=== PATIENT | male | born 1945 | race Caucasian/White ===

== ENCOUNTER → 2017-01-26 | Outpatient (CLI) | payer OTHER | END | disposition home or self-care (01) | LOC: XY 10:12 | PROVIDERS: ATTEND Family Medicine | DX: I65.21 Occlusion and stenosis of right carotid artery (principal); I10 Essential (primary) hypertension; I25.10 Atherosclerotic heart disease of native coronary artery without angina pectoris | CPT/HCPCS: 93886 ==

== ENCOUNTER → 2017-01-26 | Outpatient (CLI) | payer OTHER ==
[2017-01-26 11:04] LABS: Urine RBC None Seen /hpf (0 - 3)
[2017-01-26 11:15] LABS: Basophils # (auto) 0 uL; Basophils % (auto) 0.6 % (0.0-2.0); CONDITION Y; Eosinophils # (auto) 0.1 uL; Eosinophils % (auto) 2.3 % (0.0-7.0); Hematocrit 46.5 % (41.0-53.0); Lymphocytes # (auto) 1.7 uL; Lymphocytes % (auto) 27.6 % (10.0-50.0); Mean Corpuscular Hemoglobin 31.6 pg (28.0-32.0); Mean Corpuscular Hgb Conc. 34.5 g/dL (32.0-36.0); Mean Corpuscular Volume 91.5 fL (80.0-100.0); Mean Platelet Volume 10.7 fL (7.4-10.4); Monocytes # (auto) 0.5 uL; Neutrophils # (auto) 3.7 uL; Neutrophils % (auto) 61.5 % (37.0-80.0); Platelet Count (auto) 154 10^3/uL (140-450); Red Cell Distribution Width 14.3 % (11.6-16.0)
[2017-01-26 11:36] LABS: Urine Bilirubin Negative (Negative); Urine Blood Negative /uL (Negative); Urine Color Yellow (Yellow); Urine Glucose Normal (Normal); Urine Ketone Negative (Negative); Urine Mucus FEW (None Seen); Urine Nitrite Negative (Negative); Urine Urobilinogen Normal (Negative); Urine pH 5.5 (5.0-8.0)
[2017-01-26 11:38] LABS: Albumin 3.9 g/dL (3.4-5.0); BUN/Creatinine Ratio 16.4; Bilirubin, Total 2.5 mg/dL (0.2-1.0); Total Protein 7.4 g/dL (6.4-8.2)
== END | disposition home or self-care (01) ==
LOC: LAB 10:46
PROVIDERS: ATTEND Family Medicine
DX: E78.5 Hyperlipidemia, unspecified (principal); E55.9 Vitamin D deficiency, unspecified; R73.09 Other abnormal glucose
CPT/HCPCS: 36415; 80053; 80061; 81001; 82306; 82607; 83036; 84153; 85025

== ENCOUNTER → 2017-11-07 | Outpatient (CLI) | payer OTHER | END | disposition home or self-care (01) | LOC: LAB 10:49 | PROVIDERS: ATTEND Nurse Practitioner | DX: N39.0 Urinary tract infection, site not specified (principal); I25.10 Atherosclerotic heart disease of native coronary artery without angina pectoris; I10 Essential (primary) hypertension; E78.5 Hyperlipidemia, unspecified | CPT/HCPCS: 87086 ==

== ENCOUNTER 2018-01-10 16:36 | Emergency (ER) | payer OTHER ==
[~2018-01-10] VITALS: Ht 188 cm; Wt 96.2 kg
[2018-01-10] MEDS ORDERED: HYDROcodone-ACET 10/325MG TAB PO ONE (20:00)
[2018-01-10 21:16] VITALS: BP 125/80
== END 2018-01-10 21:42 | disposition home or self-care (01) ==
LOC: ER 16:36
DX: S76.011A Strain of muscle, fascia and tendon of right hip, initial encounter (principal); S39.012A Strain of muscle, fascia and tendon of lower back, initial encounter; S09.90XA Unspecified injury of head, initial encounter; M54.17 Radiculopathy, lumbosacral region; Z90.89 Acquired absence of other organs; W01.0XXA Fall on same level from slipping, tripping and stumbling without subsequent striking against object, initial encounter; Y93.89 Activity, other specified; Y99.8 Other external cause status; Y92.89 Other specified places as the place of occurrence of the external cause
CPT/HCPCS: 70450; 72131; 72170

== ENCOUNTER → 2018-02-09 | Outpatient (CLI) | payer OTHER ==
[2018-02-09 11:28] LABS: Basophils # (auto) 0 uL; Basophils % (auto) 0.7 % (0.0-2.0); Eosinophils # (auto) 0.1 uL; Eosinophils % (auto) 2.1 % (0.0-7.0); Hemoglobin 15.6 g/dL (13.5-17.5); Lymphocytes # (auto) 1.7 uL; Lymphocytes % (auto) 32.6 % (10.0-50.0); Mean Corpuscular Hemoglobin 31.4 pg (28.0-32.0); Mean Corpuscular Hgb Conc. 33.8 g/dL (32.0-36.0); Mean Corpuscular Volume 92.9 fL (80.0-100.0); Monocytes # (auto) 0.4 uL; Monocytes % (auto) 8.5 % (0.0-12.0); Neutrophils # (auto) 2.9 uL; Neutrophils % (auto) 56.1 % (37.0-80.0); Nucleated Red Blood Cells % 0.1 %; Platelet Count (auto) 127 10^3/uL (140-450); Red Blood Cells 4.95 10^6/uL (4.5-5.90); Red Cell Distribution Width 13.9 % (11.8-14.3); White Blood Cell 5.2 10^3/uL (4.4-10.8)
[2018-02-09 11:29] LABS: Urine Bacteria NONE SEEN /hpf (None Seen); Urine Blood Negative /uL (Negative); Urine Specific Gravity 1.015 (1.001-1.035); Urine WBC <1 /hpf (0 - 3)
[2018-02-09 11:46] LABS: Albumin 3.8 g/dL (3.4-5.0); BUN/Creatinine Ratio 18.5; Bilirubin, Total 1.6 mg/dL (0.2-1.0); Calcium 8.6 mg/dL (8.5-10.1); Potassium 4.1 mmol/L (3.5-5.1); Total Protein 7.2 g/dL (6.4-8.2)
== END | disposition home or self-care (01) ==
LOC: LAB 11:05
PROVIDERS: ATTEND Family Medicine
DX: Z00.01 Encounter for general adult medical examination with abnormal findings (principal); E55.9 Vitamin D deficiency, unspecified; M54.5 Low back pain; Z86.19 Personal history of other infectious and parasitic diseases
CPT/HCPCS: 36415; 80053; 80061; 81001; 82306; 85025

== ENCOUNTER → 2018-03-12 | Outpatient (CLI) | payer OTHER ==
[2018-03-12 16:24] LABS: Basophils # (auto) 0 uL; Basophils % (auto) 0.7 % (0.0-2.0); Eosinophils # (auto) 0.1 uL; Eosinophils % (auto) 1.5 % (0.0-7.0); Hematocrit 46.3 % (41.0-53.0); Lymphocytes # (auto) 1.5 uL; Lymphocytes % (auto) 24.8 % (10.0-50.0); Mean Corpuscular Hemoglobin 32.3 pg (28.0-32.0); Mean Corpuscular Hgb Conc. 34.6 g/dL (32.0-36.0); Mean Corpuscular Volume 93.3 fL (80.0-100.0); Monocytes # (auto) 0.4 uL; Monocytes % (auto) 7.1 % (0.0-12.0); Neutrophils # (auto) 4.1 uL; Neutrophils % (auto) 65.9 % (37.0-80.0); Platelet Count (auto) 135 10^3/uL (140-450); Red Blood Cells 4.96 10^6/uL (4.5-5.90); Red Cell Distribution Width 13.8 % (11.8-14.3); White Blood Cell 6.2 10^3/uL (4.4-10.8)
[2018-03-12 17:57] LABS: BUN/Creatinine Ratio 22.9; Calcium 8.7 mg/dL (8.5-10.1); Potassium 4.3 mmol/L (3.5-5.1)
== END | disposition home or self-care (01) ==
LOC: LAB 16:07
PROVIDERS: ATTEND Family Medicine
DX: Z12.5 Encounter for screening for malignant neoplasm of prostate (principal); D69.6 Thrombocytopenia, unspecified
CPT/HCPCS: 36415; 80048; 84153; 85025

== ENCOUNTER 2018-03-13 14:24 | Inpatient (IN) | payer OTHER ==
[~2018-03-13] VITALS: Ht 370.8 cm; Wt 99.8 kg
[2018-03-13 15:32] LABS: Basophils # (auto) 0 uL; Basophils % (auto) 0.6 % (0.0-2.0); Eosinophils # (auto) 0.1 uL; Eosinophils % (auto) 1.6 % (0.0-7.0); Hematocrit 46.1 % (41.0-53.0); Hemoglobin 15.7 g/dL (13.5-17.5); Lymphocytes # (auto) 1.6 uL; Lymphocytes % (auto) 24.2 % (10.0-50.0); Mean Corpuscular Hgb Conc. 34.2 g/dL (32.0-36.0); Mean Corpuscular Volume 93.7 fL (80.0-100.0); Monocytes # (auto) 0.5 uL; Monocytes % (auto) 7.9 % (0.0-12.0); Neutrophils # (auto) 4.2 uL; Neutrophils % (auto) 65.7 % (37.0-80.0); Nucleated Red Blood Cells % 0.1 %; Platelet Count (auto) 125 10^3/uL (140-450); Red Blood Cells 4.92 10^6/uL (4.5-5.90); Red Cell Distribution Width 13.8 % (11.8-14.3); White Blood Cell 6.5 10^3/uL (4.4-10.8)
[2018-03-13 15:46] LABS: Alanine Aminotransferase 31 U/L (16-61); Albumin 3.6 g/dL (3.4-5.0); Anion Gap 10 (5-15); Aspartate Aminotransferase 25 U/L (15-37); BUN/Creatinine Ratio 19.2; Blood Urea Nitrogen 24 mg/dL (7-18); Calcium 8.3 mg/dL (8.5-10.1); Carbon Dioxide 23 mmol/L (21-32); Chloride 106 mmol/L (98-107); GFR African American 73 mL/min; GFR Non-African American 60 mL/min; Glucose 116 mg/dL (74-106); Magnesium 2.2 mg/dL (1.6-2.6); Potassium 4.2 mmol/L (3.5-5.1); Sodium 139 mmol/L (136-145)
[2018-03-13 15:51] LABS: Alkaline Phosphatase 43 U/L (45-117); Bilirubin, Total 1.8 mg/dL (0.2-1.0)
[2018-03-13] MEDS ORDERED: DOCUSATE SOD 100 MG CAP PO PRN (16:45)
[2018-03-13] MEDS ORDERED: ACETAMINOPHEN/CODEINE#3 (300/30mg) TAB PO PRN (16:45)
[2018-03-13] MEDS ORDERED: ONDANSETRON HCL 4 MG/2 ML VIAL IV PRN (16:45)
[2018-03-13] MEDS ORDERED: ACETAMINOPHEN 325 MG TAB PO PRN (16:45)
[2018-03-13] MEDS ORDERED: MORPHINE SULFATE 4 MG/ML SYR/VIAL IV PRN (16:45)
[2018-03-13] MEDS ORDERED: TEMAZEPAM 15 MG CAP PO PRN (16:45)
[2018-03-13 21:20] VITALS: BP 144/77
[2018-03-13 22:00] VITALS: BP 144/77
[2018-03-13] MEDS: FAMOTIDINE 20 MG TAB PO SCH (22:00)
[2018-03-14] MEDS: SODIUM CHLOR 0.9% PF (SALINE LOCK) 10ML VIAL/SYR IV SCH ×3 (00:55→14:00)
[2018-03-14] MEDS: HYDROcodone-ACET 5/325MG TAB PO PRN ×2 (01:00→09:23)
[2018-03-14 04:05] VITALS: BP 152/92
[2018-03-14 05:00] VITALS: BP 152/92
[2018-03-14 06:06] LABS: Basophils # (auto) 0 uL; Basophils % (auto) 0.5 % (0.0-2.0); Eosinophils # (auto) 0.1 uL; Eosinophils % (auto) 1.4 % (0.0-7.0); Hematocrit 44.1 % (41.0-53.0); Hemoglobin 15.3 g/dL (13.5-17.5); Lymphocytes # (auto) 1.9 uL; Lymphocytes % (auto) 25.3 % (10.0-50.0); Mean Corpuscular Hemoglobin 32.3 pg (28.0-32.0); Mean Corpuscular Hgb Conc. 34.8 g/dL (32.0-36.0); Monocytes # (auto) 0.6 uL; Monocytes % (auto) 8.8 % (0.0-12.0); Neutrophils # (auto) 4.7 uL; Nucleated Red Blood Cells % 0.1 %; Platelet Count (auto) 113 10^3/uL (140-450); Red Blood Cells 4.74 10^6/uL (4.5-5.90); White Blood Cell 7.4 10^3/uL (4.4-10.8)
[2018-03-14 06:09] LABS: Albumin 3.7 g/dL (3.4-5.0); BUN/Creatinine Ratio 19.7; Bilirubin, Total 1.8 mg/dL (0.2-1.0); Potassium 4.4 mmol/L (3.5-5.1); Total Protein 6.8 g/dL (6.4-8.2)
[2018-03-14 08:40] VITALS: BP 145/89
[2018-03-14] MEDS: FAMOTIDINE 20 MG TAB PO SCH (09:24)
[2018-03-14] MEDS ORDERED: MULTIPLE VITAMIN TAB PO SCH (10:00)
[2018-03-14 12:05] VITALS: BP 142/74
== END 2018-03-14 16:20 | disposition home or self-care (01) | DRG 605 ==
LOC: EDBD 14:24 → ER 14:26 → OVERFLOW 14:27 → CENTRAL 21:22
PROVIDERS: ADMIT Internal Medicine; ATTEND Internal Medicine
DX: S70.01XA Contusion of right hip, initial encounter (principal); D69.6 Thrombocytopenia, unspecified; E83.51 Hypocalcemia; G89.29 Other chronic pain; M19.90 Unspecified osteoarthritis, unspecified site; N18.3 Chronic kidney disease, stage 3 (moderate); M48.07 Spinal stenosis, lumbosacral region; W18.39XA Other fall on same level, initial encounter; M54.5 Low back pain; Z83.3 Family history of diabetes mellitus; Z82.49 Family history of ischemic heart disease and other diseases of the circulatory system; Z90.49 Acquired absence of other specified parts of digestive tract; Y93.89 Activity, other specified; Y92.89 Other specified places as the place of occurrence of the external cause; Y99.8 Other external cause status
CPT/HCPCS: 36415; 70450; 71045; 72131; 73502; 73700; 80053; 83735; 84484; 85025; 93005; 94761

== ENCOUNTER → 2018-05-02 | Outpatient (CLI) | payer OTHER ==
[2018-05-02 12:50] LABS: Calcium 8.8 mg/dL (8.5-10.1)
[2018-05-02 12:52] LABS: BUN/Creatinine Ratio 29.2
== END | disposition home or self-care (01) ==
LOC: LAB 11:30
PROVIDERS: ATTEND Urology
DX: N40.1 Benign prostatic hyperplasia with lower urinary tract symptoms (principal)
CPT/HCPCS: 36415; 80048; 84153; 84403

== ENCOUNTER → 2019-05-24 | Outpatient (CLI) | payer OTHER ==
[2019-05-24 09:03] LABS: Basophils # (auto) 0 uL; Basophils % (auto) 0.9 % (0.0-2.0); Eosinophils # (auto) 0.2 uL; Hematocrit 45.5 % (41.0-53.0); Hemoglobin 15.4 g/dL (13.5-17.5); Lymphocytes # (auto) 1.4 uL; Lymphocytes % (auto) 26.7 % (10.0-50.0); Mean Corpuscular Hemoglobin 31.7 pg (28.0-32.0); Mean Corpuscular Hgb Conc. 33.8 g/dL (32.0-36.0); Mean Corpuscular Volume 93.8 fL (80.0-100.0); Monocytes # (auto) 0.5 uL; Monocytes % (auto) 8.6 % (0.0-12.0); Neutrophils # (auto) 3.2 uL; Neutrophils % (auto) 60.8 % (37.0-80.0); Nucleated Red Blood Cells % 0.1 %; Platelet Count (auto) 141 10^3/uL (140-450); Red Blood Cells 4.86 10^6/uL (4.5-5.90); Red Cell Distribution Width 13.9 % (11.8-14.3); White Blood Cell 5.3 10^3/uL (4.4-10.8)
[2019-05-24 09:11] LABS: Urine Bacteria NONE SEEN /hpf (None Seen); Urine Blood Negative /uL (Negative); Urine Mucus FEW (None Seen); Urine Specific Gravity 1.022 (1.001-1.035); Urine WBC <1 /hpf (0 - 3)
[2019-05-24 09:47] LABS: Albumin 3.7 g/dL (3.4-5.0); Calcium 8.7 mg/dL (8.5-10.1); Potassium 3.9 mmol/L (3.5-5.1)
[2019-05-24 09:53] LABS: BUN/Creatinine Ratio 22.9; Bilirubin, Total 1.6 mg/dL (0.2-1.0); Total Protein 6.9 g/dL (6.4-8.2)
[2019-05-24 09:55] LABS: Prostate Specific Antigen 0.33 ng/mL (0.0-4.0)
== END | disposition home or self-care (01) ==
LOC: LAB 08:34
PROVIDERS: ATTEND Family Medicine
DX: N40.1 Benign prostatic hyperplasia with lower urinary tract symptoms (principal); E55.9 Vitamin D deficiency, unspecified; R25.1 Tremor, unspecified; M17.10 Unilateral primary osteoarthritis, unspecified knee
CPT/HCPCS: 36415; 80053; 80061; 81001; 82306; 82607; 84153; 85025

== ENCOUNTER → 2019-10-07 | Outpatient (CLI) | payer OTHER | END | disposition home or self-care (01) | LOC: LAB 08:15 | PROVIDERS: ATTEND Urology | DX: N40.1 Benign prostatic hyperplasia with lower urinary tract symptoms (principal) | CPT/HCPCS: 84153 ==

== ENCOUNTER 2020-03-09 18:11 | Emergency (ER) | payer OTHER ==
[~2020-03-09] VITALS: Ht 188 cm; Wt 98.9 kg
[2020-03-09 19:49] VITALS: BP 136/71
[2020-03-09 19:57] LABS: Basophils # (auto) 0 10 ^3/uL (0-0.2); Basophils % (auto) 0.6 % (0.0-2.0); Eosinophils # (auto) 0.1 10 ^3/uL (0-0.8); Eosinophils % (auto) 1.8 % (0.0-7.0); Hemoglobin 14.9 g/dL (13.5-17.5); Lymphocytes # (auto) 1.4 10 ^3/uL (0.4-5.4); Lymphocytes % (auto) 23.9 % (10.0-50.0); Mean Corpuscular Hemoglobin 32.3 pg (28.0-32.0); Mean Corpuscular Hgb Conc. 34.7 g/dL (32.0-36.0); Mean Corpuscular Volume 93.2 fL (80.0-100.0); Monocytes # (auto) 0.4 10 ^3/uL (0-1.3); Monocytes % (auto) 7.2 % (0.0-12.0); Neutrophils # (auto) 3.9 10 ^3/uL (1.6-8.6); Neutrophils % (auto) 66.5 % (37.0-80.0); Nucleated Red Blood Cells % 0.3 %; Platelet Count (auto) 123 10^3/uL (140-450); Red Blood Cells 4.61 10^6/uL (4.5-5.90); White Blood Cell 5.8 10^3/uL (4.4-10.8)
[2020-03-09 20:18] LABS: Alanine Aminotransferase 27 U/L (16-61); Albumin 3.5 g/dL (3.4-5.0); Anion Gap 6 (5-15); Aspartate Aminotransferase 22 U/L (15-37); Blood Urea Nitrogen 26 mg/dL (7-18); Calcium 8.4 mg/dL (8.5-10.1); Carbon Dioxide 25 mmol/L (21-32); Chloride 109 mmol/L (98-107); GFR African American 94 mL/min; GFR Non-African American 78 mL/min; Glucose 101 mg/dL (74-106); Potassium 3.9 mmol/L (3.5-5.1); Sodium 140 mmol/L (136-145)
[2020-03-09 20:24] LABS: Alkaline Phosphatase 42 U/L (45-117); Bilirubin, Total 1.7 mg/dL (0.2-1.0); Total Protein 6.4 g/dL (6.4-8.2)
== END 2020-03-09 19:56 | disposition home or self-care (01) ==
LOC: EDBD 18:11 → ER 18:11
DX: H81.4 Vertigo of central origin (principal); Z90.49 Acquired absence of other specified parts of digestive tract
CPT/HCPCS: 36415; 70450; 80053; 84484; 85025; 93005

== ENCOUNTER 2020-03-13 17:17 | Inpatient (IN) | payer OTHER ==
[~2020-03-13] VITALS: Ht 188 cm; Wt 95.6 kg
[2020-03-13 17:49] LABS: Basophils # (auto) 0.1 10 ^3/uL (0-0.2); Basophils % (auto) 0.7 % (0.0-2.0); Eosinophils # (auto) 0.1 10 ^3/uL (0-0.8); Eosinophils % (auto) 1.3 % (0.0-7.0); Hematocrit 49.2 % (41.0-53.0); Hemoglobin 16.9 g/dL (13.5-17.5); Lymphocytes # (auto) 1.9 10 ^3/uL (0.4-5.4); Lymphocytes % (auto) 22.6 % (10.0-50.0); Mean Corpuscular Hgb Conc. 34.3 g/dL (32.0-36.0); Mean Corpuscular Volume 93.2 fL (80.0-100.0); Monocytes # (auto) 0.6 10 ^3/uL (0-1.3); Neutrophils # (auto) 5.6 10 ^3/uL (1.6-8.6); Neutrophils % (auto) 68.4 % (37.0-80.0); Nucleated Red Blood Cells % 0.1 %; Platelet Count (auto) 156 10^3/uL (140-450); Red Blood Cells 5.28 10^6/uL (4.5-5.90); White Blood Cell 8.2 10^3/uL (4.4-10.8)
[2020-03-13 18:04] LABS: INR 1.08 (0.9-1.15); Partial Thromboplastin Time 26.4 sec (23.0-31.2)
[2020-03-13 18:10] LABS: Alanine Aminotransferase 31 U/L (16-61); Albumin 3.9 g/dL (3.4-5.0); Anion Gap 7 (5-15); Aspartate Aminotransferase 18 U/L (15-37); BUN/Creatinine Ratio 17.8; Blood Alcohol < 3.0 mg/dL (0-5); Blood Urea Nitrogen 26 mg/dL (7-18); Calcium 9.5 mg/dL (8.5-10.1); Carbon Dioxide 25 mmol/L (21-32); Chloride 107 mmol/L (98-107); GFR African American 61 mL/min; GFR Non-African American 50 mL/min; Glucose 135 mg/dL (74-106); Magnesium 2.3 mg/dL (1.6-2.6); Potassium 3.9 mmol/L (3.5-5.1); Sodium 139 mmol/L (136-145)
[2020-03-13 18:18] LABS: Alkaline Phosphatase 47 U/L (45-117); Bilirubin, Total 2.5 mg/dL (0.2-1.0); Total Protein 7.3 g/dL (6.4-8.2)
[2020-03-13 19:38] LABS: Urine Bacteria NONE SEEN /hpf (None Seen); Urine Blood Negative /uL (Negative); Urine Hyaline Cast MANY /lpf (0 - 2); Urine Mucus MODERATE (None Seen); Urine Specific Gravity 1.033 (1.001-1.035); Urine WBC 2 /hpf (0 - 3)
[2020-03-13] MEDS ORDERED: ACETAMINOPHEN 325 MG TAB PO ONE (19:45)
[2020-03-13] MEDS ORDERED: ACETAMINOPHEN 325 MG TAB PO PRN (22:15)
[2020-03-13] MEDS ORDERED: DOCUSATE SOD 100 MG CAP PO PRN (22:15)
[2020-03-13] MEDS ORDERED: MORPHINE SULF INJ 2 MG/ML SYRINGE 1ML IV PRN (22:15)
[2020-03-13] MEDS ORDERED: ONDANSETRON HCL 4 MG/2 ML VIAL IV PRN (22:15)
[2020-03-13] MEDS ORDERED: NITROGLYCERIN 0.4 MG SL TAB SL PRN (22:15)
[2020-03-13 23:12] VITALS: BP 159/79
[2020-03-14] MEDS ORDERED: FINA5TAB4 PO (01:01)
[2020-03-14] MEDS ORDERED: TAM04C PO (01:01)
[2020-03-14] MEDS ORDERED: PRIM50TA29 PO (01:01)
[2020-03-14 06:06] VITALS: BP 140/74
[2020-03-14 06:16] LABS: Basophils # (auto) 0 10 ^3/uL (0-0.2); Basophils % (auto) 0.7 % (0.0-2.0); Eosinophils # (auto) 0.2 10 ^3/uL (0-0.8); Eosinophils % (auto) 2.6 % (0.0-7.0); Hematocrit 43.2 % (41.0-53.0); Hemoglobin 14.6 g/dL (13.5-17.5); Lymphocytes # (auto) 2.2 10 ^3/uL (0.4-5.4); Lymphocytes % (auto) 35.7 % (10.0-50.0); Mean Corpuscular Hemoglobin 31.9 pg (28.0-32.0); Mean Corpuscular Hgb Conc. 33.9 g/dL (32.0-36.0); Mean Corpuscular Volume 94.1 fL (80.0-100.0); Monocytes # (auto) 0.6 10 ^3/uL (0-1.3); Monocytes % (auto) 9.3 % (0.0-12.0); Neutrophils # (auto) 3.2 10 ^3/uL (1.6-8.6); Neutrophils % (auto) 51.7 % (37.0-80.0); Nucleated Red Blood Cells % 0.2 %; Platelet Count (auto) 121 10^3/uL (140-450); Red Blood Cells 4.59 10^6/uL (4.5-5.90); Red Cell Distribution Width 14.2 % (11.8-14.3); White Blood Cell 6.1 10^3/uL (4.4-10.8)
[2020-03-14] MEDS: SODIUM CHLOR 0.9% PF (SALINE LOCK) 10ML VIAL/SYR IV SCH ×3 (06:31→22:08)
[2020-03-14 06:33] LABS: Albumin 3.3 g/dL (3.4-5.0); Calcium 8.5 mg/dL (8.5-10.1); Potassium 4.3 mmol/L (3.5-5.1)
[2020-03-14 06:36] LABS: BUN/Creatinine Ratio 24.6; Bilirubin, Total 1.3 mg/dL (0.2-1.0); Total Protein 6.1 g/dL (6.4-8.2)
[2020-03-14 08:46] VITALS: BP 146/77
[2020-03-14] MEDS: PANTOPRAZOLE 40 MG/10 ML VIAL INJ IV SCH (09:22)
[2020-03-14] MEDS: FINASTERIDE 5 MG TAB PO SCH (09:22)
[2020-03-14] MEDS ORDERED: MECLIZINE HCL 25 MG TAB PO SCH (10:00)
[2020-03-14] MEDS ORDERED: PRIMIDONE 50 MG TAB PO SCH ×2 (10:00→12:15)
[2020-03-14 12:54] VITALS: BP 146/70
[2020-03-14 16:33] VITALS: BP 151/77
[2020-03-14] MEDS: MECLIZINE HCL 25 MG TAB PO SCH ×2 (18:31→22:08)
[2020-03-14] MEDS: TAMSULOSIN HYDROCHLORIDE 0.4 MG CAP PO SCH (18:31)
[2020-03-14] MEDS: PRIMIDONE 50 MG TAB PO SCH (22:08)
[2020-03-14 22:20] VITALS: BP 116/66
[2020-03-15 05:18] VITALS: BP 118/75
[2020-03-15] MEDS: SODIUM CHLOR 0.9% PF (SALINE LOCK) 10ML VIAL/SYR IV SCH ×3 (06:01→23:18)
[2020-03-15 06:43] LABS: Basophils # (auto) 0 10 ^3/uL (0-0.2); Basophils % (auto) 0.5 % (0.0-2.0); Eosinophils # (auto) 0.1 10 ^3/uL (0-0.8); Eosinophils % (auto) 2.6 % (0.0-7.0); Lymphocytes # (auto) 1.8 10 ^3/uL (0.4-5.4); Lymphocytes % (auto) 32.2 % (10.0-50.0); Mean Corpuscular Hemoglobin 32.1 pg (28.0-32.0); Mean Corpuscular Hgb Conc. 34.1 g/dL (32.0-36.0); Mean Corpuscular Volume 94.1 fL (80.0-100.0); Monocytes # (auto) 0.5 10 ^3/uL (0-1.3); Neutrophils # (auto) 3.1 10 ^3/uL (1.6-8.6); Neutrophils % (auto) 55.7 % (37.0-80.0); Nucleated Red Blood Cells % 0.2 %; Platelet Count (auto) 115 10^3/uL (140-450); Red Blood Cells 4.67 10^6/uL (4.5-5.90); Red Cell Distribution Width 14.2 % (11.8-14.3); White Blood Cell 5.5 10^3/uL (4.4-10.8)
[2020-03-15] MEDS: MECLIZINE HCL 25 MG TAB PO SCH ×4 (06:57→23:18)
[2020-03-15 07:03] LABS: Potassium 3.9 mmol/L (3.5-5.1)
[2020-03-15 07:07] LABS: BUN/Creatinine Ratio 20.2; Calcium 8.8 mg/dL (8.5-10.1)
[2020-03-15 08:00] VITALS: BP 127/71
[2020-03-15 09:00] VITALS: BP_SYST 127; BP_SYST 146; BP_DIAS 71; BP_DIAS 90
[2020-03-15] MEDS: PANTOPRAZOLE 40 MG/10 ML VIAL INJ IV SCH (12:04)
[2020-03-15] MEDS: FINASTERIDE 5 MG TAB PO SCH (12:04)
[2020-03-15 13:00] VITALS: BP 129/72
[2020-03-15 17:00] VITALS: BP 133/69
[2020-03-15] MEDS: TAMSULOSIN HYDROCHLORIDE 0.4 MG CAP PO SCH (17:04)
[2020-03-15 22:00] VITALS: BP 148/79
[2020-03-15] MEDS: PRIMIDONE 50 MG TAB PO SCH (23:19)
[2020-03-16 05:00] VITALS: BP 120/66
[2020-03-16] MEDS: SODIUM CHLOR 0.9% PF (SALINE LOCK) 10ML VIAL/SYR IV SCH ×2 (06:21→14:00)
[2020-03-16] MEDS: MECLIZINE HCL 25 MG TAB PO SCH ×2 (06:21→11:35)
[2020-03-16 07:44] LABS: Basophils # (auto) 0 10 ^3/uL (0-0.2); Basophils % (auto) 0.5 % (0.0-2.0); Eosinophils # (auto) 0.1 10 ^3/uL (0-0.8); Eosinophils % (auto) 2.2 % (0.0-7.0); Hematocrit 45.1 % (41.0-53.0); Hemoglobin 15.2 g/dL (13.5-17.5); Lymphocytes # (auto) 1.7 10 ^3/uL (0.4-5.4); Lymphocytes % (auto) 26.9 % (10.0-50.0); Mean Corpuscular Hemoglobin 31.8 pg (28.0-32.0); Mean Corpuscular Hgb Conc. 33.7 g/dL (32.0-36.0); Mean Corpuscular Volume 94.5 fL (80.0-100.0); Monocytes # (auto) 0.5 10 ^3/uL (0-1.3); Monocytes % (auto) 8.6 % (0.0-12.0); Neutrophils # (auto) 3.8 10 ^3/uL (1.6-8.6); Neutrophils % (auto) 61.8 % (37.0-80.0); Nucleated Red Blood Cells % 0.1 %; Platelet Count (auto) 117 10^3/uL (140-450); Red Blood Cells 4.77 10^6/uL (4.5-5.90); White Blood Cell 6.2 10^3/uL (4.4-10.8)
[2020-03-16 07:51] LABS: Calcium 8.7 mg/dL (8.5-10.1); Potassium 4.2 mmol/L (3.5-5.1)
[2020-03-16 07:53] LABS: BUN/Creatinine Ratio 17.6
[2020-03-16] MEDS: FINASTERIDE 5 MG TAB PO SCH (10:35)
[2020-03-16] MEDS: PANTOPRAZOLE 40 MG/10 ML VIAL INJ IV SCH (10:35)
[2020-03-16 13:37] VITALS: BP 136/68
[2020-03-16 15:40] VITALS: BP 136/68
== END 2020-03-16 16:30 | disposition home or self-care (01) | DRG 149 ==
LOC: ER 17:17 → TELE 17:18 → TELE-WESTW 23:17
PROVIDERS: ADMIT Nurse Practitioner Family; ATTEND Internal Medicine
DX: H81.10 Benign paroxysmal vertigo, unspecified ear (principal); N17.0 Acute kidney failure with tubular necrosis; G45.9 Transient cerebral ischemic attack, unspecified; N18.30 Chronic kidney disease, stage 3 unspecified; N40.0 Benign prostatic hyperplasia without lower urinary tract symptoms
CPT/HCPCS: 36415; 70450; 70547; 70551; 71045; 71250; 80048; 80053; 80320; 81001; 83735; 84484; 85025; 85610; 85730; 93005; 93886; 96374; 96375; 97530; C9113; G0378

== ENCOUNTER → 2020-08-27 | Outpatient (CLI) | payer OTHER ==
[~2020-08-27] MED LIST: CHOL20007 PO; FINA5TAB4 PO; MULT-548 PO; PRIM50TA27 PO; TAM04C PO
[2020-08-27 16:15] LABS: Basophils # (auto) 0.1 10 ^3/uL (0-0.2); Basophils % (auto) 1.2 % (0.0-2.0); Eosinophils # (auto) 0.2 10 ^3/uL (0-0.8); Eosinophils % (auto) 3.9 % (0.0-7.0); Hematocrit 45.1 % (41.0-53.0); Hemoglobin 15.6 g/dL (13.5-17.5); Lymphocytes # (auto) 1.6 10 ^3/uL (0.4-5.4); Lymphocytes % (auto) 34.9 % (10.0-50.0); Mean Corpuscular Hemoglobin 31.9 pg (28.0-32.0); Mean Corpuscular Hgb Conc. 34.5 g/dL (32.0-36.0); Mean Corpuscular Volume 92.6 fL (80.0-100.0); Monocytes # (auto) 0.6 10 ^3/uL (0-1.3); Monocytes % (auto) 12.1 % (0.0-12.0); Neutrophils # (auto) 2.2 10 ^3/uL (1.6-8.6); Neutrophils % (auto) 47.9 % (37.0-80.0); Nucleated Red Blood Cells % 0.4 %; Platelet Count (auto) 119 10^3/uL (140-450); Red Blood Cells 4.87 10^6/uL (4.5-5.90); Red Cell Distribution Width 14.1 % (11.8-14.3); White Blood Cell 4.7 10^3/uL (4.4-10.8)
[2020-08-27 16:30] LABS: Urine Bacteria NONE SEEN /hpf (None Seen); Urine Blood Negative /uL (Negative); Urine Mucus FEW (None Seen); Urine Specific Gravity 1.029 (1.001-1.035); Urine WBC <1 /hpf (0 - 3)
[2020-08-27 16:49] LABS: Albumin 3.6 g/dL (3.4-5.0); Potassium 3.8 mmol/L (3.5-5.1)
[2020-08-27 16:54] LABS: BUN/Creatinine Ratio 27.4; Bilirubin, Total 2.1 mg/dL (0.2-1.0); Total Protein 7.2 g/dL (6.4-8.2)
[2020-08-27 16:57] LABS: Prostate Specific Antigen 0.19 ng/mL (0.0-4.0)
== END | disposition home or self-care (01) ==
LOC: LAB 16:03
PROVIDERS: ATTEND Family Medicine
DX: E78.2 Mixed hyperlipidemia (principal); N40.1 Benign prostatic hyperplasia with lower urinary tract symptoms; I70.0 Atherosclerosis of aorta; R42 Dizziness and giddiness; D69.6 Thrombocytopenia, unspecified
CPT/HCPCS: 36415; 80053; 80061; 81001; 82607; 84153; 85025

== ENCOUNTER → 2020-09-04 | Outpatient (CLI) | payer OTHER | END | disposition home or self-care (01) | LOC: XYW 10:09 | PROVIDERS: ATTEND Family Medicine | DX: I67.82 Cerebral ischemia (principal); G93.89 Other specified disorders of brain; M43.12 Spondylolisthesis, cervical region; M48.02 Spinal stenosis, cervical region; M25.78 Osteophyte, vertebrae; M89.38 Hypertrophy of bone, other site; E04.1 Nontoxic single thyroid nodule; G25.0 Essential tremor; M54.2 Cervicalgia | CPT/HCPCS: 70551; 72141 ==

== ENCOUNTER → 2020-10-05 | Outpatient (CLI) | payer OTHER ==
[2020-10-05 13:02] LABS: Prostate Specific Antigen 0.23 ng/mL (0.0-4.0)
== END | disposition home or self-care (01) ==
LOC: LAB 11:51
PROVIDERS: ATTEND Urology
DX: N40.0 Benign prostatic hyperplasia without lower urinary tract symptoms (principal); D69.6 Thrombocytopenia, unspecified; G25.0 Essential tremor; E55.9 Vitamin D deficiency, unspecified
CPT/HCPCS: 82306; 82607; 84153

== ENCOUNTER 2021-02-24 09:33 | Emergency (ER) | payer OTHER ==
[~2021-02-24] VITALS: Ht 182.9 cm; Wt 83.9 kg
[2021-02-24 10:19] LABS: Basophils # (auto) 0 10 ^3/uL (0-0.2); Basophils % (auto) 0.4 % (0.0-2.0); Eosinophils # (auto) 0.1 10 ^3/uL (0-0.8); Eosinophils % (auto) 1.6 % (0.0-7.0); Hematocrit 45.7 % (41.0-53.0); Hemoglobin 15.7 g/dL (13.5-17.5); Lymphocytes # (auto) 1.6 10 ^3/uL (0.4-5.4); Lymphocytes % (auto) 21.5 % (10.0-50.0); Mean Corpuscular Hemoglobin 32.1 pg (28.0-32.0); Mean Corpuscular Hgb Conc. 34.3 g/dL (32.0-36.0); Mean Corpuscular Volume 93.6 fL (80.0-100.0); Monocytes # (auto) 0.6 10 ^3/uL (0-1.3); Monocytes % (auto) 7.5 % (0.0-12.0); Neutrophils # (auto) 5.2 10 ^3/uL (1.6-8.6); Red Blood Cells 4.88 10^6/uL (4.5-5.90); White Blood Cell 7.5 10^3/uL (4.4-10.8)
[2021-02-24 10:27] LABS: INR 1.08 (0.9-1.15); Partial Thromboplastin Time 25.4 sec (23.6-33.0)
[2021-02-24 10:28] LABS: Albumin 3.7 g/dL (3.4-5.0); Anion Gap 9 (5-15); Aspartate Aminotransferase 19 U/L (15-37); BUN/Creatinine Ratio 21.1; Blood Urea Nitrogen 30 mg/dL (7-18); Calcium 8.7 mg/dL (8.5-10.1); Carbon Dioxide 24 mmol/L (21-32); Chloride 108 mmol/L (98-107); GFR African American 63 mL/min; GFR Non-African American 52 mL/min; Glucose 132 mg/dL (74-106); Magnesium 2.4 mg/dL (1.6-2.6); Sodium 141 mmol/L (136-145)
[2021-02-24 10:38] LABS: Alanine Aminotransferase 24 U/L (16-61); Alkaline Phosphatase 42 U/L (45-117); Bilirubin, Total 2.6 mg/dL (0.2-1.0)
[2021-02-24 13:31] VITALS: BP 140/71
== END 2021-02-24 16:28 | disposition home or self-care (01) ==
LOC: ER 09:33
DX: R07.89 Other chest pain (principal); N40.0 Benign prostatic hyperplasia without lower urinary tract symptoms; I10 Essential (primary) hypertension; Z86.73 Personal history of transient ischemic attack (TIA), and cerebral infarction without residual deficits; Z90.89 Acquired absence of other organs; Z98.890 Other specified postprocedural states
CPT/HCPCS: 36415; 71046; 80053; 83735; 84484; 85025; 85610; 85730; 93005

== ENCOUNTER 2021-03-05 14:35 | Inpatient (IN) | payer OTHER ==
[~2021-03-05] VITALS: Ht 188 cm; Wt 95.0 kg
[2021-03-05 15:29] LABS: Basophils # (auto) 0 10 ^3/uL (0-0.2); Basophils % (auto) 0.6 % (0.0-2.0); Eosinophils # (auto) 0.1 10 ^3/uL (0-0.8); Eosinophils % (auto) 0.8 % (0.0-7.0); Hematocrit 47.6 % (41.0-53.0); Hemoglobin 15.7 g/dL (13.5-17.5); Lymphocytes # (auto) 0.7 10 ^3/uL (0.4-5.4); Lymphocytes % (auto) 10.6 % (10.0-50.0); Mean Corpuscular Hemoglobin 31.1 pg (28.0-32.0); Mean Corpuscular Hgb Conc. 32.9 g/dL (32.0-36.0); Mean Corpuscular Volume 94.5 fL (80.0-100.0); Monocytes # (auto) 0.5 10 ^3/uL (0-1.3); Monocytes % (auto) 6.8 % (0.0-12.0); Neutrophils # (auto) 5.5 10 ^3/uL (1.6-8.6); Neutrophils % (auto) 81.2 % (37.0-80.0); Nucleated Red Blood Cells % 0.1 %; Red Blood Cells 5.04 10^6/uL (4.5-5.90); Red Cell Distribution Width 14.3 % (11.8-14.3); White Blood Cell 6.8 10^3/uL (4.4-10.8)
[2021-03-05 15:36] LABS: INR 1.1 (0.9-1.15); Partial Thromboplastin Time 25.4 sec (23.6-33.0)
[2021-03-05 15:37] LABS: Albumin 3.5 g/dL (3.4-5.0); Anion Gap 11 (5-15); Blood Urea Nitrogen 25 mg/dL (7-18); Calcium 9.1 mg/dL (8.5-10.1); Carbon Dioxide 25 mmol/L (21-32); Chloride 103 mmol/L (98-107); Glucose 112 mg/dL (74-106); Potassium 3.8 mmol/L (3.5-5.1); Sodium 139 mmol/L (136-145)
[2021-03-05 15:39] LABS: Alanine Aminotransferase 23 U/L (16-61); Aspartate Aminotransferase 19 U/L (15-37); BUN/Creatinine Ratio 16.6; GFR African American 58 mL/min; GFR Non-African American 48 mL/min
[2021-03-05 15:43] LABS: Alkaline Phosphatase 41 U/L (45-117); Bilirubin, Total 3.2 mg/dL (0.2-1.0)
[2021-03-05] MEDS ORDERED: ACETAMINOPHEN 500 MG TAB PO PRN (16:45)
[2021-03-05] MEDS ORDERED: NITROGLYCERIN 0.4 MG SL TAB SL PRN (16:45)
[2021-03-05] MEDS ORDERED: DOCUSATE CALCIUM 240 MG CAP PO PRN (16:45)
[2021-03-05] MEDS ORDERED: ONDANSETRON HCL 4 MG/2 ML VIAL IV PRN (16:45)
[2021-03-05] MEDS ORDERED: MORPHINE SULFATE INJECTION 2 MG/ML SYRG IV PRN ×2 (16:45)
[2021-03-05] MEDS ORDERED: hydrALAZINE HCL 20 MG/ML VL IV PRN (16:45)
[2021-03-05] MEDS ORDERED: LORazepam 0.5 MG TAB PO PRN (16:45)
[2021-03-06 04:35] LABS: Basophils # (auto) 0 10 ^3/uL (0-0.2); Basophils % (auto) 0.4 % (0.0-2.0); Eosinophils # (auto) 0.1 10 ^3/uL (0-0.8); Eosinophils % (auto) 1.5 % (0.0-7.0); Hematocrit 45.2 % (41.0-53.0); Hemoglobin 15.2 g/dL (13.5-17.5); Lymphocytes # (auto) 1.6 10 ^3/uL (0.4-5.4); Lymphocytes % (auto) 21.2 % (10.0-50.0); Mean Corpuscular Hemoglobin 31.7 pg (28.0-32.0); Mean Corpuscular Hgb Conc. 33.7 g/dL (32.0-36.0); Mean Corpuscular Volume 94.2 fL (80.0-100.0); Monocytes # (auto) 0.7 10 ^3/uL (0-1.3); Monocytes % (auto) 8.9 % (0.0-12.0); Neutrophils # (auto) 5.1 10 ^3/uL (1.6-8.6); Nucleated Red Blood Cells % 0.1 %; Red Cell Distribution Width 14.5 % (11.8-14.3); White Blood Cell 7.4 10^3/uL (4.4-10.8)
[2021-03-06 04:48] LABS: Albumin 3.4 g/dL (3.4-5.0); Calcium 9.2 mg/dL (8.5-10.1)
[2021-03-06 04:52] LABS: BUN/Creatinine Ratio 22.1; Bilirubin, Total 2.2 mg/dL (0.2-1.0); Total Protein 6.3 g/dL (6.4-8.2)
[2021-03-06 09:54] LABS: Urine Bacteria NONE SEEN /hpf (None Seen); Urine Blood Negative /uL (Negative); Urine Mucus FEW (None Seen); Urine Specific Gravity 1.019 (1.001-1.035); Urine WBC 1 /hpf (0 - 3)
[2021-03-06] MEDS: FINASTERIDE 5 MG TAB PO SCH (10:00)
[2021-03-06] MEDS: PANTOPRAZOLE 40 MG TAB PO SCH (10:00)
[2021-03-06] MEDS: ENOXAPARIN SOD 40 MG/0.4 ML SYRINGE SC SCH (10:00)
[2021-03-06 21:32] VITALS: BP 143/73
[2021-03-06 22:00] VITALS: BP 143/73
[2021-03-06] MEDS ORDERED: ASPI-543 PO (22:07)
[2021-03-06] MEDS ORDERED: MECL25TA18 PO (22:07)
[2021-03-06] MEDS ORDERED: LOSA-69 PO (22:07)
[2021-03-06] MEDS: TAMSULOSIN HYDROCHLORIDE 0.4 MG CAP PO SCH (22:18)
[2021-03-07 05:00] VITALS: BP 111/61
[2021-03-07 08:00] VITALS: BP 134/71
[2021-03-07] MEDS: FINASTERIDE 5 MG TAB PO SCH (10:24)
[2021-03-07] MEDS: ENOXAPARIN SOD 40 MG/0.4 ML SYRINGE SC SCH (10:24)
[2021-03-07] MEDS: PANTOPRAZOLE 40 MG TAB PO SCH (10:24)
[2021-03-07 12:00] VITALS: BP 122/67
[2021-03-07 16:00] VITALS: BP 123/67
[2021-03-07] MEDS: TAMSULOSIN HYDROCHLORIDE 0.4 MG CAP PO SCH (21:18)
[2021-03-07 22:00] VITALS: BP 143/69
[2021-03-08 05:00] VITALS: BP 113/58
[2021-03-08 09:00] VITALS: BP 118/68
[2021-03-08] MEDS: ENOXAPARIN SOD 40 MG/0.4 ML SYRINGE SC SCH (09:28)
[2021-03-08] MEDS: PANTOPRAZOLE 40 MG TAB PO SCH (10:00)
[2021-03-08] MEDS: FINASTERIDE 5 MG TAB PO SCH (10:16)
[2021-03-08 10:24] LABS: INR 1.07 (0.9-1.15)
[2021-03-08 13:00] VITALS: BP 137/76
[2021-03-08] MEDS ORDERED: LIDOCAINE 2%HCL (LOCAL ANESTH.) INJ 20ML MDV ONE (14:06)
[2021-03-08] MEDS ORDERED: fentaNYL CITRATE 100 MCG/2 ML VL ONE (14:16)
[2021-03-08] MEDS ORDERED: VANCOMYCIN 1GM/250ML 250 ML IV ONE (14:16)
[2021-03-08] MEDS ORDERED: MIDAZOLAM HCL 2MG/2ML 2ml VIAL (1mg/ml) ONE (14:17)
[2021-03-08] MEDS ORDERED: VANCOMYCIN HCL 1000 MG VL ONE (14:18)
[2021-03-08] MEDS ORDERED: IOHEXOL 350 MG/ML 100ML IJ ONE (14:23)
[2021-03-08] MEDS ORDERED: ACETAMINOPHEN 325 MG TAB PO PRN (15:15)
[2021-03-08] MEDS ORDERED: HYDROcodone-ACET 5/325MG TAB PO PRN (15:15)
[2021-03-08 22:00] VITALS: BP 118/78
[2021-03-08] MEDS: ceFAZolin 1GM/50ML 50 ML IV SCH (22:48)
[2021-03-08] MEDS: TAMSULOSIN HYDROCHLORIDE 0.4 MG CAP PO SCH (22:49)
[2021-03-09] MEDS ORDERED: VANCOMYCIN 1GM/250ML 250 ML IV SCH (04:00)
[2021-03-09 05:00] VITALS: BP 127/71
[2021-03-09] MEDS: ceFAZolin 1GM/50ML 50 ML IV SCH (05:18)
[2021-03-09 09:00] VITALS: BP 132/69
[2021-03-09] MEDS: PANTOPRAZOLE 40 MG TAB PO SCH (10:18)
[2021-03-09] MEDS: FINASTERIDE 5 MG TAB PO SCH (10:18)
[2021-03-09] MEDS: ENOXAPARIN SOD 40 MG/0.4 ML SYRINGE SC SCH (10:18)
[2021-03-09] MEDS ORDERED: DOXY150C2 PO (11:28)
[2021-03-09 12:40] VITALS: BP 132/69
[2021-03-09 13:00] VITALS: BP 129/77
== END 2021-03-09 15:43 | disposition home or self-care (01) | DRG 243 ==
LOC: EDBD 14:35 → ER 14:38 → TELE 16:37 → TELE-WESTW 03-06 20:23
PROVIDERS: ADMIT Family Medicine; ATTEND Internal Medicine
PROC: 0JH606Z Insertion of Pacemaker, Dual Chamber into Chest Subcutaneous Tissue and Fascia, Open Approach (ICD-10-PCS; principal; 2021-03-08)
PROC: 02H63JZ Insertion of Pacemaker Lead into Right Atrium, Percutaneous Approach (ICD-10-PCS; 2021-03-08)
PROC: 02HK3JZ Insertion of Pacemaker Lead into Right Ventricle, Percutaneous Approach (ICD-10-PCS; 2021-03-08)
DX: I49.5 Sick sinus syndrome (principal); I45.3 Trifascicular block; I45.10 Unspecified right bundle-branch block; E11.9 Type 2 diabetes mellitus without complications; N40.0 Benign prostatic hyperplasia without lower urinary tract symptoms; Z20.822 Contact with and (suspected) exposure to COVID-19; N18.31 Chronic kidney disease, stage 3a; I35.0 Nonrheumatic aortic (valve) stenosis; I67.2 Cerebral atherosclerosis; I12.9 Hypertensive chronic kidney disease with stage 1 through stage 4 chronic kidney disease, or unspecified chronic kidney disease; I44.0 Atrioventricular block, first degree; I99.8 Other disorder of circulatory system; Z86.73 Personal history of transient ischemic attack (TIA), and cerebral infarction without residual deficits; Z79.899 Other long term (current) drug therapy; Z90.49 Acquired absence of other specified parts of digestive tract; Z79.84 Long term (current) use of oral hypoglycemic drugs
CPT/HCPCS: 33208; 36415; 70450; 71045; 80053; 81001; 83880; 84443; 84484; 85025; 85379; 85610; 85730; 86850; 86900; 86901; 87426; 93005; 96365; 96367; 99152; 99153; C1785; G0378; J0690; J2250

== ENCOUNTER 2021-03-23 12:59 | Inpatient (IN) | payer OTHER ==
[~2021-03-23] VITALS: Ht 188 cm; Wt 96.3 kg
[~2021-03-23 12:59] MED LIST changes: +ASPI-543 PO; +DOXY150C2 PO; +LOSA-69 PO; +MECL25TA18 PO; -PRIM50TA27 PO
[2021-03-23 13:47] LABS: Basophils # (auto) 0 10 ^3/uL (0-0.2); Basophils % (auto) 0.6 % (0.0-2.0); Eosinophils # (auto) 0.1 10 ^3/uL (0-0.8); Eosinophils % (auto) 1.7 % (0.0-7.0); Hematocrit 45.2 % (41.0-53.0); Hemoglobin 15.3 g/dL (13.5-17.5); Lymphocytes # (auto) 1.2 10 ^3/uL (0.4-5.4); Lymphocytes % (auto) 17.5 % (10.0-50.0); Mean Corpuscular Hemoglobin 31.8 pg (28.0-32.0); Mean Corpuscular Hgb Conc. 33.9 g/dL (32.0-36.0); Mean Corpuscular Volume 93.6 fL (80.0-100.0); Monocytes # (auto) 0.5 10 ^3/uL (0-1.3); Monocytes % (auto) 7.3 % (0.0-12.0); Neutrophils # (auto) 4.9 10 ^3/uL (1.6-8.6); Neutrophils % (auto) 72.9 % (37.0-80.0); Nucleated Red Blood Cells % 0.1 %; Red Blood Cells 4.82 10^6/uL (4.5-5.90); Red Cell Distribution Width 14.1 % (11.8-14.3); White Blood Cell 6.7 10^3/uL (4.4-10.8)
[2021-03-23 14:03] LABS: Alanine Aminotransferase 28 U/L (16-61); Albumin 3.5 g/dL (3.4-5.0); Anion Gap 5 (5-15); Blood Urea Nitrogen 25 mg/dL (7-18); Calcium 8.9 mg/dL (8.5-10.1); Carbon Dioxide 25 mmol/L (21-32); Chloride 109 mmol/L (98-107); Glucose 101 mg/dL (74-106); Sodium 139 mmol/L (136-145)
[2021-03-23 14:08] LABS: Alkaline Phosphatase 40 U/L (45-117); Aspartate Aminotransferase 22 U/L (15-37); Bilirubin, Total 2.4 mg/dL (0.2-1.0); GFR African American 60 mL/min; GFR Non-African American 50 mL/min; Total Protein 6.6 g/dL (6.4-8.2)
[2021-03-23] MEDS ORDERED: HYDROcodone-ACET 5/325MG TAB PO PRN (17:30)
[2021-03-23] MEDS ORDERED: ONDANSETRON HCL 4 MG/2 ML VIAL IV PRN (17:30)
[2021-03-23] MEDS ORDERED: MORPHINE SULFATE INJECTION 2 MG/ML SYRG IV PRN ×2 (17:30)
[2021-03-23] MEDS ORDERED: ACETAMINOPHEN 500 MG TAB PO PRN (17:30)
[2021-03-23] MEDS ORDERED: NITROGLYCERIN 0.4 MG SL TAB SL PRN (17:30)
[2021-03-23 22:38] VITALS: BP 172/84
[2021-03-23 23:00] VITALS: BP 137/76
[2021-03-23] MEDS: TAMSULOSIN HYDROCHLORIDE 0.4 MG CAP PO SCH (23:25)
[2021-03-23] MEDS: ATORVASTATIN 20 MG TAB PO SCH (23:26)
[2021-03-24 05:30] VITALS: BP 117/75
[2021-03-24 09:00] VITALS: BP 154/90
[2021-03-24 09:10] VITALS: BP 127/64
[2021-03-24] MEDS: ASPirin-EC 81 mg tab PO SCH (09:14)
[2021-03-24] MEDS: LOSARTAN POTASSIUM 50 MG TAB PO SCH (09:15)
[2021-03-24] MEDS: FINASTERIDE 5 MG TAB PO SCH (09:15)
[2021-03-24] MEDS: MULTIPLE VITAMINS W/ MINERALS TAB PO SCH (09:16)
[2021-03-24 13:00] VITALS: BP 145/74
[2021-03-24] MEDS ORDERED: IOHEXOL 350 MG/ML 100ML IJ ONE (15:36)
[2021-03-24 16:51] VITALS: BP 152/76
[2021-03-24] MEDS: SODIUM CHLORIDE 0.9% 1,000 ML IV SCH (20:40)
[2021-03-24] MEDS: ATORVASTATIN 20 MG TAB PO SCH (21:01)
[2021-03-24] MEDS: TAMSULOSIN HYDROCHLORIDE 0.4 MG CAP PO SCH (21:01)
[2021-03-24 22:00] VITALS: BP_SYST 106; BP_SYST 122; BP_SYST 79; BP_DIAS 45; BP_DIAS 61; BP_DIAS 64
[2021-03-25 05:00] VITALS: BP_SYST 107; BP_SYST 139; BP_SYST 82; BP_DIAS 44; BP_DIAS 59; BP_DIAS 70
[2021-03-25 06:20] LABS: BUN/Creatinine Ratio 20.4; Calcium 8.8 mg/dL (8.5-10.1); Potassium 4.1 mmol/L (3.5-5.1)
[2021-03-25 06:23] LABS: Phosphorus 4.3 mg/dL (2.5-4.90)
[2021-03-25] MEDS: SODIUM CHLORIDE 0.9% 1,000 ML IV SCH (07:05)
[2021-03-25 09:00] VITALS: BP_SYST 101; BP_SYST 122; BP_SYST 83; BP_DIAS 44; BP_DIAS 56; BP_DIAS 67
[2021-03-25] MEDS: MULTIPLE VITAMINS W/ MINERALS TAB PO SCH ×2 (09:40→09:42)
[2021-03-25] MEDS: ASPirin-EC 81 mg tab PO SCH (09:42)
[2021-03-25] MEDS: LOSARTAN POTASSIUM 50 MG TAB PO SCH (09:43)
[2021-03-25] MEDS: FINASTERIDE 5 MG TAB PO SCH (09:45)
[2021-03-25 13:00] VITALS: BP_SYST 124; BP_SYST 97; BP_DIAS 55; BP_DIAS 57; BP_DIAS 70
[2021-03-25 16:27] VITALS: BP 122/67
[2021-03-25 17:00] VITALS: BP 130/69
== END 2021-03-25 19:11 | disposition home or self-care (01) | DRG 312 ==
LOC: ER 12:59 → EDBD 12:59 → EDSEX 12:59 → TELE 17:18 → TELE-WESTW 21:52
PROVIDERS: ADMIT Nurse Practitioner Acute Care; ATTEND Internal Medicine
DX: I95.1 Orthostatic hypotension (principal); G45.9 Transient cerebral ischemic attack, unspecified; N40.0 Benign prostatic hyperplasia without lower urinary tract symptoms; N18.31 Chronic kidney disease, stage 3a; E78.5 Hyperlipidemia, unspecified; H54.62 Unqualified visual loss, left eye, normal vision right eye; H91.92 Unspecified hearing loss, left ear; I12.9 Hypertensive chronic kidney disease with stage 1 through stage 4 chronic kidney disease, or unspecified chronic kidney disease; Z20.822 Contact with and (suspected) exposure to COVID-19; Z82.49 Family history of ischemic heart disease and other diseases of the circulatory system; Z86.73 Personal history of transient ischemic attack (TIA), and cerebral infarction without residual deficits; Z95.0 Presence of cardiac pacemaker; Z90.49 Acquired absence of other specified parts of digestive tract
CPT/HCPCS: 36415; 70450; 70496; 70498; 71045; 80048; 80053; 83735; 84100; 84484; 85025; 87426; 93005; 93886; 97163; G0378

== ENCOUNTER 2021-04-06 15:33 | Emergency (ER) | payer OTHER ==
[~2021-04-06] VITALS: Ht 188 cm; Wt 94.3 kg
[2021-04-06 19:35] VITALS: BP 101/56
== END 2021-04-06 19:39 | disposition home or self-care (01) ==
LOC: ER 15:33
DX: U07.1 COVID-19 (principal); J34.89 Other specified disorders of nose and nasal sinuses
CPT/HCPCS: 71045

== ENCOUNTER → 2021-05-12 | Outpatient (CLI) | payer OTHER ==
[2021-05-12 11:53] LABS: Albumin 3.3 g/dL (3.4-5.0); Calcium 8.5 mg/dL (8.5-10.1); Potassium 3.6 mmol/L (3.5-5.1)
[2021-05-12 11:59] LABS: BUN/Creatinine Ratio 16.7; Bilirubin, Direct 0.4 mg/dL (0-0.2); Bilirubin, Total 2.2 mg/dL (0.2-1.0); Total Protein 6.4 g/dL (6.4-8.2)
== END | disposition home or self-care (01) ==
LOC: LAB 10:43
PROVIDERS: ATTEND Internal Medicine
DX: E78.5 Hyperlipidemia, unspecified (principal)
CPT/HCPCS: 36415; 80048; 80061; 80076

== ENCOUNTER → 2021-06-25 | Outpatient (CLI) | payer MEDICARE ==
[2021-06-25 14:42] LABS: Calcium 8.4 mg/dL (8.5-10.1); Potassium 3.9 mmol/L (3.5-5.1)
[2021-06-25 14:44] LABS: BUN/Creatinine Ratio 22.4
== END | disposition home or self-care (01) ==
LOC: LAB 13:25
PROVIDERS: ATTEND Internal Medicine
DX: R73.03 Prediabetes (principal); E55.9 Vitamin D deficiency, unspecified
CPT/HCPCS: 36415; 80048

== ENCOUNTER → 2021-08-16 | Outpatient (CLI) | payer MEDICARE ==
[2021-08-16 10:43] LABS: Potassium 3.9 mmol/L (3.5-5.1)
[2021-08-16 10:50] LABS: Albumin 3.4 g/dL (3.4-5.0); BUN/Creatinine Ratio 18.8; Calcium 8.7 mg/dL (8.5-10.1)
[2021-08-16 11:00] LABS: Bilirubin, Total 2.2 mg/dL (0.2-1.0); Total Protein 6.2 g/dL (6.4-8.2)
== END | disposition home or self-care (01) ==
LOC: LAB 07:46
PROVIDERS: ATTEND Internal Medicine
DX: R73.03 Prediabetes (principal); E78.5 Hyperlipidemia, unspecified
CPT/HCPCS: 36415; 80053; 80061; 83036

== ENCOUNTER → 2021-08-17 | Outpatient (CLI) | payer OTHER | END | disposition home or self-care (01) | LOC: XY 08:17 | PROVIDERS: ATTEND Internal Medicine | DX: I65.23 Occlusion and stenosis of bilateral carotid arteries (principal); I49.5 Sick sinus syndrome; I95.1 Orthostatic hypotension | CPT/HCPCS: 93886 ==

== ENCOUNTER → 2021-10-13 | Outpatient (CLI) | payer OTHER, MEDICARE | END | disposition home or self-care (01) | LOC: Rad HDHVI 08:46 | PROVIDERS: ATTEND Internal Medicine | DX: I08.3 Combined rheumatic disorders of mitral, aortic and tricuspid valves (principal); I10 Essential (primary) hypertension; E78.5 Hyperlipidemia, unspecified | CPT/HCPCS: 93306 ==

== ENCOUNTER → 2021-10-26 | Outpatient (CLI) | payer OTHER, MEDICARE ==
[~2021-10-26] VITALS: Ht 188 cm; Wt 96.6 kg
[~2021-10-26] MED LIST changes: +ADENOSINE 81 MG in GIVE UN-DILUTED 0 ML IV ONE; +ADENOSINE 90 MG/30 ML INJ IV ONE
== END | disposition home or self-care (01) ==
LOC: Rad HDHVI 08:37
PROVIDERS: ATTEND Internal Medicine
DX: R42 Dizziness and giddiness (principal); Z95.0 Presence of cardiac pacemaker
CPT/HCPCS: 78452; 93005; 96374; 96375; A9500; J0153

== ENCOUNTER 2022-02-10 22:30 | Inpatient (IN) | payer MEDICARE, OTHER ==
[~2022-02-10] VITALS: Ht 188 cm; Wt 93.7 kg
[~2022-02-10 22:30] MED LIST changes: -ADENOSINE 81 MG in GIVE UN-DILUTED 0 ML IV ONE; -ADENOSINE 90 MG/30 ML INJ IV ONE
[2022-02-11] VITALS (8 sets, daily range): BP systolic 123–144; BP diastolic 75–87
[2022-02-11] MEDS: SODIUM CHLORIDE 0.9% 1,000 ML IV SCH ×2 (00:45→01:15)
[2022-02-11] MEDS ORDERED: DOCUSATE SOD 100 MG CAP PO PRN (00:45)
[2022-02-11] MEDS ORDERED: ONDANSETRON HCL 4 MG/2 ML VIAL IV PRN (00:45)
[2022-02-11] MEDS ORDERED: ISOS5TAB PO (02:57)
[2022-02-11] MEDS ORDERED: FLUD0.1T2 PO (02:57)
[2022-02-11] MEDS ORDERED: ATOR10TA52 PO (02:59)
[2022-02-11] MEDS ORDERED: PROP60CA34 PO (02:59)
[2022-02-11 05:31] LABS: Basophils # (auto) 0 10 ^3/uL (0-0.2); Basophils % (auto) 0.5 % (0.0-2.0); Eosinophils # (auto) 0.2 10 ^3/uL (0-0.8); Eosinophils % (auto) 2.6 % (0.0-7.0); Hematocrit 43.1 % (41.0-53.0); Hemoglobin 14.5 g/dL (13.5-17.5); Lymphocytes # (auto) 1.6 10 ^3/uL (0.4-5.4); Lymphocytes % (auto) 25.3 % (10.0-50.0); Mean Corpuscular Hemoglobin 31.4 pg (28.0-32.0); Mean Corpuscular Hgb Conc. 33.7 g/dL (32.0-36.0); Mean Corpuscular Volume 93.4 fL (80.0-100.0); Monocytes # (auto) 0.6 10 ^3/uL (0-1.3); Monocytes % (auto) 9.4 % (0.0-12.0); Neutrophils # (auto) 3.8 10 ^3/uL (1.6-8.6); Neutrophils % (auto) 62.2 % (37.0-80.0); Red Blood Cells 4.62 10^6/uL (4.5-5.90); Red Cell Distribution Width 14.2 % (11.8-14.3); White Blood Cell 6.1 10^3/uL (4.4-10.8)
[2022-02-11 05:47] LABS: Calcium 8.5 mg/dL (8.5-10.1); Potassium 3.6 mmol/L (3.5-5.1)
[2022-02-11 05:51] LABS: BUN/Creatinine Ratio 18.9
[2022-02-11] MEDS: ASPirin 81 mg TAB PO SCH (09:03)
[2022-02-11] MEDS: FLUDROCORTISONE ACETATE 0.1 MG TAB PO SCH (09:03)
[2022-02-11] MEDS: FINASTERIDE 5 MG TAB PO SCH (09:03)
[2022-02-11] MEDS: LOSARTAN POTASSIUM 50 MG TAB PO SCH (09:04)
[2022-02-11] MEDS: PROPRANOLOL HCL 20 MG TAB PO SCH (09:04)
[2022-02-11] MEDS: ISOSORBIDE DINITRATE 10 MG TAB PO SCH (09:05)
[2022-02-11] MEDS: TAMSULOSIN HYDROCHLORIDE 0.4 MG CAP PO SCH (17:40)
[2022-02-11] MEDS: ATORVASTATIN 20 MG TAB PO SCH (17:40)
[2022-02-12] MEDS: ACETAMINOPHEN 325 MG TAB PO PRN (03:38)
[2022-02-12 05:30] VITALS: BP 159/84
[2022-02-12 09:00] VITALS: BP 116/68
[2022-02-12] MEDS ORDERED: KETOROLAC TROMETH 30 MG/ML 1ML VIAL IV ONE (09:45)
[2022-02-12] MEDS: ASPirin 81 mg TAB PO SCH (10:18)
[2022-02-12] MEDS: LOSARTAN POTASSIUM 50 MG TAB PO SCH (10:19)
[2022-02-12] MEDS: FLUDROCORTISONE ACETATE 0.1 MG TAB PO SCH (10:19)
[2022-02-12] MEDS: PROPRANOLOL HCL 20 MG TAB PO SCH (10:20)
[2022-02-12] MEDS: ISOSORBIDE DINITRATE 10 MG TAB PO SCH (10:21)
[2022-02-12] MEDS: FINASTERIDE 5 MG TAB PO SCH (10:21)
[2022-02-12] MEDS ORDERED: KETOROLAC TROMETH 30 MG/ML 1ML VIAL IV PRN (16:00)
[2022-02-12 17:20] VITALS: BP 145/75
[2022-02-12] MEDS: TAMSULOSIN HYDROCHLORIDE 0.4 MG CAP PO SCH (17:44)
[2022-02-12] MEDS: ATORVASTATIN 20 MG TAB PO SCH (17:44)
[2022-02-13 05:56] VITALS: BP 150/79
[2022-02-13 08:30] VITALS: BP 141/77
[2022-02-13] MEDS: ACETAMINOPHEN 325 MG TAB PO PRN (08:37)
[2022-02-13] MEDS: FINASTERIDE 5 MG TAB PO SCH (08:37)
[2022-02-13] MEDS: ASPirin 81 mg TAB PO SCH (08:37)
[2022-02-13] MEDS: FLUDROCORTISONE ACETATE 0.1 MG TAB PO SCH (08:37)
[2022-02-13] MEDS: PROPRANOLOL HCL 20 MG TAB PO SCH (08:37)
[2022-02-13] MEDS: LOSARTAN POTASSIUM 50 MG TAB PO SCH (08:38)
[2022-02-13] MEDS: ISOSORBIDE DINITRATE 10 MG TAB PO SCH (08:39)
[2022-02-13 13:06] VITALS: BP 123/71
[2022-02-13 16:57] VITALS: BP 133/68
[2022-02-13] MEDS: ATORVASTATIN 20 MG TAB PO SCH (17:12)
[2022-02-13] MEDS: TAMSULOSIN HYDROCHLORIDE 0.4 MG CAP PO SCH (17:12)
[2022-02-13 23:53] VITALS: BP 143/71
[2022-02-14 06:01] VITALS: BP 150/84
[2022-02-14] MEDS: FLUDROCORTISONE ACETATE 0.1 MG TAB PO SCH (08:20)
[2022-02-14] MEDS: FINASTERIDE 5 MG TAB PO SCH (08:20)
[2022-02-14] MEDS: PROPRANOLOL HCL 20 MG TAB PO SCH (08:21)
[2022-02-14] MEDS: ASPirin 81 mg TAB PO SCH (08:21)
[2022-02-14] MEDS: LOSARTAN POTASSIUM 50 MG TAB PO SCH (08:21)
[2022-02-14] MEDS: ISOSORBIDE DINITRATE 10 MG TAB PO SCH (08:22)
[2022-02-14 09:02] VITALS: BP 128/79
[2022-02-14] MEDS: ACETAMINOPHEN 325 MG TAB PO PRN (09:20)
[2022-02-14 12:00] VITALS: BP 119/67
[2022-02-14] MEDS: TAMSULOSIN HYDROCHLORIDE 0.4 MG CAP PO SCH (17:17)
[2022-02-14] MEDS: ATORVASTATIN 20 MG TAB PO SCH (17:17)
[2022-02-14 17:24] VITALS: BP 130/85
[2022-02-14 22:00] VITALS: BP 134/77
[2022-02-15 05:00] VITALS: BP 150/79
[2022-02-15 05:59] LABS: Potassium 3.8 mmol/L (3.5-5.1)
[2022-02-15 06:04] LABS: Calcium 8.7 mg/dL (8.5-10.1)
[2022-02-15 09:00] VITALS: BP 154/77
[2022-02-15] MEDS: FINASTERIDE 5 MG TAB PO SCH (09:39)
[2022-02-15] MEDS: ASPirin 81 mg TAB PO SCH (09:40)
[2022-02-15] MEDS: ISOSORBIDE DINITRATE 10 MG TAB PO SCH (09:41)
[2022-02-15] MEDS: LOSARTAN POTASSIUM 50 MG TAB PO SCH (09:41)
[2022-02-15] MEDS: ACETAMINOPHEN 325 MG TAB PO PRN (09:42)
[2022-02-15] MEDS: PROPRANOLOL HCL 20 MG TAB PO SCH (09:42)
[2022-02-15] MEDS: FLUDROCORTISONE ACETATE 0.1 MG TAB PO SCH (09:50)
[2022-02-15 13:00] VITALS: BP 108/58
[2022-02-15 16:54] VITALS: BP 136/68
[2022-02-15] MEDS: ATORVASTATIN 20 MG TAB PO SCH (18:17)
[2022-02-15] MEDS: TAMSULOSIN HYDROCHLORIDE 0.4 MG CAP PO SCH (18:17)
[2022-02-15] MEDS: APIXABAN 5 MG TAB PO SCH (20:39)
[2022-02-15 22:00] VITALS: BP 130/71
[2022-02-16 04:48] VITALS: BP 125/89
[2022-02-16 04:50] VITALS: BP 125/89
[2022-02-16 09:00] VITALS: BP 107/64
[2022-02-16] MEDS: ISOSORBIDE DINITRATE 10 MG TAB PO SCH (09:03)
[2022-02-16] MEDS: APIXABAN 5 MG TAB PO SCH (09:06)
[2022-02-16] MEDS: FINASTERIDE 5 MG TAB PO SCH (09:06)
[2022-02-16] MEDS: LOSARTAN POTASSIUM 50 MG TAB PO SCH (09:07)
[2022-02-16] MEDS: PROPRANOLOL HCL 20 MG TAB PO SCH (09:10)
[2022-02-16] MEDS: FLUDROCORTISONE ACETATE 0.1 MG TAB PO SCH (09:15)
[2022-02-16] MEDS: ASPirin 81 mg TAB PO SCH (09:15)
[2022-02-16 11:28] VITALS: BP 107/64
[2022-02-16 13:00] VITALS: BP 100/61
[2022-02-16] MEDS ORDERED: MECL12.514 PO (14:32)
[2022-02-16] MEDS ORDERED: MECLIZINE HCL 25 MG TAB PO ONE (14:45)
[2022-02-16] MEDS ORDERED: HYDROcodone-ACET 5/325MG TAB PO ONE (14:45)
[2022-02-22] MEDS ORDERED: APIXABAN 5 MG TAB PO SCH (10:00)
== END 2022-02-16 16:22 | disposition home or self-care (01) | DRG 301 ==
LOC: TELE-CENTR 22:30 → UNDOADMIN 22:30 → TELE-CENTR 02-11 00:49
PROVIDERS: ADMIT Hospitalist; ATTEND Internal Medicine Nephrology
DX: I82.C12 Acute embolism and thrombosis of left internal jugular vein (principal); I10 Essential (primary) hypertension; E78.5 Hyperlipidemia, unspecified; H81.10 Benign paroxysmal vertigo, unspecified ear; R07.9 Chest pain, unspecified; Z20.822 Contact with and (suspected) exposure to COVID-19; I25.10 Atherosclerotic heart disease of native coronary artery without angina pectoris; N28.9 Disorder of kidney and ureter, unspecified; E87.8 Other disorders of electrolyte and fluid balance, not elsewhere classified; F17.200 Nicotine dependence, unspecified, uncomplicated; G25.0 Essential tremor; I65.29 Occlusion and stenosis of unspecified carotid artery; I80.8 Phlebitis and thrombophlebitis of other sites; Z82.49 Family history of ischemic heart disease and other diseases of the circulatory system; Z83.3 Family history of diabetes mellitus; Z95.0 Presence of cardiac pacemaker
CPT/HCPCS: 36415; 70545; 70551; 80048; 80061; 82962; 83036; 85025; 93005; 93971; 97116; 97163; 97530; G0378; J1885

== ENCOUNTER → 2022-03-17 | Outpatient (CLI) | payer OTHER ==
[~2022-03-17] MED LIST changes: -ASPI-543 PO; +ATOR10TA52 PO; -DOXY150C2 PO; +FLUD0.1T2 PO; +ISOS5TAB PO; +MECL12.514 PO; -MECL25TA18 PO; +PROP60CA34 PO; -TAM04C PO
[2022-03-17 14:40] LABS: Basophils # (auto) 0 10 ^3/uL (0-0.2); Basophils % (auto) 0.8 % (0.0-2.0); Eosinophils # (auto) 0.1 10 ^3/uL (0-0.8); Hematocrit 43.1 % (41.0-53.0); Hemoglobin 14.3 g/dL (13.5-17.5); Lymphocytes # (auto) 1.3 10 ^3/uL (0.4-5.4); Lymphocytes % (auto) 24.1 % (10.0-50.0); Mean Corpuscular Hemoglobin 31.1 pg (28.0-32.0); Mean Corpuscular Hgb Conc. 33.2 g/dL (32.0-36.0); Mean Corpuscular Volume 93.7 fL (80.0-100.0); Monocytes # (auto) 0.4 10 ^3/uL (0-1.3); Monocytes % (auto) 7.7 % (0.0-12.0); Neutrophils # (auto) 3.5 10 ^3/uL (1.6-8.6); Neutrophils % (auto) 65.4 % (37.0-80.0); White Blood Cell 5.4 10^3/uL (4.4-10.8)
== END | disposition home or self-care (01) ==
LOC: LAB 14:25
PROVIDERS: ATTEND Internal Medicine
DX: I10 Essential (primary) hypertension (principal); R73.03 Prediabetes
CPT/HCPCS: 36415; 85025

== ENCOUNTER → 2022-05-03 | Outpatient (CLI) | payer OTHER ==
[~2022-05-03] VITALS: Ht 188 cm; Wt 92.1 kg
== END | disposition home or self-care (01) ==
LOC: Rad HDHVI 08:00
PROVIDERS: ATTEND Internal Medicine Cardiovascular Disease
DX: I10 Essential (primary) hypertension (principal); E78.5 Hyperlipidemia, unspecified; R55 Syncope and collapse; R06.02 Shortness of breath; R42 Dizziness and giddiness; I49.5 Sick sinus syndrome; R00.2 Palpitations; Z82.49 Family history of ischemic heart disease and other diseases of the circulatory system; Z95.0 Presence of cardiac pacemaker
CPT/HCPCS: 78472; 96374; 96375; A9505

== ENCOUNTER → 2022-05-04 | Outpatient (CLI) | payer OTHER | END | disposition home or self-care (01) | LOC: Rad HDHVI 15:51 | PROVIDERS: ATTEND Internal Medicine Cardiovascular Disease | DX: R00.2 Palpitations (principal); R06.02 Shortness of breath | CPT/HCPCS: 93306 ==

== ENCOUNTER → 2022-05-25 | Outpatient (CLI) | payer OTHER ==
[2022-05-25 14:06] LABS: Basophils # (auto) 0 10 ^3/uL (0-0.2); Basophils % (auto) 0.7 % (0.0-2.0); Eosinophils # (auto) 0.1 10 ^3/uL (0-0.8); Eosinophils % (auto) 1.7 % (0.0-7.0); Hematocrit 47.7 % (41.0-53.0); Hemoglobin 15.8 g/dL (13.5-17.5); Lymphocytes # (auto) 1.4 10 ^3/uL (0.4-5.4); Lymphocytes % (auto) 24.4 % (10.0-50.0); Mean Corpuscular Hemoglobin 31.3 pg (28.0-32.0); Mean Corpuscular Hgb Conc. 33.2 g/dL (32.0-36.0); Mean Corpuscular Volume 94.1 fL (80.0-100.0); Monocytes # (auto) 0.5 10 ^3/uL (0-1.3); Monocytes % (auto) 8.5 % (0.0-12.0); Neutrophils # (auto) 3.6 10 ^3/uL (1.6-8.6); Neutrophils % (auto) 64.7 % (37.0-80.0); Nucleated Red Blood Cells % 0.1 %; Red Blood Cells 5.07 10^6/uL (4.5-5.90); Red Cell Distribution Width 14.9 % (11.8-14.3); White Blood Cell 5.6 10^3/uL (4.4-10.8)
== END | disposition home or self-care (01) ==
LOC: LAB 13:47
PROVIDERS: ATTEND Internal Medicine
DX: Z12.11 Encounter for screening for malignant neoplasm of colon (principal); I10 Essential (primary) hypertension; R42 Dizziness and giddiness
CPT/HCPCS: 36415; 82043; 82306; 84443; 85025

== ENCOUNTER 2022-06-06 16:53 | Inpatient (IN) | payer OTHER ==
[~2022-06-06] VITALS: Ht 188 cm; Wt 83.1 kg
[2022-06-06 20:04] LABS: Basophils # (auto) 0 10 ^3/uL (0-0.2); Basophils % (auto) 0.2 % (0.0-2.0); Eosinophils # (auto) 0 10 ^3/uL (0-0.8); Eosinophils % (auto) 0.3 % (0.0-7.0); Hematocrit 46.7 % (41.0-53.0); Hemoglobin 15.8 g/dL (13.5-17.5); Lymphocytes # (auto) 1.1 10 ^3/uL (0.4-5.4); Lymphocytes % (auto) 12.3 % (10.0-50.0); Mean Corpuscular Hemoglobin 32.2 pg (28.0-32.0); Mean Corpuscular Hgb Conc. 33.8 g/dL (32.0-36.0); Mean Corpuscular Volume 95.4 fL (80.0-100.0); Monocytes # (auto) 0.5 10 ^3/uL (0-1.3); Monocytes % (auto) 6.2 % (0.0-12.0); Neutrophils # (auto) 7.2 10 ^3/uL (1.6-8.6); Nucleated Red Blood Cells % 0.2 %; Red Cell Distribution Width 14.7 % (11.8-14.3); White Blood Cell 8.9 10^3/uL (4.4-10.8)
[2022-06-06 20:18] LABS: Calcium 8.4 mg/dL (8.5-10.1); Chloride 110 mmol/L (98-107); Potassium 4.2 mmol/L (3.5-5.1); Sodium 138 mmol/L (136-145)
[2022-06-06 20:21] LABS: Alanine Aminotransferase 31 U/L (16-61); Anion Gap 7 (5-15); Aspartate Aminotransferase 26 U/L (15-37); BUN/Creatinine Ratio 21.3; Blood Urea Nitrogen 27 mg/dL (7-18); Carbon Dioxide 21 mmol/L (21-32); GFR African American 71 mL/min; GFR Non-African American 59 mL/min; Glucose 123 mg/dL (74-106)
[2022-06-06 20:24] LABS: Alkaline Phosphatase 45 U/L (45-117); Bilirubin, Total 2.5 mg/dL (0.2-1.0); Total Protein 6.1 g/dL (6.4-8.2)
[2022-06-06] MEDS ORDERED: SODIUM CHLORIDE 0.9% 1,000 ML IVB ONE (22:15)
[2022-06-06 22:35] LABS: INR 1.15 (0.9-1.15); Partial Thromboplastin Time 27.2 sec (24.6-33.4)
[2022-06-06] MEDS ORDERED: DOCUSATE SOD 100 MG CAP PO PRN (23:45)
[2022-06-06] MEDS ORDERED: MAALOX PLUS or MAALOX 30 ML PO PRN (23:45)
[2022-06-06] MEDS ORDERED: HYDROcodone-ACET 5/325MG TAB PO PRN (23:45)
[2022-06-06] MEDS ORDERED: ACETAMINOPHEN 325 MG TAB PO PRN (23:45)
[2022-06-06] MEDS ORDERED: ONDANSETRON HCL 4 MG/2 ML VIAL IV PRN (23:45)
[2022-06-07] MEDS: SODIUM CHLORIDE 0.9% 1,000 ML IV SCH ×2 (00:35→09:46)
[2022-06-07 04:42] LABS: Basophils # (auto) 0 10 ^3/uL (0-0.2); Basophils % (auto) 0.4 % (0.0-2.0); Eosinophils # (auto) 0.1 10 ^3/uL (0-0.8); Eosinophils % (auto) 0.9 % (0.0-7.0); Hematocrit 42.8 % (41.0-53.0); Hemoglobin 14.7 g/dL (13.5-17.5); Lymphocytes # (auto) 1.8 10 ^3/uL (0.4-5.4); Lymphocytes % (auto) 22.3 % (10.0-50.0); Mean Corpuscular Hemoglobin 32.4 pg (28.0-32.0); Mean Corpuscular Hgb Conc. 34.5 g/dL (32.0-36.0); Mean Corpuscular Volume 93.9 fL (80.0-100.0); Monocytes # (auto) 0.7 10 ^3/uL (0-1.3); Neutrophils # (auto) 5.5 10 ^3/uL (1.6-8.6); Neutrophils % (auto) 68.4 % (37.0-80.0); Nucleated Red Blood Cells % 0.1 %; Red Blood Cells 4.55 10^6/uL (4.5-5.90); Red Cell Distribution Width 14.7 % (11.8-14.3); White Blood Cell 8.1 10^3/uL (4.4-10.8)
[2022-06-07 04:59] LABS: BUN/Creatinine Ratio 26.9; Calcium 8.9 mg/dL (8.5-10.1); Potassium 4.5 mmol/L (3.5-5.1)
[2022-06-07] MEDS: MORPHINE SULFATE INJ 2 MG/ml SYRG IV PRN ×2 (05:56→18:09)
[2022-06-07] MEDS ORDERED: ERGOCALCIFEROL 50,000 UNIT(1.25MG) CAP PO SCH (13:00)
[2022-06-07 13:48] LABS: Folate (Folic Acid) 9.2 ng/mL (5.38-24)
[2022-06-07 15:07] LABS: Urine Bacteria FEW /hpf (None Seen); Urine Blood Negative /uL (Negative); Urine Mucus FEW (None Seen); Urine Specific Gravity 1.026 (1.001-1.035); Urine WBC 3 /hpf (0 - 3)
[2022-06-07] MEDS ORDERED: CYANOCOBALAMIN (B-12) 1000 MCG/1 ML VIAL IM ONE (22:15)
[2022-06-08] MEDS: MORPHINE SULFATE INJ 2 MG/ml SYRG IV PRN (03:32)
[2022-06-08 07:02] LABS: Potassium 4.2 mmol/L (3.5-5.1)
[2022-06-08 07:12] LABS: BUN/Creatinine Ratio 27.2; Calcium 8.6 mg/dL (8.5-10.1); Magnesium 2.2 mg/dL (1.6-2.6); Phosphorus 3.9 mg/dL (2.5-4.90)
[2022-06-08] MEDS: FLUDROCORTISONE ACETATE 0.1 MG TAB PO SCH (10:15)
[2022-06-08] MEDS: CYANOCOBALAMIN (B-12) 1000 MCG/1 ML VIAL IM SCH (10:15)
[2022-06-08 22:00] VITALS: BP 143/77
[2022-06-09] VITALS (10 sets, daily range): BP systolic 127–159; BP diastolic 70–82
[2022-06-09] MEDS ORDERED: MORPHINE SULFATE INJ 2 MG/ml SYRG IV PRN (07:00)
[2022-06-09] MEDS: NITROGLYCERIN 0.4 MG SL TAB SL PRN (08:03)
[2022-06-09] MEDS: FLUDROCORTISONE ACETATE 0.1 MG TAB PO SCH (10:14)
[2022-06-09] MEDS: CYANOCOBALAMIN (B-12) 1000 MCG/1 ML VIAL IM SCH (10:14)
[2022-06-09] MEDS ORDERED: HEPARIN SODIUM (PORCINE) 5000 UNITS/ML 1ML VIAL ONE (13:11)
[2022-06-09] MEDS ORDERED: VERAPAMIL 2.5MG/ML INJ 2ML VIAL IV ONE (13:11)
[2022-06-09] MEDS ORDERED: ANGIOMAX 250 MG VIAL IV ONE (13:11)
[2022-06-09] MEDS ORDERED: SODIUM CHL 0.9% 50 ML ONE (13:12)
[2022-06-09] MEDS ORDERED: fentaNYL CITRATE 100 MCG/2 ML VL ONE (13:12)
[2022-06-09] MEDS ORDERED: MIDAZOLAM HCL 2MG/2ML 2ml VIAL (1mg/ml) ONE (13:12)
[2022-06-09] MEDS ORDERED: IODIXANOL 320MG/ML 100ML BTL IV ONE (13:13)
[2022-06-09] MEDS ORDERED: LIDOCAINE 2%HCL (LOCAL ANESTH.) INJ 10ml MDV ONE (13:14)
[2022-06-09] MEDS ORDERED: CLOPIDOGREL 300 MG TAB ONE (13:57)
[2022-06-09] MEDS ORDERED: IOHEXOL 350 MG/ML 100ML IJ ONE (13:58)
[2022-06-10 05:00] VITALS: BP 127/67
[2022-06-10 07:35] LABS: BUN/Creatinine Ratio 18.5; Calcium 8.8 mg/dL (8.5-10.1); Potassium 4.1 mmol/L (3.5-5.1)
[2022-06-10 07:39] LABS: Basophils # (auto) 0 10 ^3/uL (0-0.2); Basophils % (auto) 0.5 % (0.0-2.0); Eosinophils # (auto) 0.1 10 ^3/uL (0-0.8); Eosinophils % (auto) 2.1 % (0.0-7.0); Hematocrit 43.8 % (41.0-53.0); Hemoglobin 15.3 g/dL (13.5-17.5); Lymphocytes # (auto) 1.3 10 ^3/uL (0.4-5.4); Lymphocytes % (auto) 17.9 % (10.0-50.0); Mean Corpuscular Hemoglobin 32.5 pg (28.0-32.0); Mean Corpuscular Hgb Conc. 34.8 g/dL (32.0-36.0); Mean Corpuscular Volume 93.3 fL (80.0-100.0); Monocytes # (auto) 0.7 10 ^3/uL (0-1.3); Monocytes % (auto) 9.4 % (0.0-12.0); Neutrophils # (auto) 4.9 10 ^3/uL (1.6-8.6); Neutrophils % (auto) 70.1 % (37.0-80.0); Red Cell Distribution Width 14.6 % (11.8-14.3)
[2022-06-10 08:20] VITALS: BP 145/77
[2022-06-10] MEDS: FLUDROCORTISONE ACETATE 0.1 MG TAB PO SCH ×2 (10:18→21:16)
[2022-06-10] MEDS: CYANOCOBALAMIN (B-12) 1000 MCG/1 ML VIAL IM SCH (10:18)
[2022-06-10] MEDS: CLOPIDOGREL BISULFATE 75 MG TAB PO SCH (10:19)
[2022-06-10] MEDS: ASPirin 81 mg TAB PO SCH (10:19)
[2022-06-10 12:25] VITALS: BP 133/72
[2022-06-10 16:20] VITALS: BP 134/75
[2022-06-10 20:19] LABS: Urine Bacteria NONE SEEN /hpf (None Seen); Urine Blood TRACE /uL (Negative); Urine Hyaline Cast FEW /lpf (0 - 2); Urine Mucus FEW (None Seen); Urine Specific Gravity 1.024 (1.001-1.035); Urine WBC <1 /hpf (0 - 3)
[2022-06-10] MEDS: ATORVASTATIN 20 MG TAB PO SCH (21:17)
[2022-06-10 22:00] VITALS: BP 132/69
[2022-06-11] MEDS: NITROGLYCERIN 0.4 MG SL TAB SL PRN (01:47)
[2022-06-11 02:04] VITALS: BP 106/69
[2022-06-11 05:00] VITALS: BP 138/74
[2022-06-11 07:06] LABS: Immunoglobulin G, Serum 776 mg/dL (603-1613)
[2022-06-11 09:00] VITALS: BP 135/67
[2022-06-11] MEDS: CYANOCOBALAMIN (B-12) 1000 MCG/1 ML VIAL IM SCH (09:39)
[2022-06-11] MEDS: CLOPIDOGREL BISULFATE 75 MG TAB PO SCH (09:39)
[2022-06-11] MEDS: FLUDROCORTISONE ACETATE 0.1 MG TAB PO SCH ×2 (09:39→21:18)
[2022-06-11] MEDS: ASPirin 81 mg TAB PO SCH (09:39)
[2022-06-11 11:12] LABS: RPR Non Reactive (Non Reactive)
[2022-06-11] MEDS ORDERED: FINASTERIDE 5 MG TAB PO ONE (12:45)
[2022-06-11] MEDS ORDERED: MECLIZINE HCL 25 MG TAB PO PRN (12:45)
[2022-06-11 13:00] VITALS: BP 134/72
[2022-06-11 16:57] VITALS: BP 134/75
[2022-06-11] MEDS: ATORVASTATIN 20 MG TAB PO SCH (21:18)
[2022-06-11 22:04] VITALS: BP 126/66
[2022-06-12 05:10] VITALS: BP 132/76
[2022-06-12 08:37] VITALS: BP 117/74
[2022-06-12] MEDS: CYANOCOBALAMIN (B-12) 1000 MCG/1 ML VIAL IM SCH (09:17)
[2022-06-12] MEDS: FLUDROCORTISONE ACETATE 0.1 MG TAB PO SCH ×2 (09:17→22:32)
[2022-06-12] MEDS: ASPirin 81 mg TAB PO SCH (09:17)
[2022-06-12] MEDS: CLOPIDOGREL BISULFATE 75 MG TAB PO SCH (09:18)
[2022-06-12] MEDS: FINASTERIDE 5 MG TAB PO SCH (09:18)
[2022-06-12] MEDS ORDERED: MECL25TA18 PO (11:26)
[2022-06-12] MEDS ORDERED: ERGO1CAP23 PO (11:26)
[2022-06-12] MEDS ORDERED: CLOP75TA70 PO (11:26)
[2022-06-12] MEDS ORDERED: ATOR20TA50 PO (11:26)
[2022-06-12] MEDS ORDERED: ASPI-325 PO (11:26)
[2022-06-12 12:31] VITALS: BP 117/74
[2022-06-12 13:04] VITALS: BP 118/67
[2022-06-12 17:03] VITALS: BP 123/65
[2022-06-12 22:00] VITALS: BP 138/77
[2022-06-12] MEDS: ATORVASTATIN 20 MG TAB PO SCH (22:32)
[2022-06-13 05:00] VITALS: BP 135/61
[2022-06-13] MEDS: CYANOCOBALAMIN (B-12) 1000 MCG/1 ML VIAL IM SCH (07:47)
[2022-06-13] MEDS: ASPirin 81 mg TAB PO SCH (07:47)
[2022-06-13] MEDS: CLOPIDOGREL BISULFATE 75 MG TAB PO SCH (07:48)
[2022-06-13] MEDS: FLUDROCORTISONE ACETATE 0.1 MG TAB PO SCH (07:48)
[2022-06-13] MEDS: FINASTERIDE 5 MG TAB PO SCH (07:48)
[2022-06-13 09:00] VITALS: BP_SYST 134; BP_SYST 160; BP_DIAS 90; BP_DIAS 91
== END 2022-06-13 11:20 | disposition home or self-care (01) | DRG 247 ==
LOC: ER 16:53 → EDBD 16:53 → TELE 23:45 → TELE-WESTW 06-08 15:46
PROVIDERS: ADMIT Hospitalist; ATTEND Internal Medicine
PROC: 4B02XSZ Measurement of Cardiac Pacemaker, External Approach (ICD-10-PCS; 2022-06-07)
PROC: 027034Z Dilation of Coronary Artery, One Artery with Drug-eluting Intraluminal Device, Percutaneous Approach (ICD-10-PCS; principal; 2022-06-09)
PROC: 4A023N7 Measurement of Cardiac Sampling and Pressure, Left Heart, Percutaneous Approach (ICD-10-PCS; 2022-06-09)
PROC: B211YZZ Fluoroscopy of Multiple Coronary Arteries using Other Contrast (ICD-10-PCS; 2022-06-09)
PROC: B215YZZ Fluoroscopy of Left Heart using Other Contrast (ICD-10-PCS; 2022-06-09)
DX: I25.10 Atherosclerotic heart disease of native coronary artery without angina pectoris (principal); I95.1 Orthostatic hypotension; E86.0 Dehydration; I48.91 Unspecified atrial fibrillation; E78.5 Hyperlipidemia, unspecified; I10 Essential (primary) hypertension; M17.0 Bilateral primary osteoarthritis of knee; Z20.822 Contact with and (suspected) exposure to COVID-19; R79.89 Other specified abnormal findings of blood chemistry; N40.0 Benign prostatic hyperplasia without lower urinary tract symptoms; Z95.0 Presence of cardiac pacemaker; Z79.82 Long term (current) use of aspirin; Z82.49 Family history of ischemic heart disease and other diseases of the circulatory system; Z86.73 Personal history of transient ischemic attack (TIA), and cerebral infarction without residual deficits
CPT/HCPCS: 36415; 70450; 71045; 72125; 73562; 80048; 80053; 81001; 82533; 82607; 82746; 82784; 83735; 83880; 83883; 84100; 84155; 84165; 84402; 84403; 84484; 85025; 85610; 85730; 86334; 86335; 86592; 86850; 86900; 86901; 87086; 87426; 93005; 93886; 96361; 96374; 97116; 97163; 99152; C1874; C1887; G0378; J2001; J2250; Q9967

== ENCOUNTER 2022-06-14 20:29 | Inpatient (IN) | payer OTHER ==
[~2022-06-14] VITALS: Ht 162.6 cm; Wt 85.9 kg
[~2022-06-14 20:29] MED LIST changes: +ASPI-325 PO; -ATOR10TA52 PO; +ATOR20TA50 PO; +CLOP75TA70 PO; +ERGO1CAP23 PO; -ISOS5TAB PO; -LOSA-69 PO; -MECL12.514 PO; +MECL25TA18 PO; -PROP60CA34 PO
[2022-06-14 21:30] LABS: Basophils # (auto) 0.1 10 ^3/uL (0-0.2); Eosinophils # (auto) 0.1 10 ^3/uL (0-0.8); Eosinophils % (auto) 1.4 % (0.0-7.0); Hematocrit 43.4 % (41.0-53.0); Hemoglobin 14.9 g/dL (13.5-17.5); Lymphocytes # (auto) 1.5 10 ^3/uL (0.4-5.4); Lymphocytes % (auto) 15.7 % (10.0-50.0); Mean Corpuscular Hemoglobin 32.1 pg (28.0-32.0); Mean Corpuscular Hgb Conc. 34.3 g/dL (32.0-36.0); Mean Corpuscular Volume 93.6 fL (80.0-100.0); Monocytes # (auto) 0.9 10 ^3/uL (0-1.3); Monocytes % (auto) 9.4 % (0.0-12.0); Neutrophils # (auto) 7.1 10 ^3/uL (1.6-8.6); Neutrophils % (auto) 72.5 % (37.0-80.0); Red Blood Cells 4.63 10^6/uL (4.5-5.90); Red Cell Distribution Width 14.8 % (11.8-14.3); White Blood Cell 9.8 10^3/uL (4.4-10.8)
[2022-06-14 21:47] LABS: Albumin 3.2 g/dL (3.4-5.0); Calcium 8.7 mg/dL (8.5-10.1); Magnesium 2.2 mg/dL (1.6-2.6)
[2022-06-14 21:49] LABS: BUN/Creatinine Ratio 22.7
[2022-06-14 21:51] LABS: INR 1.13 (0.9-1.15); Partial Thromboplastin Time 28.2 sec (24.6-33.4)
[2022-06-14 21:59] LABS: Bilirubin, Total 2.9 mg/dL (0.2-1.0); Total Protein 5.9 g/dL (6.4-8.2)
[2022-06-15] MEDS ORDERED: MAALOX PLUS or MAALOX 30 ML PO PRN (03:30)
[2022-06-15] MEDS ORDERED: LORazepam 0.5 MG TAB PO PRN (03:30)
[2022-06-15] MEDS ORDERED: SODIUM CHLORIDE 0.9% 1,000 ML IV SCH (03:30)
[2022-06-15] MEDS ORDERED: ACETAMINOPHEN 325 MG TAB PO PRN (03:30)
[2022-06-15] MEDS ORDERED: ONDANSETRON HCL 4 MG/2 ML VIAL IV PRN (03:30)
[2022-06-15] MEDS ORDERED: HYDROcodone-ACET 5/325MG TAB PO PRN (03:30)
[2022-06-15] MEDS ORDERED: MORPHINE SULFATE INJ 2 MG/ml SYRG IV PRN (03:30)
[2022-06-15 05:03] LABS: Urine Bacteria NONE SEEN /hpf (None Seen); Urine Blood Negative /uL (Negative); Urine Hyaline Cast FEW /lpf (0 - 2); Urine Mucus FEW (None Seen); Urine Specific Gravity 1.018 (1.001-1.035); Urine WBC <1 /hpf (0 - 3)
[2022-06-15 07:17] LABS: Basophils # (auto) 0 10 ^3/uL (0-0.2); Basophils % (auto) 0.5 % (0.0-2.0); Eosinophils # (auto) 0.2 10 ^3/uL (0-0.8); Eosinophils % (auto) 2.3 % (0.0-7.0); Hematocrit 39.2 % (41.0-53.0); Hemoglobin 13.6 g/dL (13.5-17.5); Lymphocytes # (auto) 1.5 10 ^3/uL (0.4-5.4); Lymphocytes % (auto) 19.8 % (10.0-50.0); Mean Corpuscular Hemoglobin 32.5 pg (28.0-32.0); Mean Corpuscular Hgb Conc. 34.7 g/dL (32.0-36.0); Mean Corpuscular Volume 93.8 fL (80.0-100.0); Monocytes # (auto) 0.8 10 ^3/uL (0-1.3); Monocytes % (auto) 10.2 % (0.0-12.0); Neutrophils # (auto) 5.3 10 ^3/uL (1.6-8.6); Neutrophils % (auto) 67.2 % (37.0-80.0); Red Blood Cells 4.18 10^6/uL (4.5-5.90); Red Cell Distribution Width 14.7 % (11.8-14.3); White Blood Cell 7.8 10^3/uL (4.4-10.8)
[2022-06-15 07:25] LABS: Calcium 8.6 mg/dL (8.5-10.1); Potassium 4.3 mmol/L (3.5-5.1)
[2022-06-15 07:28] LABS: BUN/Creatinine Ratio 26.3
[2022-06-15] MEDS ORDERED: ASPirin 81 mg TAB PO ONE (19:00)
[2022-06-15] MEDS ORDERED: CLOPIDOGREL BISULFATE 75 MG TAB PO ONE (19:00)
[2022-06-15] MEDS ORDERED: CYANOCOBALAMIN (B-12) 1000 MCG/1 ML VIAL IM ONE (19:00)
[2022-06-15] MEDS: ATORVASTATIN 20 MG TAB PO SCH (23:00)
[2022-06-16] VITALS (7 sets, daily range): BP systolic 93–159; BP diastolic 45–81
[2022-06-16 07:43] LABS: Potassium 3.9 mmol/L (3.5-5.1)
[2022-06-16 07:51] LABS: Albumin 3.1 g/dL (3.4-5.0); Bilirubin, Direct 0.3 mg/dL (0-0.2); Calcium 8.3 mg/dL (8.5-10.1); Total Protein 5.6 g/dL (6.4-8.2)
[2022-06-16] MEDS: CYANOCOBALAMIN (B-12) 1000 MCG/1 ML VIAL IM SCH (09:24)
[2022-06-16] MEDS: CLOPIDOGREL BISULFATE 75 MG TAB PO SCH (09:25)
[2022-06-16] MEDS: ASPirin 81 mg TAB PO SCH (09:25)
[2022-06-16] MEDS ORDERED: ENOXAPARIN SOD 40 MG/0.4 ML SYRINGE SC SCH (10:00)
[2022-06-16] MEDS ORDERED: SERTRALINE HCL 50 MG TAB PO ONE (10:45)
[2022-06-16] MEDS ORDERED: FINASTERIDE 5 MG TAB PO ONE (10:45)
[2022-06-16] MEDS ORDERED: MIDODRINE HCL 10 MG TAB PO ONE (10:45)
[2022-06-16] MEDS: MIDODRINE HCL 10 MG TAB PO SCH ×2 (12:00→18:00)
[2022-06-16] MEDS: ATORVASTATIN 20 MG TAB PO SCH (21:52)
[2022-06-16] MEDS: PRIMIDONE 50 MG TAB PO SCH (21:53)
[2022-06-17] VITALS (7 sets, daily range): BP systolic 99–156; BP diastolic 44–87
[2022-06-17] MEDS: MIDODRINE HCL 10 MG TAB PO SCH ×3 (06:00→17:48)
[2022-06-17 06:53] LABS: Basophils # (auto) 0 10 ^3/uL (0-0.2); Basophils % (auto) 0.5 % (0.0-2.0); Eosinophils # (auto) 0.2 10 ^3/uL (0-0.8); Eosinophils % (auto) 2.2 % (0.0-7.0); Hematocrit 43.2 % (41.0-53.0); Hemoglobin 14.3 g/dL (13.5-17.5); Lymphocytes # (auto) 1.7 10 ^3/uL (0.4-5.4); Lymphocytes % (auto) 18.8 % (10.0-50.0); Mean Corpuscular Hemoglobin 31.1 pg (28.0-32.0); Mean Corpuscular Hgb Conc. 33.1 g/dL (32.0-36.0); Mean Corpuscular Volume 93.7 fL (80.0-100.0); Monocytes # (auto) 0.8 10 ^3/uL (0-1.3); Monocytes % (auto) 9.5 % (0.0-12.0); Neutrophils # (auto) 6.1 10 ^3/uL (1.6-8.6); Red Blood Cells 4.61 10^6/uL (4.5-5.90); Red Cell Distribution Width 14.6 % (11.8-14.3); White Blood Cell 8.9 10^3/uL (4.4-10.8)
[2022-06-17 07:16] LABS: BUN/Creatinine Ratio 23.4; Calcium 8.4 mg/dL (8.5-10.1); Potassium 4.2 mmol/L (3.5-5.1)
[2022-06-17] MEDS: ASPirin 81 mg TAB PO SCH (10:08)
[2022-06-17] MEDS: FINASTERIDE 5 MG TAB PO SCH (10:09)
[2022-06-17] MEDS: SERTRALINE HCL 50 MG TAB PO SCH (10:09)
[2022-06-17] MEDS: CLOPIDOGREL BISULFATE 75 MG TAB PO SCH (10:09)
[2022-06-17] MEDS: CYANOCOBALAMIN (B-12) 1000 MCG/1 ML VIAL IM SCH (10:13)
[2022-06-17] MEDS: PRIMIDONE 50 MG TAB PO SCH (21:42)
[2022-06-17] MEDS: ATORVASTATIN 20 MG TAB PO SCH (21:42)
[2022-06-18] VITALS (7 sets, daily range): BP systolic 0–142; BP diastolic 41–78
[2022-06-18] MEDS: CLOPIDOGREL BISULFATE 75 MG TAB PO SCH (10:34)
[2022-06-18] MEDS: ASPirin 81 mg TAB PO SCH (10:34)
[2022-06-18] MEDS: SERTRALINE HCL 50 MG TAB PO SCH (10:35)
[2022-06-18] MEDS: FINASTERIDE 5 MG TAB PO SCH (10:35)
[2022-06-18] MEDS: MIDODRINE HCL 10 MG TAB PO SCH (18:00)
[2022-06-18] MEDS: PRIMIDONE 50 MG TAB PO SCH (21:53)
[2022-06-18] MEDS: ATORVASTATIN 20 MG TAB PO SCH (21:53)
[2022-06-19] VITALS (7 sets, daily range): BP systolic 102–153; BP diastolic 50–78
[2022-06-19] MEDS: MIDODRINE HCL 10 MG TAB PO SCH ×3 (06:15→18:24)
[2022-06-19] MEDS: CYANOCOBALAMIN 500 MCG TAB PO SCH (10:57)
[2022-06-19] MEDS: ASPirin 81 mg TAB PO SCH (10:57)
[2022-06-19] MEDS: FINASTERIDE 5 MG TAB PO SCH (10:57)
[2022-06-19] MEDS: CLOPIDOGREL BISULFATE 75 MG TAB PO SCH (10:57)
[2022-06-19] MEDS: SERTRALINE HCL 50 MG TAB PO SCH (10:58)
[2022-06-19] MEDS: ATORVASTATIN 20 MG TAB PO SCH (22:52)
[2022-06-19] MEDS: PRIMIDONE 50 MG TAB PO SCH (22:53)
[2022-06-20 05:00] VITALS: BP_SYST 125; BP_SYST 78; BP_SYST 82; BP_DIAS 39; BP_DIAS 44; BP_DIAS 67
[2022-06-20] MEDS: MIDODRINE HCL 10 MG TAB PO SCH ×3 (06:12→18:06)
[2022-06-20 09:00] VITALS: BP 132/69
[2022-06-20] MEDS: CLOPIDOGREL BISULFATE 75 MG TAB PO SCH (10:09)
[2022-06-20] MEDS: ASPirin 81 mg TAB PO SCH (10:09)
[2022-06-20] MEDS: CYANOCOBALAMIN 500 MCG TAB PO SCH (10:09)
[2022-06-20] MEDS: SERTRALINE HCL 50 MG TAB PO SCH (10:09)
[2022-06-20] MEDS: FINASTERIDE 5 MG TAB PO SCH (10:09)
[2022-06-20 13:00] VITALS: BP 140/73
[2022-06-20 17:00] VITALS: BP 144/58
[2022-06-20] MEDS: DOCUSATE SOD 100 MG CAP PO PRN (18:06)
[2022-06-20] MEDS: ATORVASTATIN 20 MG TAB PO SCH (21:49)
[2022-06-20] MEDS: PRIMIDONE 50 MG TAB PO SCH ×2 (21:50→21:52)
[2022-06-20 22:00] VITALS: BP 188/7
[2022-06-21 05:00] VITALS: BP 128/72
[2022-06-21] MEDS: MIDODRINE HCL 10 MG TAB PO SCH ×3 (05:49→12:31)
[2022-06-21 07:35] LABS: BUN/Creatinine Ratio 21.6; Calcium 8.6 mg/dL (8.5-10.1); Potassium 4.5 mmol/L (3.5-5.1)
[2022-06-21 09:00] VITALS: BP 151/77
[2022-06-21] MEDS: ASPirin 81 mg TAB PO SCH (09:17)
[2022-06-21] MEDS: CLOPIDOGREL BISULFATE 75 MG TAB PO SCH (09:18)
[2022-06-21] MEDS: FINASTERIDE 5 MG TAB PO SCH (09:18)
[2022-06-21] MEDS: CYANOCOBALAMIN 500 MCG TAB PO SCH (09:19)
[2022-06-21] MEDS: SERTRALINE HCL 50 MG TAB PO SCH (09:22)
[2022-06-21 13:00] VITALS: BP 132/76
[2022-06-21 17:00] VITALS: BP 134/73
[2022-06-21] MEDS: PRIMIDONE 50 MG TAB PO SCH (22:04)
[2022-06-21] MEDS: ATORVASTATIN 20 MG TAB PO SCH (22:04)
[2022-06-22 05:52] VITALS: BP 129/69
[2022-06-22 09:00] VITALS: BP 150/72
[2022-06-22] MEDS ORDERED: MIDODRINE HCL 10 MG TAB PO ONE (10:00)
[2022-06-22] MEDS: ASPirin 81 mg TAB PO SCH (10:28)
[2022-06-22] MEDS: CYANOCOBALAMIN 500 MCG TAB PO SCH (10:28)
[2022-06-22] MEDS: FINASTERIDE 5 MG TAB PO SCH (10:28)
[2022-06-22] MEDS: CLOPIDOGREL BISULFATE 75 MG TAB PO SCH (10:28)
[2022-06-22] MEDS: SERTRALINE HCL 50 MG TAB PO SCH (10:28)
[2022-06-22 13:00] VITALS: BP 126/71
[2022-06-22 17:00] VITALS: BP 140/74
[2022-06-22] MEDS: MIDODRINE HCL 10 MG TAB PO SCH (18:19)
[2022-06-22] MEDS: PRIMIDONE 50 MG TAB PO SCH (21:23)
[2022-06-22] MEDS: ATORVASTATIN 20 MG TAB PO SCH (21:23)
[2022-06-22 22:00] VITALS: BP_SYST 137; BP_SYST 95; BP_DIAS 47; BP_DIAS 54; BP_DIAS 78
[2022-06-22 22:14] VITALS: BP 137/72
[2022-06-23 05:08] VITALS: BP 128/73
[2022-06-23] MEDS: MIDODRINE HCL 10 MG TAB PO SCH ×3 (05:46→17:18)
[2022-06-23] MEDS: ASPirin 81 mg TAB PO SCH (08:51)
[2022-06-23] MEDS: SERTRALINE HCL 50 MG TAB PO SCH (08:51)
[2022-06-23] MEDS: CYANOCOBALAMIN 500 MCG TAB PO SCH (08:51)
[2022-06-23] MEDS: CLOPIDOGREL BISULFATE 75 MG TAB PO SCH (08:51)
[2022-06-23] MEDS: FINASTERIDE 5 MG TAB PO SCH (08:51)
[2022-06-23 09:00] VITALS: BP_SYST 116; BP_SYST 126; BP_DIAS 63; BP_DIAS 65
[2022-06-23 13:00] VITALS: BP 150/80
[2022-06-23 16:14] VITALS: BP 148/70
[2022-06-23] MEDS: ATORVASTATIN 20 MG TAB PO SCH (21:32)
[2022-06-23] MEDS: PRIMIDONE 50 MG TAB PO SCH ×2 (21:32→22:00)
[2022-06-23] MEDS: METOPROLOL TARTRATE 25 MG TAB PO SCH (21:33)
[2022-06-23 22:00] VITALS: BP_SYST 130; BP_SYST 136; BP_SYST 74; BP_DIAS 38; BP_DIAS 72; BP_DIAS 74
[2022-06-23] MEDS ORDERED: METOPROLOL TARTRATE 25 MG TAB PO ONE (22:00)
[2022-06-24 05:00] VITALS: BP_SYST 102; BP_SYST 99; BP_DIAS 63; BP_DIAS 69
[2022-06-24] MEDS: MIDODRINE HCL 10 MG TAB PO SCH ×3 (05:37→17:15)
[2022-06-24 08:09] VITALS: BP_SYST 121; BP_SYST 129; BP_SYST 84; BP_DIAS 46; BP_DIAS 69; BP_DIAS 70
[2022-06-24] MEDS: ASPirin 81 mg TAB PO SCH (08:26)
[2022-06-24] MEDS: CYANOCOBALAMIN 500 MCG TAB PO SCH (08:27)
[2022-06-24] MEDS: CLOPIDOGREL BISULFATE 75 MG TAB PO SCH (08:27)
[2022-06-24] MEDS: SERTRALINE HCL 50 MG TAB PO SCH (08:27)
[2022-06-24] MEDS: FINASTERIDE 5 MG TAB PO SCH (08:27)
[2022-06-24] MEDS: METOPROLOL TARTRATE 25 MG TAB PO SCH ×2 (08:30→22:09)
[2022-06-24] MEDS ORDERED: METOPROLOL TARTRATE 25 MG TAB PO SCH (10:00)
[2022-06-24 11:41] VITALS: BP_SYST 130; BP_SYST 70; BP_SYST 84; BP_DIAS 43; BP_DIAS 48; BP_DIAS 69
[2022-06-24] MEDS: DOCUSATE SOD 100 MG CAP PO PRN (11:47)
[2022-06-24 15:21] VITALS: BP_SYST 115; BP_SYST 67; BP_SYST 81; BP_DIAS 39; BP_DIAS 41; BP_DIAS 56
[2022-06-24 22:00] VITALS: BP_SYST 102; BP_SYST 132; BP_SYST 93; BP_DIAS 50; BP_DIAS 69
[2022-06-24] MEDS: ATORVASTATIN 20 MG TAB PO SCH (22:08)
[2022-06-24] MEDS: PRIMIDONE 50 MG TAB PO SCH (22:09)
[2022-06-25] VITALS (10 sets, daily range): BP systolic 60–141; BP diastolic 34–77
[2022-06-25] MEDS: MIDODRINE HCL 10 MG TAB PO SCH ×3 (05:17→18:46)
[2022-06-25 06:39] LABS: Basophils # (auto) 0 10 ^3/uL (0-0.2); Basophils % (auto) 0.5 % (0.0-2.0); Eosinophils # (auto) 0.2 10 ^3/uL (0-0.8); Eosinophils % (auto) 1.7 % (0.0-7.0); Hematocrit 42.4 % (41.0-53.0); Hemoglobin 14.9 g/dL (13.5-17.5); Lymphocytes # (auto) 1.3 10 ^3/uL (0.4-5.4); Lymphocytes % (auto) 13.4 % (10.0-50.0); Mean Corpuscular Hemoglobin 32.7 pg (28.0-32.0); Mean Corpuscular Hgb Conc. 35.2 g/dL (32.0-36.0); Monocytes # (auto) 0.8 10 ^3/uL (0-1.3); Monocytes % (auto) 8.2 % (0.0-12.0); Neutrophils # (auto) 7.4 10 ^3/uL (1.6-8.6); Neutrophils % (auto) 76.2 % (37.0-80.0); Nucleated Red Blood Cells % 0.2 %; Red Blood Cells 4.56 10^6/uL (4.5-5.90); Red Cell Distribution Width 14.6 % (11.8-14.3); White Blood Cell 9.7 10^3/uL (4.4-10.8)
[2022-06-25 06:56] LABS: Potassium 4.2 mmol/L (3.5-5.1)
[2022-06-25 07:01] LABS: BUN/Creatinine Ratio 29.4; Calcium 8.6 mg/dL (8.5-10.1)
[2022-06-25] MEDS ORDERED: LACTULOSE 20Gm/30ML SOLN PO PRN (09:00)
[2022-06-25] MEDS: ASPirin 81 mg TAB PO SCH (11:25)
[2022-06-25] MEDS: FINASTERIDE 5 MG TAB PO SCH (11:26)
[2022-06-25] MEDS: CYANOCOBALAMIN 500 MCG TAB PO SCH (11:26)
[2022-06-25] MEDS: CLOPIDOGREL BISULFATE 75 MG TAB PO SCH (11:27)
[2022-06-25] MEDS: SERTRALINE HCL 50 MG TAB PO SCH (11:27)
[2022-06-25] MEDS: METOPROLOL TARTRATE 25 MG TAB PO SCH ×2 (11:31→22:36)
[2022-06-25] MEDS: PRIMIDONE 50 MG TAB PO SCH (22:35)
[2022-06-25] MEDS: ATORVASTATIN 20 MG TAB PO SCH (22:36)
[2022-06-26] VITALS (7 sets, daily range): BP systolic 0–139; BP diastolic 32–77
[2022-06-26] MEDS: MIDODRINE HCL 10 MG TAB PO SCH ×3 (06:42→17:32)
[2022-06-26] MEDS: FINASTERIDE 5 MG TAB PO SCH (09:17)
[2022-06-26] MEDS: ASPirin 81 mg TAB PO SCH (09:17)
[2022-06-26] MEDS: SERTRALINE HCL 50 MG TAB PO SCH (09:17)
[2022-06-26] MEDS: CLOPIDOGREL BISULFATE 75 MG TAB PO SCH (09:17)
[2022-06-26] MEDS: CYANOCOBALAMIN 500 MCG TAB PO SCH (09:17)
[2022-06-26] MEDS: METOPROLOL TARTRATE 25 MG TAB PO SCH ×2 (09:20→22:28)
[2022-06-26] MEDS: ATORVASTATIN 20 MG TAB PO SCH (22:26)
[2022-06-26] MEDS: PRIMIDONE 50 MG TAB PO SCH (22:26)
[2022-06-27] VITALS (7 sets, daily range): BP systolic 0–132; BP diastolic 42–72
[2022-06-27] MEDS: MIDODRINE HCL 10 MG TAB PO SCH ×3 (06:28→18:25)
[2022-06-27] MEDS: ASPirin 81 mg TAB PO SCH (11:13)
[2022-06-27] MEDS: METOPROLOL TARTRATE 25 MG TAB PO SCH ×2 (11:14→21:39)
[2022-06-27] MEDS: CLOPIDOGREL BISULFATE 75 MG TAB PO SCH (11:15)
[2022-06-27] MEDS: SERTRALINE HCL 50 MG TAB PO SCH (11:15)
[2022-06-27] MEDS: FINASTERIDE 5 MG TAB PO SCH (11:15)
[2022-06-27] MEDS: CYANOCOBALAMIN 500 MCG TAB PO SCH (11:15)
[2022-06-27] MEDS: ATORVASTATIN 20 MG TAB PO SCH (21:39)
[2022-06-27] MEDS: PRIMIDONE 50 MG TAB PO SCH (21:39)
[2022-06-28 04:54] VITALS: BP 128/66
[2022-06-28 05:00] VITALS: BP 80/38
[2022-06-28] MEDS: MIDODRINE HCL 10 MG TAB PO SCH ×3 (06:00→17:31)
[2022-06-28] MEDS: ASPirin 81 mg TAB PO SCH (08:19)
[2022-06-28] MEDS: CLOPIDOGREL BISULFATE 75 MG TAB PO SCH (08:20)
[2022-06-28] MEDS: FINASTERIDE 5 MG TAB PO SCH (08:20)
[2022-06-28] MEDS: CYANOCOBALAMIN 500 MCG TAB PO SCH (08:20)
[2022-06-28] MEDS: SERTRALINE HCL 50 MG TAB PO SCH (08:21)
[2022-06-28] MEDS: METOPROLOL TARTRATE 25 MG TAB PO SCH (08:24)
[2022-06-28 09:00] VITALS: BP 118/66
[2022-06-28] MEDS ORDERED: MID10T PO (10:17)
[2022-06-28] MEDS ORDERED: SERT50TA PO (10:17)
[2022-06-28] MEDS ORDERED: MET25T PO (10:17)
[2022-06-28] MEDS ORDERED: PRIM50TA5 PO (10:20)
[2022-06-28 13:00] VITALS: BP 128/60
[2022-06-28 13:48] VITALS: BP 128/60
[2022-06-28 17:00] VITALS: BP 105/63
== END 2022-06-28 17:40 | disposition home or self-care (01) | DRG 312 ==
LOC: ER 20:29 → EDBD 20:29 → TELE 06-15 03:37 → TELE-CENTR 06-15 23:10
PROVIDERS: ADMIT Hospitalist; ATTEND Internal Medicine
PROC: 4B02XSZ Measurement of Cardiac Pacemaker, External Approach (ICD-10-PCS; principal; 2022-06-21)
DX: I95.1 Orthostatic hypotension (principal); I10 Essential (primary) hypertension; I25.10 Atherosclerotic heart disease of native coronary artery without angina pectoris; E78.5 Hyperlipidemia, unspecified; G25.0 Essential tremor; D69.6 Thrombocytopenia, unspecified; M54.50 Low back pain, unspecified; G89.29 Other chronic pain; Z20.822 Contact with and (suspected) exposure to COVID-19; E66.9 Obesity, unspecified; F32.A Depression, unspecified; N40.0 Benign prostatic hyperplasia without lower urinary tract symptoms; Z63.4 Disappearance and death of family member; Z90.49 Acquired absence of other specified parts of digestive tract; Z86.73 Personal history of transient ischemic attack (TIA), and cerebral infarction without residual deficits; Z95.0 Presence of cardiac pacemaker; Z95.5 Presence of coronary angioplasty implant and graft; Z68.30 Body mass index [BMI] 30.0-30.9, adult; Z79.02 Long term (current) use of antithrombotics/antiplatelets; Z79.82 Long term (current) use of aspirin; Z79.899 Other long term (current) drug therapy; Z82.49 Family history of ischemic heart disease and other diseases of the circulatory system; Z83.3 Family history of diabetes mellitus; Z86.718 Personal history of other venous thrombosis and embolism
CPT/HCPCS: 36415; 70450; 71045; 80048; 80053; 81001; 82248; 82533; 82607; 82962; 83735; 83880; 84484; 85025; 85610; 85730; 87081; 87426; 93005; 96360; 96361; 96372; 97110; 97116; 97163; 97530; G0378; J2405

== ENCOUNTER → 2022-07-27 | Outpatient (CLI) | payer OTHER ==
[~2022-07-27] MED LIST changes: +MET25T PO; +MID10T PO; +PRIM50TA5 PO; +SERT50TA PO
== END | disposition home or self-care (01) ==
LOC: LAB 10:42
PROVIDERS: ATTEND Internal Medicine
DX: N18.2 Chronic kidney disease, stage 2 (mild) (principal); R00.2 Palpitations; N52.9 Male erectile dysfunction, unspecified; R42 Dizziness and giddiness
CPT/HCPCS: 36415; 82306; 83036; 84403

== ENCOUNTER 2022-09-16 09:31 | Inpatient (IN) | payer OTHER ==
[~2022-09-16] VITALS: Ht 188 cm; Wt 82.9 kg
[2022-09-16 10:00] LABS: Basophils # (auto) 0.1 10 ^3/uL (0-0.2); Basophils % (auto) 0.9 % (0.0-2.0); Eosinophils # (auto) 0.3 10 ^3/uL (0-0.8); Eosinophils % (auto) 5.5 % (0.0-7.0); Hematocrit 42.6 % (41.0-53.0); Hemoglobin 14.6 g/dL (13.5-17.5); Lymphocytes # (auto) 1.5 10 ^3/uL (0.4-5.4); Lymphocytes % (auto) 23.9 % (10.0-50.0); Mean Corpuscular Hemoglobin 32.3 pg (28.0-32.0); Mean Corpuscular Hgb Conc. 34.2 g/dL (32.0-36.0); Mean Corpuscular Volume 94.4 fL (80.0-100.0); Monocytes # (auto) 0.6 10 ^3/uL (0-1.3); Monocytes % (auto) 9.8 % (0.0-12.0); Neutrophils # (auto) 3.8 10 ^3/uL (1.6-8.6); Neutrophils % (auto) 59.9 % (37.0-80.0); Nucleated Red Blood Cells % 0.1 %; Red Blood Cells 4.51 10^6/uL (4.5-5.90); White Blood Cell 6.3 10^3/uL (4.4-10.8)
[2022-09-16 10:20] LABS: Albumin 3.5 g/dL (3.4-5.0); Calcium 8.8 mg/dL (8.5-10.1)
[2022-09-16 10:23] LABS: BUN/Creatinine Ratio 23.7 (10.0-20.0); Bilirubin, Total 1.2 mg/dL (0.2-1.0); Total Protein 6.6 g/dL (6.4-8.2)
[2022-09-16] MEDS ORDERED: SODIUM CHLORIDE 0.9% 1,000 ML IV ONE (10:30)
[2022-09-16] MEDS ORDERED: NITROGLYCERIN 2% OINT 1GM PKG TD ONE (10:30)
[2022-09-16] MEDS ORDERED: IOHEXOL 350 MG/ML 100ML IJ ONE (10:33)
[2022-09-16 11:27] LABS: INR 1.1 (0.9-1.15); Partial Thromboplastin Time 28.3 sec (24.6-33.4)
[2022-09-16] MEDS ORDERED: ACETAMINOPHEN 325 MG TAB PO PRN (14:15)
[2022-09-16] MEDS ORDERED: ENOXAPARIN SOD 30 MG/0.3 ML SYRINGE SC ONE (14:15)
[2022-09-16] MEDS ORDERED: MORPHINE SULFATE INJ 2 MG/ml SYRG IV PRN (14:15)
[2022-09-16] MEDS ORDERED: NITROGLYCERIN 0.4 MG SL TAB SL PRN (14:15)
[2022-09-16] MEDS ORDERED: ONDANSETRON HCL 4 MG/2 ML VIAL IV PRN (14:15)
[2022-09-16] MEDS ORDERED: ENOXAPARIN SOD 40 MG/0.4 ML SYRINGE SC ONE (15:00)
[2022-09-16 15:23] LABS: Urine WBC None Seen /hpf (0 - 3)
[2022-09-16 15:45] LABS: Urine Bacteria NONE SEEN /hpf (None Seen); Urine Blood Negative /uL (Negative); Urine Specific Gravity 1.033 (1.001-1.035)
[2022-09-16 17:10] LABS: Alcohol, Urine < 3.0 mg/dL (0-10); Amphetamine Screen, Urine NEGATIVE (NEGATIVE); Barbiturate Scree,Urine NEGATIVE (NEGATIVE); Benzodiazephine Screen, Urine NEGATIVE (NEGATIVE); Cannabinoid Screen, Urine NEGATIVE (NEGATIVE); Cocaine Screen, Urine NEGATIVE (NEGATIVE); Opiate Scree,Urine NEGATIVE (NEGATIVE); Phencyclidine Screen, Urine NEGATIVE (NEGATIVE)
[2022-09-16] MEDS: MIDODRINE HCL 10 MG TAB PO SCH (18:43)
[2022-09-16 22:30] VITALS: BP 157/87
[2022-09-16] MEDS: ATORVASTATIN 20 MG TAB PO SCH (23:11)
[2022-09-16] MEDS: PRIMIDONE 50 MG TAB PO SCH (23:12)
[2022-09-16] MEDS: METOPROLOL TARTRATE 25 MG TAB PO SCH (23:18)
[2022-09-16 23:33] VITALS: BP 157/60
[2022-09-17 05:00] VITALS: BP 134/72
[2022-09-17] MEDS: MIDODRINE HCL 10 MG TAB PO SCH ×3 (05:45→17:12)
[2022-09-17 09:00] VITALS: BP 128/68
[2022-09-17] MEDS ORDERED: ERGOCALCIFEROL 50,000 UNIT(1.25MG) CAP PO SCH (10:00)
[2022-09-17] MEDS: PANTOPRAZOLE 40 MG/10 ML VIAL INJ IV SCH (10:18)
[2022-09-17] MEDS: ASPirin 81 mg TAB PO SCH (10:18)
[2022-09-17] MEDS: MULTIPLE VITAMINS W/ MINERALS TAB PO SCH (10:19)
[2022-09-17] MEDS: FINASTERIDE 5 MG TAB PO SCH (10:19)
[2022-09-17] MEDS: CLOPIDOGREL BISULFATE 75 MG TAB PO SCH (10:19)
[2022-09-17] MEDS: FLUDROCORTISONE ACETATE 0.1 MG TAB PO SCH (10:19)
[2022-09-17] MEDS: METOPROLOL TARTRATE 25 MG TAB PO SCH ×2 (10:20→21:18)
[2022-09-17] MEDS: SERTRALINE HCL 50 MG TAB PO SCH (10:20)
[2022-09-17 12:52] VITALS: BP 136/73
[2022-09-17 17:00] VITALS: BP 147/75
[2022-09-17] MEDS: ATORVASTATIN 20 MG TAB PO SCH (21:09)
[2022-09-17] MEDS: PRIMIDONE 50 MG TAB PO SCH (21:10)
[2022-09-17 22:00] VITALS: BP 127/69
[2022-09-18 05:00] VITALS: BP 100/73
[2022-09-18] MEDS: MIDODRINE HCL 10 MG TAB PO SCH ×3 (05:54→17:01)
[2022-09-18 08:14] VITALS: BP 158/71
[2022-09-18] MEDS: METOPROLOL TARTRATE 25 MG TAB PO SCH ×2 (08:37→21:25)
[2022-09-18] MEDS: FLUDROCORTISONE ACETATE 0.1 MG TAB PO SCH (08:37)
[2022-09-18] MEDS: PANTOPRAZOLE 40 MG/10 ML VIAL INJ IV SCH (08:37)
[2022-09-18] MEDS: ASPirin 81 mg TAB PO SCH (08:37)
[2022-09-18] MEDS: MULTIPLE VITAMINS W/ MINERALS TAB PO SCH (08:38)
[2022-09-18] MEDS: SERTRALINE HCL 50 MG TAB PO SCH (08:38)
[2022-09-18] MEDS: FINASTERIDE 5 MG TAB PO SCH (08:38)
[2022-09-18] MEDS: CLOPIDOGREL BISULFATE 75 MG TAB PO SCH (08:38)
[2022-09-18 08:45] VITALS: BP 127/73
[2022-09-18 12:49] VITALS: BP 119/70
[2022-09-18 17:00] VITALS: BP 129/68
[2022-09-18] MEDS: ATORVASTATIN 20 MG TAB PO SCH (21:23)
[2022-09-18] MEDS: PRIMIDONE 50 MG TAB PO SCH (21:25)
[2022-09-18 22:00] VITALS: BP 134/69
[2022-09-19 04:57] VITALS: BP 100/58
[2022-09-19] MEDS: MIDODRINE HCL 10 MG TAB PO SCH ×3 (05:24→18:00)
[2022-09-19 07:10] LABS: Potassium 3.7 mmol/L (3.5-5.1)
[2022-09-19 07:21] LABS: BUN/Creatinine Ratio 26.7 (10.0-20.0); Calcium 8.8 mg/dL (8.5-10.1); Magnesium 2.5 mg/dL (1.6-2.6)
[2022-09-19 08:00] VITALS: BP 122/56
[2022-09-19 09:00] VITALS: BP 122/56
[2022-09-19] MEDS: SERTRALINE HCL 50 MG TAB PO SCH (11:38)
[2022-09-19] MEDS: CLOPIDOGREL BISULFATE 75 MG TAB PO SCH (11:38)
[2022-09-19] MEDS: ASPirin 81 mg TAB PO SCH (11:38)
[2022-09-19] MEDS: FLUDROCORTISONE ACETATE 0.1 MG TAB PO SCH (11:39)
[2022-09-19] MEDS: FINASTERIDE 5 MG TAB PO SCH (11:40)
[2022-09-19] MEDS: METOPROLOL TARTRATE 25 MG TAB PO SCH (11:40)
[2022-09-19] MEDS: MULTIPLE VITAMINS W/ MINERALS TAB PO SCH (11:41)
[2022-09-19 12:07] LABS: Hepatitis C Antibody Negative (Negative)
[2022-09-19 13:00] VITALS: BP 121/68
[2022-09-19 16:56] VITALS: BP 122/56
[2022-09-19 17:00] VITALS: BP 130/67
== END 2022-09-19 19:00 | DRG 392 ==
LOC: EDBD 09:31 → ER 09:31 → TELE 14:16 → TELE-WESTW 22:40
PROVIDERS: ADMIT Nurse Practitioner Family; ATTEND Internal Medicine
DX: K21.9 Gastro-esophageal reflux disease without esophagitis (principal); I25.10 Atherosclerotic heart disease of native coronary artery without angina pectoris; E78.5 Hyperlipidemia, unspecified; I10 Essential (primary) hypertension; N40.0 Benign prostatic hyperplasia without lower urinary tract symptoms; Z20.822 Contact with and (suspected) exposure to COVID-19; M79.18 Myalgia, other site; Z63.4 Disappearance and death of family member; Z82.49 Family history of ischemic heart disease and other diseases of the circulatory system; Z86.73 Personal history of transient ischemic attack (TIA), and cerebral infarction without residual deficits; Z95.0 Presence of cardiac pacemaker; Z98.61 Coronary angioplasty status; Z79.02 Long term (current) use of antithrombotics/antiplatelets; I16.0 Hypertensive urgency
CPT/HCPCS: 36415; 71045; 71275; 80048; 80053; 80307; 81001; 83605; 83690; 83735; 83880; 84484; 85025; 85379; 85610; 85730; 86803; 87040; 87340; 87426; 93005; 96361; 96372; 96374; C9113; G0378

== ENCOUNTER → 2022-11-15 | Outpatient (CLI) | payer OTHER ==
[~2022-11-15] MED LIST changes: +MECL1TAB32 PO; -MECL25TA18 PO
[2022-11-15 12:53] LABS: Urine Bacteria NONE SEEN /hpf (None Seen); Urine Blood Negative /uL (Negative); Urine Mucus MANY (None Seen); Urine Specific Gravity 1.035 (1.001-1.035); Urine WBC 1 /hpf (0 - 3)
[2022-11-15 13:00] LABS: Albumin 3.8 g/dL (3.4-5.0)
[2022-11-15 13:10] LABS: BUN/Creatinine Ratio 36.2 (10.0-20.0); Bilirubin, Total 1.6 mg/dL (0.2-1.0); Calcium 9.1 mg/dL (8.5-10.1); Total Protein 6.9 g/dL (6.4-8.2)
== END | disposition home or self-care (01) ==
LOC: LAB 12:06
PROVIDERS: ATTEND Internal Medicine
DX: I10 Essential (primary) hypertension (principal); E78.5 Hyperlipidemia, unspecified; R42 Dizziness and giddiness; R73.03 Prediabetes
CPT/HCPCS: 36415; 80053; 80061; 81001; 84443

== ENCOUNTER → 2023-01-09 | Outpatient (CLI) | payer OTHER ==
[~2023-01-09] MED LIST changes: +ADENOSINE 67 MG in GIVE UN-DILUTED 0 ML IV ONE; +ADENOSINE 90 MG/30 ML INJ IV ONE
== END | disposition home or self-care (01) ==
LOC: Rad HDHVI 12:42
PROVIDERS: ATTEND Internal Medicine Cardiovascular Disease
DX: I10 Essential (primary) hypertension (principal); I25.10 Atherosclerotic heart disease of native coronary artery without angina pectoris; R00.2 Palpitations; R07.89 Other chest pain; I49.5 Sick sinus syndrome; E78.00 Pure hypercholesterolemia, unspecified; Z82.49 Family history of ischemic heart disease and other diseases of the circulatory system; Z95.0 Presence of cardiac pacemaker
CPT/HCPCS: 78452; 93005; 96374; 96375; A9500; J0153

== ENCOUNTER → 2023-01-11 | Outpatient (CLI) | payer OTHER ==
[~2023-01-11] MED LIST changes: -ADENOSINE 67 MG in GIVE UN-DILUTED 0 ML IV ONE; -ADENOSINE 90 MG/30 ML INJ IV ONE
== END | disposition home or self-care (01) ==
LOC: LAB 13:33
PROVIDERS: ATTEND Urology
DX: D69.6 Thrombocytopenia, unspecified (principal); R42 Dizziness and giddiness; E78.5 Hyperlipidemia, unspecified; R73.01 Impaired fasting glucose
CPT/HCPCS: 36415; 83036; 84153; 84403

== ENCOUNTER → 2023-02-10 | Outpatient (CLI) | payer OTHER | END | disposition home or self-care (01) | LOC: LAB 10:15 | PROVIDERS: ATTEND Internal Medicine | DX: R25.1 Tremor, unspecified (principal); M25.562 Pain in left knee; R79.89 Other specified abnormal findings of blood chemistry | CPT/HCPCS: 36415; 84403; 84443 ==

== ENCOUNTER → 2023-02-17 | Outpatient (CLI) | payer OTHER | END | disposition home or self-care (01) | LOC: LAB 10:15 | PROVIDERS: ATTEND Family Medicine | DX: L82.1 Other seborrheic keratosis (principal) | CPT/HCPCS: 88302 ==

== ENCOUNTER → 2023-03-03 | Outpatient (CLI) | payer OTHER ==
[~2023-03-03] MED LIST changes: +CYCL-837 PO
== END | disposition home or self-care (01) ==
LOC: LAB 10:50
PROVIDERS: ATTEND Family Medicine
DX: L72.0 Epidermal cyst (principal)
CPT/HCPCS: 88302

== ENCOUNTER → 2023-03-13 | Emergency (ER) | payer OTHER ==
[~2023-03-13] VITALS: Ht 188 cm; Wt 80.0 kg
[~2023-03-13] MED LIST changes: +KETOROLAC TROMETH 30 MG/ML 1ML VIAL IM ONE
[2023-03-13 17:46] VITALS: BP 99/56; PULSE 74; RESP 16; TEMP 97.6; O2SAT 98
== END | disposition home or self-care (01) ==
LOC: EDBD 15:56 → ER 15:56 → EDUNIT# 15:56
DX: S22.31XA Fracture of one rib, right side, initial encounter for closed fracture (principal); S80.01XA Contusion of right knee, initial encounter; S50.01XA Contusion of right elbow, initial encounter; E78.5 Hyperlipidemia, unspecified; I10 Essential (primary) hypertension; Z79.899 Other long term (current) drug therapy; Z86.73 Personal history of transient ischemic attack (TIA), and cerebral infarction without residual deficits; Z90.49 Acquired absence of other specified parts of digestive tract; Z98.890 Other specified postprocedural states; W18.39XA Other fall on same level, initial encounter; Y93.89 Activity, other specified; Y92.89 Other specified places as the place of occurrence of the external cause; Y99.8 Other external cause status
CPT/HCPCS: 71101; 93005; 96372; 99283; J1885

== ENCOUNTER 2023-10-25 13:07 | Inpatient (IN) | payer OTHER ==
[~2023-10-25] VITALS: Ht 188 cm; Wt 78.3 kg
[~2023-10-25 13:07] MED LIST changes: -KETOROLAC TROMETH 30 MG/ML 1ML VIAL IM ONE; +MECL-90 PO; -MECL1TAB32 PO
[2023-10-25 13:59] LABS: Basophils # (auto) 0 10 ^3/uL (0-0.2); Basophils % (auto) 0.6 % (0.0-2.0); Eosinophils # (auto) 0 10 ^3/uL (0-0.8); Hematocrit 34.6 % (41.0-53.0); Hemoglobin 11.3 g/dL (13.5-17.5); Lymphocytes # (auto) 0.5 10 ^3/uL (0.4-5.4); Mean Corpuscular Hemoglobin 31.4 pg (28.0-32.0); Mean Corpuscular Hgb Conc. 32.6 g/dL (32.0-36.0); Mean Corpuscular Volume 96.3 fL (80.0-100.0); Monocytes # (auto) 0.4 10 ^3/uL (0-1.3); Monocytes % (auto) 10.9 % (0.0-12.0); Neutrophils # (auto) 2.7 10 ^3/uL (1.6-8.6); Neutrophils % (auto) 73.5 % (37.0-80.0); Nucleated Red Blood Cells % 0.2 %; Red Cell Distribution Width 14.6 % (11.8-14.3); White Blood Cell 3.6 10^3/uL (4.4-10.8)
[2023-10-25 14:04] VITALS: PULSE 114; RESP 18; O2SAT 97
[2023-10-25 14:15] LABS: Alanine Aminotransferase 19 U/L (7-40); Albumin 2.7 g/dL (3.2-4.8); Alkaline Phosphatase 35 U/L (46-116); Anion Gap 4 (5-15); Aspartate Aminotransferase 19 U/L (13-40); BUN/Creatinine Ratio 30.2 (10.0-20.0); Bilirubin, Total 1.5 mg/dL (0.2-1.0); Blood Urea Nitrogen 19 mg/dL (9-23); Carbon Dioxide 23 mmol/L (20-30); Chloride 115 mmol/L (98-107); Glucose 73 mg/dL (74-106); Potassium 3.4 mmol/L (3.5-5.1); Sodium 142 mmol/L (136-145); Total Protein 4.3 g/dL (5.7-8.2)
[2023-10-25] MEDS: ASPirin 81 mg TAB PO ONE (16:59)
[2023-10-25] MEDS ORDERED: DOCUSATE SOD 100 MG CAP PO PRN (17:00)
[2023-10-25] MEDS ORDERED: ONDANSETRON HCL 4 MG/2 ML VIAL IV PRN (17:00)
[2023-10-25 19:30] VITALS: PULSE 68; RESP 13; O2SAT 95
[2023-10-25 19:31] LABS: Phosphorus 3.2 mg/dL (2.4-5.1)
[2023-10-25] MEDS: POTASSIUM EFFERVESENT TAB 25 MEQ PO ONE (20:03)
[2023-10-25] MEDS: PANTOPRAZOLE 40 MG TAB PO ONE (20:04)
[2023-10-25 20:20] LABS: Urine Bacteria None Seen /hpf (None Seen)
[2023-10-25 20:31] LABS: Urine Blood Negative /uL (Negative); Urine Clarity Clear (Clear); Urine Color Light-Yellow (Yellow); Urine Mucus FEW (None Seen); Urine Protein, UAD Negative (Negative); Urine Specific Gravity 1.014 (1.001-1.035); Urine Urobilinogen Normal (Negative); Urine WBC <1 /hpf (0 - 3)
[2023-10-25] MEDS ORDERED: MIDODRINE HCL 10 MG TAB PO SCH (22:00)
[2023-10-25] MEDS ORDERED: NITROGLYCERIN 0.4 MG SL TAB SL PRN (22:15)
[2023-10-25] MEDS: ENOXAPARIN SOD 60 MG/0.6 ML SYRINGE SC SCH (22:16)
[2023-10-25] MEDS: PRIMIDONE 50 MG TAB PO SCH (22:16)
[2023-10-25] MEDS: ATORVASTATIN 20 MG TAB PO SCH (22:16)
[2023-10-25] MEDS: MORPHINE SULFATE 4 MG/ML SYR/VIAL IV PRN (22:17)
[2023-10-26] VITALS (7 sets, daily range): BP systolic 111–130; BP diastolic 58–72; PULSE 63–85; RESP 16–18; TEMP 97.8–98.9; O2SAT 91–98
[2023-10-26] MEDS ORDERED: HYDROcodone-ACET 5/325MG TAB PO PRN (00:15)
[2023-10-26] MEDS ORDERED: PREG50CA PO (02:16)
[2023-10-26 06:00] LABS: Basophils # (auto) 0 10 ^3/uL (0-0.2); Basophils % (auto) 0.7 % (0.0-2.0); Eosinophils # (auto) 0.1 10 ^3/uL (0-0.8); Eosinophils % (auto) 1.5 % (0.0-7.0); Hematocrit 42.7 % (41.0-53.0); Hemoglobin 14.1 g/dL (13.5-17.5); Lymphocytes # (auto) 0.8 10 ^3/uL (0.4-5.4); Lymphocytes % (auto) 18.6 % (10.0-50.0); Mean Corpuscular Hemoglobin 31.8 pg (28.0-32.0); Mean Corpuscular Hgb Conc. 33.1 g/dL (32.0-36.0); Monocytes # (auto) 0.5 10 ^3/uL (0-1.3); Monocytes % (auto) 11.9 % (0.0-12.0); Neutrophils # (auto) 2.9 10 ^3/uL (1.6-8.6); Neutrophils % (auto) 67.3 % (37.0-80.0); Nucleated Red Blood Cells % 0.4 %; Red Blood Cells 4.45 10^6/uL (4.5-5.90); Red Cell Distribution Width 14.9 % (11.8-14.3); White Blood Cell 4.4 10^3/uL (4.4-10.8)
[2023-10-26 06:20] LABS: Alanine Aminotransferase 24 U/L (7-40); Albumin 3.5 g/dL (3.2-4.8); Alkaline Phosphatase 48 U/L (46-116); Anion Gap 6 (5-15); Aspartate Aminotransferase 32 U/L (13-40); BUN/Creatinine Ratio 21.3 (10.0-20.0); Bilirubin, Total 2.3 mg/dL (0.2-1.0); Blood Urea Nitrogen 17 mg/dL (9-23); Calcium 9.1 mg/dL (8.5-10.1); Carbon Dioxide 23 mmol/L (20-30); Chloride 107 mmol/L (98-107); Glucose 91 mg/dL (74-106); Potassium 4.2 mmol/L (3.5-5.1); Total Protein 5.8 g/dL (5.7-8.2)
[2023-10-26 06:24] LABS: Sodium 136 mmol/L (136-145)
[2023-10-26] MEDS: SERTRALINE HCL 50 MG TAB PO SCH (09:30)
[2023-10-26] MEDS: CLOPIDOGREL BISULFATE 75 MG TAB PO SCH (09:30)
[2023-10-26] MEDS: PANTOPRAZOLE 40 MG TAB PO SCH (09:30)
[2023-10-26] MEDS: MULTIPLE VITAMINS W/ MINERALS TAB PO SCH (09:30)
[2023-10-26] MEDS: ASPirin-EC 81 mg tab PO SCH (09:30)
[2023-10-26] MEDS: FLUDROCORTISONE ACETATE 0.1 MG TAB PO SCH (09:30)
[2023-10-26] MEDS: FINASTERIDE 5 MG TAB PO SCH (09:30)
[2023-10-27 01:00] VITALS: BP 103/66; PULSE 67; RESP 22; TEMP 98.2; O2SAT 95
[2023-10-27 04:00] VITALS: BP 129/72; PULSE 65; RESP 20; TEMP 97.8; O2SAT 97
[2023-10-27 08:00] VITALS: PULSE 74
[2023-10-27 09:00] VITALS: BP 103/51; PULSE 63; RESP 18; TEMP 97.8; O2SAT 95
[2023-10-27 13:00] VITALS: BP 113/58; PULSE 68; RESP 18; TEMP 97.2; O2SAT 95
== END 2023-10-27 16:20 | disposition home or self-care (01) | DRG 311 ==
LOC: EDBD 13:07 → EDUNIT# 13:07 → EDSEX 13:07 → ER 13:07 → UNDOADMIN 18:53 → TELE 18:53 → TELE-CENTR 23:43
PROVIDERS: ADMIT Nurse Practitioner Family; ATTEND Nurse Practitioner Acute Care
DX: I24.9 Acute ischemic heart disease, unspecified (principal); I95.89 Other hypotension; N40.0 Benign prostatic hyperplasia without lower urinary tract symptoms; I10 Essential (primary) hypertension; E78.5 Hyperlipidemia, unspecified; D69.6 Thrombocytopenia, unspecified; I25.110 Atherosclerotic heart disease of native coronary artery with unstable angina pectoris; Z86.73 Personal history of transient ischemic attack (TIA), and cerebral infarction without residual deficits; Z95.5 Presence of coronary angioplasty implant and graft; Z90.49 Acquired absence of other specified parts of digestive tract; Z95.0 Presence of cardiac pacemaker
CPT/HCPCS: 36415; 71045; 80053; 81001; 83735; 84100; 84484; 85025; 93005; G0378

== ENCOUNTER 2023-12-19 18:47 | Inpatient (IN) | payer OTHER ==
[~2023-12-19] VITALS: Ht 188 cm; Wt 75.4 kg
[~2023-12-19 18:47] MED LIST changes: +PREG50CA PO
[2023-12-19 20:15] LABS: Basophils # (auto) 0 10 ^3/uL (0-0.2); Basophils % (auto) 0.5 % (0.0-2.0); Eosinophils # (auto) 0.1 10 ^3/uL (0-0.8); Hematocrit 44.5 % (41.0-53.0); Hemoglobin 15.4 g/dL (13.5-17.5); Lymphocytes # (auto) 1.1 10 ^3/uL (0.4-5.4); Lymphocytes % (auto) 18.9 % (10.0-50.0); Mean Corpuscular Hemoglobin 32.7 pg (28.0-32.0); Mean Corpuscular Hgb Conc. 34.7 g/dL (32.0-36.0); Mean Corpuscular Volume 94.4 fL (80.0-100.0); Monocytes # (auto) 0.3 10 ^3/uL (0-1.3); Neutrophils # (auto) 4.2 10 ^3/uL (1.6-8.6); Neutrophils % (auto) 73.6 % (37.0-80.0); Nucleated Red Blood Cells % 0.2 %; Red Blood Cells 4.71 10^6/uL (4.5-5.90); Red Cell Distribution Width 14.4 % (11.8-14.3); White Blood Cell 5.7 10^3/uL (4.4-10.8)
[2023-12-19 20:20] VITALS: O2SAT 98
[2023-12-19 20:44] LABS: Alanine Aminotransferase 15 U/L (7-40); Alkaline Phosphatase 47 U/L (46-116); Anion Gap 12 (5-15); Calcium 9.4 mg/dL (8.5-10.1); Carbon Dioxide 20 mmol/L (20-30); Chloride 105 mmol/L (98-107); Potassium 4.1 mmol/L (3.5-5.1); Sodium 137 mmol/L (136-145)
[2023-12-19 20:46] LABS: BUN/Creatinine Ratio 19.8 (10.0-20.0); Blood Urea Nitrogen 19 mg/dL (9-23)
[2023-12-19 20:47] LABS: Glucose 106 mg/dL (74-106)
[2023-12-19 20:48] LABS: Albumin 3.7 g/dL (3.2-4.8); Aspartate Aminotransferase 22 U/L (13-40); Total Protein 6.1 g/dL (5.7-8.2)
[2023-12-19 21:11] LABS: Urine Bacteria None Seen /hpf (None Seen)
[2023-12-19 21:23] LABS: Urine Blood Negative /uL (Negative); Urine Clarity Clear (Clear); Urine Color Yellow (Yellow); Urine Hyaline Cast FEW /lpf (0 - 2); Urine Mucus FEW (None Seen); Urine Protein, UAD TRACE (Negative); Urine Specific Gravity 1.023 (1.001-1.035); Urine Urobilinogen 3 mg/dL (Negative); Urine WBC 1 /hpf (0 - 3)
[2023-12-20] VITALS (10 sets, daily range): BP systolic 107–132; BP diastolic 58–74; PULSE 18–78; RESP 17–18; TEMP 97.3–98.4; O2SAT 97–99
[2023-12-20] MEDS ORDERED: NITROGLYCERIN 0.4 MG SL TAB SL PRN (00:15)
[2023-12-20] MEDS ORDERED: MORPHINE SULFATE INJ 2 MG/ml SYRG IV PRN (00:15)
[2023-12-20] MEDS ORDERED: ONDANSETRON HCL 4 MG/2 ML VIAL IV PRN (00:15)
[2023-12-20 08:05] LABS: Amphetamine Screen, Urine Neg (NEGATIVE)
[2023-12-20 08:06] LABS: Barbiturate Scree,Urine Neg (NEGATIVE); Benzodiazephine Screen, Urine Neg (NEGATIVE); Cannabinoid Screen, Urine Neg (NEGATIVE); Cocaine Screen, Urine Neg (NEGATIVE); Opiate Scree,Urine Neg (NEGATIVE); Phencyclidine Screen, Urine Neg (NEGATIVE)
[2023-12-20 08:37] LABS: INR 1.25 (0.9-1.15); Partial Thromboplastin Time 27.8 SEC (24.5-34.5)
[2023-12-20] MEDS: CLOPIDOGREL BISULFATE 75 MG TAB PO SCH (09:29)
[2023-12-20] MEDS: ASPirin 81 mg TAB PO SCH (09:29)
[2023-12-20 12:15] LABS: Basophils # (auto) 0 10 ^3/uL (0-0.2); Basophils % (auto) 0.7 % (0.0-2.0); Eosinophils # (auto) 0.1 10 ^3/uL (0-0.8); Eosinophils % (auto) 2.3 % (0.0-7.0); Hematocrit 42.4 % (41.0-53.0); Hemoglobin 14.5 g/dL (13.5-17.5); Lymphocytes # (auto) 1.7 10 ^3/uL (0.4-5.4); Lymphocytes % (auto) 29.6 % (10.0-50.0); Mean Corpuscular Hemoglobin 32.3 pg (28.0-32.0); Mean Corpuscular Hgb Conc. 34.3 g/dL (32.0-36.0); Mean Corpuscular Volume 94.4 fL (80.0-100.0); Monocytes # (auto) 0.5 10 ^3/uL (0-1.3); Monocytes % (auto) 9.2 % (0.0-12.0); Neutrophils # (auto) 3.3 10 ^3/uL (1.6-8.6); Neutrophils % (auto) 58.2 % (37.0-80.0); Nucleated Red Blood Cells % 0.2 %; Red Blood Cells 4.49 10^6/uL (4.5-5.90); Red Cell Distribution Width 14.4 % (11.8-14.3); White Blood Cell 5.6 10^3/uL (4.4-10.8)
[2023-12-20 12:25] LABS: Alanine Aminotransferase 12 U/L (7-40); Albumin 3.5 g/dL (3.2-4.8); Alkaline Phosphatase 44 U/L (46-116); Anion Gap 8 (5-15); Aspartate Aminotransferase 20 U/L (13-40); BUN/Creatinine Ratio 20.5 (10.0-20.0); Bilirubin, Total 3.7 mg/dL (0.2-1.0); Blood Urea Nitrogen 18 mg/dL (9-23); Calcium 9.4 mg/dL (8.5-10.1); Carbon Dioxide 22 mmol/L (20-30); Chloride 108 mmol/L (98-107); Glucose 81 mg/dL (74-106); Potassium 4.1 mmol/L (3.5-5.1); Sodium 138 mmol/L (136-145); Total Protein 5.6 g/dL (5.7-8.2)
[2023-12-20] MEDS: CYANOCOBALAMIN (B-12) 1000 MCG/1 ML VIAL IM ONE (18:33)
[2023-12-20] MEDS: ATORVASTATIN 20 MG TAB PO SCH (22:14)
[2023-12-21] VITALS (8 sets, daily range): BP systolic 102–118; BP diastolic 53–67; PULSE 62–93; RESP 16–19; TEMP 97.2–98.5; O2SAT 94–99
[2023-12-21 08:04] LABS: Chloride 108 mmol/L (98-107); Potassium 3.8 mmol/L (3.5-5.1); Sodium 138 mmol/L (136-145)
[2023-12-21 08:05] LABS: Anion Gap 8 (5-15); Calcium 9.3 mg/dL (8.5-10.1); Carbon Dioxide 22 mmol/L (20-30)
[2023-12-21 08:10] LABS: BUN/Creatinine Ratio 20.5 (10.0-20.0); Blood Urea Nitrogen 17 mg/dL (9-23); Glucose 89 mg/dL (74-106)
[2023-12-21] MEDS: CYANOCOBALAMIN (B-12) 1000 MCG/1 ML VIAL SUBCUT SCH (09:50)
[2023-12-21] MEDS: LACTULOSE 20Gm/30ML SOLN PO ONE (17:54)
[2023-12-21] MEDS ORDERED: CYAN500S8 SL (18:24)
[2023-12-21] MEDS: MECLIZINE HCL 25 MG TAB PO PRN (21:46)
[2023-12-22 01:00] VITALS: BP 130/87; PULSE 74; RESP 17; TEMP 97.9; O2SAT 98
[2023-12-22 05:00] VITALS: BP 115/67; PULSE 70; RESP 16; TEMP 97.4; O2SAT 98
[2023-12-22 09:00] VITALS: BP 111/65; PULSE 82; RESP 14; TEMP 97.6; O2SAT 98
[2023-12-22] MEDS: LACTULOSE 20Gm/30ML SOLN PO SCH (10:15)
[2023-12-22 13:00] VITALS: BP 109/65; PULSE 70; RESP 14; TEMP 98; O2SAT 98
[2023-12-22] MEDS: ACETAMINOPHEN 325 MG TAB PO PRN (14:18)
[2023-12-22 16:55] VITALS: BP 114/58; PULSE 70; RESP 14; TEMP 97.3; O2SAT 98
[2023-12-22 21:00] VITALS: BP 128/65; PULSE 82; RESP 17; TEMP 98.2; O2SAT 98
[2023-12-22] MEDS ORDERED: LORazepam 2MG/ML-1ML VIAL IV PRN (23:30)
[2023-12-23 01:00] VITALS: BP 118/68; PULSE 71; RESP 17; TEMP 98; O2SAT 97
[2023-12-23 05:00] VITALS: BP 100/66; PULSE 67; RESP 16; TEMP 97.5; O2SAT 97
[2023-12-23 06:23] LABS: Basophils # (auto) 0 10 ^3/uL (0-0.2); Basophils % (auto) 0.4 % (0.0-2.0); Eosinophils # (auto) 0.2 10 ^3/uL (0-0.8); Eosinophils % (auto) 2.6 % (0.0-7.0); Hematocrit 43.3 % (41.0-53.0); Hemoglobin 14.9 g/dL (13.5-17.5); Lymphocytes # (auto) 1.4 10 ^3/uL (0.4-5.4); Lymphocytes % (auto) 20.4 % (10.0-50.0); Mean Corpuscular Hemoglobin 32.4 pg (28.0-32.0); Mean Corpuscular Hgb Conc. 34.4 g/dL (32.0-36.0); Mean Corpuscular Volume 94.1 fL (80.0-100.0); Monocytes # (auto) 0.7 10 ^3/uL (0-1.3); Monocytes % (auto) 9.7 % (0.0-12.0); Neutrophils # (auto) 4.7 10 ^3/uL (1.6-8.6); Neutrophils % (auto) 66.9 % (37.0-80.0); Nucleated Red Blood Cells % 0.2 %; Red Cell Distribution Width 14.1 % (11.8-14.3)
[2023-12-23 06:34] LABS: Chloride 108 mmol/L (98-107); Sodium 139 mmol/L (136-145)
[2023-12-23 06:35] LABS: Anion Gap 4 (5-15); Calcium 9.3 mg/dL (8.7-10.4); Carbon Dioxide 27 mmol/L (20-30)
[2023-12-23 06:40] LABS: BUN/Creatinine Ratio 14.6 (10.0-20.0); Blood Urea Nitrogen 14 mg/dL (9-23); Glucose 95 mg/dL (74-106)
[2023-12-23 09:00] VITALS: BP 125/66; PULSE 72; RESP 16; TEMP 97.5; O2SAT 98
[2023-12-23] MEDS: PANTOPRAZOLE 40 MG TAB PO ONE (10:23)
[2023-12-23 10:36] VITALS: TEMP 36.4
[2023-12-24] MEDS ORDERED: PANTOPRAZOLE 40 MG TAB PO SCH (06:00)
[2023-12-25 08:36] LABS: Hepatitis B Surface Antigen Negative (Negative)
[2023-12-25 08:57] LABS: Hepatitis A Ab IgM Negative
[2023-12-25 08:58] LABS: Hepatitis B Core IgM Negative; Hepatitis C Antibody Negative (Negative)
== END 2023-12-23 14:30 | disposition home or self-care (01) | DRG 74 ==
LOC: EDBD 18:47 → ER 18:47 → EDUNIT# 18:47 → TELE-EAST 12-20 00:17 → TELE 12-20 00:17 → TELE-EAST 12-20 01:53 → EAST 12-22 06:46
PROVIDERS: ADMIT Internal Medicine; ATTEND Internal Medicine
DX: G90.8 Other disorders of autonomic nervous system (principal); I49.5 Sick sinus syndrome; I10 Essential (primary) hypertension; I25.10 Atherosclerotic heart disease of native coronary artery without angina pectoris; I95.1 Orthostatic hypotension; G25.0 Essential tremor; G62.9 Polyneuropathy, unspecified; I44.0 Atrioventricular block, first degree; G89.29 Other chronic pain; E80.6 Other disorders of bilirubin metabolism; F17.200 Nicotine dependence, unspecified, uncomplicated; Z79.82 Long term (current) use of aspirin; Z79.899 Other long term (current) drug therapy; Z79.02 Long term (current) use of antithrombotics/antiplatelets; Z86.73 Personal history of transient ischemic attack (TIA), and cerebral infarction without residual deficits; Z95.0 Presence of cardiac pacemaker; Z86.718 Personal history of other venous thrombosis and embolism; Z83.3 Family history of diabetes mellitus; Z82.49 Family history of ischemic heart disease and other diseases of the circulatory system; W18.39XA Other fall on same level, initial encounter; Y93.89 Activity, other specified; Y92.098 Other place in other non-institutional residence as the place of occurrence of the external cause; Y99.8 Other external cause status
CPT/HCPCS: 36415; 70450; 71045; 76700; 80048; 80053; 80074; 80307; 81001; 82247; 82306; 82607; 83036; 84443; 84484; 85025; 85610; 85730; 93005; 93306; 93886; G0378

== ENCOUNTER 2023-12-24 11:30 | Inpatient (IN) | payer OTHER ==
[~2023-12-24] VITALS: Ht 182.9 cm; Wt 90.9 kg
[~2023-12-24 11:30] MED LIST changes: -CHOL20007 PO; +CYAN500S8 SL
[2023-12-24 13:00] VITALS: PULSE 96; RESP 19; O2SAT 97
[2023-12-24 13:14] LABS: White Blood Cell 11.7 10^3/uL (4.4-10.8)
[2023-12-24 13:16] LABS: Hematocrit 41.3 % (41.0-53.0); Mean Corpuscular Hemoglobin 32.1 pg (28.0-32.0); Mean Corpuscular Hgb Conc. 33.9 g/dL (32.0-36.0); Mean Corpuscular Volume 94.5 fL (80.0-100.0); Red Blood Cells 4.37 10^6/uL (4.5-5.90); Red Cell Distribution Width 14.3 % (11.8-14.3)
[2023-12-24 13:18] LABS: Basophils % (manual) 0 (0.0-2.0); Blast Cells 0; Eosinophils % (manual) 0 (0-7); Metamyelocytes % 0; Myelocytes % 0; Promyelocytes % 0; Reactive Lymphocytes 0
[2023-12-24 13:29] LABS: Band Neutrophils % (manual) 4; Lymphocytes % (manual) 2 (10.0-50.0); Monocytes % (manual) 5 (0-12)
[2023-12-24 13:30] LABS: Platelet Estimate Decreased; RBC Morphology Normal
[2023-12-24 13:31] LABS: Chloride 105 mmol/L (98-107); Potassium 3.7 mmol/L (3.5-5.1)
[2023-12-24 13:32] LABS: Anion Gap 8 (5-15); Carbon Dioxide 20 mmol/L (20-30)
[2023-12-24 13:33] LABS: Calcium 8.9 mg/dL (8.7-10.4); Sodium 133 mmol/L (136-145)
[2023-12-24 13:37] LABS: BUN/Creatinine Ratio 20.9 (10.0-20.0); Blood Urea Nitrogen 19 mg/dL (9-23); Glucose 135 mg/dL (74-106)
[2023-12-24] MEDS: PIPERACILLIN-TAZOB 3.375GM 100 ML IV ONE (14:35)
[2023-12-24] MEDS ORDERED: MORPHINE SULFATE INJ 2 MG/ml SYRG IV PRN (15:30)
[2023-12-24] MEDS ORDERED: NITROGLYCERIN 0.4 MG SL TAB SL PRN (15:30)
[2023-12-24] MEDS: SODIUM CHLORIDE 0.9% 1,000 ML IV SCH (15:56)
[2023-12-24] MEDS: cefTRIAXone 1GM/50ML D5W 50 ML IV ONE (15:57)
[2023-12-24 16:32] LABS: Urine Bacteria None Seen /hpf (None Seen)
[2023-12-24 16:54] LABS: Urine Blood Negative /uL (Negative); Urine Clarity Clear (Clear); Urine Color Yellow (Yellow); Urine Hyaline Cast FEW /lpf (0 - 2); Urine Mucus FEW (None Seen); Urine Protein, UAD 1+ (Negative); Urine Urobilinogen Normal (Negative); Urine WBC 1 /hpf (0 - 3); Urine pH 6.5 (5.0-9.0)
[2023-12-24] MEDS ORDERED: ACETAMINOPHEN 325 MG TAB PO PRN (19:15)
[2023-12-24 19:25] VITALS: PULSE 86; RESP 12; O2SAT 98
[2023-12-24] MEDS ORDERED: ATORVASTATIN 20 MG TAB PO SCH (22:00)
[2023-12-24] MEDS ORDERED: METOPROLOL TARTRATE 25 MG TAB PO SCH (22:00)
[2023-12-24] MEDS ORDERED: MIDODRINE HCL 10 MG TAB PO SCH (22:00)
[2023-12-24] MEDS ORDERED: PRIMIDONE 50 MG TAB PO SCH (22:00)
[2023-12-24] MEDS ORDERED: PREGABALIN 25 MG CAP PO SCH (22:00)
[2023-12-24 22:40] VITALS: PULSE 92; RESP 20; O2SAT 97
[2023-12-24] MEDS: PRIMIDONE 50 MG TAB PO SCH (23:11)
[2023-12-24] MEDS: MIDODRINE HCL 10 MG TAB PO SCH (23:14)
[2023-12-24] MEDS: METOPROLOL TARTRATE 25 MG TAB PO SCH (23:14)
[2023-12-24] MEDS: PREGABALIN 25 MG CAP PO SCH (23:15)
[2023-12-24] MEDS: ATORVASTATIN 20 MG TAB PO SCH (23:18)
[2023-12-25] VITALS (7 sets, daily range): BP systolic 94–140; BP diastolic 49–81; PULSE 71–88; RESP 17–19; TEMP 97.8–98.3; O2SAT 95–97
[2023-12-25 07:02] LABS: Basophils # (auto) 0 10 ^3/uL (0-0.2); Basophils % (auto) 0.1 % (0.0-2.0); Eosinophils # (auto) 0 10 ^3/uL (0-0.8); Hematocrit 39.9 % (41.0-53.0); Hemoglobin 13.9 g/dL (13.5-17.5); Lymphocytes # (auto) 0.6 10 ^3/uL (0.4-5.4); Lymphocytes % (auto) 3.1 % (10.0-50.0); Mean Corpuscular Hemoglobin 32.9 pg (28.0-32.0); Mean Corpuscular Hgb Conc. 34.8 g/dL (32.0-36.0); Mean Corpuscular Volume 94.5 fL (80.0-100.0); Monocytes # (auto) 1.5 10 ^3/uL (0-1.3); Monocytes % (auto) 8.5 % (0.0-12.0); Neutrophils # (auto) 15.7 10 ^3/uL (1.6-8.6); Neutrophils % (auto) 88.3 % (37.0-80.0); Red Blood Cells 4.22 10^6/uL (4.5-5.90); Red Cell Distribution Width 14.4 % (11.8-14.3); White Blood Cell 17.7 10^3/uL (4.4-10.8)
[2023-12-25 07:15] LABS: Alanine Aminotransferase 18 U/L (7-40); Alkaline Phosphatase 40 U/L (46-116); Anion Gap 9 (5-15); Blood Urea Nitrogen 22 mg/dL (9-23); Calcium 8.7 mg/dL (8.7-10.4); Carbon Dioxide 20 mmol/L (20-30); Chloride 102 mmol/L (98-107); Glucose 134 mg/dL (74-106); Potassium 3.7 mmol/L (3.5-5.1); Sodium 131 mmol/L (136-145)
[2023-12-25 07:16] LABS: Albumin 3.1 g/dL (3.2-4.8); Aspartate Aminotransferase 43 U/L (13-40); Bilirubin, Total 2.6 mg/dL (0.2-1.0); Total Protein 5.4 g/dL (5.7-8.2)
[2023-12-25 09:35] LABS: Hepatitis B Surface Antigen Negative (Negative)
[2023-12-25 09:56] LABS: Hepatitis C Antibody Negative (Negative)
[2023-12-25] MEDS: ASPirin-EC 81 mg tab PO SCH (10:00)
[2023-12-25] MEDS: FINASTERIDE 5 MG TAB PO SCH (10:00)
[2023-12-25] MEDS: CLOPIDOGREL BISULFATE 75 MG TAB PO SCH (10:00)
[2023-12-25] MEDS ORDERED: METOPROLOL TARTRATE 25 MG TAB PO SCH (10:00)
[2023-12-25] MEDS ORDERED: ENOXAPARIN SOD 30 MG/0.3 ML SYRINGE SC SCH (10:00)
[2023-12-25] MEDS: SERTRALINE HCL 50 MG TAB PO SCH (10:00)
[2023-12-25] MEDS: cefTRIAXone 1GM/50ML D5W 50 ML IV SCH (10:36)
[2023-12-25] MEDS ORDERED: CYANOCOBALAMIN (B-12) 1000 MCG/1 ML VIAL SUBCUT ONE (11:00)
[2023-12-25] MEDS: CYANOCOBALAMIN (B-12) 1000 MCG/1 ML VIAL IM ONE (12:50)
[2023-12-25] MEDS: KETOROLAC TROMETH 30 MG/ML 1ML VIAL IV ONE (12:51)
[2023-12-25 16:04] LABS: Lactic Acid w/Reflex 2.3 mmol/L (0.4-2.0)
[2023-12-25] MEDS: SODIUM CHLORIDE 0.9% 1,000 ML IV SCH (16:30)
[2023-12-25] MEDS ORDERED: VANCOMYCIN PER PHARMACY 0 MG IV SCH (19:30)
[2023-12-25] MEDS ORDERED: ATORVASTATIN 20 MG TAB PO SCH (22:00)
[2023-12-25] MEDS: VANCOMYCIN 1GM/200ML 200 ML IV ONE (23:13)
[2023-12-26] VITALS (7 sets, daily range): BP systolic 97–121; BP diastolic 42–76; PULSE 68–87; RESP 17–20; TEMP 97.2–98.6; O2SAT 95–99
[2023-12-26] MEDS: PIPERACILLIN-TAZOB 3.375GM 100 ML IV SCH (05:19)
[2023-12-26 06:02] LABS: Basophils # (auto) 0 10 ^3/uL (0-0.2); Basophils % (auto) 0.1 % (0.0-2.0); Eosinophils # (auto) 0 10 ^3/uL (0-0.8); Eosinophils % (auto) 0.4 % (0.0-7.0); Hemoglobin 13.3 g/dL (13.5-17.5); Lymphocytes # (auto) 0.5 10 ^3/uL (0.4-5.4); Lymphocytes % (auto) 4.7 % (10.0-50.0); Mean Corpuscular Hemoglobin 32.6 pg (28.0-32.0); Mean Corpuscular Volume 93.2 fL (80.0-100.0); Monocytes # (auto) 1.1 10 ^3/uL (0-1.3); Monocytes % (auto) 9.8 % (0.0-12.0); Neutrophils # (auto) 9.7 10 ^3/uL (1.6-8.6); Red Blood Cells 4.07 10^6/uL (4.5-5.90); Red Cell Distribution Width 14.5 % (11.8-14.3); White Blood Cell 11.4 10^3/uL (4.4-10.8)
[2023-12-26 06:11] LABS: Chloride 103 mmol/L (98-107); Potassium 3.6 mmol/L (3.5-5.1); Sodium 131 mmol/L (136-145)
[2023-12-26 06:12] LABS: Anion Gap 7 (5-15); Calcium 8.3 mg/dL (8.7-10.4); Carbon Dioxide 21 mmol/L (20-30)
[2023-12-26 06:17] LABS: Glucose 124 mg/dL (74-106)
[2023-12-26 06:26] LABS: Blood Urea Nitrogen 32 mg/dL (9-23)
[2023-12-26 08:46] LABS: Amphetamine Screen, Urine Neg (NEGATIVE); Barbiturate Scree,Urine Neg (NEGATIVE); Benzodiazephine Screen, Urine Neg (NEGATIVE); Cannabinoid Screen, Urine Neg (NEGATIVE); Cocaine Screen, Urine Neg (NEGATIVE); Opiate Scree,Urine Neg (NEGATIVE); Phencyclidine Screen, Urine Neg (NEGATIVE)
[2023-12-26] MEDS ORDERED: LACTULOSE 20Gm/30ML SOLN PO SCH (10:00)
[2023-12-26] MEDS: LACTULOSE 20Gm/30ML SOLN PO SCH (10:58)
[2023-12-26] MEDS: VANCOMYCIN 1GM/200ML 200 ML IV SCH (11:03)
[2023-12-26] MEDS: CEFEPIME 1GM/ 50ML 50 ML IV ONE (12:00)
[2023-12-26] MEDS ORDERED: D5W 5% 1,000 ML IV SCH (15:30)
[2023-12-26] MEDS: KETOROLAC TROMETH 30 MG/ML 1ML VIAL IV PRN (16:52)
[2023-12-26] MEDS: D5W/SOD CHLO 0.9% 1,000 ML IV SCH (18:30)
[2023-12-26] MEDS: CEFEPIME 1GM/ 50ML 50 ML IV SCH (18:30)
[2023-12-26] MEDS: DOCUSATE SOD 100 MG CAP PO SCH (22:00)
[2023-12-27] VITALS (8 sets, daily range): BP systolic 105–134; BP diastolic 52–69; PULSE 60–75; RESP 18–19; TEMP 97.5–98; O2SAT 94–97
[2023-12-27] MEDS: CEFEPIME 1GM/ 50ML 50 ML IV SCH (02:50)
[2023-12-27 07:54] LABS: Basophils # (auto) 0 10 ^3/uL (0-0.2); Basophils % (auto) 0.2 % (0.0-2.0); Eosinophils # (auto) 0.1 10 ^3/uL (0-0.8); Eosinophils % (auto) 0.9 % (0.0-7.0); Hematocrit 38.2 % (41.0-53.0); Hemoglobin 13.4 g/dL (13.5-17.5); Lymphocytes # (auto) 0.7 10 ^3/uL (0.4-5.4); Lymphocytes % (auto) 5.8 % (10.0-50.0); Mean Corpuscular Hemoglobin 32.1 pg (28.0-32.0); Mean Corpuscular Volume 91.8 fL (80.0-100.0); Monocytes # (auto) 1.6 10 ^3/uL (0-1.3); Monocytes % (auto) 12.8 % (0.0-12.0); Neutrophils % (auto) 80.3 % (37.0-80.0); Red Blood Cells 4.16 10^6/uL (4.5-5.90); Red Cell Distribution Width 14.4 % (11.8-14.3); White Blood Cell 12.4 10^3/uL (4.4-10.8)
[2023-12-27 08:07] LABS: Chloride 102 mmol/L (98-107); Potassium 3.4 mmol/L (3.5-5.1); Sodium 129 mmol/L (136-145)
[2023-12-27 08:08] LABS: Anion Gap 7 (5-15); Calcium 8.1 mg/dL (8.7-10.4); Carbon Dioxide 20 mmol/L (20-30)
[2023-12-27 08:13] LABS: BUN/Creatinine Ratio 34.4 (10.0-20.0); Blood Urea Nitrogen 22 mg/dL (9-23); Glucose 127 mg/dL (74-106)
[2023-12-27] MEDS: VANCOMYCIN 1GM/200ML 200 ML IV SCH ×2 (12:30→23:34)
[2023-12-27] MEDS: Ensure HIGH Protein Chocolate 8oz Bottle PO SCH (14:28)
[2023-12-27] MEDS: POTASSIUM EFFERVESENT TAB 25 MEQ PO ONE (23:33)
[2023-12-28] VITALS (17 sets, daily range): BP systolic 103–119; BP diastolic 52–69; PULSE 56–81; RESP 14–20; TEMP 97.6–98.2; O2SAT 94–98
[2023-12-28 05:37] LABS: Basophils # (auto) 0 10 ^3/uL (0-0.2); Basophils % (auto) 0.2 % (0.0-2.0); Eosinophils # (auto) 0.2 10 ^3/uL (0-0.8); Eosinophils % (auto) 1.9 % (0.0-7.0); Hematocrit 37.3 % (41.0-53.0); Hemoglobin 13.1 g/dL (13.5-17.5); Lymphocytes % (auto) 8.3 % (10.0-50.0); Mean Corpuscular Hemoglobin 31.9 pg (28.0-32.0); Mean Corpuscular Volume 91.3 fL (80.0-100.0); Monocytes # (auto) 1.5 10 ^3/uL (0-1.3); Monocytes % (auto) 12.9 % (0.0-12.0); Neutrophils % (auto) 76.7 % (37.0-80.0); Nucleated Red Blood Cells % 0.1 %; Red Blood Cells 4.09 10^6/uL (4.5-5.90); Red Cell Distribution Width 14.2 % (11.8-14.3); White Blood Cell 11.8 10^3/uL (4.4-10.8)
[2023-12-28 05:48] LABS: Chloride 103 mmol/L (98-107); Potassium 3.8 mmol/L (3.5-5.1); Sodium 128 mmol/L (136-145)
[2023-12-28 05:49] LABS: Anion Gap 5 (5-15); Carbon Dioxide 20 mmol/L (20-30)
[2023-12-28 05:50] LABS: Calcium 7.8 mg/dL (8.7-10.4)
[2023-12-28 05:54] LABS: Glucose 119 mg/dL (74-106)
[2023-12-28 05:55] LABS: BUN/Creatinine Ratio 31.6 (10.0-20.0); Blood Urea Nitrogen 18 mg/dL (9-23)
[2023-12-28 13:49] LABS: Erythrocyte Sedimentation Rate 9 mm/hr (0-20)
[2023-12-28] MEDS: CALCIUM GLUC 1,000mg/50ml-NS 50 ML IV ONE ×2 (15:40→21:57)
[2023-12-29] VITALS (8 sets, daily range): BP systolic 113–134; BP diastolic 54–68; PULSE 67–79; RESP 16–19; TEMP 97.7–98.2; O2SAT 94–98
[2023-12-29] MEDS: SODIUM CHLORIDE 0.9% 1,000 ML IV ONE (00:06)
[2023-12-29 05:10] LABS: Basophils # (auto) 0 10 ^3/uL (0-0.2); Basophils % (auto) 0.3 % (0.0-2.0); Eosinophils # (auto) 0.2 10 ^3/uL (0-0.8); Hemoglobin 13.2 g/dL (13.5-17.5); Lymphocytes # (auto) 1.2 10 ^3/uL (0.4-5.4); Lymphocytes % (auto) 10.9 % (10.0-50.0); Mean Corpuscular Hemoglobin 32.6 pg (28.0-32.0); Mean Corpuscular Hgb Conc. 35.8 g/dL (32.0-36.0); Mean Corpuscular Volume 91.2 fL (80.0-100.0); Monocytes # (auto) 1.2 10 ^3/uL (0-1.3); Monocytes % (auto) 11.2 % (0.0-12.0); Neutrophils # (auto) 8.4 10 ^3/uL (1.6-8.6); Neutrophils % (auto) 75.6 % (37.0-80.0); Red Blood Cells 4.06 10^6/uL (4.5-5.90); Red Cell Distribution Width 13.9 % (11.8-14.3); White Blood Cell 11.1 10^3/uL (4.4-10.8)
[2023-12-29 05:25] LABS: Anion Gap 5 (5-15); Carbon Dioxide 22 mmol/L (20-30); Chloride 103 mmol/L (98-107); Potassium 3.6 mmol/L (3.5-5.1); Sodium 130 mmol/L (136-145)
[2023-12-29 05:26] LABS: Calcium 8.1 mg/dL (8.7-10.4)
[2023-12-29 05:31] LABS: BUN/Creatinine Ratio 21.2 (10.0-20.0); Blood Urea Nitrogen 11 mg/dL (9-23); Glucose 114 mg/dL (74-106)
[2023-12-29 05:32] LABS: Magnesium 1.7 mg/dL (1.6-2.6)
[2023-12-29 05:33] LABS: Phosphorus 1.9 mg/dL (2.4-5.1)
[2023-12-29] MEDS ORDERED: METOPROLOL SUCCINATE XL 50 MG TAB PO ONE (08:30)
[2023-12-29] MEDS: CALCIUM GLUC 1,000mg/50ml-NS 50 ML IV SCH (09:25)
[2023-12-29] MEDS: MAGNESIUM SULFATE 1GM/100ML 100 ML IV ONE (09:53)
[2023-12-29] MEDS: METOPROLOL SUCCINATE XL 50 MG TAB PO SCH (09:54)
[2023-12-29] MEDS ORDERED: DOCUSATE SOD 100 MG CAP PO PRN (10:30)
[2023-12-29] MEDS: SODIUM PHOSPHATES 20 MEQ in SODIUM CHL 0.9% 100 ML IV ONE (11:45)
[2023-12-29] MEDS: POTASSIUM EFFERVESENT TAB 25 MEQ PO ONE (11:46)
[2023-12-29] MEDS: PANTOPRAZOLE 40 MG TAB PO ONE (11:46)
[2023-12-29 15:33] LABS: INR 1.25 (0.9-1.15); Partial Thromboplastin Time 30.4 SEC (24.5-34.5)
[2023-12-29] MEDS: LIDOCAINE 1% (LOCAL ANESTH.) PF 5ml SDV ID ONE (16:30)
[2023-12-29 20:29] LABS: Erythrocyte Sedimentation Rate 21 mm/hr (0-20)
[2023-12-29] MEDS: SODIUM CHLORIDE 0.9% 1,000 ML IV SCH (21:49)
[2023-12-29] MEDS: SODIUM CHLOR 0.9% PF (SALINE LOCK) 10ML VIAL/SYR IV SCH (22:20)
[2023-12-30] VITALS (9 sets, daily range): BP systolic 84–141; BP diastolic 52–69; PULSE 7–93; RESP 18–20; TEMP 97.7–98.5; O2SAT 95–98
[2023-12-30 05:43] LABS: Chloride 105 mmol/L (98-107); Potassium 3.4 mmol/L (3.5-5.1); Sodium 133 mmol/L (136-145)
[2023-12-30] MEDS: PANTOPRAZOLE 40 MG TAB PO SCH (05:43)
[2023-12-30 05:44] LABS: Anion Gap 5 (5-15); Carbon Dioxide 23 mmol/L (20-30)
[2023-12-30 05:49] LABS: BUN/Creatinine Ratio 20.8 (10.0-20.0); Blood Urea Nitrogen 11 mg/dL (9-23); Glucose 104 mg/dL (74-106)
[2023-12-30] MEDS: POTASSIUM CHL 20MEQ/100ML 100 ML IV SCH ×2 (11:55→20:45)
[2023-12-30] MEDS: VANCOMYCIN 1GM/200ML 200 ML IV SCH (13:55)
[2023-12-30] MEDS ORDERED: VANCOMYCIN 1GM/200ML 200 ML IV SCH (17:00)
[2023-12-31] VITALS (9 sets, daily range): BP systolic 110–137; BP diastolic 50–70; PULSE 65–74; RESP 16–24; TEMP 97.5–98; O2SAT 95–98
[2023-12-31] MEDS: POTASSIUM CHL 20MEQ/100ML 100 ML IV ONE (06:34)
[2023-12-31 07:12] LABS: Basophils # (auto) 0.1 10 ^3/uL (0-0.2); Basophils % (auto) 0.6 % (0.0-2.0); Eosinophils # (auto) 0.3 10 ^3/uL (0-0.8); Eosinophils % (auto) 3.2 % (0.0-7.0); Hematocrit 37.9 % (41.0-53.0); Hemoglobin 13.4 g/dL (13.5-17.5); Lymphocytes # (auto) 1.6 10 ^3/uL (0.4-5.4); Lymphocytes % (auto) 15.7 % (10.0-50.0); Mean Corpuscular Hemoglobin 32.5 pg (28.0-32.0); Mean Corpuscular Hgb Conc. 35.4 g/dL (32.0-36.0); Mean Corpuscular Volume 91.9 fL (80.0-100.0); Monocytes # (auto) 0.9 10 ^3/uL (0-1.3); Monocytes % (auto) 9.5 % (0.0-12.0); Neutrophils # (auto) 7.1 10 ^3/uL (1.6-8.6); Nucleated Red Blood Cells % 0.1 %; Red Blood Cells 4.12 10^6/uL (4.5-5.90); Red Cell Distribution Width 14.3 % (11.8-14.3)
[2023-12-31 07:26] LABS: Chloride 106 mmol/L (98-107); Potassium 3.8 mmol/L (3.5-5.1); Sodium 132 mmol/L (136-145)
[2023-12-31 07:27] LABS: Anion Gap 4 (5-15); Calcium 7.8 mg/dL (8.7-10.4); Carbon Dioxide 22 mmol/L (20-30)
[2023-12-31 07:32] LABS: BUN/Creatinine Ratio 21.6 (10.0-20.0); Blood Urea Nitrogen 11 mg/dL (9-23); Glucose 109 mg/dL (74-106); Triglycerides 74 mg/dL (< 150)
[2023-12-31 07:33] LABS: LDL Cholesterol 37 mg/dL (< 100)
[2023-12-31 07:34] LABS: Cholesterol 68 mg/dL (< 200); HDL Cholesterol 19 mg/dL (40-59); Phosphorus 2.4 mg/dL (2.4-5.1)
[2023-12-31] MEDS: MIDAZOLAM HCL 2MG/2ML 2ml VIAL (1mg/ml) IV ONE (08:25)
[2023-12-31] MEDS: ENOXAPARIN SOD 30 MG/0.3 ML SYRINGE SC SCH (10:06)
[2023-12-31] MEDS: SODIUM CHLORIDE 0.9% 1,000 ML IV SCH (18:25)
[2024-01-01] VITALS (8 sets, daily range): BP systolic 118–150; BP diastolic 60–96; PULSE 56–75; RESP 16–20; TEMP 97.8–98.1; O2SAT 96–100
[2024-01-01 05:52] LABS: Chloride 106 mmol/L (98-107); Sodium 133 mmol/L (136-145)
[2024-01-01 05:53] LABS: Anion Gap 4 (5-15); Carbon Dioxide 23 mmol/L (20-30)
[2024-01-01 05:54] LABS: Basophils # (auto) 0 10 ^3/uL (0-0.2); Basophils % (auto) 0.5 % (0.0-2.0); Calcium 7.7 mg/dL (8.7-10.4); Eosinophils # (auto) 0.2 10 ^3/uL (0-0.8); Eosinophils % (auto) 2.4 % (0.0-7.0); Hematocrit 35.8 % (41.0-53.0); Hemoglobin 12.8 g/dL (13.5-17.5); Lymphocytes # (auto) 1.7 10 ^3/uL (0.4-5.4); Lymphocytes % (auto) 17.2 % (10.0-50.0); Mean Corpuscular Hemoglobin 32.9 pg (28.0-32.0); Mean Corpuscular Hgb Conc. 35.8 g/dL (32.0-36.0); Neutrophils # (auto) 6.7 10 ^3/uL (1.6-8.6); Neutrophils % (auto) 69.9 % (37.0-80.0); Red Blood Cells 3.89 10^6/uL (4.5-5.90); Red Cell Distribution Width 14.2 % (11.8-14.3); White Blood Cell 9.6 10^3/uL (4.4-10.8)
[2024-01-01 05:58] LABS: BUN/Creatinine Ratio 22.8 (10.0-20.0); Blood Urea Nitrogen 13 mg/dL (9-23); Glucose 112 mg/dL (74-106)
[2024-01-01] MEDS: GADOTERATE MEG 10 MMOL/20ml INJ (0.5MMOL/ml) IV ONE (07:01)
[2024-01-01] MEDS: METOPROLOL SUCCINATE XL 50 MG TAB PO SCH (14:26)
[2024-01-01] MEDS ORDERED: IOHEXOL 300 MG/ML 100ML BOTTLE IJ ONE (17:40)
[2024-01-02 01:06] VITALS: BP 115/58; PULSE 74; RESP 19; TEMP 97.9; O2SAT 95
[2024-01-02 05:00] VITALS: BP 119/61; PULSE 65; RESP 17; TEMP 97.6; O2SAT 96
[2024-01-02 06:49] LABS: Chloride 106 mmol/L (98-107); Sodium 135 mmol/L (136-145)
[2024-01-02 06:50] LABS: Anion Gap 7 (5-15); Calcium 7.6 mg/dL (8.7-10.4); Carbon Dioxide 22 mmol/L (20-30)
[2024-01-02 06:55] LABS: BUN/Creatinine Ratio 22.6 (10.0-20.0); Blood Urea Nitrogen 12 mg/dL (9-23); Glucose 100 mg/dL (74-106)
[2024-01-02] MEDS: CALCIUM GLUC 1,000mg/50ml-NS 50 ML IV ONE (07:26)
[2024-01-02] MEDS: CALCIUM W/VIT D (600MG/400IU) TAB PO SCH (08:42)
[2024-01-02 09:00] VITALS: BP 127/60; PULSE 78; RESP 17; TEMP 97.7; O2SAT 100
[2024-01-02 13:00] VITALS: BP 114/57; PULSE 98; RESP 16; TEMP 97.7; O2SAT 100
[2024-01-02] MEDS: LACTULOSE 20Gm/30ML SOLN PO ONE (15:55)
[2024-01-02 17:00] VITALS: BP 112/55; PULSE 77; RESP 16; TEMP 97.6; O2SAT 96
[2024-01-03] MEDS ORDERED: LACTULOSE 20Gm/30ML SOLN PO SCH (10:00)
== END 2024-01-02 17:20 | DRG 872 ==
LOC: ER 11:30 → EDBD 11:30 → TELE 15:37 → ER 15:37 → TELE-E-ADS 21:33 → TELE-EAST 12-26 12:08 → EAST 12-29 12:00 → TELE-EAST 12-30 06:37 → EAST 01-01 07:08
PROVIDERS: ADMIT Internal Medicine; ATTEND Internal Medicine
PROC: B24BZZ4 Ultrasonography of Heart with Aorta, Transesophageal (ICD-10-PCS; 2023-12-28)
PROC: 02HV33Z Insertion of Infusion Device into Superior Vena Cava, Percutaneous Approach (ICD-10-PCS; principal; 2023-12-29)
PROC: B548ZZA Ultrasonography of Superior Vena Cava, Guidance (ICD-10-PCS; 2023-12-29)
DX: A41.02 Sepsis due to Methicillin resistant Staphylococcus aureus (principal); E87.1 Hypo-osmolality and hyponatremia; I42.2 Other hypertrophic cardiomyopathy; M46.25 Osteomyelitis of vertebra, thoracolumbar region; M48.02 Spinal stenosis, cervical region; E78.5 Hyperlipidemia, unspecified; G20.A1 Parkinson's disease without dyskinesia, without mention of fluctuations; G90.9 Disorder of the autonomic nervous system, unspecified; I12.9 Hypertensive chronic kidney disease with stage 1 through stage 4 chronic kidney disease, or unspecified chronic kidney disease; I25.10 Atherosclerotic heart disease of native coronary artery without angina pectoris; I48.91 Unspecified atrial fibrillation; N18.30 Chronic kidney disease, stage 3 unspecified; G25.0 Essential tremor; G62.9 Polyneuropathy, unspecified; I08.3 Combined rheumatic disorders of mitral, aortic and tricuspid valves; M47.812 Spondylosis without myelopathy or radiculopathy, cervical region; M51.36 Other intervertebral disc degeneration, lumbar region; D69.6 Thrombocytopenia, unspecified; M48.061 Spinal stenosis, lumbar region without neurogenic claudication; L89.891 Pressure ulcer of other site, stage 1; E83.51 Hypocalcemia; F17.200 Nicotine dependence, unspecified, uncomplicated; Z86.73 Personal history of transient ischemic attack (TIA), and cerebral infarction without residual deficits; Z90.49 Acquired absence of other specified parts of digestive tract; Z82.49 Family history of ischemic heart disease and other diseases of the circulatory system; Z98.61 Coronary angioplasty status; Z95.0 Presence of cardiac pacemaker; Z63.4 Disappearance and death of family member; Z83.3 Family history of diabetes mellitus; Z79.82 Long term (current) use of aspirin; Z79.899 Other long term (current) drug therapy; Z86.718 Personal history of other venous thrombosis and embolism; Z79.02 Long term (current) use of antithrombotics/antiplatelets
CPT/HCPCS: 36415; 36569; 70450; 71045; 71111; 72040; 72141; 72142; 72147; 72148; 74177; 76881; 80048; 80053; 80061; 80202; 80307; 81001; 82040; 82248; 82310; 82565; 83010; 83605; 83615; 83735; 83930; 83935; 84100; 84300; 85007; 85025; 85027; 85045; 85610; 85652; 85730; 86141; 86803; 87040; 87077; 87086; 87186; 87340; 92610; 93005; 93312; 96365; 96366; 96367; 96372; 96375; 96376; 97110; 97163; 97530; 99152; G0378; J1885; J2250; J2543; J3480

== ENCOUNTER 2024-05-07 19:23 | Inpatient (IN) | payer OTHER ==
[~2024-05-07] VITALS: Ht 188 cm; Wt 71.9 kg
--- NOTE | 2024-05-07 19:33 | ED.PDOC ---
HPI (NEURO) HPI Comments A 78 year old male brought in by EMS presents to the ED with a chief complaint of syncope onset today. Per EMS, patient experienced a syncope episode today and significant other called EMS. Patient states he has been in bed for about 3 months and today was the first time he went outside and went to pickup his hearing aid. Patient lives at home and has a home health nurse that goes daily. Upon EMS arrival, patient was sitting in his wheelchair, inside his wheelchair and was alert and oriented. Blood glucose was 128, BP was 149 systolic, O2 sat was 97% on RA. Patient is currently experiencing dizziness. He has a past medical history of HLD, HTN, Parkinson's disease, Neuropathy, arthritis. Denies injury, trauma, chest pain, shortness of breath, nausea, vomiting, diarrhea. No other symptoms or modifying factors present at this time. Time Seen by MD: 19:20 Primary Care Provider: UNKNOWN Reviewed Notes: Medications, Allergies Information Source: Patient, Emergency Med Personnel Mode of Arrival: EMS Severity: Moderate Dizziness/Weakness Severity: Bedridden Duration: Since onset Prehospital treatment: None Symptoms: Syncope Associated Signs and Symptoms: Other (dizziness) Past Medical History PAST MEDICAL HISTORY: Arthritis, High Lipids, HTN, Hypotension, TIA Past Medical History (Other): Parkinson's disease, neuropathy Surgical History: Appendectomy, Hernia Repair, Pacemaker, PTCA Family History Family History: Reviewed,noncontributory to illness, Family hx of heart eleazar Social History Smoker: Non-Smoker Alcohol: Denies ETOH Use Drugs: Denies Drug Use Lives In: Home Constitutional: denies: chills, diaphoresis, fatigue, fever, malaise, sweats, weakness, others EENTM: denies: blurred vision, double vision, ear bleeding, ear discharge, ear drainage, ear pain, ear ringing, eye pain, eye redness, hearing loss, mouth pain, mouth swelling, nasal discharge, nose bleeding, nose congestion, nose pain, photophobia, tearing, throat pain, throat swelling, voice changes, others Respiratory: denies: cough, hemoptysis, orthopnea, SOB at rest, shortness of breath, SOB with excertion, stridor, wheezing, others Cardiovascular: denies: chest pain, dizzy spells, diaphoresis, Dyspnea on exertion, edema, irregular heart beat, left arm pain, lightheadedness, palpitations, PND, syncope, others Gastrointestinal: denies: abdomen distended, abdominal pain, blood streaked bowels, constipated, diarrhea, dysphagia, difficulty swallowing, hematemesis, melena, nausea, poor appetite, poor fluid intake, rectal bleeding, rectal pain, vomiting, others Genitourinary: denies: burning, dysuria, flank pain, frequency, hematuria, incontinence, penile discharge, penile sore, pain, testicle pain, testicle swelling, urgency, others Neurological: reports: dizziness, others (syncope); denies: fainting, headache, left sided numbness, left sided weakness, numbness, paresthesia, pre-existing deficit, right sided numbness, right sided weakness, seizure, speech problems, tingling, tremors, weakness Musculoskeletal: denies: back pain, gout, joint pain, joint swelling, muscle pain, muscle stiffness, neck pain, others Integumetry: denies: bruises, change in color, change in hair/nails, dryness, laceration, lesions, lumps, rash, wounds, others Allergic/Immunocompromised: denies: Difficulty Healing, Frequent Infections, H ryan, Itching, others Hematologic/Lymphatic: denies: anemia, blood clots, easy bleeding, easy bruising, swollen glands, others Endocrine: denies: excessive hunger, excessive sweating, excessive thirst, excessive urination, flushing, intolerance to cold, intolerance to heat, unexplained weight gain, unexplained weight loss, others Psychiatric: denies: anxiety, bipolar disorder, depression, hopeless, panic disorder, schizophrenia, sleepless, suicidal, others All Other Systems: Reviewed and Negative Physical Exam General Appearance: Mild Distress, Normal HEENT: Normal ENT Inspection, Pharynx Normal, TMs Normal Neck: Full Range of Motion, Non-Tender, Normal, Normal Inspection Respiratory: Chest Non-Tender, Lungs Clear, No Accessory Muscle Use, No Respiratory Distress, Normal Breath Sounds Cardiovascular: No Edema, No JVD, No Murmur, No Gallop, Normal Peripheral Pulses, Regular Rate/Rhythm Breast Exam: Deferred Gastrointestinal: No Organomegaly, Non Tender, No Pulsatile Mass, Normal Bowel Sounds, Soft Genitalia: Deferred Pelvic: Deferred Rectal: Deferred Extremities: No calf tenderness, Normal capillary refill, Normal inspection, Normal range of motion, Non-tender, No pedal edema Musculoskeletal : Apperance: Normal Neurologic: Alert, body trimmer upholsterer II-XII nml as Tested, No Motor Deficits, Normal Affect, Normal Mood, No Sensory Deficits, Other (Resting tremor of the upper extremities) Cerebellar Function: Normal Reflexes: Normal Skin: Dry, Normal Color, Warm Lymphatic: No Adenopathy EKG EKG : Pulse Rate (adult): 66 Cardiac Rhythm: NSR (76) Comments A-V dual-paced rhythm with some inhibition Was a procedure done? Was a procedure done?: No X-Ray, Labs, Meds, VS Vital Signs Date Time Temp Pulse Resp B/P (MAP) Pulse Ox O2 Delivery O2 Flow Rate FiO2 05/07/24 20:57 66 05/07/24 20:21 98.9 75 16 123/66 (85) 96 98.9 05/07/24 20:00 72 05/07/24 19:33 76 05/07/24 19:31 97.7 108 30 120/71 (87) 97 Lab Test 05/07/24 21:00 05/07/24 20:00 Range/Units Troponin I High Sensitivity 9 9 </=54 ng/L White Blood Count 6.2 4.4-10.8 10^3/uL Red Blood Count 4.03 L 4.5-5.90 10^6/uL Hemoglobin 13.0 L 13.5-17.5 g/dL Hematocrit 37.6 L 41.0-53.0 % Mean Corpuscular Volume 93.2 80.0-100.0 fL Mean Corpuscular Hemoglobin 32.2 H 28.0-32.0 pg Mean Corpuscular Hemoglobin Concent 34.5 32.0-36.0 g/dL Red Cell Distribution Width 14.6 H 11.8-14.3 % Platelet Count 157 140-450 10^3/uL Mean Platelet Volume 9.5 6.9-10.8 fL Neutrophils (%) (Auto) 70.7 37.0-80.0 % Lymphocytes (%) (Auto) 17.2 10.0-50.0 % Monocytes (%) (Auto) 7.4 0.0-12.0 % Eosinophils (%) (Auto) 4.1 0.0-7.0 % Basophils (%) (Auto) 0.6 0.0-2.0 % Neutrophils # (Auto) 4.4 1.6-8.6 10 ^3/uL Lymphocytes # (Auto) 1.1 0.4-5.4 10 ^3/uL Monocytes # (Auto) 0.5 0-1.3 10 ^3/uL Eosinophils # (Auto) 0.3 0-0.8 10 ^3/uL Basophils # (Auto) 0 0-0.2 10 ^3/uL Nucleated Red Blood Cells 0.1 % Prothrombin Time 12.1 H 9.3-11.8 sec Prothrombin Time INR 1.15 0.9-1.15 Activated Partial Thromboplast Time 28.1 24.5-34.5 SEC Sodium Level 138 136-145 mmol/L Potassium Level 4.2 3.5-5.1 mmol/L Chloride Level 105 98-107 mmol/L Carbon Dioxide Level 27 20-31 mmol/L Anion Gap 6 5-15 Blood Urea Nitrogen 27 H 9-23 mg/dL Creatinine 1.14 0.700-1.30 mg/dL Glomerular Filtration Rate Calc 66 >90 mL/min BUN/Creatinine Ratio 23.7 H 10.0-20.0 Serum Glucose 118 H 74-106 mg/dL Calcium Level 9.7 8.7-10.4 mg/dL Total Bilirubin 0.7 0.2-1.0 mg/dL Aspartate Amino Transferase (AST) 30 13-40 U/L Alanine Aminotransferase (ALT) 24 7-40 U/L Alkaline Phosphatase 67 46-116 U/L B-Type Natriuretic Peptide 70.99 0-100 pg/mL Total Protein 6.2 5.7-8.2 g/dL Albumin 3.5 3.2-4.8 g/dL [place] [id number] Ph: [phone] DIAGNOSTIC IMAGING Diagnostic Imaging Report : [id number] Signed PATIENT: FRED VIRK ACCT: [id number] UNIT: [id number] : 1945 LOC: ER ROOM / BED: / AGE / SEX: 78 / M ADM STATUS: REG ER SERVICE 25 ORDERING PHYSICIAN: SHANEL NÚÑEZ MD PROCEDURE(s): CXRP - CHEST PORTABLE REASON: syncope ORDER NUMBER(s): [id number], ACCESSION NUMBER(s): [id number] CHEST RADIOGRAPH Indication: syncope Technique: Single frontal view of the chest was obtained Comparison: XY CHEST PORTABLE on DOS: 12/29/23, XY CHEST PORTABLE on DOS: 12/10 10/03, XY CHEST XRAY 1 VIEW on DOS: 12/19/23 FINDINGS: Lines and Tubes: Left-sided cardiac device with intact leads Lungs: Clear Pleura: No effusion. No pneumothorax. Cardiomediastinal contours: Unremarkable Bones: Unremarkable IMPRESSION: 1. Clear lungs. ATED BY: BISMARK HILL DO DICTATED DATE/TIME: 05/07/242035 SIGNED BY: BISMARK HILL DO SIGNED DATE/TIME: 05/07/242035 CC: [place] [id number] Ph: [phone] DIAGNOSTIC IMAGING Diagnostic Imaging Report : [id number] Signed PATIENT: FRED VIRK ACCT: [id number] UNIT: [id number] : 1945 LOC: ER ROOM / BED: / AGE / SEX: 78 / M ADM STATUS: REG ER SERVICE 25 ORDERING PHYSICIAN: SHANEL NÚÑEZ MD PROCEDURE(s): HWOCT - HEAD WITHOUT CONTRAST REASON: syncope ORDER NUMBER(s): [id number], ACCESSION NUMBER(s): [id number] EXAM: CT HEAD WITHOUT CONTRAST INDICATION: syncope TECHNIQUE: CT of the head without intravenous contrast. Radiation Dose Information: CT Dose: CTDI volume is 61.03 mGy. Dose-length product is 1156.69 mGy*cm The dose indicators for CT are the volume Computed Tomography (CT) Dose Index (C TDIvol) and the Dose Length Product (DLP), and are measured in units of mGy and mGy-cm, respectively. These indicators are not patient dose, but values generated from the CT scanner acquisition factors. The report includes radiation exposure data for exposures received during this examination. COMPARISON: MRI CERVICAL WITH CONTRAST on DOS: 12/30/23, CT HEAD WITHOUT CONTRAST on DOS: 12/25/23, CT HEAD WITHOUT CONTRAST on DOS: 12/20/23 FINDINGS: There is no evidence of acute intracranial hemorrhage, extra-axial collection, mass effect, midline shift, herniation or hydrocephalus. The ventricles, sulci and cisterns are age appropriate. The lamb-white differentiation is intact. Patchy periventricular and subcortical white matter hypoattenuation is nonspecif ic but may be related to small vessel ischemic disease. The visualized paranasal sinuses and mastoid air cells are clear. The surrounding soft tissues and osseous structures are unremarkable. IMPRESSION: 1. No acute intracranial hemorrhage 2. No CT findings of territorial ischemia. 3. Bilateral hearing assist devices ATED BY: GINO CHAMPION Jr., DO DICTATED DATE/TIME: 05/07/242037 SIGNED BY: GINO CHAMPION Jr., SIGNED DATE/TIME: 05/07/242037 CC: 1st troponin is nine. Second troponin is nine. EKG shows pacemaker rhythm. Hemoglobin is 12. CMP is normal. BNP equals 71. The patient has been on hospice for the past four months. Dr. Montemayor and Marquise are his primary care doctors. Dr. Krueger is his esl professor. The patient will be admitted to the hospitalist for further evaluation and care.. has been consulted. Time of 1ST Reevaluation: 19:50 Reevaluation 1ST: Unchanged Patient Education/Counseling: Diagnosis, Treatment, Prognosis Family Education/Counseling: No Family Present Departure 1 Departure Time of Disposition: 22:17 Impression: Primary Impression: Near syncope Additional Impressions: Paced cardiac rhythm Parkinsons Qualified Codes: G20.B1 - Parkinson's disease with dyskinesia, without mention of fluctuations Peripheral neuropathy Qualified Codes: G60.9 - Hereditary and idiopathic neuropathy, unspecified Dupuytrens contracture Disposition: ADMITTED INPATIENT Admit to: Tele Condition: Guarded Critical Care Note Critical Care Time?: Yes (45 min-critical care time only) Stability Stability form required: No I personally scribed for SHANEL NÚÑEZ MD ([email or web address]) on 05/07/24 at 19:33. Electronically submitted by Natasha Silva ([email or web address]). I personally scribed for SHANEL NÚÑEZ MD ([email or web address]) on 05/07/24 at 20:55. Electronically submitted by Natasha Silva ([email or web address]). I personally scribed for SHANEL NÚÑEZ MD ([email or web address]) on 05/07/24 at 20:57. Electronically submitted by Natasha Silva ([email or web address]). I personally scribed for SHANEL NÚÑEZ MD ([email or web address]) on 05/07/24 at 22:05. Electronically submitted by Natasha Silva ([email or web address]). SHANEL NÚÑEZ MD May 07, 2024 19:33
--- NOTE | 2024-05-07 19:44 | ECG ---
[facility] Test Date: 2024-05-07 Test Time: 19:33:24 Pat Name: FRED VIRK Department: ED Room: 0205T Gender: M Body Man: FELICITAS : 1945 Requested By: SHANEL NÚÑEZ Order Number: [id number] Reading MD: Nhan Del Castillo Measurements Intervals [place] Rate: 76 P: 24 TN: 66 QRS: 260 QRSD: 155 T: 35 QT: 458 QTc: 516 Interpretive Statements A-V dual-paced rhythm with some inhibition No further analysis attempted due to paced rhythm Electronically Signed On 05-08-2024 14:18:04 PST by Nhan Del Castillo Please click the below link to view image of tracing.
[2024-05-07 20:10] LABS: Basophils # (auto) 0 10 ^3/uL (0-0.2); Basophils % (auto) 0.6 % (0.0-2.0); Eosinophils # (auto) 0.3 10 ^3/uL (0-0.8); Eosinophils % (auto) 4.1 % (0.0-7.0); Hematocrit 37.6 % (41.0-53.0); Lymphocytes # (auto) 1.1 10 ^3/uL (0.4-5.4); Lymphocytes % (auto) 17.2 % (10.0-50.0); Mean Corpuscular Hemoglobin 32.2 pg (28.0-32.0); Mean Corpuscular Hgb Conc. 34.5 g/dL (32.0-36.0); Mean Corpuscular Volume 93.2 fL (80.0-100.0); Monocytes # (auto) 0.5 10 ^3/uL (0-1.3); Monocytes % (auto) 7.4 % (0.0-12.0); Neutrophils # (auto) 4.4 10 ^3/uL (1.6-8.6); Neutrophils % (auto) 70.7 % (37.0-80.0); Nucleated Red Blood Cells % 0.1 %; Platelet Count (auto) 157 10^3/uL (140-450); Red Blood Cells 4.03 10^6/uL (4.5-5.90); Red Cell Distribution Width 14.6 % (11.8-14.3); White Blood Cell 6.2 10^3/uL (4.4-10.8)
[2024-05-07 20:24] LABS: Alanine Aminotransferase 24 U/L (7-40); Albumin 3.5 g/dL (3.2-4.8); Alkaline Phosphatase 67 U/L (46-116); Anion Gap 6 (5-15); Aspartate Aminotransferase 30 U/L (13-40); BUN/Creatinine Ratio 23.7 (10.0-20.0); Blood Urea Nitrogen 27 mg/dL (9-23); Calcium 9.7 mg/dL (8.7-10.4); Carbon Dioxide 27 mmol/L (20-31); Chloride 105 mmol/L (98-107); Glucose 118 mg/dL (74-106); Potassium 4.2 mmol/L (3.5-5.1); Sodium 138 mmol/L (136-145)
[2024-05-07 20:25] LABS: Bilirubin, Total 0.7 mg/dL (0.2-1.0); Total Protein 6.2 g/dL (5.7-8.2)
[2024-05-07 20:27] LABS: INR 1.15 (0.9-1.15); Partial Thromboplastin Time 28.1 SEC (24.5-34.5); Prothrombin Time 12.1 sec (9.3-11.8)
--- NOTE | 2024-05-07 20:38 | DVH ---
CHEST RADIOGRAPH Indication: syncope Technique: Single frontal view of the chest was obtained Comparison: XY CHEST PORTABLE on DOS: 12/29/23, XY CHEST PORTABLE on DOS: 12/24/23, XY CHEST XRAY 1 VIE W on DOS: 12/19/23 FINDINGS: Lines and Tubes: Left-sided cardiac device with intact leads Lungs: Clear Pleura: No effusion. No pneumothorax. Cardiomediastinal contours: Unremarkable Bones: Unremarkable IMPRESSION: 1. Clear lungs.
--- NOTE | 2024-05-07 20:40 | DVH ---
EXAM: CT HEAD WITHOUT CONTRAST INDICATION: syncope TECHNIQUE: CT of the head without intravenous contrast. Radiation Dose Information: CT Dose: CTDI volume is 61.03 mGy. Dose-length product is 1156.69 mGy*cm The dose indicators for CT are the volume Computed Tomography (CT) Dose Index (CTDIvol) and the Dose Length Product (DLP), and are measured in units of mGy and mGy-cm, respectively. These indicators are not patient dose, but values generated from the CT scanner acquisition factors. The report includes radiation exposure data for exposures received during this examination. COMPARISON: MRI CERVICAL WITH CONTRAST on DOS: 12/30/23, CT HEAD WITHOUT CONTRAST on DOS: 12/25/23, CT HEAD WITHOUT CONTRAST on DOS: 12/20/23 FINDINGS: There is no evidence of acute intracranial hemorrhage, extra-axial collection, mass effect, midline s hift, herniation or hydrocephalus. The ventricles, sulci and cisterns are age appropriate. The lamb-white differentiation is intact. Patchy periventricular and subcortical white matter hypoattenuation is nonspecific but may be related to small vessel ischemic disease. The visualized paranasal sinuses and mastoid air cells are clear. The surrounding soft tissues and osseous structures are unremarkable. IMPRESSION: 1. No acute intracranial hemorrhage 2. No CT findings of territorial ischemia. 3. Bilateral hearing assist devices
[2024-05-07] MEDS ORDERED: MORPHINE SULFATE INJ 2 MG/ml SYRG IV PRN (22:45)
[2024-05-07] MEDS ORDERED: ONDANSETRON HCL 4 MG/2 ML VIAL IV PRN (22:45)
[2024-05-07] MEDS ORDERED: NITROGLYCERIN 0.4 MG SL TAB SL PRN (22:45)
[2024-05-08] VITALS (10 sets, daily range): BP systolic 0–136; BP diastolic 0–67; PULSE 63–75; RESP 15–20; TEMP 97.3–98.6; O2SAT 96–100
--- NOTE | 2024-05-08 06:04 | DVHHP2 ---
History of Present Illness Reason for Visit: Syncope History of Present Illness 78-year-old male presents of syncope. Patient reports back was assisted of a into and subsequently at a syncopal episode sitting wheelchair. He reports having dizziness after the. Denies chest pain palpitations. Denies headache blurred vision. No weakness. Past Medical History Hypertension, TIA, dyslipidemia Parkinson's disease Past Surgical History Hernia repair, pacemaker, PTCA and appendectomy Family History Noncontributory Smoke: No ALCOHOL: none Drugs: None Lives: with Family Review of Systems Review of Systems Review of systems are currently negative addressed HPI. Allergies: Coded Allergies: NO KNOWN ALLERGIES (Unverified , 06/06/22) Medications Current Medications Medications Dose Ordered Sig/Annalee Route Start Time Stop Time Status Last Admin Dose Admin Ondansetron HCl 4 mg Q4HP PRN IV 05/07/24 22:45 Enoxaparin Sodium 40 mg DAILY SC 05/08/24 10:00 Acetaminophen 650 mg Q6HP PRN PO 05/07/24 22:45 Nitroglycerin 0.4 mg Q5MINP PRN SL 05/07/24 22:45 Morphine Sulfate 2 mg Q30M PRN IV 05/07/24 22:45 Finasteride 5 mg DAILY PO 05/08/24 10:00 Losartan Potassium 50 mg DAILY PO 05/08/24 10:00 Metoprolol Tartrate 12.5 mg BID PO 05/08/24 10:00 Atorvastatin Calcium 20 mg HS PO 05/08/24 22:00 Clopidogrel Bisulfate 75 mg DAILY PO 05/08/24 10:00 Aspirin 81 mg DAILY PO 05/08/24 10:00 Exam Vital Signs Vital Signs Date Time Temp Pulse Resp B/P (MAP) Pulse Ox O2 Delivery O2 Flow Rate FiO2 05/08/24 05:00 97.7 71 20 135/67 (89) 98 97.7 05/08/24 00:52 Room Air* 0 21 Exam Gen: 78-year-old male in mild distress Skin: Warm, dry, normal color and texture, no rash. HEENT: Normocephalic atraumatic, mucous membranes moist and pink. Neck: Cervical and supraclavicular nodes normal without enlargement, trachea is midline, thyroid gland is normal without masses. Pulmonary: Clear to auscultation and percussion bilaterally. Cardiac: Regular rate and rhythm. No murmur Abdomen: Soft, nontender, nondistended, bowel sounds present all 4 quadrants, no guarding, no rigidity, no organomegaly. Extremities: No cyanosis, clubbing, no edema Neuro: Cranial nerves II through XII grossly intact, normal affect and speech, no focal motor deficits. Labs/Xrays ORDERING PHYSICIAN: CARL DIANE NP PROCEDURE(s): ECIDC - ECHO 2D MODE CARDIAC DOP REASON: syncope ORDER NUMBER(s): [id number], ACCESSION NUMBER(s): [id number] APPROVED REPORT EXAM: Two-dimensional and M-mode echocardiogram with Doppler and color Doppler. Blood Pressure: 118/56 mmHg INDICATION Syncope RISK FACTORS Height: 6'2", Weight: 165 DIMENSIONS LVDd 4.0 (3.8-5.7cm) LA (2D) 3.6 (1.9-4.0cm) Aortic Root 3.8 (2.0- 3.7cm) LVDs 3.1 (2.5-4.0cm) LA (MM) (1.9-4.0cm) Aortic Cusp Exc 1.8 (1.5- 2.0cm) EF (%) 47.0 (55-70%) Rt. Atrium 3.9 (1.9-4.0cm) Asc. Aorta cm IVSd 1.9 (0.7-1.1cm) RV (D) (1.8-2.4cm) PWd 1.6 (0.7-1.1cm) Mitral Valve Mitral Mitral Stenosis E/A ratio 0.0 2D MVA cm2 Aortic Valve Aortic Valve Aortic Stenosis V1 0.66m/s AO Mean GR. 4mmHg V2 1.31m/s AO Peak GR. 7mmHg LVOT Diameter 2.2 (1.8-2.4cm) Doppler VICKI 1.91cm2 AI P 1/2 Time 418.32ms Other Information Quality : Technically Limited Rhythm : Technically limited study due to body habitus. Conclusion Moderately concetric left ventricular hypertrophy, mderately reduced left ventricular systolic function, esitimated ejection fraction of 45%, there is a grade 1 diastolic dysfunction. Normal right ventriculr size and dimesnion, Normal right ventricular systolic fucntion, Normal biatrial size and dimesnion . There is a mild aortic valve regurgitation. Normal Mitral valve structure and function Normal Tricuspid valve structure and function The pulmonary valve is grossly normal, No pericardial effusion. SIGNED BY: MORENA BONE MD SIGNED DATE/TIME: 12/21/23 1837 ORDERING PHYSICIAN: SHANEL NÚÑEZ MD PROCEDURE(s): CXRP - CHEST PORTABLE REASON: syncope ORDER NUMBER(s): [id number], ACCESSION NUMBER(s): [id number] CHEST RADIOGRAPH Indication: syncope Technique: Single frontal view of the chest was obtained Comparison: XY CHEST PORTABLE on DOS: 12/29/23, XY CHEST PORTABLE on DOS: 12/24/23, XY CHEST XRAY 1 VIEW on DOS: 12/19/23 FINDINGS: Lines and Tubes: Left-sided cardiac device with intact leads Lungs: Clear Pleura: No effusion. No pneumothorax. Cardiomediastinal contours: Unremarkable Bones: Unremarkable IMPRESSION: 1. Clear lungs. RING PHYSICIAN: SHANEL NÚÑEZ MD PROCEDURE(s): HWOCT - HEAD WITHOUT CONTRAST REASON: syncope ORDER NUMBER(s): [id number], ACCESSION NUMBER(s): [id number] EXAM: CT HEAD WITHOUT CONTRAST INDICATION: syncope TECHNIQUE: CT of the head without intravenous contrast. Radiation Dose Information: CT Dose: CTDI volume is 61.03 mGy. Dose-length product is 1156.69 mGy*cm The dose indicators for CT are the volume Computed Tomography (CT) Dose Index (CTDIvol) and the Dose Length Product (DLP), and are measured in units of mGy and mGy-cm, respectively. These indicators are not patient dose, but values generated from the CT scanner acquisition factors. The report includes radiation exposure data for exposures received during this examination. COMPARISON: MRI CERVICAL WITH CONTRAST on DOS: 12/30/23, CT HEAD WITHOUT CONTRAST on DOS: 12/25/23, CT HEAD WITHOUT CONTRAST on DOS: 12/20/23 FINDINGS: There is no evidence of acute intracranial hemorrhage, extra-axial collection, mass effect, midline shift, herniation or hydrocephalus. The ventricles, sulci and cisterns are age appropriate. The lamb-white differentiation is intact. Patchy periventricular and subcortical white matter hypoattenuation is nonspecific but may be related to small vessel ischemic disease. The visualized paranasal sinuses and mastoid air cells are clear. The surrounding soft tissues and osseous structures are unremarkable. IMPRESSION: 1. No acute intracranial hemorrhage 2. No CT findings of territorial ischemia. 3. Bilateral hearing assist devices Labs Test 05/07/24 21:00 05/07/24 20:00 Range/Units Troponin I High Sensitivity 9 </=54 ng/L White Blood Count 6.2 4.4-10.8 10^3/uL Red Blood Count 4.03 L 4.5-5.90 10^6/uL Hemoglobin 13.0 L 13.5-17.5 g/dL Hematocrit 37.6 L 41.0-53.0 % Mean Corpuscular Volume 93.2 80.0-100.0 fL Mean Corpuscular Hemoglobin 32.2 H 28.0-32.0 pg Mean Corpuscular Hemoglobin Concent 34.5 32.0-36.0 g/dL Red Cell Distribution Width 14.6 H 11.8-14.3 % Platelet Count 157 140-450 10^3/uL Mean Platelet Volume 9.5 6.9-10.8 fL Neutrophils (%) (Auto) 70.7 37.0-80.0 % Lymphocytes (%) (Auto) 17.2 10.0-50.0 % Monocytes (%) (Auto) 7.4 0.0-12.0 % Eosinophils (%) (Auto) 4.1 0.0-7.0 % Basophils (%) (Auto) 0.6 0.0-2.0 % Neutrophils # (Auto) 4.4 1.6-8.6 10 ^3/uL Lymphocytes # (Auto) 1.1 0.4-5.4 10 ^3/uL Monocytes # (Auto) 0.5 0-1.3 10 ^3/uL Eosinophils # (Auto) 0.3 0-0.8 10 ^3/uL Basophils # (Auto) 0 0-0.2 10 ^3/uL Nucleated Red Blood Cells 0.1 % Prothrombin Time 12.1 H 9.3-11.8 sec Prothrombin Time INR 1.15 0.9-1.15 Activated Partial Thromboplast Time 28.1 24.5-34.5 SEC Sodium Level 138 136-145 mmol/L Potassium Level 4.2 3.5-5.1 mmol/L Chloride Level 105 98-107 mmol/L Carbon Dioxide Level 27 20-31 mmol/L Anion Gap 6 5-15 Blood Urea Nitrogen 27 H 9-23 mg/dL Creatinine 1.14 0.700-1.30 mg/dL Glomerular Filtration Rate Calc 66 >90 mL/min BUN/Creatinine Ratio 23.7 H 10.0-20.0 Serum Glucose 118 H 74-106 mg/dL Calcium Level 9.7 8.7-10.4 mg/dL Total Bilirubin 0.7 0.2-1.0 mg/dL Aspartate Amino Transferase (AST) 30 13-40 U/L Alanine Aminotransferase (ALT) 24 7-40 U/L Alkaline Phosphatase 67 46-116 U/L B-Type Natriuretic Peptide 70.99 0-100 pg/mL Total Protein 6.2 5.7-8.2 g/dL Albumin 3.5 3.2-4.8 g/dL Assessment/Plan Assessment/Plan Assessment Syncope Essential tremors secondary to Parkinson's disease Chronic kidney disease Status post pacemaker Plan the patient to telemetry to the hospitalist Cardiology consultation Resume home medications Continue treatment per orders. Plan discussed with: Patient My Orders Orders - CARL DIANE Procedure Category Date Status Time Basic Metabolic Panel LAB 05/08/24 Logged 04:00 Admit ADMIT 05/07/24 Transmitted 22:33 Ondansetron Hcl PHA 05/07/24 In Process (Zofran) 22:45 Enoxaparin Sodium PHA 05/08/24 In Process (Lovenox) 10:00 Cardiac DIET 05/08/24 Transmitted Diet-2gna,Lofat,Lochol Breakfast Condition: Fair DARYL 05/07/24 In Process 22:33 Acetaminophen Tablet PHA 05/07/24 In Process (Tylenol Tablet) 22:45 Bedrest With Bathroom DARYL 05/07/24 In Process Privileg 22:33 Nitroglycerin PHA 05/07/24 In Process Sublingual (Ntrostat 22:45 Morphine Sulfate PHA 05/07/24 In Process Injection 22:45 Stat Ekg For Chest DARYL 05/07/24 In Process Pain 22:33 Notify Of Changes DARYL 05/07/24 In Process From Base 22:33 Electronic Commerce Specialist For DARYL 05/07/24 In Process 24 Hours 22:33 Emergency Dysrhythmia DARYL 05/07/24 In Process Protocol 22:33 Rhythm Strips Once DARYL 05/07/24 In Process Every Shift 22:33 Oxygen By Nasal RT 05/07/24 Transmitted Cannula 22:33 Finasteride Tablet PHA 05/08/24 In Process (Proscar Tablet) 10:00 Losartan Tablet PHA 05/08/24 In Process (Cozaar Tablet) 10:00 Metoprolol Tartrate PHA 05/08/24 In Process Tablet (Lopressor Ta 10:00 Atorvastatin (Lipitor) PHA 05/08/24 In Process 22:00 Clopidogrel Bisulfate PHA 05/08/24 In Process (Plavix) 10:00 Aspirin Tablet PHA 05/08/24 In Process 10:00 Orthostatic Vital ED NURSING 05/07/24 Transmitted Signs Carotid Duplx W Color US 05/08/24 Logged DOP 07:00 Mrsa Screen CARINE 05/08/24 In Process 03:54 * Motor Vehicle Technician CONS 05/08/24 Transmitted Consult 03:54 Date of Service: May 07, 2024 Billing Provider: CARL DIANE Common Visit Codes: [id number] INP/OBS CARE (HIGH) CARL DIANE May 08, 2024 06:04
[2024-05-08 08:31] LABS: Chloride 108 mmol/L (98-107); Potassium 3.8 mmol/L (3.5-5.1); Sodium 138 mmol/L (136-145)
[2024-05-08 08:32] LABS: Anion Gap 4 (5-15); Carbon Dioxide 26 mmol/L (20-31)
[2024-05-08 08:33] LABS: Calcium 9.3 mg/dL (8.7-10.4)
[2024-05-08 08:37] LABS: Glucose 94 mg/dL (74-106)
[2024-05-08 08:38] LABS: Blood Urea Nitrogen 27 mg/dL (9-23)
--- NOTE | 2024-05-08 08:45 | DVH ---
CAROTID ARTERIAL DOPPLER CLINICAL HISTORY: syncope TECHNIQUE: Doppler study of bilateral carotid/vertebral arteries were performed. Comparison: US CAROTID DUPLX W COLOR DOP on DOS: 12/20/23 FINDINGS: There are nonocclusive atheromatous plaques in the bilateral carotid bulbs. The bilateral common pena tid, external and internal carotid arteries appear patent without hemodynamically significant stenosi s. The spectral wave forms and peak systolic velocities are within normal limits. Antegrade flow is present within the vertebral arteries with appropriate velocities and waveforms. Right ICA/CCA PSV ratio = 1.2. Left ICA/CCA PSV ratio = 1.5 . IMPRESSION: 1. No hemodynamically significant stenosis within the carotid arteries. HS:Y
[2024-05-08] MEDS: CLOPIDOGREL BISULFATE 75 MG TAB PO SCH (09:38)
[2024-05-08] MEDS: LOSARTAN POTASSIUM 50 MG TAB PO SCH (09:38)
[2024-05-08] MEDS: METOPROLOL TARTRATE 25 MG TAB PO SCH (09:38)
[2024-05-08] MEDS: ASPirin 81 mg TAB PO SCH (09:39)
[2024-05-08] MEDS: ACETAMINOPHEN 325 MG TAB PO PRN (09:39)
[2024-05-08] MEDS: FINASTERIDE 5 MG TAB PO SCH (09:39)
[2024-05-08] MEDS: ENOXAPARIN SOD 40 MG/0.4 ML SYRINGE SC SCH (09:41)
[2024-05-08 11:54] LABS: Urine Bacteria FEW /hpf (None Seen); Urine Blood 2+ /uL (Negative); Urine Clarity Turbid (Clear); Urine Color Light-Yellow (Yellow); Urine Mucus FEW (None Seen); Urine Protein, UAD 1+ (Negative); Urine Specific Gravity 1.017 (1.001-1.035); Urine Urobilinogen Normal (Negative); Urine WBC 46 /hpf (0 - 3); Urine pH 6.5 (5.0-9.0)
--- NOTE | 2024-05-08 13:09 | DVHPN2 ---
Subjective No recurrence of syncope but feels dizzy Reviewed: Care Plan, H&P, Labs, Medications, Previous Orders, Radiology, Other (Consultation) Changes from previous H/P or p: Changes Objective Vitals Vital Signs Date Time Temp Pulse Resp B/P (MAP) Pulse Ox O2 Delivery O2 Flow Rate FiO2 05/08/24 09:38 68 130/61 05/08/24 08:33 97.4 17 97 97.4 05/08/24 08:00 Room Air* 0 21 Intake/Output Intake and Output 05/08/24 07:00 Intake Total 240 ml Output Total 300 ml Balance -60 ml Intake Oral 240 ml Output Urine Total 300 ml General Appearance: Alert, Oriented X3, Cooperative, No acute distress, Other (Looks dehydrated) HEENT: Atraumatic Lungs: Clear to auscultation, Normal air movement Chest/Breasts: Other (Pacemaker in place) Cardiovascular: Regular rate, Normal S1, Normal S2 Abdomen: Normal bowel sounds, Soft, No tenderness Extremities: No edema Neuro: Normal speech, Cranial nerves 3-12 NL Psych/Mental Status: Mental status NL, Mood NL Medications Current Medications Medications Dose Ordered Sig/Annalee Route Start Time Stop Time Status Last Admin Dose Admin Ondansetron HCl 4 mg Q4HP PRN IV 05/07/24 22:45 Enoxaparin Sodium 40 mg DAILY SC 05/08/24 10:00 05/08/24 09:41 40 MG Acetaminophen 650 mg Q6HP PRN PO 05/07/24 22:45 05/08/24 09:39 650 MG Nitroglycerin 0.4 mg Q5MINP PRN SL 05/07/24 22:45 Morphine Sulfate 2 mg Q30M PRN IV 05/07/24 22:45 Finasteride 5 mg DAILY PO 05/08/24 10:00 05/08/24 09:39 5 MG Losartan Potassium 50 mg DAILY PO 05/08/24 10:00 05/08/24 09:38 50 MG Metoprolol Tartrate 12.5 mg BID PO 05/08/24 10:00 05/08/24 09:38 12.5 MG Atorvastatin Calcium 20 mg HS PO 05/08/24 22:00 Clopidogrel Bisulfate 75 mg DAILY PO 05/08/24 10:00 05/08/24 09:38 75 MG Aspirin 81 mg DAILY PO 05/08/24 10:00 05/08/24 09:39 81 MG Laboratory Results Laboratory Tests 05/07/24 20:00 05/08/24 08:09 Chemistry Test 05/07/24 20:00 05/08/24 08:09 Albumin 3.5 g/dL (3.2-4.8) Calcium Level 9.7 mg/dL (8.7-10.4) 9.3 mg/dL (8.7-10.4) Total Protein 6.2 g/dL (5.7-8.2) Coagulation Test 05/07/24 20:00 Prothrombin Time 12.1 sec (9.3-11.8) H Prothrombin Time INR 1.15 (0.9-1.15) Activated Partial Thromboplast Time 28.1 SEC (24.5-34.5) Cardiac Markers Test 05/07/24 20:00 B-Type Natriuretic Peptide 70.99 pg/mL (0-100) LFT Test 05/07/24 20:00 Alanine Aminotransferase (ALT) 24 U/L (7-40) Alkaline Phosphatase 67 U/L (46-116) Aspartate Amino Transferase (AST) 30 U/L (13-40) Total Bilirubin 0.7 mg/dL (0.2-1.0) Urinalysis Test 05/08/24 09:30 Urine Color Light-yellow (Yellow) Urine Clarity Turbid (Clear) H Urine pH 6.5 (5.0-9.0) Urine Specific [place] 1.017 (1.001-1.035) Urine Protein 1+ (Negative) H Urine Ketones Negative (Negative) Urine Blood 2+ /uL (Negative) H Urine Nitrite 2+ (Negative) H Urine Bilirubin Negative (Negative) Urine Urobilinogen Normal mg/dL (Negative) Urine Leukocyte Esterase 3+ /uL (Negative) Urine RBC 41 /hpf (0 - 3) Urine WBC 46 /hpf (0 - 3) Urine Squamous Epithelial Cells Few /hpf (<5) Urine Bacteria Few /hpf (None Seen) H Urine Mucus Few (None Seen) Urine Glucose Normal mg/dL (Normal) Microbiology Microbiology Date/Time Source Procedure Growth Status 05/08/24 05:15 Nose MRSA Screen - Final Methicillin Resistant S.aureus Complete Labs and/or images reviewed: Labs reviewed by me, Image(s) reviewed by me Assessment/Plan Assessment/Plan A 78-year-old male patient with multiple comorbidities; who presented to the ER with syncope #Syncope due to dehydration; positive orthostatic vital signs; reviewed available labs and imaging studies; cardiology is following; telemetry; started on IV fluids; fall precautions; continue monitoring #Dehydration; started on IV fluids; continue monitoring #DORYS due to dehydration; possible vasomotor nephropathy; avoid nephrotoxic agents; continue monitoring #Sick sinus syndrome status post pacemaker; pacemaker is functioning normally as per cardiology; telemetry; cardiology is following; continue monitoring #Coronary artery disease status post PTCA; continue aspirin, statin, and clopidogrel; asymptomatic; cardiology is following; continue monitoring #Positive MRSA nasal swab; started on topical nasal mupirocin ointment; contact isolation; continue monitoring Goals of care discussed for 20 minutes; full code This medical document was created using an electronic medical record system with computerized dictation system. Although this document has been carefully reviewed, there might still be some phonetic and typographical errors. These areas are purely typographical due to imperfections of the software programs, and do not reflect any compromise in the patient's medical care. Plan discussed with: Patient, Other (Nurse) Date of Service: May 08, 2024 Billing Provider: OBED REYNOSO MD Common Visit Codes: [id number] INP/OBS CARE(HIGH) Secondary Visit Codes: [id number] CARE PLAN 30 MINUTES (20 minutes) OBED REYNOSO MD May 08, 2024 13:09
--- NOTE | 2024-05-08 13:14 | DVHPN2 ---
Progress Note - Dictate Date Seen: May 07, 2024 Medical Necessity Reason Pt with a Central, PICC or Fol: No Subjective PT WITH APPARENT SYNCOPE CAROTID DUPLEX NORMAL CT OF HEAD NEGATIVE CXR NEGATIVE TROPONIN NEGATIVE BNP NL PACEMAKER NL FUNCTION LABS HIGH BUN/CR RATIO H SSS CAD S/P PTCA vital signs Vital Sign Date Time Temp Pulse Resp B/P (MAP) Pulse Ox O2 Delivery O2 Flow Rate FiO2 05/08/24 09:38 68 130/61 05/08/24 08:33 97.4 17 97 97.4 05/08/24 08:00 Room Air* 0 21 Total Intake and Output 05/07/24 05/07/24 05/08/24 15:00 23:00 07:00 Intake Total 240 ml Output Total 300 ml Balance -60 ml medications Current Medications Medications Dose Ordered Sig/Annalee Route Start Time Stop Time Status Last Admin Dose Admin Ondansetron HCl 4 mg Q4HP PRN IV 05/07/24 22:45 Enoxaparin Sodium 40 mg DAILY SC 05/08/24 10:00 05/08/24 09:41 40 MG Acetaminophen 650 mg Q6HP PRN PO 05/07/24 22:45 05/08/24 09:39 650 MG Nitroglycerin 0.4 mg Q5MINP PRN SL 05/07/24 22:45 Morphine Sulfate 2 mg Q30M PRN IV 05/07/24 22:45 Finasteride 5 mg DAILY PO 05/08/24 10:00 05/08/24 09:39 5 MG Losartan Potassium 50 mg DAILY PO 05/08/24 10:00 05/08/24 09:38 50 MG Metoprolol Tartrate 12.5 mg BID PO 05/08/24 10:00 05/08/24 09:38 12.5 MG Atorvastatin Calcium 20 mg HS PO 05/08/24 22:00 Clopidogrel Bisulfate 75 mg DAILY PO 05/08/24 10:00 05/08/24 09:38 75 MG Aspirin 81 mg DAILY PO 05/08/24 10:00 05/08/24 09:39 81 MG laboratory and microbiology Laboratory Tests 05/08/24 08:09 05/07/24 20:00 Test 05/08/24 08:09 Range/Units Serum Glucose 94 74-106 mg/dL Problem List APPARENT SYNCOPE CAROTID DUPLEX NORMAL CT OF HEAD NEGATIVE CXR NEGATIVE TROPONIN NEGATIVE BNP NL PACEMAKER NL FUNCTION LABS HIGH BUN/CR RATIO PMH SSS CAD S/P PTCA Assessment/Plan IV FLUID ORTHOSTATIC BP CHECK Plan discussed with: Patient Critical Care Time(min): 35 CHRIS SMALL MD May 08, 2024 13:14
[2024-05-08] MEDS: ATORVASTATIN 20 MG TAB PO SCH (21:56)
[2024-05-09] VITALS (8 sets, daily range): BP systolic 74–137; BP diastolic 35–63; PULSE 70–84; RESP 14–18; TEMP 97.5–98.1; O2SAT 98–100
[2024-05-09] MEDS: SODIUM CHLORIDE 0.9% 1,000 ML IV SCH (05:14)
[2024-05-09 07:48] LABS: Basophils # (auto) 0 10 ^3/uL (0-0.2); Basophils % (auto) 0.6 % (0.0-2.0); Eosinophils # (auto) 0.3 10 ^3/uL (0-0.8); Eosinophils % (auto) 6.2 % (0.0-7.0); Hematocrit 32.9 % (41.0-53.0); Hemoglobin 11.5 g/dL (13.5-17.5); Lymphocytes # (auto) 1.8 10 ^3/uL (0.4-5.4); Lymphocytes % (auto) 31.8 % (10.0-50.0); Mean Corpuscular Hemoglobin 32.6 pg (28.0-32.0); Mean Corpuscular Volume 93.3 fL (80.0-100.0); Monocytes # (auto) 0.6 10 ^3/uL (0-1.3); Monocytes % (auto) 10.6 % (0.0-12.0); Neutrophils # (auto) 2.8 10 ^3/uL (1.6-8.6); Neutrophils % (auto) 50.8 % (37.0-80.0); Nucleated Red Blood Cells % 0.2 %; Platelet Count (auto) 126 10^3/uL (140-450); Red Blood Cells 3.53 10^6/uL (4.5-5.90); Red Cell Distribution Width 15.3 % (11.8-14.3); White Blood Cell 5.6 10^3/uL (4.4-10.8)
[2024-05-09 08:03] LABS: Anion Gap 8 (5-15); Carbon Dioxide 26 mmol/L (20-31); Chloride 103 mmol/L (98-107); Potassium 4.2 mmol/L (3.5-5.1); Sodium 137 mmol/L (136-145)
[2024-05-09 08:05] LABS: Calcium 9.1 mg/dL (8.7-10.4)
[2024-05-09 08:09] LABS: BUN/Creatinine Ratio 29.3 (10.0-20.0); Glucose 91 mg/dL (74-106)
[2024-05-09 08:12] LABS: Blood Urea Nitrogen 27 mg/dL (9-23)
[2024-05-09] MEDS: MUPIROCIN 2% OINT 15gm or 22gm FOR MRSA NARES EACHNOSTRI SCH (10:01)
--- NOTE | 2024-05-09 12:32 | DVHPN2 ---
Subjective No recurrence of syncope but feels dizzy Reviewed: Care Plan, H&P, Labs, Medications, Previous Orders, Radiology, Other Changes from previous H/P or p: No Changes Objective Vitals Vital Signs Date Time Temp Pulse Resp B/P (MAP) Pulse Ox O2 Delivery O2 Flow Rate FiO2 05/09/24 09:40 125/69 05/09/24 09:39 75 05/09/24 08:45 97.5 17 98 97.5 05/08/24 20:00 Room Air* 0 21 Intake/Output Intake and Output 05/09/24 07:00 Intake Total 1580 ml Output Total 825 ml Balance 755 ml Intake Oral 1580 ml Output Urine Total 825 ml General Appearance: Alert, Oriented X3, Cooperative, No acute distress, Other HEENT: Atraumatic Lungs: Clear to auscultation, Normal air movement Chest/Breasts: Other Cardiovascular: Regular rate, Normal S1, Normal S2 Abdomen: Normal bowel sounds, Soft, No tenderness Extremities: No edema Neuro: Normal speech, Cranial nerves 3-12 NL Psych/Mental Status: Mental status NL, Mood NL Medications Current Medications Medications Dose Ordered Sig/Annalee Route Start Time Stop Time Status Last Admin Dose Admin Ondansetron HCl 4 mg Q4HP PRN IV 05/07/24 22:45 Enoxaparin Sodium 40 mg DAILY SC 05/08/24 10:00 05/09/24 09:40 40 MG Acetaminophen 650 mg Q6HP PRN PO 05/07/24 22:45 05/08/24 09:39 650 MG Nitroglycerin 0.4 mg Q5MINP PRN SL 05/07/24 22:45 Morphine Sulfate 2 mg Q30M PRN IV 05/07/24 22:45 Finasteride 5 mg DAILY PO 05/08/24 10:00 05/09/24 09:38 5 MG Losartan Potassium 50 mg DAILY PO 05/08/24 10:00 05/09/24 09:40 50 MG Metoprolol Tartrate 12.5 mg BID PO 05/08/24 10:00 05/09/24 09:39 12.5 MG Atorvastatin Calcium 20 mg HS PO 05/08/24 22:00 05/08/24 21:56 20 MG Clopidogrel Bisulfate 75 mg DAILY PO 05/08/24 10:00 05/09/24 09:39 75 MG Aspirin 81 mg DAILY PO 05/08/24 10:00 05/09/24 09:38 81 MG Sodium Chloride 1,000 ml @ 100 mls/hr Q10H IV 05/09/24 04:45 05/09/24 05:14 100 MLS/HR Mupirocin 1 applic BID EACHNOSTRI 05/09/24 10:00 05/14/24 09:59 05/09/24 10:01 1 APPLIC Laboratory Results Laboratory Tests 05/09/24 06:14 Chemistry Test 05/09/24 06:14 Calcium Level 9.1 mg/dL (8.7-10.4) Urinalysis Test 05/08/24 09:30 Urine Color Light-yellow (Yellow) Urine Clarity Turbid (Clear) H Urine pH 6.5 (5.0-9.0) Urine Specific [place] 1.017 (1.001-1.035) Urine Protein 1+ (Negative) H Urine Ketones Negative (Negative) Urine Blood 2+ /uL (Negative) H Urine Nitrite 2+ (Negative) H Urine Bilirubin Negative (Negative) Urine Urobilinogen Normal mg/dL (Negative) Urine Leukocyte Esterase 3+ /uL (Negative) Urine RBC 41 /hpf (0 - 3) Urine WBC 46 /hpf (0 - 3) Urine Squamous Epithelial Cells Few /hpf (<5) Urine Bacteria Few /hpf (None Seen) H Urine Mucus Few (None Seen) Urine Glucose Normal mg/dL (Normal) Microbiology Microbiology Date/Time Source Procedure Growth Status 05/08/24 05:15 Nose MRSA Screen - Final Methicillin Resistant S.aureus Complete Labs and/or images reviewed: Labs reviewed by me, Image(s) reviewed by me Assessment/Plan Assessment/Plan A 78-year-old male patient with multiple comorbidities; who presented to the ER with syncope #Syncope due to dehydration; positive orthostatic vital signs; reviewed available labs and imaging studies; cardiology is following; telemetry; started on IV fluids; fall precautions; continue monitoring #Dehydration; on IV fluids; continue monitoring #DORYS due to dehydration; possible vasomotor nephropathy; avoid nephrotoxic agents; continue monitoring #Sick sinus syndrome status post pacemaker; pacemaker is functioning normally as per cardiology; telemetry; cardiology is following; continue monitoring #Coronary artery disease status post PTCA; continue aspirin, statin, and clopidogrel; asymptomatic; cardiology is following; continue monitoring #Positive MRSA nasal swab; started on topical nasal mupirocin ointment; contact isolation; continue monitoring This medical document was created using an electronic medical record system with computerized dictation system. Although this document has been carefully reviewed, there might still be some phonetic and typographical errors. These areas are purely typographical due to imperfections of the software programs, and do not reflect any compromise in the patient's medical care. Plan discussed with: Patient, Other (Nurse) My Orders Orders - OBED REYNOSO MD Procedure Category Date Status Time Sodium Chloride 0.9% PHA 05/09/24 In Process 04:45 Mupirocin 2% Oint PHA 05/09/24 In Process Mrsa Nares (Bactroban 10:00 Code Status CODE 05/09/24 Transmitted 04:45 Date of Service: May 09, 2024 Billing Provider: OBED REYNOSO MD Common Visit Codes: [id number] INP/OBS CARE(HIGH) OBED REYNOSO MD May 09, 2024 12:32
--- NOTE | 2024-05-09 17:11 | DVH ---
Date: 05/09/2024 04:43 PM Examination: XY KUB ABDOMEN SINGLE VIEW History: Constipation. Thank You! Comparison: None TECHNIQUE: Frontal views of the abdomen was obtained. FINDINGS: Bowel gas pattern is unremarkable. The lung bases are unremarkable. No acute osseous abnormality identified. IMPRESSION: 1. Nonobstructive bowel gas pattern. 2. Stool throughout the colon
[2024-05-09] MEDS: LACTULOSE 20Gm/30ML SOLN PO ONE (18:43)
[2024-05-10] VITALS (9 sets, daily range): BP systolic 90–123; BP diastolic 41–67; PULSE 67–90; RESP 13–18; TEMP 97.3–99; O2SAT 94–100
[2024-05-10 06:20] LABS: Basophils # (auto) 0 10 ^3/uL (0-0.2); Basophils % (auto) 0.6 % (0.0-2.0); Eosinophils # (auto) 0.3 10 ^3/uL (0-0.8); Eosinophils % (auto) 5.2 % (0.0-7.0); Hematocrit 34.2 % (41.0-53.0); Lymphocytes # (auto) 1.7 10 ^3/uL (0.4-5.4); Lymphocytes % (auto) 25.7 % (10.0-50.0); Mean Corpuscular Hemoglobin 32.7 pg (28.0-32.0); Mean Corpuscular Hgb Conc. 35.1 g/dL (32.0-36.0); Mean Corpuscular Volume 93.3 fL (80.0-100.0); Monocytes # (auto) 0.6 10 ^3/uL (0-1.3); Monocytes % (auto) 9.1 % (0.0-12.0); Neutrophils # (auto) 3.9 10 ^3/uL (1.6-8.6); Neutrophils % (auto) 59.4 % (37.0-80.0); Platelet Count (auto) 126 10^3/uL (140-450); Red Blood Cells 3.67 10^6/uL (4.5-5.90); Red Cell Distribution Width 14.6 % (11.8-14.3); White Blood Cell 6.6 10^3/uL (4.4-10.8)
[2024-05-10 06:25] LABS: Chloride 106 mmol/L (98-107); Potassium 3.8 mmol/L (3.5-5.1); Sodium 138 mmol/L (136-145)
[2024-05-10 06:26] LABS: Anion Gap 8 (5-15); Calcium 9.4 mg/dL (8.7-10.4); Carbon Dioxide 24 mmol/L (20-31)
[2024-05-10 06:31] LABS: Glucose 85 mg/dL (74-106)
[2024-05-10 06:32] LABS: BUN/Creatinine Ratio 27.1 (10.0-20.0); Blood Urea Nitrogen 23 mg/dL (9-23)
[2024-05-10] MEDS: FLEET MINERAL OIL ENEMA 133 ML PR ONE (08:15)
--- NOTE | 2024-05-10 11:59 | DVHPN2 ---
Subjective No recurrence of syncope; constipation Reviewed: Care Plan, H&P, Labs, Medications, Previous Orders, Radiology, Other Changes from previous H/P or p: Changes Objective Vitals Vital Signs Date Time Temp Pulse Resp B/P (MAP) Pulse Ox O2 Delivery O2 Flow Rate FiO2 05/10/24 09:19 75 90/56 05/10/24 08:36 97.5 17 99 97.5 05/10/24 08:00 Room Air* 0 21 Intake/Output Intake and Output 05/10/24 07:00 Intake Total 2600 ml Output Total 1903 ml Balance 697 ml Intake Oral 1800 ml IV Total 800 ml Output Urine Total 1900 ml Stool Total 3 ml General Appearance: Alert, Oriented X3, Cooperative, No acute distress, Other HEENT: Atraumatic Lungs: Clear to auscultation, Normal air movement Chest/Breasts: Other Cardiovascular: Regular rate, Normal S1, Normal S2 Abdomen: Normal bowel sounds, Soft, No tenderness Extremities: No edema Neuro: Normal speech, Cranial nerves 3-12 NL Psych/Mental Status: Mental status NL, Mood NL Medications Current Medications Medications Dose Ordered Sig/Annalee Route Start Time Stop Time Status Last Admin Dose Admin Ondansetron HCl 4 mg Q4HP PRN IV 05/07/24 22:45 Enoxaparin Sodium 40 mg DAILY SC 05/08/24 10:00 05/10/24 09:18 40 MG Acetaminophen 650 mg Q6HP PRN PO 05/07/24 22:45 05/08/24 09:39 650 MG Nitroglycerin 0.4 mg Q5MINP PRN SL 05/07/24 22:45 Morphine Sulfate 2 mg Q30M PRN IV 05/07/24 22:45 Finasteride 5 mg DAILY PO 05/08/24 10:00 05/10/24 09:17 5 MG Losartan Potassium 50 mg DAILY PO 05/08/24 10:00 05/09/24 09:40 50 MG Metoprolol Tartrate 12.5 mg BID PO 05/08/24 10:00 05/09/24 21:22 12.5 MG Atorvastatin Calcium 20 mg HS PO 05/08/24 22:00 05/09/24 21:21 20 MG Clopidogrel Bisulfate 75 mg DAILY PO 05/08/24 10:00 05/10/24 09:17 75 MG Aspirin 81 mg DAILY PO 05/08/24 10:00 05/10/24 09:17 81 MG Sodium Chloride 1,000 ml @ 100 mls/hr Q10H IV 05/09/24 04:45 05/10/24 11:18 100 MLS/HR Mupirocin 1 applic BID EACHNOSTRI 05/09/24 10:00 05/14/24 09:59 05/10/24 10:40 1 APPLIC Laboratory Results Laboratory Tests 05/10/24 04:46 Chemistry Test 05/10/24 04:46 Calcium Level 9.4 mg/dL (8.7-10.4) Urinalysis Test 05/08/24 09:30 Urine Color Light-yellow (Yellow) Urine Clarity Turbid (Clear) H Urine pH 6.5 (5.0-9.0) Urine Specific [place] 1.017 (1.001-1.035) Urine Protein 1+ (Negative) H Urine Ketones Negative (Negative) Urine Blood 2+ /uL (Negative) H Urine Nitrite 2+ (Negative) H Urine Bilirubin Negative (Negative) Urine Urobilinogen Normal mg/dL (Negative) Urine Leukocyte Esterase 3+ /uL (Negative) Urine RBC 41 /hpf (0 - 3) Urine WBC 46 /hpf (0 - 3) Urine Squamous Epithelial Cells Few /hpf (<5) Urine Bacteria Few /hpf (None Seen) H Urine Mucus Few (None Seen) Urine Glucose Normal mg/dL (Normal) Microbiology Microbiology Date/Time Source Procedure Growth Status 05/08/24 05:15 Nose MRSA Screen - Final Methicillin Resistant S.aureus Complete Labs and/or images reviewed: Labs reviewed by me, Image(s) reviewed by me Assessment/Plan Assessment/Plan A 78-year-old male patient with multiple comorbidities; who presented to the ER with syncope #Severe constipation; reviewed initial KUB; reviewed repeat KUB; will give more laxatives; will repeat enema tomorrow; continue monitoring #Syncope due to dehydration; positive orthostatic vital signs; reviewed available labs and imaging studies; cardiology is following; telemetry; on IV fluids; fall precautions; continue monitoring #Dehydration; on IV fluids; continue monitoring #DORYS due to dehydration; possible vasomotor nephropathy; avoid nephrotoxic agents; continue monitoring #Sick sinus syndrome status post pacemaker; pacemaker is functioning normally as per cardiology; telemetry; cardiology is following; continue monitoring #Coronary artery disease status post PTCA; continue aspirin, statin, and clopidogrel; asymptomatic; cardiology is following; continue monitoring #Positive MRSA nasal swab; started on topical nasal mupirocin ointment; contact isolation; continue monitoring This medical document was created using an electronic medical record system with computerized dictation system. Although this document has been carefully reviewed, there might still be some phonetic and typographical errors. These areas are purely typographical due to imperfections of the software programs, and do not reflect any compromise in the patient's medical care. Plan discussed with: Patient, Spouse, Other (Nurse) My Orders Orders - OBED REYNOSO MD Procedure Category Date Status Time Kub Abdomen Single XY 05/09/24 Resulted View 16:23 Kub Abdomen Single XY 05/10/24 Taken View 10:58 Date of Service: May 10, 2024 Billing Provider: OBED REYNOSO MD Common Visit Codes: [id number] INP/OBS CARE(HIGH) OBED REYNOSO MD May 10, 2024 11:58
--- NOTE | 2024-05-10 12:38 | DVH ---
XY KUB ABDOMEN SINGLE VIEW HISTORY: constipation TECHNICAL DATA: 1 view of the abdomen. COMPARISON: XY KUB ABDOMEN SINGLE VIEW on DOS: 05/09/24 FINDINGS: Patchy gas is identified within nondistended small bowel. There are no dilated small bowel loops. Th ere is no abdominal mass effect. The renal and liver shadows are not enlarged. No abnormal calcifica tions are demonstrated. IMPRESSION: Moderate colonic fecal burden. No acute intra-abdominal process.
[2024-05-10] MEDS: LACTULOSE 20Gm/30ML SOLN PO ONE (18:55)
[2024-05-10] MEDS: FLEET ENEMA(ADULT) 135 ML PR ONE (22:18)
[2024-05-11] VITALS (9 sets, daily range): BP systolic 104–129; BP diastolic 58–72; PULSE 61–119; RESP 18–20; TEMP 97.3–98.9; O2SAT 92–100
[2024-05-11] MEDS: FLEET MINERAL OIL ENEMA 133 ML PR ONE (09:00)
[2024-05-11] MEDS: LACTULOSE 20Gm/30ML SOLN PO SCH (10:00)
--- NOTE | 2024-05-11 13:01 | DVHPN2 ---
Subjective No recurrence of syncope; had multiple bowel movements Reviewed: Care Plan, H&P, Labs, Medications, Previous Orders, Radiology, Other Changes from previous H/P or p: Changes Objective Vitals Vital Signs Date Time Temp Pulse Resp B/P (MAP) Pulse Ox O2 Delivery O2 Flow Rate FiO2 05/11/24 11:15 68 123/62 05/11/24 09:00 97.4 18 98 97.4 05/10/24 20:00 Room Air* 0 21 Intake/Output Intake and Output 05/11/24 07:00 Intake Total 2850 ml Output Total 1826 ml Balance 1024 ml Intake Oral 1800 ml IV Total 1050 ml Output Urine Total 1825 ml Stool Total 1 ml # Bowel Movements 2 General Appearance: Alert, Oriented X3, Cooperative, No acute distress, Other HEENT: Atraumatic Lungs: Clear to auscultation, Normal air movement Chest/Breasts: Other Cardiovascular: Regular rate, Normal S1, Normal S2 Abdomen: Normal bowel sounds, Soft, No tenderness Genitourinary: Other (Fong's catheter) Extremities: No edema Neuro: Normal speech, Cranial nerves 3-12 NL Psych/Mental Status: Mental status NL, Mood NL Medications Current Medications Medications Dose Ordered Sig/Annalee Route Start Time Stop Time Status Last Admin Dose Admin Ondansetron HCl 4 mg Q4HP PRN IV 05/07/24 22:45 Enoxaparin Sodium 40 mg DAILY SC 05/08/24 10:00 05/10/24 09:18 40 MG Acetaminophen 650 mg Q6HP PRN PO 05/07/24 22:45 05/08/24 09:39 650 MG Nitroglycerin 0.4 mg Q5MINP PRN SL 05/07/24 22:45 Finasteride 5 mg DAILY PO 05/08/24 10:00 05/11/24 11:13 5 MG Losartan Potassium 50 mg DAILY PO 05/08/24 10:00 05/11/24 11:14 50 MG Metoprolol Tartrate 12.5 mg BID PO 05/08/24 10:00 05/11/24 11:15 12.5 MG Atorvastatin Calcium 20 mg HS PO 05/08/24 22:00 05/10/24 22:18 20 MG Clopidogrel Bisulfate 75 mg DAILY PO 05/08/24 10:00 05/10/24 09:17 75 MG Aspirin 81 mg DAILY PO 05/08/24 10:00 05/10/24 09:17 81 MG Sodium Chloride 1,000 ml @ 100 mls/hr Q10H IV 05/09/24 04:45 05/10/24 22:26 100 MLS/HR Mupirocin 1 applic BID EACHNOSTRI 05/09/24 10:00 05/14/24 09:59 05/11/24 10:00 1 APPLIC Lactulose 30 ml DAILY PO 05/11/24 10:00 Laboratory Results Laboratory Tests 05/10/24 04:46 Urinalysis Test 05/08/24 09:30 Urine Color Light-yellow (Yellow) Urine Clarity Turbid (Clear) H Urine pH 6.5 (5.0-9.0) Urine Specific [place] 1.017 (1.001-1.035) Urine Protein 1+ (Negative) H Urine Ketones Negative (Negative) Urine Blood 2+ /uL (Negative) H Urine Nitrite 2+ (Negative) H Urine Bilirubin Negative (Negative) Urine Urobilinogen Normal mg/dL (Negative) Urine Leukocyte Esterase 3+ /uL (Negative) Urine RBC 41 /hpf (0 - 3) Urine WBC 46 /hpf (0 - 3) Urine Squamous Epithelial Cells Few /hpf (<5) Urine Bacteria Few /hpf (None Seen) H Urine Mucus Few (None Seen) Urine Glucose Normal mg/dL (Normal) Microbiology Microbiology Date/Time Source Procedure Growth Status 05/08/24 05:15 Nose MRSA Screen - Final Methicillin Resistant S.aureus Complete Labs and/or images reviewed: Labs reviewed by me, Image(s) reviewed by me Assessment/Plan Assessment/Plan A 78-year-old male patient with multiple comorbidities; who presented to the ER with syncope #Severe constipation; reviewed initial KUB; reviewed repeat KUB; passed multiple bowel movements after laxatives; continue monitoring #Syncope due to dehydration; positive orthostatic vital signs; reviewed available labs and imaging studies; cardiology is following; telemetry; on IV fluids; fall precautions; continue monitoring #Dehydration; on IV fluids; continue monitoring #DORYS due to dehydration; possible vasomotor nephropathy; avoid nephrotoxic agents; continue monitoring #Sick sinus syndrome status post pacemaker; pacemaker is functioning normally as per cardiology; telemetry; cardiology is following; continue monitoring #Coronary artery disease status post PTCA; continue aspirin, statin, and clopidogrel; asymptomatic; cardiology is following; continue monitoring #Positive MRSA nasal swab; started on topical nasal mupirocin ointment; contact isolation; continue monitoring [facility]eder consulted to arrange for discharge back to home hospice. This medical document was created using an electronic medical record system with computerized dictation system. Although this document has been carefully reviewed, there might still be some phonetic and typographical errors. These areas are purely typographical due to imperfections of the software programs, and do not reflect any compromise in the patient's medical care. Plan discussed with: Patient, Other (Nurse) My Orders Orders - OBED REYNOSO MD Procedure Category Date Status Time Lactulose Oral PHA 05/11/24 In Process 10:00 * Wound Consult CONS 05/10/24 Transmitted Date of Service: May 11, 2024 Billing Provider: OBED REYNOSO MD Common Visit Codes: [id number] INP/OBS CARE(HIGH) OBED REYNOSO MD May 11, 2024 13:01
[2024-05-12] VITALS (9 sets, daily range): BP systolic 0–135; BP diastolic 54–84; PULSE 65–94; RESP 16–19; TEMP 97.4–97.8; O2SAT 98–100
[2024-05-12 05:36] LABS: Basophils # (auto) 0 10 ^3/uL (0-0.2); Basophils % (auto) 0.5 % (0.0-2.0); Eosinophils # (auto) 0.5 10 ^3/uL (0-0.8); Eosinophils % (auto) 6.3 % (0.0-7.0); Hematocrit 35.2 % (41.0-53.0); Lymphocytes # (auto) 1.8 10 ^3/uL (0.4-5.4); Mean Corpuscular Hemoglobin 32.1 pg (28.0-32.0); Mean Corpuscular Hgb Conc. 34.1 g/dL (32.0-36.0); Mean Corpuscular Volume 94.1 fL (80.0-100.0); Monocytes # (auto) 0.7 10 ^3/uL (0-1.3); Monocytes % (auto) 8.3 % (0.0-12.0); Neutrophils # (auto) 5.2 10 ^3/uL (1.6-8.6); Neutrophils % (auto) 62.9 % (37.0-80.0); Nucleated Red Blood Cells % 0.1 %; Platelet Count (auto) 125 10^3/uL (140-450); Red Blood Cells 3.74 10^6/uL (4.5-5.90); Red Cell Distribution Width 14.8 % (11.8-14.3); White Blood Cell 8.3 10^3/uL (4.4-10.8)
[2024-05-12 05:47] LABS: Anion Gap 9 (5-15); Carbon Dioxide 22 mmol/L (20-31); Chloride 105 mmol/L (98-107); Potassium 4.1 mmol/L (3.5-5.1); Sodium 136 mmol/L (136-145)
[2024-05-12 05:49] LABS: Calcium 9.5 mg/dL (8.7-10.4)
[2024-05-12 05:53] LABS: BUN/Creatinine Ratio 26.6 (10.0-20.0); Blood Urea Nitrogen 21 mg/dL (9-23); Glucose 96 mg/dL (74-106)
--- NOTE | 2024-05-12 18:05 | DVHPN2 ---
Subjective No recurrence of syncope; had multiple bowel movements; unable to discharged home as significant other/caregiver is not in town Reviewed: Care Plan, H&P, Labs, Medications, Previous Orders, Radiology, Other Changes from previous H/P or p: Changes Objective Vitals Vital Signs Date Time Temp Pulse Resp B/P (MAP) Pulse Ox O2 Delivery O2 Flow Rate FiO2 05/12/24 17:16 97.5 77 17 121/71 (88) 100 97.5 05/12/24 08:00 Room Air* 0 21 Intake/Output Intake and Output 05/12/24 07:00 Intake Total 1030 ml Output Total 3050 ml Balance -2020 ml Intake Oral 590 ml IV Total 440 ml Output Urine Total 3050 ml General Appearance: Alert, Oriented X3, Cooperative, No acute distress, Other HEENT: Atraumatic Lungs: Clear to auscultation, Normal air movement Chest/Breasts: Other Cardiovascular: Regular rate, Normal S1, Normal S2 Abdomen: Normal bowel sounds, Soft, No tenderness Genitourinary: Other (Fong's catheter) Extremities: No edema Neuro: Normal speech, Cranial nerves 3-12 NL Psych/Mental Status: Mental status NL, Mood NL Medications Current Medications Medications Dose Ordered Sig/Annalee Route Start Time Stop Time Status Last Admin Dose Admin Ondansetron HCl 4 mg Q4HP PRN IV 05/07/24 22:45 Enoxaparin Sodium 40 mg DAILY SC 05/08/24 10:00 05/12/24 08:58 40 MG Acetaminophen 650 mg Q6HP PRN PO 05/07/24 22:45 05/08/24 09:39 650 MG Nitroglycerin 0.4 mg Q5MINP PRN SL 05/07/24 22:45 Finasteride 5 mg DAILY PO 05/08/24 10:00 05/12/24 08:59 5 MG Losartan Potassium 50 mg DAILY PO 05/08/24 10:00 05/12/24 08:59 50 MG Metoprolol Tartrate 12.5 mg BID PO 05/08/24 10:00 05/12/24 08:59 12.5 MG Atorvastatin Calcium 20 mg HS PO 05/08/24 22:00 05/11/24 21:43 20 MG Clopidogrel Bisulfate 75 mg DAILY PO 05/08/24 10:00 05/12/24 08:58 75 MG Aspirin 81 mg DAILY PO 05/08/24 10:00 05/12/24 08:59 81 MG Sodium Chloride 1,000 ml @ 100 mls/hr Q10H IV 05/09/24 04:45 05/12/24 03:32 100 MLS/HR Mupirocin 1 applic BID EACHNOSTRI 05/09/24 10:00 05/14/24 09:59 05/12/24 08:59 1 APPLIC Lactulose 30 ml DAILY PO 05/11/24 10:00 Laboratory Results Laboratory Tests 05/12/24 04:53 Chemistry Test 05/12/24 04:53 Calcium Level 9.5 mg/dL (8.7-10.4) Urinalysis Test 05/08/24 09:30 Urine Color Light-yellow (Yellow) Urine Clarity Turbid (Clear) H Urine pH 6.5 (5.0-9.0) Urine Specific [place] 1.017 (1.001-1.035) Urine Protein 1+ (Negative) H Urine Ketones Negative (Negative) Urine Blood 2+ /uL (Negative) H Urine Nitrite 2+ (Negative) H Urine Bilirubin Negative (Negative) Urine Urobilinogen Normal mg/dL (Negative) Urine Leukocyte Esterase 3+ /uL (Negative) Urine RBC 41 /hpf (0 - 3) Urine WBC 46 /hpf (0 - 3) Urine Squamous Epithelial Cells Few /hpf (<5) Urine Bacteria Few /hpf (None Seen) H Urine Mucus Few (None Seen) Urine Glucose Normal mg/dL (Normal) Microbiology Microbiology Date/Time Source Procedure Growth Status 05/08/24 05:15 Nose MRSA Screen - Final Methicillin Resistant S.aureus Complete Labs and/or images reviewed: Labs reviewed by me, Image(s) reviewed by me Assessment/Plan Assessment/Plan A 78-year-old male patient with multiple comorbidities; who presented to the ER with syncope #Severe constipation; reviewed initial KUB; reviewed repeat KUB; passed multiple bowel movements after laxatives; continue monitoring #Syncope due to dehydration; positive orthostatic vital signs; ordered repeat orthostatic vital signs to be done at a.m.; reviewed available labs and imaging studies; cardiology is following; telemetry; on IV fluids; fall precautions; continue monitoring #Dehydration; on IV fluids; continue monitoring #DORYS due to dehydration; possible vasomotor nephropathy; avoid nephrotoxic agents; resolved; continue monitoring #Sick sinus syndrome status post pacemaker; pacemaker is functioning normally as per cardiology; telemetry; cardiology is following; continue monitoring #Coronary artery disease status post PTCA; continue aspirin, statin, and clopidogrel; asymptomatic; cardiology is following; continue monitoring #Positive MRSA nasal swab; started on topical nasal mupirocin ointment; contact isolation; continue monitoring Permastone Mechanic consulted to arrange for discharge back to home hospice. Significant other/caregiver is not at home today so no discharge was placed. This medical document was created using an electronic medical record system with computerized dictation system. Although this document has been carefully reviewed, there might still be some phonetic and typographical errors. These areas are purely typographical due to imperfections of the software programs, and do not reflect any compromise in the patient's medical care. Plan discussed with: Patient, Other (Nurse) My Orders Orders - OBED REYNOSO MD Procedure Category Date Status Time Cover Wound With Foam DARYL 05/12/24 In Process Dressing 12:18 Apply Z-Guard DARYL 05/12/24 In Process 12:18 Date of Service: May 12, 2024 Billing Provider: OBED REYNOSO MD Common Visit Codes: [id number] INP/OBS CARE(HIGH) OBED REYNOSO MD May 12, 2024 18:05
[2024-05-13] VITALS (8 sets, daily range): BP systolic 119–149; BP diastolic 56–76; PULSE 69–97; RESP 17–18; TEMP 97.4–98.5; O2SAT 95–100
--- NOTE | 2024-05-13 09:14 | DVHPN2 ---
Progress Note - Dictate Date Seen: May 12, 2024 Medical Necessity Reason Pt with a Central, PICC or Fol: No Subjective PT WITH APPARENT SYNCOPE CAROTID DUPLEX NORMAL CT OF HEAD NEGATIVE CXR NEGATIVE TROPONIN NEGATIVE BNP NL PACEMAKER NL FUNCTION LABS HIGH BUN/CR RATIO [facility] SSS CAD S/P PTCA vital signs Vital Sign Date Time Temp Pulse Resp B/P (MAP) Pulse Ox O2 Delivery O2 Flow Rate FiO2 05/13/24 05:00 98.0 82 18 122/65 (84) 99 98.0 05/12/24 20:00 Room Air* 0 21 Total Intake and Output 05/12/24 05/12/24 05/13/24 15:00 23:00 07:00 Intake Total 400 ml 1160 ml 1750 ml Output Total 1300 ml 1900 ml Balance 400 ml -140 ml -150 ml medications Current Medications Medications Dose Ordered Sig/Annalee Route Start Time Stop Time Status Last Admin Dose Admin Ondansetron HCl 4 mg Q4HP PRN IV 05/07/24 22:45 Enoxaparin Sodium 40 mg DAILY SC 05/08/24 10:00 05/12/24 08:58 40 MG Acetaminophen 650 mg Q6HP PRN PO 05/07/24 22:45 05/08/24 09:39 650 MG Nitroglycerin 0.4 mg Q5MINP PRN SL 05/07/24 22:45 Finasteride 5 mg DAILY PO 05/08/24 10:00 05/12/24 08:59 5 MG Losartan Potassium 50 mg DAILY PO 05/08/24 10:00 05/12/24 08:59 50 MG Metoprolol Tartrate 12.5 mg BID PO 05/08/24 10:00 05/12/24 21:20 12.5 MG Atorvastatin Calcium 20 mg HS PO 05/08/24 22:00 05/12/24 21:19 20 MG Clopidogrel Bisulfate 75 mg DAILY PO 05/08/24 10:00 05/12/24 08:58 75 MG Aspirin 81 mg DAILY PO 05/08/24 10:00 05/12/24 08:59 81 MG Sodium Chloride 1,000 ml @ 100 mls/hr Q10H IV 05/09/24 04:45 05/13/24 04:14 100 MLS/HR Mupirocin 1 applic BID EACHNOSTRI 05/09/24 10:00 05/14/24 09:59 05/12/24 21:22 1 APPLIC Lactulose 30 ml DAILY PO 05/11/24 10:00 laboratory and microbiology Laboratory Tests 05/12/24 04:53 Test 05/12/24 04:53 Range/Units Serum Glucose 96 74-106 mg/dL Problem List APPARENT SYNCOPE CAROTID DUPLEX NORMAL CT OF HEAD NEGATIVE CXR NEGATIVE TROPONIN NEGATIVE BNP NL PACEMAKER NL FUNCTION LABS HIGH BUN/CR RATIO [facility] SSS CAD S/P PTCA Assessment/Plan IV FLUID ORTHOSTATIC BP CHECK CLINICALLY STABLE NO EVIDENCE FOR BRADYCARDIA OR TACHYCARDIA VOLUME STATUS EUVOLEMIC Dietary Evaluation Review Comments: 1. Continue current diet regime Expected Outcomes/Goals: 1. Pt will consume >75% of estimated needs within 3-5 days Plan discussed with: Patient CHRIS SMALL MD May 13, 2024 09:14
--- NOTE | 2024-05-13 14:35 | DVHPN2 ---
Assessment/Plan Assessment/Plan Progress note Subjective 78-year-old male with multiple comorbidities admitted for syncope Patient is seen by me today during rounds No acute event overnight, pending discharge Objective Physical exam Alert, oriented x3 PERRLA No JVD Clear breath sounds bilaterally S1-S2 regular rate and rhythm Abdomen soft nontender, no organomegaly Moving all four extremities No lower extremity edema Resting tremors, low frequency Assessment and plan Syncope due to dehydration Slow transit constipation [facility] [place], resolved Sick sinus syndrome status post pacemaker CAD status post PTCA Positive MRSA nasal swab Telemetry reviewed Had bowel movement, continue with senna and MiraLax Encourage oral hydration Aspirin, Plavix, statin Nasal mupirocin Patient on hospice, we will discharge to home hospice, however significant other not currently at home Social service consult for above Discontinue telemetry Replete electrolytes Diet cardiac DVT prophylaxis lovenox Plan discussed with: Patient Date of Service: May 13, 2024 Billing Provider: MINDI MCGREGOR MD Common Visit Codes: [id number] INP/OBS CARE(MOD) MINDI MCGREGOR MD May 13, 2024 14:35
--- NOTE | 2024-05-13 15:04 | DVHDS2 ---
Discharge Summary Date of Admission May 07, 2024 at 22:33 Date of Discharge: May 13, 2024 Labs/Diagnostic Data: Laboratory Results Test 05/12/24 04:53 05/08/24 09:30 05/07/24 21:00 05/07/24 20:00 White Blood Count 8.3 10^3/uL (4.4-10.8) Red Blood Count 3.74 10^6/uL (4.5-5.90) Hemoglobin 12.0 g/dL (13.5-17.5) Hematocrit 35.2 % (41.0-53.0) Mean Corpuscular Volume 94.1 fL (80.0-100.0) Mean Corpuscular Hemoglobin 32.1 pg (28.0-32.0) Mean Corpuscular Hemoglobin Concent 34.1 g/dL (32.0-36.0) Red Cell Distribution Width 14.8 % (11.8-14.3) Platelet Count 125 10^3/uL (140-450) Mean Platelet Volume 10.0 fL (6.9-10.8) Neutrophils (%) (Auto) 62.9 % (37.0-80.0) Lymphocytes (%) (Auto) 22.0 % (10.0-50.0) Monocytes (%) (Auto) 8.3 % (0.0-12.0) Eosinophils (%) (Auto) 6.3 % (0.0-7.0) Basophils (%) (Auto) 0.5 % (0.0-2.0) Neutrophils # (Auto) 5.2 10 ^3/uL (1.6-8.6) Lymphocytes # (Auto) 1.8 10 ^3/uL (0.4-5.4) Monocytes # (Auto) 0.7 10 ^3/uL (0-1.3) Eosinophils # (Auto) 0.5 10 ^3/uL (0-0.8) Basophils # (Auto) 0 10 ^3/uL (0-0.2) Nucleated Red Blood Cells 0.1 % Sodium Level 136 mmol/L (136-145) Potassium Level 4.1 mmol/L (3.5-5.1) Chloride Level 105 mmol/L (98-107) Carbon Dioxide Level 22 mmol/L (20-31) Anion Gap 9 (5-15) Blood Urea Nitrogen 21 mg/dL (9-23) Creatinine 0.79 mg/dL (0.700-1.30) Glomerular Filtration Rate Calc 91 mL/min (>90) BUN/Creatinine Ratio 26.6 (10.0-20.0) Serum Glucose 96 mg/dL (74-106) Calcium Level 9.5 mg/dL (8.7-10.4) Urine Color Light-yellow (Yellow) Urine Clarity Turbid (Clear) Urine pH 6.5 (5.0-9.0) Urine Specific [place] 1.017 (1.001-1.035) Urine Protein 1+ (Negative) Urine Ketones Negative (Negative) Urine Blood 2+ /uL (Negative) Urine Nitrite 2+ (Negative) Urine Bilirubin Negative (Negative) Urine Urobilinogen Normal mg/dL (Negative) Urine Leukocyte Esterase 3+ /uL (Negative) Urine RBC 41 /hpf (0 - 3) Urine WBC 46 /hpf (0 - 3) Urine Squamous Epithelial Cells Few /hpf (<5) Urine Bacteria Few /hpf (None Seen) Urine Mucus Few (None Seen) Urine Glucose Normal mg/dL (Normal) Troponin I High Sensitivity 9 ng/L (</=54) Prothrombin Time 12.1 sec (9.3-11.8) Prothrombin Time INR 1.15 (0.9-1.15) Activated Partial Thromboplast Time 28.1 SEC (24.5-34.5) Total Bilirubin 0.7 mg/dL (0.2-1.0) Aspartate Amino Transferase (AST) 30 U/L (13-40) Alanine Aminotransferase (ALT) 24 U/L (7-40) Alkaline Phosphatase 67 U/L (46-116) B-Type Natriuretic Peptide 70.99 pg/mL (0-100) Total Protein 6.2 g/dL (5.7-8.2) Albumin 3.5 g/dL (3.2-4.8) Other Laboratory Tests 05/12/24 04:53 Brief Hx & Hospital Course: See progress note for today Condition at Discharge: Fair Final Diagnosis/Problems List syncope 2/2 dehydration Discharge Disposition: Home with Health Services Discharge Instruct/Medications Diet: Consistent carbohydrate, Cardiac 2g Na,low cholest Activity: No Restrictions, As Tolerated Follow Up/Referral: home hospice 39 Discharge Statement: "Patient was advised to return to the ER or call 911 if any headaches, dizziness, shortness of breath, chest pain, abdominal pain, bleeding, fevers, or worsening of medical condition. Patient was counseled about treatment plan, medications, possible side effects, patientverbalized understanding. All questions were answered to the best of my ability. This discharge took greater then 30 minutes in planning, reviewing documentation, counseling the patient, and discussing with other team members." ASSESSMENT ASSESSMENT Assessment Syncope due to dehydration Slow transit constipation [facility] [place], resolved Sick sinus syndrome status post pacemaker CAD status post PTCA Positive MRSA nasal swab UTI Date of Service: May 13, 2024 Billing Provider: MINDI MCGREGOR MD Common Visit Codes: [id number] DISCH DAY >30min MINDI MCGREGOR MD May 13, 2024 15:04
== END 2024-05-13 21:33 | disposition hospice, home (50) | DRG 640 ==
LOC: EDUNIT# 19:23 → EDBD 19:23 → ER 19:23 → TELE 22:33 → TELE-CENTR 23:52
PROVIDERS: ADMIT Nurse Practitioner; ATTEND Student in an Organized Health Care Education/Training Program
DX: E86.0 Dehydration (principal); N17.0 Acute kidney failure with tubular necrosis; I13.0 Hypertensive heart and chronic kidney disease with heart failure and stage 1 through stage 4 chronic kidney disease, or unspecified chronic kidney disease; I50.42 Chronic combined systolic (congestive) and diastolic (congestive) heart failure; N39.0 Urinary tract infection, site not specified; Z86.73 Personal history of transient ischemic attack (TIA), and cerebral infarction without residual deficits; Z51.5 Encounter for palliative care; N18.9 Chronic kidney disease, unspecified; M72.0 Palmar fascial fibromatosis [Dupuytren]; E78.5 Hyperlipidemia, unspecified; G20.A1 Parkinson's disease without dyskinesia, without mention of fluctuations; G62.9 Polyneuropathy, unspecified; I25.10 Atherosclerotic heart disease of native coronary artery without angina pectoris; I49.5 Sick sinus syndrome; K59.01 Slow transit constipation; Z95.0 Presence of cardiac pacemaker; Z90.49 Acquired absence of other specified parts of digestive tract; Z98.61 Coronary angioplasty status
CPT/HCPCS: 36415; 70450; 71045; 74018; 80048; 80053; 81001; 83880; 84484; 85025; 85610; 85730; 87081; 93005; 93886; 99291; G0378

== ENCOUNTER 2024-08-24 20:11 | Inpatient (IN) | payer OTHER ==
[~2024-08-24] VITALS: Ht 182.9 cm; Wt 82.7 kg
[2024-08-24 20:43] VITALS: PULSE 70; RESP 15; O2SAT 96
[2024-08-24 21:04] LABS: Basophils # (auto) 0.1 10 ^3/uL (0-0.2); Basophils % (auto) 0.4 % (0.0-2.0); Eosinophils # (auto) 0.2 10 ^3/uL (0-0.8); Eosinophils % (auto) 1.9 % (0.0-7.0); Hematocrit 33.9 % (41.0-53.0); Hemoglobin 11.5 g/dL (13.5-17.5); Lymphocytes # (auto) 1.4 10 ^3/uL (0.4-5.4); Lymphocytes % (auto) 11.2 % (10.0-50.0); Mean Corpuscular Hemoglobin 31.7 pg (28.0-32.0); Mean Corpuscular Hgb Conc. 33.8 g/dL (32.0-36.0); Mean Corpuscular Volume 93.8 fL (80.0-100.0); Monocytes # (auto) 1.6 10 ^3/uL (0-1.3); Monocytes % (auto) 12.7 % (0.0-12.0); Neutrophils # (auto) 9.1 10 ^3/uL (1.6-8.6); Neutrophils % (auto) 73.8 % (37.0-80.0); Platelet Count (auto) 162 10^3/uL (140-450); Red Blood Cells 3.61 10^6/uL (4.5-5.90); Red Cell Distribution Width 13.3 % (11.8-14.3); White Blood Cell 12.3 10^3/uL (4.4-10.8)
--- NOTE | 2024-08-24 21:07 | ED.PDOC ---
GI ASSESSMENT HPI Comments 79-year-old male came to ER a EMS to the abdominal pain. Patient has history of hypertension, dementia, status post pacemaker insertion. Patient is bed-bound. Was noted by family members that patient has been having diffuse abdominal pain and distention, with urinary incontinence and dysuria. Noted also to be constipated. No family members at bedside to provide better information. Chief Complaint: Abdominal Pain Time Seen by MD: 21:06 Reviewed Notes: Nurses Notes Allergies: Coded Allergies: NO KNOWN ALLERGIES (Unverified , 08/24/24) Information Source: Patient Mode of Arrival: EMS Timing: Days Duration: Since onset Review of Systems REVIEW OF SYSTEMS: No fever, no chills, or fatigue HEENT: No sore throat, no earache, no congestion, no neck pain. Cardiac: No chest pain. No palpitations. Lungs: No shortness of breath, no cough. GI: No nausea, no vomiting, no diarrhea, no constipation, (+) abdominal pain : (+) dysuria, (+) incontinence, No frequency, or urgency. No hematuria. Musculoskeletal: No joint pain , no joint swelling, no extremity edema. Skin: No rash, no itching. Neuro: No headache, no dizziness, no weakness Vital Signs Vital Signs Date Time Temp Pulse Resp B/P (MAP) Pulse Ox O2 Delivery O2 Flow Rate FiO2 08/24/24 21:07 74 08/24/24 20:43 15 96 Room Air* 0 21 08/24/24 20:43 98.2 118/66 (83) 98.2 Physical Exam General: Awake, alert and oriented. No acute distress. Skin: Skin in warm, dry and intact. Appropriate color for ethnicity. Nailbeds pink with no cyanosis. HEENT: The head is normocephalic and atraumatic. Conjunctivae are clear without exudates or hemorrhage. Sclera is non-icteric. EOM are intact. No signs of nystagmus. Eyelids are normal in appearance without swelling or lesions. Oral mucosa is pink and moist Neck: The neck is supple with normal range of motion. No JVD. Cardiac: Heart rate and rhythm are normal. No murmurs, gallops, or rubs are auscultated. Respiratory: No signs of respiratory distress. Lung sounds are clear in all lobes bilaterally without rales, ronchi, or wheezes. Abdominal: Abdomen is soft, distended with generalized abdominal tenderness. Bowel sounds are present and normoactive in all four quadrants. Extremities: Upper and lower extremities are atraumatic in appearance without deformity or edema. Neurological: The patient is awake, alert and oriented to person, place, and time with normal speech. Speech is clear. There is no facial asymmetry. Psychiatric: Appropriate mood and affect. Good judgement and insight. No visual or auditory hallucinations. Past Medical History PAST MEDICAL HISTORY: Dementia, HTN Past Medical History (Other): Bed-bound Surgical History: Pacemaker Family History Family History: Reviewed,noncontributory to illness Social History Smoker: Non-Smoker Alcohol: Denies ETOH Use Drugs: Denies Drug Use Lives In: Home EKG EKG : Pulse Rate (adult): 74 Cardiac Rhythm: Paced Was a procedure done? Was a procedure done?: No GI differential Dx Differential Diagnosis: Angina/MD, Aortic dissection, Bowel Obstruction, Constipation, Diverticular disease, Gastritis/PUD, Gastroenteritis, Hepatitis, Inflammatory BD, Ischemic Bowel, Pancreatitis, Urinary Obstruction, UTI, Urolithiasis, Impaction, Anemia, Other (Urinary obstruction, other) X-Ray, Labs, Meds, VS Vital Signs Date Time Temp Pulse Resp B/P (MAP) Pulse Ox O2 Delivery O2 Flow Rate FiO2 08/24/24 21:07 74 08/24/24 20:43 70 15 96 Room Air* 0 21 08/24/24 20:43 98.2 70 15 118/66 (83) 96 98.2 08/24/24 20:27 74 08/24/24 20:20 98.2 69 14 120/77 (91) 98 98.2 Lab Test 08/24/24 20:56 Range/Units White Blood Count 12.3 H 4.4-10.8 10^3/uL Red Blood Count 3.61 L 4.5-5.90 10^6/uL Hemoglobin 11.5 L 13.5-17.5 g/dL Hematocrit 33.9 L 41.0-53.0 % Mean Corpuscular Volume 93.8 80.0-100.0 fL Mean Corpuscular Hemoglobin 31.7 28.0-32.0 pg Mean Corpuscular Hemoglobin Concent 33.8 32.0-36.0 g/dL Red Cell Distribution Width 13.3 11.8-14.3 % Platelet Count 162 140-450 10^3/uL Mean Platelet Volume 9.2 6.9-10.8 fL Neutrophils (%) (Auto) 73.8 37.0-80.0 % Lymphocytes (%) (Auto) 11.2 10.0-50.0 % Monocytes (%) (Auto) 12.7 H 0.0-12.0 % Eosinophils (%) (Auto) 1.9 0.0-7.0 % Basophils (%) (Auto) 0.4 0.0-2.0 % Neutrophils # (Auto) 9.1 H 1.6-8.6 10 ^3/uL Lymphocytes # (Auto) 1.4 0.4-5.4 10 ^3/uL Monocytes # (Auto) 1.6 H 0-1.3 10 ^3/uL Eosinophils # (Auto) 0.2 0-0.8 10 ^3/uL Basophils # (Auto) 0.1 0-0.2 10 ^3/uL Nucleated Red Blood Cells 0.0 % Sodium Level 128 L 136-145 mmol/L Potassium Level 4.2 3.5-5.1 mmol/L Chloride Level 98 98-107 mmol/L Carbon Dioxide Level 26 20-31 mmol/L Anion Gap 4 L 5-15 Blood Urea Nitrogen 13 9-23 mg/dL Creatinine 0.65 L 0.700-1.30 mg/dL Glomerular Filtration Rate Calc 96 >90 mL/min BUN/Creatinine Ratio 20.0 10.0-20.0 Serum Glucose 115 H 74-106 mg/dL Lactic Acid Level 1.2 0.4-2.0 mmol/L Calcium Level 8.5 L 8.7-10.4 mg/dL Total Bilirubin 0.9 0.2-1.0 mg/dL Aspartate Amino Transferase (AST) 22 13-40 U/L Alanine Aminotransferase (ALT) 19 7-40 U/L Alkaline Phosphatase 65 46-116 U/L Total Protein 5.1 L 5.7-8.2 g/dL Albumin 2.7 L 3.2-4.8 g/dL Lipase 22 12-53 U/L Time of 1ST Reevaluation: 00:22 Reevaluation 1ST: Unchanged Patient Education/Counseling: Other (Need for admission) Family Education/Counseling: No Family Present Departure 1 Departure Time of Disposition: 00:21 Impression: Primary Impression: Infectious colitis Additional Impressions: Abdominal pain Hyponatremia Disposition: ADMITTED INPATIENT Condition: Stable Comments 79-year-old male who presents to the emergency with abdominal pain. Workup suggestive of infectious colitis. Admit dispo Extensive evaluation was performed in attempt to identify or rule out: (See differential diagnosis section) The following tests were ordered, and results were reviewed by me: (See diagnostic results section) The following test were independently interpreted by me: N/A I reviewed and agreed with the following test results read by other providers: N/A I reviewed the following notes from the pt's past medical encounters: (None available at this time) Additional information was gathered from interviewing the following independent historians: EMS personnel Discussion of management or test interpretation with external physician/other qualified health caregiver assisted living: N/A Addressed an acute or chronic illness that poses a threat to life or bodily function: Hyponatremia Decision regarding hospitalization or escalation of hospital level of care: Risk and benefits of admission for further treatment of patient's condition was considered. Due to patient's current clinical condition, high risk of decline and poor outcome if discharged and need for further inpatient management and monitoring, patient will be admitted to the hospital. Drug therapy requiring intensive monitoring for toxicity: IV contrast Parenteral controlled substances: IV morphine Decision regarding elective major surgery with identified patient or procedure risk factors: N/A Decision regarding emergency major surgery: N/A Decision not to resuscitate or to de-escalate care because of poor prognosis: N/A Diagnosis or treatment significantly limited by social determinants of health: N/A Critical Care Note Critical Care Time?: No Stability Stability form required: No Heart Score Heart Score: Heart Score Response (Comments) Value History N/A 0 EKG N/A 0 Age N/A 0 Risk Factors N/A 0 Troponin N/A 0 Total 0 I personally scribed for TIMOTHY CASTAÑEDA MD ([email or web address]) on 08/24/24 at 21:07. Electronically submitted by Solomon Matthews ([email or web address]). TIMOTHY CASTAÑEDA MD Aug 24, 2024 21:07
[2024-08-24 21:59] LABS: Alanine Aminotransferase 19 U/L (7-40); Alkaline Phosphatase 65 U/L (46-116); Anion Gap 4 (5-15); Aspartate Aminotransferase 22 U/L (13-40); Bilirubin, Total 0.9 mg/dL (0.2-1.0); Blood Urea Nitrogen 13 mg/dL (9-23); Carbon Dioxide 26 mmol/L (20-31); Chloride 98 mmol/L (98-107); Lipase 22 U/L (12-53); Potassium 4.2 mmol/L (3.5-5.1)
[2024-08-24] MEDS: IOHEXOL 300 MG/ML 100ML BOTTLE IJ ONE (22:11)
[2024-08-24 22:13] LABS: Albumin 2.7 g/dL (3.2-4.8); Calcium 8.5 mg/dL (8.7-10.4); Glucose 115 mg/dL (74-106); Sodium 128 mmol/L (136-145); Total Protein 5.1 g/dL (5.7-8.2)
--- NOTE | 2024-08-24 23:54 | DVH ---
Exam: CT CT AB PEL WITH IV CON ONLY History: Abdominal pain, abdominal distention Comparison Study: None available at time of dictation. Technique: Multidetector spiral CT of the abdomen and pelvis was performed from lung bases to pubic s ymphysis. Intravenous contrast was administered during this examination. Portal venous imaging was o btained. Axial, coronal and sagittal multiplanar reformats were performed by the technologist on a [id number] workstation. Radiation Dose : 1. Abdomen/Pelvis: CTDIvol 15 mGy, DLP 942 mGy*cm. Findings: Lung Bases: Small bilateral pleural effusions. Liver: The liver is normal in size. No focal lesions. Normal hepatic vascular enhancement. Gallbladder and Biliary Tree: Unremarkable Spleen: Unremarkable Pancreas: The pancreas is normal in appearance without focal lesions or abnormal enhancement. Adrenal Glands: Unremarkable Kidneys: Kidneys demonstrate normal symmetric enhancement without focal lesions, calculi or hydroneph rosis. Bladder: Unremarkable Bowel: The stomach is grossly normal in appearance. Diffuse wall thickening of the distal rectosigmoi d colon. Moderate fecal retention throughout the colon. Normal appendix is visualized in the right lo wer quadrant without findings of appendicitis. Ascites: Absent Lymphadenopathy: No mesenteric, retroperitoneal or periportal lymphadenopathy. Abdominal Wall and Mesentery: Unremarkable. Vasculature: The visualized abdominal aorta is normal in size and caliber. Abdominal and pelvic vess els demonstrate normal enhancement. Pelvic Organs: Unremarkable Musculoskeletal: No aggressive focal bony lesions, acute fractures or dislocation. 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 IMPRESSION: Diffuse wall thickening of the rectosigmoid colon concerning for acute infectious/ inflammatory colit is /proctitis. Moderate fecal retention throughout the colon.
[2024-08-25] VITALS (8 sets, daily range): BP systolic 102–128; BP diastolic 57–76; PULSE 69–82; RESP 16–20; TEMP 97.5–99.7; O2SAT 94–98
[2024-08-25] MEDS: metroNIDAZOLE 500MG/100ML 100 ML IV ONE (02:30)
--- NOTE | 2024-08-25 03:08 | DVHHP2 ---
History of Present Illness Reason for Visit: Infectious colitis History of Present Illness The patient is a 79-year-old male bed-bound with past medical history of dementia, hyperlipidemia, and hypertension who presented to [facility] with complaint of abdominal pain. As reported by EMS, patient was noted by family member that he has been having diffuse abdominal pain, distention, urinary incontinence, dysuria, constipated, getting worse that prompted this visit. Patient was seen and evaluated in the ED, laboratory data shows WBC 12.3, platelets 162, sodium 128, potassium 4.2, BUN 13, creatinine 0.65, GFR 96, glucose 115, calcium 8.5, protein 5.1, albumin 2.7, lipase 22. Abdomen/pelvis CT revealing diffuse wall thickening of the rectosigmoid colon concerning for acute infectious/inflammatory colitis/proctitis; moderate fecal retention throughout the colon. Patient was started on IV Flagyl, please see medication orders section in the computer. On my assessment, patient denied chest pain, no headache, no dizziness, abdominal pain, no diarrhea, no nausea, no vomiting, no fever, no chills. Patient was admitted for further evaluation and medical management. Past Medical History Dementia, HTN, Bed-bound Past Surgical History Pacemaker Family History Reviewed, noncontributory to the management of this case. Past Social History The patient lives at home, denies smoking, alcohol or illicit drugs abuse. Review of Systems Constitutional: Yes: Weakness; No: Fever, Chills, Sweats, Malaise, Other Eyes: No: Pain, Vision change, Conjunctivae inflammation, Eyelid inflammation, Other, Redness ENT: No: Ear pain, Ear discharge, Nose pain, Nose discharge, Nose congestion, Mouth pain, Mouth swelling, Throat pain, Throat swelling, Other Respiratory: No: Cough, Dry, Shortness of breath, SOB with excertion, Wheezing, Hemoptysis, Pleuritic Pain, Sputum, Wheezing, Other Cardiovascular: No: Chest Pain, Palpitations, Orthopnea, Paroxysmal Noc. Dyspnea, Edema, Lt Headedness, Other Gastrointestinal: Nausea, Abdominal Pain, Constipation, Other (Abdominal distention); No: Vomiting, Diarrhea, Melena, Hematochezia Genitourinary: Dysuria; No Frequency; Incontinence; No Hematuria, No Retention, No Other Musculoskeletal: No: other, neck pain, shoulder pain, arm pain, back pain, hand pain, leg pain, foot pain Skin: No: Rash, Lesions, Jaundice, Bruising, Other Neurological: No: Weakness, Numbness, Incoordination, Change in speech, Confusion, Seizures, Other Allergies: Coded Allergies: NO KNOWN ALLERGIES (Unverified , 06/06/22) Exam Vital Signs Vital Signs Date Time Temp Pulse Resp B/P (MAP) Pulse Ox O2 Delivery O2 Flow Rate FiO2 08/25/24 02:00 64 16 106/46 (66) 94 08/24/24 20:43 Room Air* 0 21 08/24/24 20:43 98.2 98.2 General Appearance: Alert, Cooperative, No acute distress, Other (Oriented x1) HEENT: Atraumatic, PERRLA, EOMI, Mucous membr. moist/pink Respiratory: Normal air movement, Other (Diminished breath sounds) Cardiovascular: Regular rate, Normal S1, Normal S2, No murmurs Abdominal: Normal bowel sounds, Soft, No tenderness, No hepatospenomegaly, No masses Extremities: No clubbing, No cyanosis, No edema, Normal pulses, No tenderness/swelling Skin: No rashes, No breakdown, No significant lesion Neuro: Normal speech, Normal tone, Sensation intact, Cranial nerves 3-12 NL, Reflexes 2+, Other (Generalized weakness) Psych/Mental Status: Mental status NL, Mood NL Labs/Xrays Labs Test 08/24/24 20:56 Range/Units White Blood Count 12.3 H 4.4-10.8 10^3/uL Red Blood Count 3.61 L 4.5-5.90 10^6/uL Hemoglobin 11.5 L 13.5-17.5 g/dL Hematocrit 33.9 L 41.0-53.0 % Mean Corpuscular Volume 93.8 80.0-100.0 fL Mean Corpuscular Hemoglobin 31.7 28.0-32.0 pg Mean Corpuscular Hemoglobin Concent 33.8 32.0-36.0 g/dL Red Cell Distribution Width 13.3 11.8-14.3 % Platelet Count 162 140-450 10^3/uL Mean Platelet Volume 9.2 6.9-10.8 fL Neutrophils (%) (Auto) 73.8 37.0-80.0 % Lymphocytes (%) (Auto) 11.2 10.0-50.0 % Monocytes (%) (Auto) 12.7 H 0.0-12.0 % Eosinophils (%) (Auto) 1.9 0.0-7.0 % Basophils (%) (Auto) 0.4 0.0-2.0 % Neutrophils # (Auto) 9.1 H 1.6-8.6 10 ^3/uL Lymphocytes # (Auto) 1.4 0.4-5.4 10 ^3/uL Monocytes # (Auto) 1.6 H 0-1.3 10 ^3/uL Eosinophils # (Auto) 0.2 0-0.8 10 ^3/uL Basophils # (Auto) 0.1 0-0.2 10 ^3/uL Nucleated Red Blood Cells 0.0 % Sodium Level 128 L 136-145 mmol/L Potassium Level 4.2 3.5-5.1 mmol/L Chloride Level 98 98-107 mmol/L Carbon Dioxide Level 26 20-31 mmol/L Anion Gap 4 L 5-15 Blood Urea Nitrogen 13 9-23 mg/dL Creatinine 0.65 L 0.700-1.30 mg/dL Glomerular Filtration Rate Calc 96 >90 mL/min BUN/Creatinine Ratio 20.0 10.0-20.0 Serum Glucose 115 H 74-106 mg/dL Lactic Acid Level 1.2 0.4-2.0 mmol/L Calcium Level 8.5 L 8.7-10.4 mg/dL Total Bilirubin 0.9 0.2-1.0 mg/dL Aspartate Amino Transferase (AST) 22 13-40 U/L Alanine Aminotransferase (ALT) 19 7-40 U/L Alkaline Phosphatase 65 46-116 U/L Total Protein 5.1 L 5.7-8.2 g/dL Albumin 2.7 L 3.2-4.8 g/dL Lipase 22 12-53 U/L PATIENT: FRED VIRK DACCT: [id number] UNIT: [id number] : 1945 LOC: ER ROOM / BED: / AGE / SEX: 79 / M ADM STATUS: REG ER SERVICE 07 ORDERING PHYSICIAN: TIMOTHY CASTAÑEDA MD PROCEDURE(s): ABPLIV - CT AB PEL WITH IV CON ONLY REASON: Abdominal pain, abdominal distention ORDER NUMBER(s): [id number], ACCESSION NUMBER(s): [id number] Exam: CT CT AB PEL WITH IV CON ONLY History: Abdominal pain, abdominal distention Comparison Study: None available at time of dictation. Technique: Multidetector spiral CT of the abdomen and pelvis was performed from lung bases to pubic symphysis. Intravenous contrast was administered during this examination. Portal venous imaging was obtained. Axial, coronal and sagittal multiplanar reformats were performed by the technologist on a separate workstation. Radiation Dose: 1. Abdomen/Pelvis: CTDIvol 15 mGy, DLP 942 mGy*cm. Findings: Lung Bases: Small bilateral pleural effusions. Liver: The liver is normal in size. No focal lesions. Normal hepatic vascular enhancement. Gallbladder and Biliary Tree: Unremarkable Spleen: Unremarkable Pancreas: The pancreas is normal in appearance without focal lesions or abnormal enhancement. Adrenal Glands: Unremarkable Kidneys: Kidneys demonstrate normal symmetric enhancement without focal lesions, calculi or hydronephrosis. Bladder: Unremarkable Bowel: The stomach is grossly normal in appearance. Diffuse wall thickening of the distal rectosigmoid colon. Moderate fecal retention throughout the colon. Normal appendix is visualized in the right lower quadrant without findings of a ppendicitis. Ascites: Absent Lymphadenopathy: No mesenteric, retroperitoneal or periportal lymphadenopathy. Abdominal Wall and Mesentery: Unremarkable. Vasculature: The visualized abdominal aorta is normal in size and caliber. Abdominal and pelvic vessels demonstrate normal enhancement. Pelvic Organs: Unremarkable Musculoskeletal: No aggressive focal bony lesions, acute fractures or dislocation. Grade 1 anterolisthesis at L5-S1 with bilateral pars defects. IMPRESSION: Diffuse wall thickening of the rectosigmoid colon concerning for acute infectious/ inflammatory colitis /proctitis. Moderate fecal retention throughout the colon. Assessment/Plan Assessment/Plan Infectious colitis Abdominal pain Hyponatremia Leukocytosis, unspecified Generalized weakness Plan 1. Admit to telemetry unit 2. Breathing treatment 3. Pain control management 4. IV antibiotic management 5. Management of fluids and electrolytes 6. Consultation for hospitalist 7. Diagnostic test abdomen/pelvis CT 8. DVT prophylaxis-on aspirin 9. Repeat labs CBC, CMP in a.m. 10. Home medication reviewed and reconciled 11. Continue with current medical management 12. Treatment plan discussed with patient and RN. Patient we will need reinstatement of information given mental status. Plan discussed with: Patient, Other (RN) Problem List: (1) Infectious colitis (2) Abdominal pain (3) Hyponatremia (4) Leukocytosis, unspecified (5) Generalized weakness Date of Service: Aug 25, 2024 Billing Provider: SAMANTAH INIGUEZ DNP Common Visit Codes: [id number] INP/OBS CARE (HIGH) SAMANTHA INIGUEZ DNP Aug 25, 2024 03:08
[2024-08-25] MEDS ORDERED: DOCUSATE SOD 100 MG CAP PO PRN (03:15)
[2024-08-25] MEDS ORDERED: ONDANSETRON HCL 4 MG/2 ML VIAL IV PRN (03:15)
[2024-08-25] MEDS ORDERED: NITROGLYCERIN 0.4 MG SL TAB SL PRN (03:15)
[2024-08-25] MEDS ORDERED: MORPHINE SULFATE INJ 2 MG/ml SYRG IV PRN (03:15)
[2024-08-25 03:25] LABS: Urine Bacteria None Seen /hpf (None Seen)
[2024-08-25] MEDS: levoFLOXacin 500MG 100 ML IV ONE (03:30)
[2024-08-25] MEDS: MORPHINE SULFATE INJ 2 MG/ml SYRG IV ONE (03:38)
[2024-08-25] MEDS: SODIUM CHLORIDE 0.9% 1,000 ML IV SCH (03:42)
[2024-08-25] MEDS: HYDROcodone-ACET 5/325MG TAB PO PRN (03:58)
[2024-08-25 04:17] LABS: Urine Blood 1+ /uL (Negative); Urine Budding Yeast OCCASIONAL /hpf (None Seen); Urine Clarity Clear (Clear); Urine Color Light-Yellow (Yellow); Urine Protein, UAD Negative (Negative); Urine Squamous Epithelial Cell FEW /hpf (<5); Urine Urobilinogen Normal (Negative); Urine WBC 1 /HPF (0-3); Urine pH 6.5 (5.0-9.0)
[2024-08-25 05:27] LABS: Basophils # (auto) 0 10 ^3/uL (0-0.2); Basophils % (auto) 0.2 % (0.0-2.0); Eosinophils # (auto) 0.3 10 ^3/uL (0-0.8); Eosinophils % (auto) 2.4 % (0.0-7.0); Hematocrit 34.6 % (41.0-53.0); Hemoglobin 11.8 g/dL (13.5-17.5); Lymphocytes % (auto) 8.9 % (10.0-50.0); Mean Corpuscular Hemoglobin 32.1 pg (28.0-32.0); Mean Corpuscular Volume 94.3 fL (80.0-100.0); Monocytes # (auto) 1.6 10 ^3/uL (0-1.3); Neutrophils # (auto) 8.6 10 ^3/uL (1.6-8.6); Neutrophils % (auto) 74.5 % (37.0-80.0); Nucleated Red Blood Cells % 0.1 %; Platelet Count (auto) 153 10^3/uL (140-450); Red Blood Cells 3.67 10^6/uL (4.5-5.90); Red Cell Distribution Width 13.5 % (11.8-14.3); White Blood Cell 11.6 10^3/uL (4.4-10.8)
[2024-08-25 05:36] LABS: Alanine Aminotransferase 21 U/L (7-40); Alkaline Phosphatase 65 U/L (46-116); Anion Gap 6 (5-15); Aspartate Aminotransferase 34 U/L (13-40); BUN/Creatinine Ratio 14.3 (10.0-20.0); Blood Urea Nitrogen 10 mg/dL (9-23); Carbon Dioxide 24 mmol/L (20-31); Potassium 4.5 mmol/L (3.5-5.1)
[2024-08-25 05:37] LABS: Bilirubin, Total 0.9 mg/dL (0.2-1.0)
[2024-08-25 05:44] LABS: Albumin 2.7 g/dL (3.2-4.8); Calcium 8.6 mg/dL (8.7-10.4); Chloride 97 mmol/L (98-107); Glucose 109 mg/dL (74-106); Sodium 127 mmol/L (136-145); Total Protein 5.1 g/dL (5.7-8.2)
--- NOTE | 2024-08-25 06:28 | ECG ---
[facility] Test Date: 2024-08-24 Test Time: 20:27:00 Pat Name: FRED VIRK Department: ER Room: 0235T A Gender: M Senior Quality Manager: : 1945 Requested By: TIMOTHY CASTAÑEDA Order Number: [id number] Reading MD: Nhan Del Castillo Measurements Intervals [place] Rate: 74 P: 53 TX: 34 QRS: 269 QRSD: 159 T: 76 QT: 455 QTc: 505 Interpretive Statements A-V dual-paced rhythm with some inhibition No further analysis attempted due to paced rhythm Electronically Signed On 08-25-2024 19:20:33 PDT by Nhan Del Castillo Please click the below link to view image of tracing.
[2024-08-25] MEDS: metroNIDAZOLE 500MG/100ML 100 ML IV SCH (06:34)
[2024-08-25] MEDS: ASPirin 81 mg TAB PO SCH (10:10)
[2024-08-25] MEDS: cefTRIAXone 1GM/50ML D5W 50 ML IV SCH (10:10)
[2024-08-25] MEDS: ATORVASTATIN 20 MG TAB PO SCH (21:46)
[2024-08-26] VITALS (8 sets, daily range): BP systolic 95–118; BP diastolic 47–70; PULSE 74–89; RESP 17–20; TEMP 97.2–98.4; O2SAT 90–97
[2024-08-26 06:17] LABS: Basophils # (auto) 0 10 ^3/uL (0-0.2); Basophils % (auto) 0.2 % (0.0-2.0); Eosinophils # (auto) 0.1 10 ^3/uL (0-0.8); Eosinophils % (auto) 0.6 % (0.0-7.0); Hematocrit 33.7 % (41.0-53.0); Hemoglobin 11.6 g/dL (13.5-17.5); Lymphocytes # (auto) 0.9 10 ^3/uL (0.4-5.4); Lymphocytes % (auto) 6.9 % (10.0-50.0); Mean Corpuscular Hemoglobin 32.2 pg (28.0-32.0); Mean Corpuscular Hgb Conc. 34.4 g/dL (32.0-36.0); Mean Corpuscular Volume 93.7 fL (80.0-100.0); Monocytes # (auto) 1.1 10 ^3/uL (0-1.3); Monocytes % (auto) 8.3 % (0.0-12.0); Neutrophils # (auto) 11.4 10 ^3/uL (1.6-8.6); Nucleated Red Blood Cells % 0.1 %; Platelet Count (auto) 177 10^3/uL (140-450); White Blood Cell 13.6 10^3/uL (4.4-10.8)
[2024-08-26 06:37] LABS: Alanine Aminotransferase 18 U/L (7-40); Alkaline Phosphatase 65 U/L (46-116); Anion Gap 6 (5-15); Aspartate Aminotransferase 18 U/L (13-40); BUN/Creatinine Ratio 15.3 (10.0-20.0); Blood Urea Nitrogen 11 mg/dL (9-23); Carbon Dioxide 22 mmol/L (20-31); Chloride 100 mmol/L (98-107); Potassium 3.9 mmol/L (3.5-5.1)
[2024-08-26 06:38] LABS: Albumin 2.7 g/dL (3.2-4.8); Bilirubin, Total 1.1 mg/dL (0.2-1.0); Calcium 8.3 mg/dL (8.7-10.4); Glucose 122 mg/dL (74-106); Sodium 128 mmol/L (136-145)
--- NOTE | 2024-08-26 13:51 | DVHPN2 ---
Reviewed: Care Plan, H&P, Labs, Medications, Previous Orders, Radiology Changes from previous H/P or p: No Changes Eyes: No Pain, No Vision change, No Conjunctivae inflammation, No Eyelid inflammation, No Other, No Redness ENT: No Ear pain, No Ear discharge, No Nose pain, No Nose discharge, No Nose congestion, No Mouth pain, No Mouth swelling, No Throat pain, No Throat swelling, No Other Cardiovascular: No Chest Pain, No Palpitations, No Orthopnea, No Paroxysmal Noc. Dyspnea, No Edema, No Lt Headedness, No Other Respiratory: No Cough, No Dry, No Shortness of breath, No SOB with excertion, No Wheezing, No Hemoptysis, No Pleuritic Pain, No Sputum, No Other Gastrointestinal: Nausea; No Vomiting; Abdominal Pain; No Diarrhea; C onstipation; No Melena, No Hematochezia; Other (Abdominal distention) Genitourinary: Dysuria; No Frequency; Incontinence; No Hematuria, No Retention, No Other Musculoskeletal: No other, No neck pain, No shoulder pain, No arm pain, No back pain, No hand pain, No leg pain, No foot pain Skin: No Rash, No Lesions, No Jaundice, No Bruising, No Other Objective Vitals Vital Signs Date Time Temp Pulse Resp B/P (MAP) Pulse Ox O2 Delivery O2 Flow Rate FiO2 08/26/24 12:52 97.9 88 20 99/58 (72) 95 97.9 08/26/24 08:00 Room Air* 0 21 Intake/Output Intake and Output 08/26/24 07:00 Intake Total 2510 ml Output Total 1350 ml Balance 1160 ml Intake Oral 1400 ml IV Total 1110 ml Output Urine Total 1350 ml # Bowel Movements 4 Medications Current Medications Medications Dose Ordered Sig/Annalee Route Start Time Stop Time Status Last Admin Dose Admin Ceftriaxone Sodium 50 ml @ 100 mls/hr DAILY@09 IV 08/25/24 09:00 08/26/24 09:00 100 MLS/HR Metronidazole 100 ml @ 100 mls/hr Q8HR IV 08/25/24 06:00 08/26/24 05:22 100 MLS/HR Aspirin 81 mg DAILY PO 08/25/24 10:00 08/26/24 10:19 81 MG Atorvastatin Calcium 20 mg HS PO 08/25/24 22:00 08/25/24 21:46 20 MG Sodium Chloride 1,000 ml @ 60 mls/hr [id number] IV 08/25/24 03:15 08/25/24 03:42 60 MLS/HR Acetaminophen/ Hydrocodone Bitart 1 tab Q4HP PRN PO 08/25/24 03:15 08/26/24 10:20 1 TAB Ondansetron HCl 4 mg Q4HP PRN IV 08/25/24 03:15 Docusate Sodium 100 mg BIDPRN PRN PO 08/25/24 03:15 Acetaminophen 650 mg Q6HP PRN PO 08/25/24 03:15 Nitroglycerin 0.4 mg Q5MINP PRN SL 08/25/24 03:15 Morphine Sulfate 2 mg Q30M PRN IV 08/25/24 03:15 Laboratory Results Laboratory Tests 08/26/24 05:23 Chemistry Test 08/26/24 05:23 Albumin 2.7 g/dL (3.2-4.8) L Calcium Level 8.3 mg/dL (8.7-10.4) L Total Protein 5.0 g/dL (5.7-8.2) L LFT Test 08/26/24 05:23 Alanine Aminotransferase (ALT) 18 U/L (7-40) Alkaline Phosphatase 65 U/L (46-116) Aspartate Amino Transferase (AST) 18 U/L (13-40) Total Bilirubin 1.1 mg/dL (0.2-1.0) H Urinalysis Test 08/25/24 03:00 Urine Color Light-yellow (Yellow) Urine Clarity Clear (Clear) Urine pH 6.5 (5.0-9.0) Urine Specific [place] 1.020 (1.001-1.035) Urine Protein Negative (Negative) Urine Ketones Negative (Negative) Urine Blood 1+ /uL (Negative) H Urine Nitrite Negative (Negative) Urine Bilirubin Negative (Negative) Urine Urobilinogen Normal mg/dL (Negative) Urine Leukocyte Esterase Negative /uL (Negative) Urine RBC 12 /hpf (0 - 3) Urine Microscopic WBC 1 /HPF (0-3) Urine Squamous Epithelial Cells Few /hpf (<5) Urine Bacteria None seen /hpf (None Seen) Urine Yeast (Budding) Occasional /hpf (None Urine Sodium 35 mmol/L (40-220) L Urine Glucose Normal mg/dL (Normal) Labs and/or images reviewed: Labs reviewed by me, Image(s) reviewed by me Assessment/Plan Assessment/Plan Acute abdominal pain Acute colitis: GI consult for Dr. Justin Baeza, continue Rocephin and Flagyl Hypertension Severe dementia History of pacemaker Bed-bound Patient is hospice revoked Time spent 55 minute Lives with significant other Plan discussed with: Patient Date of Service: Aug 26, 2024 Billing Provider: LEAH NORRIS MD Common Visit Codes: [id number] INP/OBS CARE(HIGH) LEAH NORRIS MD Aug 26, 2024 13:50
--- NOTE | 2024-08-26 14:31 | DVHINCON2 ---
GI Consult Consult Note GI consult note Date of Consultation: 08/26/2024 Chief Complaint: Colitis Referring Physician: Dr. Naldo Norris H&P: 79-year-old male with PMH dementia, hyperlipidemia and hypertension presented to ER with complaints of abdominal pain Patient complains of diffuse abdominal pain. Patient also complains of diarrhea for three weeks. No nausea or vomiting Past Medical History: Dementia, HTN, Bed-bound Past Surgical History: Pacemaker Social History: NO smoking, drinking ETOH and use of illegal drugs. Family History: Noncontributory Review of Systems: As above Physical exam: General: NAD, AAOX3 Chest: lung ramos clear to auscultation Heart: RRR, no murmur Abdomen: Moderate generalized tenderness to palpation, +BS Labs: Labs Test 08/26/24 05:23 08/25/24 03:00 08/24/24 20:56 Range/Units White Blood Count 13.6 H 4.4-10.8 10^3/uL Red Blood Count 3.60 L 4.5-5.90 10^6/uL Hemoglobin 11.6 L 13.5-17.5 g/dL Hematocrit 33.7 L 41.0-53.0 % Mean Corpuscular Volume 93.7 80.0-100.0 fL Mean Corpuscular Hemoglobin 32.2 H 28.0-32.0 pg Mean Corpuscular Hemoglobin Concent 34.4 32.0-36.0 g/dL Red Cell Distribution Width 13.0 11.8-14.3 % Platelet Count 177 140-450 10^3/uL Mean Platelet Volume 9.4 6.9-10.8 fL Neutrophils (%) (Auto) 84.0 H 37.0-80.0 % Lymphocytes (%) (Auto) 6.9 L 10.0-50.0 % Monocytes (%) (Auto) 8.3 0.0-12.0 % Eosinophils (%) (Auto) 0.6 0.0-7.0 % Basophils (%) (Auto) 0.2 0.0-2.0 % Neutrophils # (Auto) 11.4 H 1.6-8.6 10 ^3/uL Lymphocytes # (Auto) 0.9 0.4-5.4 10 ^3/uL Monocytes # (Auto) 1.1 0-1.3 10 ^3/uL Eosinophils # (Auto) 0.1 0-0.8 10 ^3/uL Basophils # (Auto) 0 0-0.2 10 ^3/uL Nucleated Red Blood Cells 0.1 % Sodium Level 128 L 136-145 mmol/L Potassium Level 3.9 3.5-5.1 mmol/L Chloride Level 100 98-107 mmol/L Carbon Dioxide Level 22 20-31 mmol/L Anion Gap 6 5-15 Blood Urea Nitrogen 11 9-23 mg/dL Creatinine 0.72 0.700-1.30 mg/dL Glomerular Filtration Rate Calc 93 >90 mL/min BUN/Creatinine Ratio 15.3 10.0-20.0 Serum Glucose 122 H 74-106 mg/dL Calcium Level 8.3 L 8.7-10.4 mg/dL Total Bilirubin 1.1 H 0.2-1.0 mg/dL Aspartate Amino Transferase (AST) 18 13-40 U/L Alanine Aminotransferase (ALT) 18 7-40 U/L Alkaline Phosphatase 65 46-116 U/L Total Protein 5.0 L 5.7-8.2 g/dL Albumin 2.7 L 3.2-4.8 g/dL Urine Color Light-yellow Yellow Urine Clarity Clear Clear Urine pH 6.5 5.0-9.0 Urine Specific [place] 1.020 1.001-1.035 Urine Protein Negative Negative Urine Ketones Negative Negative Urine Blood 1+ H Negative /uL Urine Nitrite Negative Negative Urine Bilirubin Negative Negative Urine Urobilinogen Normal Negative mg/dL Urine Leukocyte Esterase Negative Negative /uL Urine RBC 12 0 - 3 /hpf Urine Microscopic WBC 1 0-3 /HPF Urine Squamous Epithelial Cells Few <5 /hpf Urine Bacteria None seen None Seen /hpf Urine Yeast (Budding) Occasional None Seen /hpf Urine Sodium 35 L 40-220 mmol/L Urine Glucose Normal Normal mg/dL Lactic Acid Level 1.2 0.4-2.0 mmol/L Lipase 22 12-53 U/L Imaging: CT abdomen pelvis IMPRESSION: Diffuse wall thickening of the rectosigmoid colon concerning for acute infectious/ inflammatory colitis /proctitis. Moderate fecal retention throughout the colon. Assessment: Acute abdominal pain Diarrhea Possible colitis Plan: Discussed with Dr. Baeza Stool for C diff, WBC and bacterial culture Continue antibiotic Monitor labs We will continue to monitor the patient Thank you for this consult Date of Service: Aug 26, 2024 Billing Provider: JOE NORRIS Common Visit Codes: CONSULT ONLY Consultation Codes: [id number] CONSULT <45MIN JOE NORRIS Aug 26, 2024 14:31
[2024-08-26] MEDS: ACETAMINOPHEN 325 MG TAB PO PRN (17:48)
[2024-08-27] VITALS (8 sets, daily range): BP systolic 101–128; BP diastolic 47–64; PULSE 87–95; RESP 17–22; TEMP 97.3–97.8; O2SAT 94–99
[2024-08-27] MEDS ORDERED: VANCOMYCIN 1.5GM/300ML 300 ML IV ONE (09:30)
--- NOTE | 2024-08-27 09:31 | DVHPN2 ---
Reviewed: Care Plan, H&P, Labs, Medications, Previous Orders, Radiology Changes from previous H/P or p: No Changes Eyes: No Pain, No Vision change, No Conjunctivae inflammation, No Eyelid inflammation, No Other, No Redness ENT: No Ear pain, No Ear discharge, No Nose pain, No Nose discharge, No Nose congestion, No Mouth pain, No Mouth swelling, No Throat pain, No Throat swelling, No Other Cardiovascular: No Chest Pain, No Palpitations, No Orthopnea, No Paroxysmal Noc. Dyspnea, No Edema, No Lt Headedness, No Other Respiratory: No Cough, No Dry, No Shortness of breath, No SOB with excertion, No Wheezing, No Hemoptysis, No Pleuritic Pain, No Sputum, No Other Gastrointestinal: Nausea; No Vomiting; Abdominal Pain; No Diarrhea; C onstipation; No Melena, No Hematochezia; Other (Abdominal distention) Genitourinary: Dysuria; No Frequency; Incontinence; No Hematuria, No Retention, No Other Musculoskeletal: No other, No neck pain, No shoulder pain, No arm pain, No back pain, No hand pain, No leg pain, No foot pain Skin: No Rash, No Lesions, No Jaundice, No Bruising, No Other Objective Vitals Vital Signs Date Time Temp Pulse Resp B/P (MAP) Pulse Ox O2 Delivery O2 Flow Rate FiO2 08/27/24 09:00 97.4 87 22 101/47 (65) 99 97.4 08/26/24 20:00 Room Air* 0 21 Intake/Output Intake and Output 08/27/24 07:00 Intake Total 2750 ml Output Total 900 ml Balance 1850 ml Intake Oral 1400 ml IV Total 1350 ml Output Urine Total 900 ml # Bowel Movements 4 Medications Current Medications Medications Dose Ordered Sig/Annalee Route Start Time Stop Time Status Last Admin Dose Admin Ceftriaxone Sodium 50 ml @ 100 mls/hr DAILY@09 IV 08/25/24 09:00 08/26/24 09:00 100 MLS/HR Metronidazole 100 ml @ 100 mls/hr Q8HR IV 08/25/24 06:00 08/27/24 05:43 100 MLS/HR Aspirin 81 mg DAILY PO 08/25/24 10:00 08/26/24 10:19 81 MG Atorvastatin Calcium 20 mg HS PO 08/25/24 22:00 08/26/24 22:17 20 MG Sodium Chloride 1,000 ml @ 60 mls/hr [id number] IV 08/25/24 03:15 08/27/24 05:45 60 MLS/HR Acetaminophen/ Hydrocodone Bitart 1 tab Q4HP PRN PO 08/25/24 03:15 08/26/24 14:54 1 TAB Ondansetron HCl 4 mg Q4HP PRN IV 08/25/24 03:15 Docusate Sodium 100 mg BIDPRN PRN PO 08/25/24 03:15 Acetaminophen 650 mg Q6HP PRN PO 08/25/24 03:15 08/26/24 17:48 650 MG Nitroglycerin 0.4 mg Q5MINP PRN SL 08/25/24 03:15 Morphine Sulfate 2 mg Q30M PRN IV 08/25/24 03:15 Vancomycin HCl 125 mg QID PO 08/27/24 12:00 UNV Laboratory Results Laboratory Tests 08/26/24 05:23 Urinalysis Test 08/25/24 03:00 Urine Color Light-yellow (Yellow) Urine Clarity Clear (Clear) Urine pH 6.5 (5.0-9.0) Urine Specific [place] 1.020 (1.001-1.035) Urine Protein Negative (Negative) Urine Ketones Negative (Negative) Urine Blood 1+ /uL (Negative) H Urine Nitrite Negative (Negative) Urine Bilirubin Negative (Negative) Urine Urobilinogen Normal mg/dL (Negative) Urine Leukocyte Esterase Negative /uL (Negative) Urine RBC 12 /hpf (0 - 3) Urine Microscopic WBC 1 /HPF (0-3) Urine Squamous Epithelial Cells Few /hpf (<5) Urine Bacteria None seen /hpf (None Seen) Urine Yeast (Budding) Occasional /hpf (None Urine Sodium 35 mmol/L (40-220) L Urine Glucose Normal mg/dL (Normal) Microbiology Microbiology Date/Time Source Procedure Growth Status 08/25/24 15:40 Nose MRSA Screen - Final Complete 08/25/24 15:38 Stool Clostridium difficile Toxin Assay - Final Complete Labs and/or images reviewed: Labs reviewed by me, Image(s) reviewed by me Assessment/Plan Assessment/Plan Acute abdominal pain Acute colitis: GI consult for Dr. Justin Baeza appreciated, continue Rocephin and Flagyl C diff colitis: Continue Flagyl 500 mg p.o. q.8 hours, add vancomycin 125 mg p.o. QID Hypertension Severe dementia History of pacemaker Bed-bound Patient is hospice revoked No family members Time spent 45 minutes Spoke to pts significant other Kylah [phone] about the diagnosis management and plan for rehab for IV antibiotics for C diff:colitis Plan discussed with: Patient My Orders Orders - LEAH NORRIS MD Procedure Category Date Status Time * [employer] Super[employer] CONS 08/26/24 Transmitted 13:42 Communication Order ORDERS 08/26/24 Transmitted 13:51 * Wound Consult CONS 08/27/24 Transmitted Vancomycin Po PHA 08/27/24 Logged 12:00 Date of Service: Aug 27, 2024 Billing Provider: LEAH NORRIS MD Common Visit Codes: [id number] INP/OBS CARE(HIGH) LEAH NORRIS MD Aug 27, 2024 09:31
[2024-08-27] MEDS: POTASSIUM CHLORIDE 20 MEQ in D5W/LACTATED RINGERS 1,000 ML IV SCH (09:45)
[2024-08-27] MEDS: VANCOMYCIN HCL 125 MG CAP PO SCH (12:10)
[2024-08-27 12:17] LABS: Basophils # (auto) 0 10 ^3/uL (0-0.2); Basophils % (auto) 0.2 % (0.0-2.0); Eosinophils # (auto) 0.1 10 ^3/uL (0-0.8); Eosinophils % (auto) 0.9 % (0.0-7.0); Hematocrit 34.8 % (41.0-53.0); Lymphocytes % (auto) 8.4 % (10.0-50.0); Mean Corpuscular Hemoglobin 32.9 pg (28.0-32.0); Mean Corpuscular Hgb Conc. 34.6 g/dL (32.0-36.0); Mean Corpuscular Volume 94.9 fL (80.0-100.0); Monocytes # (auto) 1.2 10 ^3/uL (0-1.3); Monocytes % (auto) 10.2 % (0.0-12.0); Neutrophils # (auto) 9.2 10 ^3/uL (1.6-8.6); Neutrophils % (auto) 80.3 % (37.0-80.0); Platelet Count (auto) 209 10^3/uL (140-450); Red Blood Cells 3.66 10^6/uL (4.5-5.90); Red Cell Distribution Width 13.1 % (11.8-14.3); White Blood Cell 11.5 10^3/uL (4.4-10.8)
[2024-08-27 12:37] LABS: Alanine Aminotransferase 20 U/L (7-40); Alkaline Phosphatase 71 U/L (46-116); Anion Gap 9 (5-15); Aspartate Aminotransferase 21 U/L (13-40); BUN/Creatinine Ratio 16.2 (10.0-20.0); Blood Urea Nitrogen 11 mg/dL (9-23); Carbon Dioxide 22 mmol/L (20-31); Chloride 100 mmol/L (98-107); Potassium 3.7 mmol/L (3.5-5.1)
[2024-08-27 12:38] LABS: Bilirubin, Total 0.9 mg/dL (0.2-1.0)
[2024-08-27 12:40] LABS: Albumin 2.6 g/dL (3.2-4.8); Calcium 8.2 mg/dL (8.7-10.4); Glucose 110 mg/dL (74-106); Sodium 131 mmol/L (136-145); Total Protein 4.9 g/dL (5.7-8.2)
--- NOTE | 2024-08-27 15:07 | DVHPN2 ---
Progress Note Date Seen: Aug 27, 2024 Resident Creating Document: DIVINE PIERCE RESIDENT Medical Necessity Reason Pt with a Central, PICC or Fol: No Subjective Review of Systems 79-year-old male with PMH dementia, hyperlipidemia and hypertension presented to ER with complaints of abdominal pain Patient complains of diffuse abdominal pain. Patient also complains of diarrhea for three weeks. No nausea or vomiting. Objective vital signs Vital Sign Date Time Temp Pulse Resp B/P (MAP) Pulse Ox O2 Delivery O2 Flow Rate FiO2 08/27/24 12:56 97.3 95 20 113/64 (80) 94 97.3 08/27/24 08:00 Room Air* 0 21 Total Intake and Output 08/26/24 08/26/24 08/27/24 15:00 23:00 07:00 Intake Total 670 ml 640 ml 1440 ml Output Total 300 ml 300 ml 300 ml Balance 370 ml 340 ml 1140 ml medications Current Medications Medications Dose Ordered Sig/Annalee Route Start Time Stop Time Status Last Admin Dose Admin Ceftriaxone Sodium 50 ml @ 100 mls/hr DAILY@09 IV 08/25/24 09:00 08/27/24 09:52 100 MLS/HR Metronidazole 100 ml @ 100 mls/hr Q8HR IV 08/25/24 06:00 08/27/24 05:43 100 MLS/HR Aspirin 81 mg DAILY PO 08/25/24 10:00 08/27/24 09:52 81 MG Atorvastatin Calcium 20 mg HS PO 08/25/24 22:00 08/26/24 22:17 20 MG Acetaminophen/ Hydrocodone Bitart 1 tab Q4HP PRN PO 08/25/24 03:15 08/26/24 14:54 1 TAB Ondansetron HCl 4 mg Q4HP PRN IV 08/25/24 03:15 Docusate Sodium 100 mg BIDPRN PRN PO 08/25/24 03:15 Acetaminophen 650 mg Q6HP PRN PO 08/25/24 03:15 08/26/24 17:48 650 MG Nitroglycerin 0.4 mg Q5MINP PRN SL 08/25/24 03:15 Morphine Sulfate 2 mg Q30M PRN IV 08/25/24 03:15 Vancomycin HCl 125 mg QID PO 08/27/24 12:00 08/27/24 12:10 125 MG Potassium Chloride 20 meq/ Dextrose/Lactated Ringer's 1,010 ml @ 100 mls/hr Q10H6M IV 08/27/24 09:45 08/27/24 09:45 100 MLS/HR Saccharomyces Boulardii 250 mg DAILY PO 08/28/24 10:00 Examination General: NAD, AAOX3 Chest: lung ramos clear to auscultation Heart: RRR, no murmur Abdomen: Moderate generalized tenderness to palpation, +BS laboratory and microbiology Laboratory Tests 08/27/24 12:00 Test 08/27/24 12:00 Range/Units Serum Glucose 110 H 74-106 mg/dL Microbiology Date/Time Source Procedure Growth Status 08/25/24 15:40 Nose MRSA Screen - Final Complete 08/25/24 15:38 Stool Clostridium difficile Toxin Assay - Final Complete Problem List/Assessment/Plan Problem List/Assessment/Plan # Acute abdominal pain # Diarrhea # Possible colitis # C-Diff Positive - CT abdomen shows: Diffuse wall thickening of the rectosigmoid colon concerning for acute infectious/ inflammatory colitis /proctitis. - continue IV Flagyl, p.o. vancomycin - distal D/C Rocephin - diarrhea is improving - start Florastor Thank you so much for the opportunity to consult on your patient. GI team will follow the patient. In case of any questions or concerns please feel free to reach out. Case discussed with Dr. Socorro Baeza. The patient and caregiver team agreed to the plan. Plan discussed with: Patient Dietary Evaluation Review Comments: 1. Currently on CL diet x 3 days; Advance to Low Residue diet as tolerated 2. Add Ensure Clear supplements (TID) in the interim until diet advances 3. Continue IV antibiotics, probiotic supplements during & after treatment 4. Appreciate weekly weights to trend possible gains/losses Expected Outcomes/Goals: Stable weights, improved GI sx, diet tolerance. DIVINE PIERCE RESIDENT Aug 27, 2024 15:07
--- NOTE | 2024-08-27 16:33 | MEDREC ---
[facility] Intervention Section I [facility] Intervention: Review courses of therapy (PLEASE CONSIDER D/C CEFTRIAXONE IF NO OTHER CONCERNS FOR INFECTION SINCE ITS USE IS ASSOCIATED WITH C.DIFF INFECTION) TRENT HUANG PHARMACIST Aug 27, 2024 16:33
[2024-08-27] MEDS: FLORASTOR (S. BOULARDII) 250 MG CAP PO ONE (18:11)
[2024-08-28 00:41] VITALS: BP 115/64; PULSE 91; RESP 20; TEMP 97.4; O2SAT 97
[2024-08-28 05:00] VITALS: BP 127/60; PULSE 87; RESP 20; TEMP 97.4; O2SAT 98
[2024-08-28 08:00] VITALS: PULSE 64; PULSE 91; RESP 18; O2SAT 97
--- NOTE | 2024-08-28 08:22 | DVHPN2 ---
Reviewed: Care Plan, H&P, Labs, Medications, Previous Orders, Radiology Changes from previous H/P or p: No Changes Eyes: No Pain, No Vision change, No Conjunctivae inflammation, No Eyelid inflammation, No Other, No Redness ENT: No Ear pain, No Ear discharge, No Nose pain, No Nose discharge, No Nose congestion, No Mouth pain, No Mouth swelling, No Throat pain, No Throat swelling, No Other Cardiovascular: No Chest Pain, No Palpitations, No Orthopnea, No Paroxysmal Noc. Dyspnea, No Edema, No Lt Headedness, No Other Respiratory: No Cough, No Dry, No Shortness of breath, No SOB with excertion, No Wheezing, No Hemoptysis, No Pleuritic Pain, No Sputum, No Other Gastrointestinal: Nausea; No Vomiting; Abdominal Pain; No Diarrhea; C onstipation; No Melena, No Hematochezia; Other (Abdominal distention) Genitourinary: Dysuria; No Frequency; Incontinence; No Hematuria, No Retention, No Other Musculoskeletal: No other, No neck pain, No shoulder pain, No arm pain, No back pain, No hand pain, No leg pain, No foot pain Skin: No Rash, No Lesions, No Jaundice, No Bruising, No Other Objective Vitals Vital Signs Date Time Temp Pulse Resp B/P (MAP) Pulse Ox O2 Delivery O2 Flow Rate FiO2 08/28/24 05:00 97.4 87 20 127/60 (82) 98 97.4 08/27/24 20:00 Room Air* 0 21 Intake/Output Intake and Output 08/28/24 07:00 Intake Total 1770 ml Output Total 1400 ml Balance 370 ml Intake Oral 1520 ml IV Total 250 ml Output Urine Total 1400 ml # Bowel Movements 6 Medications Current Medications Medications Dose Ordered Sig/Annalee Route Start Time Stop Time Status Last Admin Dose Admin Metronidazole 100 ml @ 100 mls/hr Q8HR IV 08/25/24 06:00 08/28/24 05:15 100 MLS/HR Aspirin 81 mg DAILY PO 08/25/24 10:00 08/27/24 09:52 81 MG Atorvastatin Calcium 20 mg HS PO 08/25/24 22:00 08/27/24 21:46 20 MG Acetaminophen/ Hydrocodone Bitart 1 tab Q4HP PRN PO 08/25/24 03:15 08/26/24 14:54 1 TAB Ondansetron HCl 4 mg Q4HP PRN IV 08/25/24 03:15 Docusate Sodium 100 mg BIDPRN PRN PO 08/25/24 03:15 Acetaminophen 650 mg Q6HP PRN PO 08/25/24 03:15 08/26/24 17:48 650 MG Nitroglycerin 0.4 mg Q5MINP PRN SL 08/25/24 03:15 Morphine Sulfate 2 mg Q30M PRN IV 08/25/24 03:15 Vancomycin HCl 125 mg QID PO 08/27/24 12:00 08/28/24 05:15 125 MG Potassium Chloride 20 meq/ Dextrose/Lactated Ringer's 1,010 ml @ 100 mls/hr Q10H6M IV 08/27/24 09:45 08/27/24 21:51 100 MLS/HR Saccharomyces Boulardii 250 mg DAILY PO 08/28/24 10:00 Laboratory Results Laboratory Tests 08/27/24 12:00 Chemistry Test 08/27/24 12:00 Albumin 2.6 g/dL (3.2-4.8) L Calcium Level 8.2 mg/dL (8.7-10.4) L Total Protein 4.9 g/dL (5.7-8.2) L LFT Test 08/27/24 12:00 Alanine Aminotransferase (ALT) 20 U/L (7-40) Alkaline Phosphatase 71 U/L (46-116) Aspartate Amino Transferase (AST) 21 U/L (13-40) Total Bilirubin 0.9 mg/dL (0.2-1.0) Urinalysis Test 08/25/24 03:00 Urine Color Light-yellow (Yellow) Urine Clarity Clear (Clear) Urine pH 6.5 (5.0-9.0) Urine Specific [place] 1.020 (1.001-1.035) Urine Protein Negative (Negative) Urine Ketones Negative (Negative) Urine Blood 1+ /uL (Negative) H Urine Nitrite Negative (Negative) Urine Bilirubin Negative (Negative) Urine Urobilinogen Normal mg/dL (Negative) Urine Leukocyte Esterase Negative /uL (Negative) Urine RBC 12 /hpf (0 - 3) Urine Microscopic WBC 1 /HPF (0-3) Urine Squamous Epithelial Cells Few /hpf (<5) Urine Bacteria None seen /hpf (None Seen) Urine Yeast (Budding) Occasional /hpf (None Urine Sodium 35 mmol/L (40-220) L Urine Glucose Normal mg/dL (Normal) Microbiology Microbiology Date/Time Source Procedure Growth Status 08/25/24 15:40 Nose MRSA Screen - Final Complete 08/25/24 15:38 Stool Clostridium difficile Toxin Assay - Final Complete Labs and/or images reviewed: Labs reviewed by me, Image(s) reviewed by me Assessment/Plan Assessment/Plan Acute abdominal pain Acute colitis: GI consult for Dr. Justin Baeza appreciated, continue Rocephin and Flagyl C diff colitis: Continue Flagyl 500 mg p.o. q.8 hours, add vancomycin 125 mg p.o. QID Hypertension Severe dementia History of pacemaker Bed-bound Patient is hospice revoked Spoke to pts Kylah [phone] about the diagnosis management and plan for rehab for IV antibiotics for C diff:colitis The patient and the agreeable for the patient to be discharged to retirement facility for IV antibiotics for C diff colitis Plan discussed with: Patient My Orders Orders - LEAH NORRIS MD Procedure Category Date Status Time Vancomycin Po PHA 08/27/24 In Process 12:00 Insert Midline ORDERS 08/27/24 Transmitted 09:31 D5w/Lactated PHA 08/27/24 In Process Ringer... W/Potassium 09:45 Covid19 Antigen [facility] 08/27/24 Logged Pt Request For Service PT 08/27/24 Logged 10:06 * Licensed Architect CONS 08/27/24 Transmitted Consult Date of Service: Aug 28, 2024 Billing Provider: LEAH NORRIS MD Common Visit Codes: [id number] INP/OBS CARE(HIGH) LEAH NORRIS MD Aug 28, 2024 08:22
--- NOTE | 2024-08-28 08:28 | DVHDS2 ---
Discharge Summary Date of Admission Aug 25, 2024 at 03:01 Date of Discharge: Aug 28, 2024 Admitting Diagnosis Acute abdominal pain Wounds: None Labs/Diagnostic Data: Laboratory Results Test 08/27/24 12:00 08/25/24 03:00 08/24/24 20:56 White Blood Count 11.5 10^3/uL (4.4-10.8) Red Blood Count 3.66 10^6/uL (4.5-5.90) Hemoglobin 12.0 g/dL (13.5-17.5) Hematocrit 34.8 % (41.0-53.0) Mean Corpuscular Volume 94.9 fL (80.0-100.0) Mean Corpuscular Hemoglobin 32.9 pg (28.0-32.0) Mean Corpuscular Hemoglobin Concent 34.6 g/dL (32.0-36.0) Red Cell Distribution Width 13.1 % (11.8-14.3) Platelet Count 209 10^3/uL (140-450) Mean Platelet Volume 8.7 fL (6.9-10.8) Neutrophils (%) (Auto) 80.3 % (37.0-80.0) Lymphocytes (%) (Auto) 8.4 % (10.0-50.0) Monocytes (%) (Auto) 10.2 % (0.0-12.0) Eosinophils (%) (Auto) 0.9 % (0.0-7.0) Basophils (%) (Auto) 0.2 % (0.0-2.0) Neutrophils # (Auto) 9.2 10 ^3/uL (1.6-8.6) Lymphocytes # (Auto) 1.0 10 ^3/uL (0.4-5.4) Monocytes # (Auto) 1.2 10 ^3/uL (0-1.3) Eosinophils # (Auto) 0.1 10 ^3/uL (0-0.8) Basophils # (Auto) 0 10 ^3/uL (0-0.2) Nucleated Red Blood Cells 0.0 % Sodium Level 131 mmol/L (136-145) Potassium Level 3.7 mmol/L (3.5-5.1) Chloride Level 100 mmol/L (98-107) Carbon Dioxide Level 22 mmol/L (20-31) Anion Gap 9 (5-15) Blood Urea Nitrogen 11 mg/dL (9-23) Creatinine 0.68 mg/dL (0.700-1.30) Glomerular Filtration Rate Calc 95 mL/min (>90) BUN/Creatinine Ratio 16.2 (10.0-20.0) Serum Glucose 110 mg/dL (74-106) Calcium Level 8.2 mg/dL (8.7-10.4) Total Bilirubin 0.9 mg/dL (0.2-1.0) Aspartate Amino Transferase (AST) 21 U/L (13-40) Alanine Aminotransferase (ALT) 20 U/L (7-40) Alkaline Phosphatase 71 U/L (46-116) Total Protein 4.9 g/dL (5.7-8.2) Albumin 2.6 g/dL (3.2-4.8) Urine Color Light-yellow (Yellow) Urine Clarity Clear (Clear) Urine pH 6.5 (5.0-9.0) Urine Specific [place] 1.020 (1.001-1.035) Urine Protein Negative (Negative) Urine Ketones Negative (Negative) Urine Blood 1+ /uL (Negative) Urine Nitrite Negative (Negative) Urine Bilirubin Negative (Negative) Urine Urobilinogen Normal mg/dL (Negative) Urine Leukocyte Esterase Negative /uL (Negative) Urine RBC 12 /hpf (0 - 3) Urine Microscopic WBC 1 /HPF (0-3) Urine Squamous Epithelial Cells Few /hpf (<5) Urine Bacteria None seen /hpf (None Seen) Urine Yeast (Budding) Occasional /hpf (None Urine Sodium 35 mmol/L (40-220) Urine Glucose Normal mg/dL (Normal) Lactic Acid Level 1.2 mmol/L (0.4-2.0) Lipase 22 U/L (12-53) Other Laboratory Tests 08/27/24 12:00 Brief Hx & Hospital Course: 79 years of male on hospice , hospice revoked admitted acute abdominal pain. CT abdomen pelvis without contrast showed colitis started on Rocephin and Flagyl. Stool cultures came positive for C diff started on Flagyl 500 mg IV q.8 hours and vancomycin 125 mg p.o. q.i.d. seen by GI Dr. Justin Baeza patient has a history of hypertension severe dementia and pacemaker also bed-bound. Being discharged to long term facility for IV antibiotics for two weeks for C diff colitis Consults/Reason for consult GI Dr. Justin Baeza Operations or Procedures CT abdomen pelvis without contrast Condition at Discharge: Fair Final Diagnosis/Problems List Acute abdominal pain Acute colitis: GI consult for Dr. Justin Baeza appreciated, continue Rocephin and Flagyl C diff colitis: Continue Flagyl 500 mg p.o. q.8 hours, add vancomycin 125 mg p.o. QID Hypertension Severe dementia History of pacemaker Bed-bound Discharge Disposition: [facility] Discharge Instruct/Medications Diet: Regular Activity: Light activity Follow Up/Referral: Follow up with the halfway Medications: see list Flagyl 500 mg IV q.8 hours for two weeks for C diff colitis Vancomycin 125 mg p.o. q.i.d. for 14 days for C diff colitis Discharge Statement: "Patient was advised to return to the ER or call 911 if any headaches, dizziness, shortness of breath, chest pain, abdominal pain, bleeding, fevers, or worsening of medical condition. Patient was counseled about treatment plan, medications, possible side effects, patientverbalized understanding. All questions were answered to the best of my ability. This discharge took greater then 30 minutes in planning, reviewing documentation, counseling the patient, and discussing with other team members." ASSESSMENT ASSESSMENT Hospital Course Improved Assessment Acute abdominal pain Acute colitis: GI consult for Dr. Justin Baeza appreciated, continue Rocephin and Flagyl C diff colitis: Continue Flagyl 500 mg p.o. q.8 hours, add vancomycin 125 mg p.o. QID Hypertension Severe dementia History of pacemaker Bed-bound Date of Service: Aug 28, 2024 Billing Provider: LEAH NORRIS MD Common Visit Codes: [id number] DISCH DAY >30min LEAH NORRIS MD Aug 28, 2024 08:28
[2024-08-28 08:50] VITALS: BP 149/71; PULSE 95; RESP 16; TEMP 97.2; O2SAT 94
[2024-08-28] MEDS: FLORASTOR (S. BOULARDII) 250 MG CAP PO SCH ×2 (09:53→10:00)
[2024-08-28 13:00] VITALS: BP 101/60; PULSE 52; RESP 17; TEMP 97.4; O2SAT 92
--- NOTE | 2024-08-28 13:32 | DVHPN2 ---
Progress Note Date Seen: Aug 28, 2024 Resident Creating Document: DIVINE PIERCE RESIDENT Medical Necessity Reason Pt with a Central, PICC or Fol: No Subjective Review of Systems 79-year-old male with PMH dementia, hyperlipidemia and hypertension presented to ER with complaints of abdominal pain Patient complains of diffuse abdominal pain. Patient also complains of diarrhea for three weeks. No nausea or vomiting. Patient seen and examined at bedside, patient is feeling better, no diarrhea or nausea or vomiting. Patient is cleared for discharge from GI point of view. Objective vital signs Vital Sign Date Time Temp Pulse Resp B/P (MAP) Pulse Ox O2 Delivery O2 Flow Rate FiO2 08/28/24 08:50 97.2 95 16 149/71 (97) 94 97.2 08/28/24 08:00 Room Air* 0 21 Total Intake and Output 08/27/24 08/27/24 08/28/24 15:00 23:00 07:00 Intake Total 150 ml 800 ml 820 ml Output Total 1400 ml Balance 150 ml 800 ml -580 ml medications Current Medications Medications Dose Ordered Sig/Annalee Route Start Time Stop Time Status Last Admin Dose Admin Metronidazole 100 ml @ 100 mls/hr Q8HR IV 08/25/24 06:00 08/28/24 05:15 100 MLS/HR Aspirin 81 mg DAILY PO 08/25/24 10:00 08/28/24 09:53 81 MG Atorvastatin Calcium 20 mg HS PO 08/25/24 22:00 08/27/24 21:46 20 MG Acetaminophen/ Hydrocodone Bitart 1 tab Q4HP PRN PO 08/25/24 03:15 08/26/24 14:54 1 TAB Ondansetron HCl 4 mg Q4HP PRN IV 08/25/24 03:15 Docusate Sodium 100 mg BIDPRN PRN PO 08/25/24 03:15 Acetaminophen 650 mg Q6HP PRN PO 08/25/24 03:15 08/26/24 17:48 650 MG Nitroglycerin 0.4 mg Q5MINP PRN SL 08/25/24 03:15 Morphine Sulfate 2 mg Q30M PRN IV 08/25/24 03:15 Vancomycin HCl 125 mg QID PO 08/27/24 12:00 08/28/24 05:15 125 MG Potassium Chloride 20 meq/ Dextrose/Lactated Ringer's 1,010 ml @ 100 mls/hr Q10H6M IV 08/27/24 09:45 08/27/24 21:51 100 MLS/HR Saccharomyces Boulardii 250 mg DAILY PO 08/28/24 10:00 Saccharomyces Boulardii 250 mg BID PO 08/28/24 10:00 08/28/24 09:53 250 MG Examination General: NAD, AAOX3 Chest: lung ramos clear to auscultation Heart: RRR, no murmur Abdomen: Moderate generalized tenderness to palpation, +BS laboratory and microbiology Laboratory Tests 08/27/24 12:00 Test 08/27/24 12:00 Range/Units Serum Glucose 110 H 74-106 mg/dL Microbiology Date/Time Source Procedure Growth Status 08/25/24 15:40 Nose MRSA Screen - Final Complete 08/25/24 15:38 Stool Clostridium difficile Toxin Assay - Final Complete Problem List/Assessment/Plan Problem List/Assessment/Plan # Acute abdominal pain # Diarrhea # Possible colitis # C-Diff Positive - CT abdomen shows: Diffuse wall thickening of the rectosigmoid colon concerning for acute infectious/ inflammatory colitis /proctitis. - continue IV Flagyl, p.o. vancomycin - distal D/C Rocephin - diarrhea is improving - start Florastor Thank you so much for the opportunity to consult on your patient. GI team will follow the patient. In case of any questions or concerns please feel free to reach out. Case discussed with Dr. Socorro Baeza. The patient and caregiver team agreed to the plan. Plan discussed with: Patient Dietary Evaluation Review Comments: 1. Currently on CL diet x 3 days; Advance to Low Residue diet as tolerated 2. Add Ensure Clear supplements (TID) in the interim until diet advances 3. Continue IV antibiotics, probiotic supplements during & after treatment 4. Appreciate weekly weights to trend possible gains/losses Expected Outcomes/Goals: Stable weights, improved GI sx, diet tolerance. DIVINE PIERCE RESIDENT Aug 28, 2024 13:32
[2024-08-28] MEDS ORDERED: LOPERAMIDE HCL 2 MG CAP/TAB PO ONE (15:00)
[2024-08-28 16:57] VITALS: BP 115/68; PULSE 92; RESP 16; TEMP 98.2; O2SAT 96
== END 2024-08-28 18:38 | DRG 371 ==
LOC: ER 20:11 → EDBD 20:11 → EDUNIT# 20:11 → OVERFLOW 08-25 03:01 → TELE-EAST 08-25 05:20
PROVIDERS: ADMIT Family Medicine; ATTEND Family Medicine
DX: A04.72 Enterocolitis due to Clostridium difficile, not specified as recurrent (principal); R53.2 Functional quadriplegia; E87.1 Hypo-osmolality and hyponatremia; D72.829 Elevated white blood cell count, unspecified; E78.5 Hyperlipidemia, unspecified; F03.C0 Unspecified dementia, severe, without behavioral disturbance, psychotic disturbance, mood disturbance, and anxiety; I10 Essential (primary) hypertension; Z95.0 Presence of cardiac pacemaker; Z74.01 Bed confinement status; Z79.899 Other long term (current) drug therapy
CPT/HCPCS: 36415; 74177; 80053; 81001; 83605; 83690; 84300; 85025; 87081; 87493; 93005; 97163; G0378; J1956; J3490

== ENCOUNTER 2025-01-07 17:09 | Inpatient (IN) | payer MEDICARE, OTHER ==
[~2025-01-07] VITALS: Ht 182.9 cm; Wt 82.3 kg
--- NOTE | 2025-01-07 17:40 | ED.PDOC ---
History of Present Illness HPI Comments This is a 79-year- bed bound old male with past medical history of CAD, PTCA x2, status post pacemaker, Parkinson, CVA, Dupuytren's contracture, trigger finger, incontinence pressure ulcer on the right ankle brought in to the ED via EMS. According to the EMS they found the patient's desaturating on room air 88% and also according to the family complaint of generalized weakness. The according to the patient he was diagnosed with sepsis few times in last year and was in [facility] for more than six-month. Denied chest pain, dizziness, blurred vision, abdominal pain, nausea, vomiting, positive sick contact, chills, fever. PCP: Dr. Montemayor Organic Extractions Technician: Dr. Krueger Chief Complaint: Shortness of Breath Time Seen by MD: 17:14 Primary Care Provider: UNKNOWN Allergies: Coded Allergies: NO KNOWN ALLERGIES (Unverified , 06/06/22) Home Meds Active Scripts Cyanocobalamin (B-12) 500 Mcg Sub, 500 MCG SL DAILY for 30 Days, #30 INJ Prov:YOGESH MA 12/21/23 Cyclobenzaprine Hcl (Cyclobenzaprine Hcl) 5 Mg Tab, 1 TAB PO QPM, #30 TAB Prov:SENA KAUR 03/13/23 Primidone (MYSOLINE TABLET) 50 Mg Tb, 100 MG PO HS for 30 Days, #60 TAB 2 Refills Prov:CARL BEDOLLA MD 06/28/22 Midodrine HCl (Midodrine HCl) 10 Mg Tab, 5 MG PO TID for 30 Days, #45 TAB 2 Refills Prov:CARL BEDOLLA MD 06/28/22 Sertraline Hcl (Zoloft) 50 Mg Tab, 50 MG PO DAILY for 30 Days, #30 TAB 2 Refills Prov:CARL BEDOLLA MD 06/28/22 Metoprolol Tartrate (Lopressor) 25 Mg Tb, 12.5 MG PO BID for 30 Days, #30 TAB 2 Refills Prov:CARL BEDOLLA MD 06/28/22 Meclizine Hcl (Meclizine Hcl) 25 Mg Tab, 25 MG PO Q8HPRN PRN for 10 Days, #30 TAB Prov:SHELBI GOODE MD 06/12/22 Ergocalciferol (VITAMIN D 56865 UNIT) 50,000 [place], [address] UNIT PO Q7D for 10 Days, #10 CAP Prov:SHELBI GOODE MD 06/12/22 Clopidogrel Bisulfate (CLOPIDOGREL) 75 Mg Tab, 75 MG PO DAILY for 30 Days, #30 TAB Prov:SHELBI GOODE MD 06/12/22 Atorvastatin Calcium (ATORVASTATIN CALCIUM) 20 Mg Tab, 20 MG PO HS for 30 Days, #30 TAB Prov:SHELBI GOODE MD 06/12/22 Aspirin (Aspirin Low Dose) 81 Mg Tab, 81 MG PO DAILY for 30 Days, #30 TAB Prov:SHELBI GOODE MD 06/12/22 Reported Medications Pregabalin (Lyrica) 50 Mg Cap, 1 CAP PO TID, #90 CAP 10/26/23 Fludrocortisone Acetate (Fludrocortisone Acetate) 0.1 Mg Tab, 0.1 MG PO DAILY, TAB 02/11/22 Multiple Vitamins W/ Minerals (Mens 50+ Multi Vitamin &) Vit/Min Tab, 1 MIN PO, TAB 08/28/20 Finasteride (Finasteride) 5 Mg Tab, 1 TAB PO DAILY, #30 TAB 11 Refills 03/14/20 Information Source: Patient, Emergency Med Personnel Mode of Arrival: EMS Severity: Severe Timing: Hours Duration: Since onset Prehospital treatment: Oxygen Past Medical History PAST MEDICAL HISTORY: Angina, CAD, CVA, Dementia, High Lipids, HTN, [place] Surgical History: Appendectomy, Pacemaker Family History Family History: Reviewed,noncontributory to illness Social History Smoker: Non-Smoker Alcohol: Denies ETOH Use Drugs: Denies Drug Use Lives In: Home Constitutional: reports: fatigue, weakness; denies: chills, diaphoresis, fever, malaise, sweats, others EENTM: denies: blurred vision, double vision, ear bleeding, ear discharge, ear drainage, ear pain, ear ringing, eye pain, eye redness, hearing loss, mouth pain, mouth swelling, nasal discharge, nose bleeding, nose congestion, nose pain, photophobia, tearing, throat pain, throat swelling, voice changes, others Respiratory: reports: shortness of breath; denies: cough, hemoptysis, orthopnea, SOB at rest, SOB with excertion, stridor, wheezing, others Cardiovascular: reports: chest pain; denies: dizzy spells, diaphoresis, Dyspnea on exertion, edema, irregular heart beat, left arm pain, lightheadedness, palpitations, PND, syncope, others Gastrointestinal: denies: abdomen distended, abdominal pain, blood streaked bowels, constipated, diarrhea, dysphagia, difficulty swallowing, hematemesis, melena, nausea, poor appetite, poor fluid intake, rectal bleeding, rectal pain, vomiting, others Genitourinary: denies: burning, dysuria, flank pain, frequency, hematuria, incontinence, penile discharge, penile sore, pain, testicle pain, testicle swelling, urgency, others Neurological: denies: dizziness, fainting, headache, left sided numbness, left sided weakness, numbness, paresthesia, pre-existing deficit, right sided numbness, right sided weakness, seizure, speech problems, tingling, tremors, weakness, others Musculoskeletal: denies: back pain, gout, joint pain, joint swelling, muscle pain, muscle stiffness, neck pain, others Integumetry: denies: bruises, change in color, change in hair/nails, dryness, laceration, lesions, lumps, rash, wounds, others Endocrine: denies: excessive hunger, excessive sweating, excessive thirst, excessive urination, flushing, intolerance to cold, intolerance to heat, unexplained weight gain, unexplained weight loss, others Psychiatric: denies: anxiety, bipolar disorder, depression, hopeless, panic disorder, schizophrenia, sleepless, suicidal, others Physical Exam General Appearance: Mild Distress HEENT: Normal ENT Inspection, Pharynx Normal, TMs Normal Neck: Full Range of Motion, Non-Tender, Normal, Normal Inspection Respiratory: Lungs Clear, No Accessory Muscle Use, Normal Breath Sounds Cardiovascular: No Edema, No JVD, No Murmur, No Gallop, Normal Peripheral Pulses, Regular Rate/Rhythm Breast Exam: Deferred Gastrointestinal: No Organomegaly, Non Tender, No Pulsatile Mass, Normal Bowel Sounds, Soft Genitalia: Deferred Pelvic: Deferred Rectal: Deferred Extremities: No calf tenderness, Normal capillary refill, Normal inspection, Normal range of motion, Non-tender, No pedal edema Neurologic: NOT DONE Cerebellar Function: NOT DONE Reflexes: NOT DONE Skin: Wounds Peripheral Pulses: 2+ carotid (R), 2+ carotid (L), 2+ femoral (R), 2+ femoral (L), 2+ dorsalis pedis (R), 2+ dorsalis pedis (L), 2+ Radial (R), 2+ Radial (L), 2+ Brachial (R), 2+ Brachial (L) Lymphatic: NOT DONE Was a procedure done? Was a procedure done?: No Differential Dx Considerations may include: Sepsis, lactic acidosis, Generalized weakness, pneumonia, UTI, hypotension, CHF X-Ray, Labs, Meds, VS Vital Signs Date Time Temp Pulse Resp B/P (MAP) Pulse Ox O2 Delivery O2 Flow Rate FiO2 01/07/25 17:44 117 20 92/73 (79) 98 01/07/25 17:44 106 20 96 Nasal Cannula* 4 36 01/07/25 17:29 97.9 93 15 161/66 100 97.9 01/07/25 17:28 96 Lab Test 01/07/25 17:49 Range/Units White Blood Count 7.4 4.4-10.8 10^3/uL Red Blood Count 4.50 4.5-5.90 10^6/uL Hemoglobin 14.5 13.5-17.5 g/dL Hematocrit 41.7 41.0-53.0 % Mean Corpuscular Volume 92.7 80.0-100.0 fL Mean Corpuscular Hemoglobin 32.2 H 28.0-32.0 pg Mean Corpuscular Hemoglobin Concent 34.7 32.0-36.0 g/dL Red Cell Distribution Width 14.8 H 11.8-14.3 % Platelet Count 159 140-450 10^3/uL Mean Platelet Volume 10.2 6.9-10.8 fL Neutrophils (%) (Auto) 60.8 37.0-80.0 % Lymphocytes (%) (Auto) 28.8 10.0-50.0 % Monocytes (%) (Auto) 7.8 0.0-12.0 % Eosinophils (%) (Auto) 2.2 0.0-7.0 % Basophils (%) (Auto) 0.4 0.0-2.0 % Neutrophils # (Auto) 4.5 1.6-8.6 10 ^3/uL Lymphocytes # (Auto) 2.1 0.4-5.4 10 ^3/uL Monocytes # (Auto) 0.6 0-1.3 10 ^3/uL Eosinophils # (Auto) 0.2 0-0.8 10 ^3/uL Basophils # (Auto) 0 0-0.2 10 ^3/uL Nucleated Red Blood Cells 0.1 % Sodium Level 137 136-145 mmol/L Potassium Level 3.8 3.5-5.1 mmol/L Chloride Level 104 98-107 mmol/L Carbon Dioxide Level 21 20-31 mmol/L Anion Gap 12 5-15 Blood Urea Nitrogen 17 9-23 mg/dL Creatinine 0.73 0.700-1.30 mg/dL Glomerular Filtration Rate Calc 93 >90 mL/min BUN/Creatinine Ratio 23.3 H 10.0-20.0 Serum Glucose 99 74-106 mg/dL Lactic Acid Level 2.5 *H 0.4-2.0 mmol/L Calcium Level 9.7 8.7-10.4 mg/dL Total Bilirubin 1.5 H 0.2-1.0 mg/dL Aspartate Amino Transferase (AST) 36 13-40 U/L Alanine Aminotransferase (ALT) 24 7-40 U/L Alkaline Phosphatase 74 46-116 U/L B-Type Natriuretic Peptide 74.80 0-100 pg/mL Total Protein 6.3 5.7-8.2 g/dL Albumin 3.6 3.2-4.8 g/dL Current Medications Medications (Trade) Dose Ordered Sig/Annalee Route Start Time Stop Time Status Last Admin Aspirin 325 mg ONCE ONCE PO 01/07/25 17:45 01/07/25 18:05 DC 01/07/25 18:40 Sodium Chloride 1,000 ml @ 1,000 mls/hr Q1H ONCE IV 01/07/25 17:45 01/07/25 18:44 DC 01/07/25 18:41 Images Reviewed?: Images reviewed and evaluated by me Time of 1ST Reevaluation: 18:15 Reevaluation 1ST: Unchanged Patient Education/Counseling: Diagnosis, Treatment Family Education/Counseling: No Family Present SEPSIS Sepsis Screen Date sepsis recognized/suspect: Jan 07, 2025 Time Sepsis recognized/suspect: 19:00 Recent Procedure: No On Antibiotic Therapy: Yes Respiratory Rate >20: Yes Heart Rate >90: Yes Temp<36 C (96.8 F) or >38.3 C: No SBP <90 or MAP <65 mmHG: No New Acute Mental Status Change: No Is the patient on CPAP, BIPAP,: No IV fluid challenge completed?: No Physician Orders Urinalysis (01/07/25 17:28) Chest Portable (01/07/25 17:28) NS (01/07/25 19:15) Ceftriaxone Ivpb Rocephin (01/07/25 19:15) Vital Signs Date Time Temp Pulse Resp B/P (MAP) Pulse Ox O2 Delivery O2 Flow Rate FiO2 01/07/25 17:44 117 20 92/73 (79) 98 01/07/25 17:44 106 20 96 Nasal Cannula* 4 36 01/07/25 17:29 97.9 93 15 161/66 100 97.9 01/07/25 17:28 96 Laboratory Tests Test 01/07/25 17:49 Lactic Acid Level 2.5 mmol/L (0.4-2.0) *H White Blood Count 7.4 10^3/uL (4.4-10.8) Medications Medications Dose Ordered Sig/Annalee Route Start Time Stop Time Status Last Admin Dose Admin Aspirin 325 mg ONCE ONCE PO 01/07/25 17:45 01/07/25 18:05 DC 01/07/25 18:40 Sodium Chloride 1,000 ml @ 1,000 mls/hr Q1H ONCE IV 01/07/25 17:45 01/07/25 18:44 DC 01/07/25 18:41 Departure 1 Departure Time of Disposition: 18:40 Impression: Primary Impression: Sepsis Additional Impression: UTI (urinary tract infection) Disposition: 30 STILL A PATIENT Admit to: Tele Condition: Guarded Critical Care Note Critical Care Time?: No Stability Stability form required: ANDREI Hyde RESIDENT Jan 07, 2025 17:40
--- NOTE | 2025-01-07 17:42 | ECG ---
[facility] Test Date: 2025-01-07 Test Time: 17:28:26 Pat Name: FRED VIRK Department: ED Room: [address] [place] [address] Gender: M Casual Shoe Inspector: SHANTE : 1945 Requested By: ANDREI MAHONEY Order Number: [id number] Reading MD: Nhan Del Castillo Measurements Intervals [place] Rate: 96 P: 223 NE: 69 QRS: 266 QRSD: 166 T: 79 QT: 442 QTc: 559 Interpretive Statements A-V dual-paced rhythm with some inhibition No further analysis attempted due to paced rhythm Electronically Signed On 01-08-2025 17:53:55 PDT by Nhan Del Castillo Please click the below link to view image of tracing.
[2025-01-07 17:44] VITALS: PULSE 106; RESP 20; O2SAT 96
--- NOTE | 2025-01-07 17:56 | DVH ---
CHEST RADIOGRAPH Indication: sob Technique: Single frontal view of the chest was obtained Comparison: XY CHEST PORTABLE on DOS: 05/07/24, XY CHEST PORTABLE on DOS: 12/29/23, XY CHEST PORTABLE on DOS: 12/24/23 FINDINGS: Lines and Tubes: None. Left-sided approach dual lead pacemaker terminating within the right atrium a nd right ventricle. Lungs: No focal consolidation. Pleura: No effusion. No pneumothorax. Cardiomediastinal contours: Unremarkable Bones: No acute osseous abnormality. IMPRESSION: No acute cardiopulmonary disease.
[2025-01-07 18:10] LABS: Hematocrit 41.7 % (41.0-53.0); Hemoglobin 14.5 g/dL (13.5-17.5); Mean Corpuscular Hemoglobin 32.2 pg (28.0-32.0); Mean Corpuscular Volume 92.7 fL (80.0-100.0); Nucleated Red Blood Cells % 0.1 %
[2025-01-07 18:24] LABS: Alanine Aminotransferase 24 U/L (7-40); Albumin 3.6 g/dL (3.2-4.8); Alkaline Phosphatase 74 U/L (46-116); Anion Gap 12 (5-15); BUN/Creatinine Ratio 23.3 (10.0-20.0); Blood Urea Nitrogen 17 mg/dL (9-23); Calcium 9.7 mg/dL (8.7-10.4); Carbon Dioxide 21 mmol/L (20-31); Chloride 104 mmol/L (98-107); Glucose 99 mg/dL (74-106); Potassium 3.8 mmol/L (3.5-5.1); Sodium 137 mmol/L (136-145); Total Protein 6.3 g/dL (5.7-8.2)
[2025-01-07 18:26] LABS: Bilirubin, Total 1.5 mg/dL (0.2-1.0)
[2025-01-07] MEDS: SODIUM CHLORIDE 0.9% 1,000 ML IV ONE ×2 (18:41→20:27)
[2025-01-07 18:57] LABS: Lactic Acid w/Reflex 2.5 mmol/L (0.4-2.0)
[2025-01-07] MEDS ORDERED: ALBUTEROL SULF 2.5 MG/0.5ML(0.5%) NEB SOLN NEB PRN (19:30)
[2025-01-07] MEDS ORDERED: DOCUSATE SOD 100 MG CAP PO PRN (19:30)
[2025-01-07] MEDS ORDERED: ONDANSETRON HCL 4 MG/2 ML VIAL IV PRN (19:30)
[2025-01-07] MEDS ORDERED: IPRATROPIUM BROM 0.5 MG/2.5ML INH SOL NEB PRN (19:30)
[2025-01-07] MEDS ORDERED: HYDROcodone-ACET 5/325MG TAB PO PRN (19:30)
[2025-01-07] MEDS ORDERED: ACETAMINOPHEN 325 MG TAB PO PRN (19:30)
[2025-01-07 19:58] VITALS: O2SAT 100
[2025-01-07 20:00] VITALS: BP 92/73; PULSE 90; RESP 23; TEMP 97.9; O2SAT 100
[2025-01-07] MEDS: cefTRIAXone 1GM/50ML D5W 50 ML IV ONE (20:27)
--- NOTE | 2025-01-07 20:37 | DVHHP2 ---
History of Present Illness Reason for Visit: Generalized weakness History of Present Illness The patient is a 79-year-old male hard of hearing with multiple past medical history including Parkinson's disease, Coronary artery disease, dementia, hyperlipidemia, [place], and hypertension who presented to [facility] ED with complaint of shortness of breaths. As reported by EMS, patient was found to be desaturating on room air at 88%, associated with generalized weakness. Patient reported he was diagnosed with sepsis few times in last Ca and was in care home for more than 6 months. Patient was seen and evaluated in the ED, laboratory data shows WBC 7.4, platelets 159, sodium 137, potassium 3.8, BUN 17, creatinine 0.73, glucose 99, calcium 9.7, BNP 74.80, total bilirubin 1.5, lactic acid 2.5, blood pressure 92/73, heart rate 102, temperature 97.9 F O2 saturation 96% on oxygen. Chest x-ray showed no cardiopulmonary disease. Patient was started on IV antibiotic regimen Rocephin, given IV fluid normal saline, please see medication orders section in the computer. On my assessment, patient denied chest pain, no headache, no dizziness, currently on oxygen, no nausea, no vomiting, no fever, no chills. Patient was admitted for further evaluation and medical management. Past Medical History Pressure ulcer right ankle, Parkinson's, Angina, CAD, CVA, Dementia, High Lipids, HTN, LA Past Surgical History Appendectomy, Pacemaker Family History Reviewed, noncontributory to the management of this case. Past Social History The patient lives at home, denies smoking, alcohol or illicit drugs abuse. Review of Systems Constitutional: Yes: Weakness, Other (Fatigue); No: Fever, Chills, Sweats, Malaise Eyes: No: Pain, Vision change, Conjunctivae inflammation, Eyelid inflammation, Other, Redness ENT: No: Ear pain, Ear discharge, Nose pain, Nose discharge, Nose congestion, Mouth pain, Mouth swelling, Throat pain, Throat swelling, Other Respiratory: Shortness of breath; No: Cough, Dry, SOB with excertion, Wheezing, Hemoptysis, Pleuritic Pain, Sputum, Wheezing, Other Cardiovascular: Chest Pain; No: Palpitations, Orthopnea, Paroxysmal Noc. Dyspnea, Edema, Lt Headedness, Other Gastrointestinal: No: Nausea, Vomiting, Abdominal Pain, Diarrhea, Constipation, Melena, Hematochezia, Other Genitourinary: No Dysuria, No Frequency, No Incontinence, No Hematuria, No Retention, No Other Musculoskeletal: No: other, neck pain, shoulder pain, arm pain, back pain, hand pain, leg pain, foot pain Skin: Other (Pressure ulcer right ankle); No: Rash, Lesions, Jaundice, Bruising Neurological: No: Weakness, Numbness, Incoordination, Change in speech, Confusion, Seizures, Other Allergies: Coded Allergies: NO KNOWN ALLERGIES (Unverified , 06/06/22) Medications Current Medications Medications Dose Ordered Sig/Annalee Route Start Time Stop Time Status Last Admin Dose Admin Aspirin 81 mg DAILY PO 01/08/25 10:00 Atorvastatin Calcium 20 mg HS PO 01/07/25 22:00 Finasteride 5 mg DAILY PO 01/08/25 10:00 Albuterol 2.5 mg Q4HPRN PRN NEB 01/07/25 19:30 Ipratropium [place] 0.5 mg Q4HPRN PRN NEB 01/07/25 19:30 Sodium Chloride 1,000 ml @ 60 mls/hr [id number] IV 01/07/25 19:30 Acetaminophen/ Hydrocodone Bitart 1 tab Q4HP PRN PO 01/07/25 19:30 Ondansetron HCl 4 mg Q4HP PRN IV 01/07/25 19:30 Docusate Sodium 100 mg BIDPRN PRN PO 01/07/25 19:30 Acetaminophen 650 mg Q6HP PRN PO 01/07/25 19:30 Exam Vital Signs Vital Signs Date Time Temp Pulse Resp B/P (MAP) Pulse Ox O2 Delivery O2 Flow Rate FiO2 01/07/25 20:00 97.9 90 23 92/73 100 2.0 28 97.9 01/07/25 20:00 Nasal Cannula General Appearance: Alert, Oriented X3, Cooperative, No acute distress HEENT: Atraumatic, PERRLA, EOMI, Mucous membr. moist/pink Respiratory: Clear to auscultation, Normal air movement Cardiovascular: Regular rate, Normal S1, Normal S2, No murmurs Abdominal: Normal bowel sounds, Soft, No tenderness, No hepatospenomegaly, No masses Extremities: No clubbing, No cyanosis, No edema, Normal pulses, No tenderness/swelling Skin: No rashes, No significant lesion Neuro: Normal speech, Normal tone, Sensation intact, Cranial nerves 3-12 NL, Reflexes 2+, Other (Generalized weakness) Psych/Mental Status: Mental status NL, Mood NL Labs/Xrays Labs Test 01/07/25 19:47 01/07/25 17:49 Range/Units White Blood Count 7.4 4.4-10.8 10^3/uL Red Blood Count 4.50 4.5-5.90 10^6/uL Hemoglobin 14.5 13.5-17.5 g/dL Hematocrit 41.7 41.0-53.0 % Mean Corpuscular Volume 92.7 80.0-100.0 fL Mean Corpuscular Hemoglobin 32.2 H 28.0-32.0 pg Mean Corpuscular Hemoglobin Concent 34.7 32.0-36.0 g/dL Red Cell Distribution Width 14.8 H 11.8-14.3 % Platelet Count 159 140-450 10^3/uL Mean Platelet Volume 10.2 6.9-10.8 fL Neutrophils (%) (Auto) 60.8 37.0-80.0 % Lymphocytes (%) (Auto) 28.8 10.0-50.0 % Monocytes (%) (Auto) 7.8 0.0-12.0 % Eosinophils (%) (Auto) 2.2 0.0-7.0 % Basophils (%) (Auto) 0.4 0.0-2.0 % Neutrophils # (Auto) 4.5 1.6-8.6 10 ^3/uL Lymphocytes # (Auto) 2.1 0.4-5.4 10 ^3/uL Monocytes # (Auto) 0.6 0-1.3 10 ^3/uL Eosinophils # (Auto) 0.2 0-0.8 10 ^3/uL Basophils # (Auto) 0 0-0.2 10 ^3/uL Nucleated Red Blood Cells 0.1 % Sodium Level 137 136-145 mmol/L Potassium Level 3.8 3.5-5.1 mmol/L Chloride Level 104 98-107 mmol/L Carbon Dioxide Level 21 20-31 mmol/L Anion Gap 12 5-15 Blood Urea Nitrogen 17 9-23 mg/dL Creatinine 0.73 0.700-1.30 mg/dL Glomerular Filtration Rate Calc 93 >90 mL/min BUN/Creatinine Ratio 23.3 H 10.0-20.0 Serum Glucose 99 74-106 mg/dL Calcium Level 9.7 8.7-10.4 mg/dL Total Bilirubin 1.5 H 0.2-1.0 mg/dL Aspartate Amino Transferase (AST) 36 13-40 U/L Alanine Aminotransferase (ALT) 24 7-40 U/L Alkaline Phosphatase 74 46-116 U/L B-Type Natriuretic Peptide 74.80 0-100 pg/mL Total Protein 6.3 5.7-8.2 g/dL Albumin 3.6 3.2-4.8 g/dL PATIENT: FRED VIRK DACCT: [id number] UNIT: [id number] : 1945 LOC: ER ROOM / BED: / AGE / SEX: 79 / M ADM STATUS: REG ER SERVICE 27 ORDERING PHYSICIAN: ANDREI MAHONEY RESIDENT PROCEDURE(s): CXRP - CHEST PORTABLE REASON: sob ORDER NUMBER(s): [id number], ACCESSION NUMBER(s): [id number] CHEST RADIOGRAPH Indication: sob Technique: Single frontal view of the chest was obtained Comparison: XY CHEST PORTABLE on DOS: 05/07/24, XY CHEST PORTABLE on DOS: 12/29/23, XY CHEST PORTABLE on DOS: 12/24/23 FINDINGS: Lines and Tubes: None. Left-sided approach dual lead pacemaker terminating within the right atrium and right ventricle. Lungs: No focal consolidation. Pleura: No effusion. No pneumothorax. Cardiomediastinal contours: Unremarkable Bones: No acute osseous abnormality. IMPRESSION: No acute cardiopulmonary disease. SEPSIS Sepsis Screen Date sepsis recognized/suspect: Jan 07, 2025 Time Sepsis recognized/suspect: 19:00 Recent Procedure: No On Antibiotic Therapy: Yes Respiratory Rate >20: Yes Heart Rate >90: Yes Temp<36 C (96.8 F) or >38.3 C: No SBP <90 or MAP <65 mmHG: No New Acute Mental Status Change: No Is the patient on CPAP, BIPAP,: No IV fluid challenge completed?: No Physician Orders Urinalysis (01/07/25 17:28) Chest Portable (01/07/25 17:28) Aspirin Tablet (01/08/25 10:00) Atorvastatin (Lipitor) (01/07/25 22:00) Finasteride Tablet (Proscar Tablet) (01/08/25 10:00) Albuterol Medneb (Ventolin Medneb) (01/07/25 19:30) Ipratropium Medneb (Atrovent Medneb) (01/07/25 19:30) Allergies (01/07/25 19:28) Code Status (01/07/25 19:28) Sodium Chloride 0.9% (01/07/25 19:30) Oxygen Per Hour (01/07/25 19:28) Hydrocodone-Acet 5/325mg Tab ([place] 5/32 (01/07/25 19:30) Ondansetron Hcl (Zofran) (01/07/25 19:30) Docusate Sodium Capsule (Colace Capsule) (01/07/25 19:30) Complete Blood Count (01/08/25 04:00) Comprehensive Metabolic Panel (01/08/25 04:00) Cardiac Diet-2gna,Lofat,Lochol (01/08/25 Breakfast) Condition: Serious (01/07/25 19:28) Acetaminophen Tablet (Tylenol Tablet) (01/07/25 19:30) Bedrest With Bathroom Privileg (01/07/25 19:) Sequential Compression Device (01/07/25 ) Admit (01/07/25 20:31) Nitroglycerin Sublingual (Ntrostat Subli (01/07/25 20:45) Morphine Sulfate Injection (01/07/25 20:45) Stat Ekg For Chest Pain (01/07/25 20:31) Notify Md Of Changes From Base (01/07/25 20:31) Nitroglycerin Supervisor For 24 Hours (01/07/25 20:31) Emergency Dysrhythmia Protocol (01/07/25 20:31) Rhythm Strips Once Every Shift (01/07/25 20:31) Oxygen By Nasal Cannula (01/07/25 20:31) Vital Signs Date Time Temp Pulse Resp B/P (MAP) Pulse Ox O2 Delivery O2 Flow Rate FiO2 01/07/25 20:00 97.9 90 23 92/73 100 2.0 28 97.9 01/07/25 20:00 100 Nasal Cannula 2.0 01/07/25 20:00 100 Nasal Cannula* 2 28 01/07/25 19:58 100 Nasal Cannula 2.0 01/07/25 19:58 100 Nasal Cannula* 2 28 01/07/25 18:00 92 01/07/25 17:44 117 20 92/73 (79) 98 01/07/25 17:44 106 20 96 Nasal Cannula* 4 36 01/07/25 17:29 97.9 93 15 161/66 100 97.9 01/07/25 17:28 96 Laboratory Tests Test 01/07/25 17:49 01/07/25 19:47 Lactic Acid Level 2.5 mmol/L (0.4-2.0) *H Pending White Blood Count 7.4 10^3/uL (4.4-10.8) Medications Medications Dose Ordered Sig/Annalee Route Start Time Stop Time Status Last Admin Dose Admin Aspirin 325 mg ONCE ONCE PO 01/07/25 17:45 01/07/25 18:05 DC 01/07/25 18:40 325 MG Ceftriaxone Sodium 50 ml @ 100 mls/hr ONCE ONCE IV 01/07/25 19:15 01/07/25 19:55 DC 01/07/25 20:27 100 MLS/HR Sodium Chloride 1,000 ml @ 1,000 mls/hr Q1H ONCE IV 01/07/25 17:45 01/07/25 18:44 DC 01/07/25 18:41 1,000 MLS/HR Sodium Chloride 1,000 ml @ 1,000 mls/hr Q1H ONCE IV 01/07/25 19:15 01/07/25 20:14 DC 01/07/25 20:27 1,000 MLS/HR Assessment/Plan Assessment/Plan UTI (urinary tract infection) Elevated lactic acid level Generalized weakness Plan 1. Admit to 2. Breathing treatment 3. Pain control management 4. IV antibiotic management 5. Management of fluids and electrolytes 6. Consultation for wound care etc 7. Diagnostic test 8. DVT prophylaxis 9. Repeat labs 10. Home medication reviewed and reconciled 11. Continue with current medical management 12. Treatment plan discussed with patient and RN. Patient verbalized understanding. Plan discussed with: Patient, Other (RN) My Orders Orders - SAMANTHA INIGUEZ DNP Procedure Category Date Status Time Aspirin Tablet PHA 01/08/25 In Process 10:00 Atorvastatin (Lipitor) PHA 01/07/25 In Process 22:00 Finasteride Tablet PHA 01/08/25 In Process (Proscar Tablet) 10:00 Albuterol Medneb PHA 01/07/25 In Process (Ventolin Medneb) 19:30 Ipratropium Medneb PHA 01/07/25 In Process (Atrovent Medneb) 19:30 Allergies DARYL 01/07/25 In Process 19:28 Code Status CODE 01/07/25 Transmitted 19:28 Sodium Chloride 0.9% PHA 01/07/25 In Process 19:30 Oxygen Per Hour RT 01/07/25 Transmitted 19:28 Hydrocodone-Acet PHA 01/07/25 In Process 5/325mg Tab ([place] 19:30 Ondansetron Hcl PHA 01/07/25 In Process (Zofran) 19:30 Docusate Sodium PHA 01/07/25 In Process Capsule (Colace 19:30 Complete Blood Count LAB 01/08/25 Verified 04:00 Comprehensive LAB 01/08/25 Verified Metabolic Panel 04:00 Cardiac DIET 01/08/25 Transmitted Diet-2gna,Lofat,Lochol Breakfast Condition: Serious DARYL 01/07/25 In Process 19:28 Acetaminophen Tablet PHA 01/07/25 In Process (Tylenol Tablet) 19:30 Bedrest With Bathroom DARYL 01/07/25 In Process Privileg 19:28 Sequential DARYL 01/07/25 In Process Compression Device Admit ADMIT 01/07/25 Transmitted 20:31 Nitroglycerin PHA 01/07/25 Transmitted Sublingual (Ntrostat 20:45 Morphine Sulfate PHA 01/07/25 Transmitted Injection 20:45 Stat Ekg For Chest DARYL 01/07/25 Transmitted Pain 20:31 Notify Md Of Changes [facility] 01/07/25 Transmitted From Base 20:31 Nitroglycerin Supervisor For [facility] 01/07/25 Transmitted 24 Hours 20:31 Emergency Dysrhythmia DARYL 01/07/25 Transmitted Protocol 20:31 Rhythm Strips Once DARYL 01/07/25 Transmitted Every Shift 20:31 Oxygen By Nasal RT 01/07/25 Transmitted Cannula 20:31 Problem List: (1) UTI (urinary tract infection) (2) Elevated lactic acid level (3) Generalized weakness Date of Service: Jan 07, 2025 Billing Provider: SAMANTHA INIGUEZ DNP Common Visit Codes: [id number] INP/OBS CARE (HIGH) SAMANTHA INIGUEZ [facility] Jan 07, 2025 20:37
[2025-01-07] MEDS: SODIUM CHLORIDE 0.9% 1,000 ML IV SCH (20:43)
[2025-01-07] MEDS ORDERED: NITROGLYCERIN 0.4 MG SL TAB SL PRN (20:45)
[2025-01-07] MEDS: ATORVASTATIN 20 MG TAB PO SCH (22:40)
[2025-01-08] MEDS: SODIUM CHLORIDE 0.9% 500 ML IV ONE (00:16)
[2025-01-08 00:45] LABS: Lactic Acid w/Reflex 2.6 mmol/L (0.4-2.0)
[2025-01-08] MEDS: MORPHINE SULFATE INJ 2 MG/ml SYRG IV PRN (03:54)
--- NOTE | 2025-01-08 04:04 | ECG ---
[facility] Test Date: 2025-01-08 Test Time: 04:03:28 Pat Name: FRED VIRK Department: ED Room: [address] [place] [address] Gender: M Bombsight Specialist: FELICITAS : 1945 Requested By: CARL DIANE Order Number: [id number] Reading MD: Nhan Del Castillo Measurements Intervals [place] Rate: 93 P: 0 NM: 0 QRS: 264 QRSD: 165 T: 70 QT: 433 QTc: 539 Interpretive Statements Afib/flutter and ventricular-paced rhythm No further analysis attempted due to paced rhythm Baseline wander in lead(s) II,V2,V6 Electronically Signed On 01-08-2025 17:54:54 PDT by Nhan Del Castillo Please click the below link to view image of tracing.
[2025-01-08 06:01] LABS: Hematocrit 38.1 % (41.0-53.0); Hemoglobin 13.1 g/dL (13.5-17.5); Mean Corpuscular Hemoglobin 32.2 pg (28.0-32.0); Mean Corpuscular Volume 93.8 fL (80.0-100.0); Nucleated Red Blood Cells % 0.1 %
[2025-01-08 06:05] VITALS: O2SAT 100
[2025-01-08 06:15] LABS: Alanine Aminotransferase 18 U/L (7-40); Alkaline Phosphatase 64 U/L (46-116); Anion Gap 12 (5-15); BUN/Creatinine Ratio 31.3 (10.0-20.0); Blood Urea Nitrogen 15 mg/dL (9-23); Glucose 89 mg/dL (74-106); Sodium 137 mmol/L (136-145)
[2025-01-08 06:19] LABS: Albumin 3.0 g/dL (3.2-4.8); Bilirubin, Total 1.5 mg/dL (0.2-1.0); Calcium 8.3 mg/dL (8.7-10.4); Carbon Dioxide 18 mmol/L (20-31); Chloride 107 mmol/L (98-107); Potassium 3.4 mmol/L (3.5-5.1); Total Protein 5.4 g/dL (5.7-8.2)
[2025-01-08 08:00] VITALS: PULSE 87; RESP 15; O2SAT 99
[2025-01-08] MEDS: cefTRIAXone 1GM/50ML D5W 50 ML IV SCH (10:52)
[2025-01-08] MEDS: FINASTERIDE 5 MG TAB PO SCH (10:52)
[2025-01-08] MEDS ORDERED: VANCOMYCIN PER PHARMACY 0 MG IV SCH (14:30)
--- NOTE | 2025-01-08 14:32 | DVHPN2 ---
Assessment/Plan Assessment/Plan progress note 79 M bed bound from SNF with CAD s/p DESx2, s/p PPM, Parkinson, hx of CVA, pressure ulcer admitted for generalized weakness. physical exam aox2, pleasantly confused no JVD coarse breath sounds s1 s2 rrr abdomen soft nontender b/l LE edema labs ekg imaging reviewed assessment and plan metabolic encephalopathy 2/2 sepsis? UTI? CAD s/p FELICIANO x2 SSS s/p PPM parkinsons hx of CVA sacral wound lactic acidosis hypokalemia empiric vanc and Zosyn reusme home meds pond wound consult iv fluid avoid BEERS meds delirium precautionua diet advance as tolerated dvt ppx lovenox full code Plan discussed with: Patient Date of Service: Jan 08, 2025 Billing Provider: MINDI MCGREGOR MD Common Visit Codes: [id number] INP/OBS CARE(HIGH) MINDI MCGREGOR MD Jan 08, 2025 14:32
[2025-01-08] MEDS: PIPERACILLIN-TAZOB 3.375GM 100 ML IV ONE (15:44)
[2025-01-08 16:43] LABS: Urine Protein, UAD Negative (Negative)
[2025-01-08 18:40] VITALS: BP 140/77; PULSE 86; RESP 24; TEMP 97.4; O2SAT 100
[2025-01-08] MEDS: VANCOMYCIN 1GM/200ML PM 200 ML IV ONE (18:51)
[2025-01-08 20:00] VITALS: PULSE 90; RESP 17; O2SAT 100
[2025-01-08 21:00] VITALS: BP 110/62; PULSE 90; RESP 17; TEMP 97.7; O2SAT 100
[2025-01-08] MEDS: PIPERACILLIN-TAZOB 3.375GM 100 ML IV SCH (22:17)
[2025-01-09] VITALS (8 sets, daily range): BP systolic 114–120; BP diastolic 57–69; PULSE 73–99; RESP 14–20; TEMP 97–98.2; O2SAT 90–100
[2025-01-09 06:42] LABS: Hematocrit 38.9 % (41.0-53.0); Hemoglobin 13.6 g/dL (13.5-17.5); Mean Corpuscular Hemoglobin 32.3 pg (28.0-32.0); Mean Corpuscular Volume 91.9 fL (80.0-100.0); Nucleated Red Blood Cells % 0.0 %
[2025-01-09 06:45] LABS: Chloride 105 mmol/L (98-107); Sodium 137 mmol/L (136-145)
[2025-01-09 06:46] LABS: Anion Gap 12 (5-15); Carbon Dioxide 20 mmol/L (20-31); Potassium 3.1 mmol/L (3.5-5.1)
[2025-01-09 06:47] LABS: Calcium 9.0 mg/dL (8.7-10.4)
[2025-01-09 06:51] LABS: BUN/Creatinine Ratio 21.0 (10.0-20.0); Blood Urea Nitrogen 13 mg/dL (9-23); Glucose 119 mg/dL (74-106)
[2025-01-09 06:54] LABS: Magnesium 1.5 mg/dL (1.6-2.6)
[2025-01-09] MEDS: ENOXAPARIN SOD 40 MG/0.4 ML SYRINGE SC SCH (10:13)
[2025-01-09] MEDS ORDERED: ONDANSETRON HCL 4 MG/2 ML VIAL IV PRN (10:30)
[2025-01-09] MEDS ORDERED: KETOROLAC TROMETH 30 MG/ML 1ML VIAL IV PRN (10:30)
[2025-01-09] MEDS: VANCOMYCIN 1GM/200ML PM 200 ML IV SCH (13:36)
[2025-01-09 16:16] LABS: COVID19 ANTIGEN SOFIA FIA NEGATIVE (NEGATIVE)
[2025-01-09] MEDS: POTASSIUM EFFERVESENT TAB 25 MEQ PO ONE (16:49)
[2025-01-09] MEDS: MAGNESIUM SULFATE 1GM/100ML 100 ML IV SCH (18:33)
[2025-01-10] VITALS (9 sets, daily range): BP systolic 92–121; BP diastolic 53–68; PULSE 80–100; RESP 17–18; TEMP 97.5–98; O2SAT 95–100
[2025-01-10 10:57] LABS: Hepatitis B Surface Antigen Negative (Negative); Hepatitis C Antibody Negative (Negative)
[2025-01-10] MEDS: POTASSIUM EFFERVESENT TAB 25 MEQ PO ONE (15:23)
--- NOTE | 2025-01-10 17:13 | DVHPN2 ---
Subjective Overnight events noted. Patient's denies any complaints. Currently on broad- spectrum IV antibiotics. Changes from previous H/P or p: No Changes Eyes: No Pain, No Vision change, No Conjunctivae inflammation, No Eyelid inflammation, No Other, No Redness ENT: No Ear pain, No Ear discharge, No Nose pain, No Nose discharge, No Nose congestion, No Mouth pain, No Mouth swelling, No Throat pain, No Throat swelling, No Other Cardiovascular: Chest Pain; No Palpitations, No Orthopnea, No Paroxysmal Noc. Dyspnea, No Edema, No Lt Headedness, No Other Respiratory: No Cough, No Dry; Shortness of breath; No SOB with excertion, No Wheezing, No Hemoptysis, No Pleuritic Pain, No Sputum, No Other Gastrointestinal: No Nausea, No Vomiting, No Abdominal Pain, No Diarrhea, No Constipation, No Melena, No Hematochezia, No Other Genitourinary: No Dysuria, No Frequency, No Incontinence, No Hematuria, No Retention, No Other Musculoskeletal: No other, No neck pain, No shoulder pain, No arm pain, No back pain, No hand pain, No leg pain, No foot pain Skin: No Rash, No Lesions, No Jaundice, No Bruising; Other (Pressure ulcer right ankle) Objective Vitals Vital Signs Date Time Temp Pulse Resp B/P (MAP) Pulse Ox O2 Delivery O2 Flow Rate FiO2 01/10/25 16:46 98.0 89 18 105/65 (78) 95 98.0 01/10/25 08:10 Nasal Cannula* 2 N/A Oxymizer Intake/Output Intake and Output 01/10/25 07:00 Intake Total 1590 ml Output Total 800 ml Balance 790 ml Intake Oral 1190 ml IV Total 400 ml Output Urine Total 800 ml Exam HEENT pupils are reactive Neck is supple CV is S1-S2 regular rate and rhythm Respiratory diminished breath sounds bases GI positive bowel sound Extremity no edema 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 Medications Current Medications Medications Dose Ordered Sig/Annalee Route Start Time Stop Time Status Last Admin Dose Admin Aspirin 81 mg DAILY PO 01/08/25 10:00 01/10/25 09:11 81 MG Atorvastatin Calcium 20 mg HS PO 01/07/25 22:00 01/09/25 20:54 20 MG Finasteride 5 mg DAILY PO 01/08/25 10:00 01/10/25 09:11 5 MG Acetaminophen 650 mg Q6HP PRN PO 01/07/25 19:30 Morphine Sulfate 2 mg Q30M PRN IV 01/07/25 20:45 01/08/25 03:54 2 MG Vancomycin HCl 0 ml @ 0 mls/hr UD IV 01/08/25 14:30 01/13/25 14:29 Piperacillin Sod/ Tazobactam Sod 100 ml @ 25 mls/hr Q8HR IV 01/08/25 22:00 01/10/25 14:40 25 MLS/HR Enoxaparin Sodium 40 mg DAILY SC 01/09/25 10:00 01/10/25 09:13 40 MG Ondansetron HCl 4 mg Q8HPRN PRN IV 01/09/25 10:30 Ketorolac Tromethamine 30 mg Q6HPRN PRN IV 01/09/25 10:30 01/14/25 10:29 Vancomycin HCl 200 ml @ 200 mls/hr Q12H IV 01/09/25 12:00 01/10/25 11:56 200 MLS/HR Laboratory Results Laboratory Tests 01/09/25 05:45 01/10/25 11:12 Urinalysis Test 01/08/25 16:00 Urine Color Light-yellow (Yellow) Urine Clarity Clear (Clear) Urine pH 6.5 (5.0-9.0) Urine Specific Max 1.012 (1.001-1.035) Urine Protein Negative (Negative) Urine Ketones 1+ (Negative) H Urine Blood Trace /uL (Negative) H Urine Nitrite Negative (Negative) Urine Bilirubin Negative (Negative) Urine Urobilinogen Normal mg/dL (Negative) Urine Leukocyte Esterase Negative /uL (Negative) Urine RBC 2 /hpf (0 - 3) Urine Microscopic WBC 1 /HPF (0-3) Urine Squamous Epithelial Cells None seen /hpf (<5) Urine Bacteria None seen /hpf (None Seen) Urine Glucose Normal mg/dL (Normal) Microbiology Microbiology Date/Time Source Procedure Growth Status 01/09/25 16:32 Foot Right Gram Stain - Final Resulted 01/09/25 16:32 Foot Right Wound Culture - Preliminary Resulted Assessment/Plan Assessment/Plan 79-year-old male with a known history of CAD status post PCI x2, status post permanent pacemaker placement, Parkinson's disease, history of CVA , right foot wound initially presented to the hospital with generalized weakness found to have 1. Acute metabolic/septic encephalopathy 2. Right foot wound rule out sepsis 3. Coronary artery disease status post PCI x2 4. Sick sinus syndrome status post permanent pacemaker placement 5. Sacral wound 6. Right foot wound 7. Parkinson's disease 8. History of CVA -broad-spectrum IV antibiotics follow up wound Gram stain and culture, PT evaluation and treatment. Plan discussed with: Patient My Orders Orders - BORIS SALAS MD Procedure Category Date Status Time Mrsa Screen CARINE 01/10/25 In Process 15:09 Date of Service: Jan 10, 2025 Billing Provider: BORIS SALAS MD Common Visit Codes: [id number] INP/OBS CARE(MOD) BORIS SALAS MD Jan 10, 2025 17:13
[2025-01-11] VITALS (8 sets, daily range): BP systolic 87–123; BP diastolic 15–76; PULSE 77–90; RESP 15–20; TEMP 97–98.9; O2SAT 94–100
[2025-01-11 06:41] LABS: Hematocrit 37.6 % (41.0-53.0); Hemoglobin 13.2 g/dL (13.5-17.5); Mean Corpuscular Hemoglobin 32.3 pg (28.0-32.0); Mean Corpuscular Volume 92.3 fL (80.0-100.0); Nucleated Red Blood Cells % 0.1 %
--- NOTE | 2025-01-11 18:32 | DVHPN2 ---
Subjective 79-year-old male with a known history of CAD status post PCI x2, status post permanent pacemaker placement, Parkinson's disease, history of CVA , right foot wound initially presented to the hospital with generalized weakness found to have 1. Acute metabolic/septic encephalopathy 2. Right foot wound rule out sepsis 3. Coronary artery disease status post PCI x2 4. Sick sinus syndrome status post permanent pacemaker placement 5. Sacral wound 6. Right foot wound with a MRSA 7. Parkinson's disease 8. History of CVA -continue current IV antibiotics, PT evaluation and treatment, discharge plan on oral antibiotics. Changes from previous H/P or p: No Changes Eyes: No Pain, No Vision change, No Conjunctivae inflammation, No Eyelid inflammation, No Other, No Redness ENT: No Ear pain, No Ear discharge, No Nose pain, No Nose discharge, No Nose congestion, No Mouth pain, No Mouth swelling, No Throat pain, No Throat swelling, No Other Cardiovascular: Chest Pain; No Palpitations, No Orthopnea, No Paroxysmal Noc. Dyspnea, No Edema, No Lt Headedness, No Other Respiratory: No Cough, No Dry; Shortness of breath; No SOB with excertion, No Wheezing, No Hemoptysis, No Pleuritic Pain, No Sputum, No Other Gastrointestinal: No Nausea, No Vomiting, No Abdominal Pain, No Diarrhea, No Constipation, No Melena, No Hematochezia, No Other Genitourinary: No Dysuria, No Frequency, No Incontinence, No Hematuria, No Retention, No Other Musculoskeletal: No other, No neck pain, No shoulder pain, No arm pain, No back pain, No hand pain, No leg pain, No foot pain Skin: No Rash, No Lesions, No Jaundice, No Bruising; Other (Pressure ulcer right ankle) Objective Vitals Vital Signs Date Time Temp Pulse Resp B/P (MAP) Pulse Ox O2 Delivery O2 Flow Rate FiO2 01/11/25 17:23 98.7 84 20 123/62 (82) 94 98.7 01/11/25 08:00 Nasal Cannula* 2 N/A Oxymizer Intake/Output Intake and Output 01/11/25 07:00 Intake Total 2840 ml Output Total 1900 ml Balance 940 ml Intake Oral 2140 ml IV Total 700 ml Output Urine Total 1900 ml Exam HEENT pupils are reactive Neck is supple CV is S1-S2 regular rate and rhythm Respiratory diminished breath sounds bases GI positive bowel sound Extremity no edema 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 Medications Current Medications Medications Dose Ordered Sig/Annalee Route Start Time Stop Time Status Last Admin Dose Admin Aspirin 81 mg DAILY PO 01/08/25 10:00 01/11/25 10:06 81 MG Atorvastatin Calcium 20 mg HS PO 01/07/25 22:00 01/10/25 21:45 20 MG Finasteride 5 mg DAILY PO 01/08/25 10:00 01/11/25 10:05 5 MG Acetaminophen 650 mg Q6HP PRN PO 01/07/25 19:30 Morphine Sulfate 2 mg Q30M PRN IV 01/07/25 20:45 01/08/25 03:54 2 MG Vancomycin HCl 0 ml @ 0 mls/hr UD IV 01/08/25 14:30 01/13/25 14:29 Piperacillin Sod/ Tazobactam Sod 100 ml @ 25 mls/hr Q8HR IV 01/08/25 22:00 01/11/25 15:08 25 MLS/HR Enoxaparin Sodium 40 mg DAILY SC 01/09/25 10:00 01/11/25 10:05 40 MG Ondansetron HCl 4 mg Q8HPRN PRN IV 01/09/25 10:30 Ketorolac Tromethamine 30 mg Q6HPRN PRN IV 01/09/25 10:30 01/14/25 10:29 Vancomycin HCl 200 ml @ 200 mls/hr Q12H IV 01/09/25 12:00 01/11/25 12:20 200 MLS/HR Mupirocin 1 applic BID EACHNOSTRI 01/11/25 22:00 01/16/25 21:59 Laboratory Results Laboratory Tests 01/09/25 05:45 01/11/25 06:00 Urinalysis Test 01/08/25 16:00 Urine Color Light-yellow (Yellow) Urine Clarity Clear (Clear) Urine pH 6.5 (5.0-9.0) Urine Specific [place] 1.012 (1.001-1.035) Urine Protein Negative (Negative) Urine Ketones 1+ (Negative) H Urine Blood Trace /uL (Negative) H Urine Nitrite Negative (Negative) Urine Bilirubin Negative (Negative) Urine Urobilinogen Normal mg/dL (Negative) Urine Leukocyte Esterase Negative /uL (Negative) Urine RBC 2 /hpf (0 - 3) Urine Microscopic WBC 1 /HPF (0-3) Urine Squamous Epithelial Cells None seen /hpf (<5) Urine Bacteria None seen /hpf (None Seen) Urine Glucose Normal mg/dL (Normal) Microbiology Microbiology Date/Time Source Procedure Growth Status 01/10/25 15:00 Nose MRSA Screen - Final Methicillin Resistant S.aureus Complete Assessment/Plan Assessment/Plan 79-year-old male with a known history of CAD status post PCI x2, status post permanent pacemaker placement, Parkinson's disease, history of CVA , right foot wound initially presented to the hospital with generalized weakness found to have 1. Acute metabolic/septic encephalopathy 2. Right foot wound rule out sepsis 3. Coronary artery disease status post PCI x2 4. Sick sinus syndrome status post permanent pacemaker placement 5. Sacral wound 6. Right foot wound 7. Parkinson's disease 8. History of CVA -IV antibiotics, wound care for the right foot wound, pressure also care -physical therapy evaluation and treatment, discharge plan. Plan discussed with: Patient Date of Service: Jan 11, 2025 Billing Provider: BORIS SALAS MD Common Visit Codes: [id number] INP/OBS CARE(MOD) BORIS SALAS MD Jan 11, 2025 18:32
[2025-01-11] MEDS: MUPIROCIN 2% OINT 15gm or 22gm FOR MRSA NARES EACHNOSTRI SCH (21:41)
[2025-01-12] VITALS (7 sets, daily range): BP systolic 93–118; BP diastolic 58–78; PULSE 81–117; RESP 17–19; TEMP 97.3–98; O2SAT 99–100
[2025-01-12 07:43] LABS: Hematocrit 37.1 % (41.0-53.0); Hemoglobin 12.8 g/dL (13.5-17.5); Mean Corpuscular Hemoglobin 31.6 pg (28.0-32.0); Mean Corpuscular Volume 91.5 fL (80.0-100.0); Nucleated Red Blood Cells % 0.1 %
--- NOTE | 2025-01-12 16:07 | DVHPN2 ---
Subjective 79-year-old male with a known history of CAD status post PCI x2, status post permanent pacemaker placement, Parkinson's disease, history of CVA , right foot wound initially presented to the hospital with generalized weakness found to have 1. Acute metabolic/septic encephalopathy 2. Right foot wound rule out sepsis 3. Coronary artery disease status post PCI x2 4. Sick sinus syndrome status post permanent pacemaker placement 5. Sacral wound 6. Right foot wound with a MRSA 7. Parkinson's disease 8. History of CVA -continue current IV antibiotics, PT evaluation and treatment, discharge plan on oral antibiotics. Changes from previous H/P or p: No Changes Eyes: No Pain, No Vision change, No Conjunctivae inflammation, No Eyelid inflammation, No Other, No Redness ENT: No Ear pain, No Ear discharge, No Nose pain, No Nose discharge, No Nose congestion, No Mouth pain, No Mouth swelling, No Throat pain, No Throat swelling, No Other Cardiovascular: Chest Pain; No Palpitations, No Orthopnea, No Paroxysmal Noc. Dyspnea, No Edema, No Lt Headedness, No Other Respiratory: No Cough, No Dry; Shortness of breath; No SOB with excertion, No Wheezing, No Hemoptysis, No Pleuritic Pain, No Sputum, No Other Gastrointestinal: No Nausea, No Vomiting, No Abdominal Pain, No Diarrhea, No Constipation, No Melena, No Hematochezia, No Other Genitourinary: No Dysuria, No Frequency, No Incontinence, No Hematuria, No Retention, No Other Musculoskeletal: No other, No neck pain, No shoulder pain, No arm pain, No back pain, No hand pain, No leg pain, No foot pain Skin: No Rash, No Lesions, No Jaundice, No Bruising; Other (Pressure ulcer right ankle) Objective Vitals Vital Signs Date Time Temp Pulse Resp B/P (MAP) Pulse Ox O2 Delivery O2 Flow Rate FiO2 01/12/25 13:00 98.0 87 17 93/58 (70) 100 98.0 01/12/25 08:00 Nasal Cannula* 2 N/A Oxymizer Intake/Output Intake and Output 01/12/25 07:00 Intake Total 1450 ml Output Total 1600 ml Balance -150 ml Intake Oral 1150 ml IV Total 300 ml Output Urine Total 1600 ml # Bowel Movements 1 Exam HEENT pupils are reactive Neck is supple CV is S1-S2 regular rate and rhythm Respiratory diminished breath sounds bases GI positive bowel sound Extremity no edema 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 Medications Current Medications Medications Dose Ordered Sig/Annalee Route Start Time Stop Time Status Last Admin Dose Admin Aspirin 81 mg DAILY PO 01/08/25 10:00 01/12/25 09:59 81 MG Atorvastatin Calcium 20 mg HS PO 01/07/25 22:00 01/11/25 21:41 20 MG Finasteride 5 mg DAILY PO 01/08/25 10:00 01/12/25 09:59 5 MG Acetaminophen 650 mg Q6HP PRN PO 01/07/25 19:30 Morphine Sulfate 2 mg Q30M PRN IV 01/07/25 20:45 01/08/25 03:54 2 MG Vancomycin HCl 0 ml @ 0 mls/hr UD IV 01/08/25 14:30 01/13/25 14:29 Piperacillin Sod/ Tazobactam Sod 100 ml @ 25 mls/hr Q8HR IV 01/08/25 22:00 01/12/25 14:29 25 MLS/HR Enoxaparin Sodium 40 mg DAILY SC 01/09/25 10:00 01/12/25 09:59 40 MG Ondansetron HCl 4 mg Q8HPRN PRN IV 01/09/25 10:30 Ketorolac Tromethamine 30 mg Q6HPRN PRN IV 01/09/25 10:30 01/14/25 10:29 Vancomycin HCl 200 ml @ 200 mls/hr Q12H IV 01/09/25 12:00 01/12/25 00:46 200 MLS/HR Mupirocin 1 applic BID EACHNOSTRI 01/11/25 22:00 01/16/25 21:59 01/12/25 10:00 1 APPLIC Laboratory Results Laboratory Tests 01/12/25 07:21 Chemistry Test 01/12/25 07:21 Calcium Level Pending Magnesium Level Pending Urinalysis Test 01/08/25 16:00 Urine Color Light-yellow (Yellow) Urine Clarity Clear (Clear) Urine pH 6.5 (5.0-9.0) Urine Specific [place] 1.012 (1.001-1.035) Urine Protein Negative (Negative) Urine Ketones 1+ (Negative) H Urine Blood Trace /uL (Negative) H Urine Nitrite Negative (Negative) Urine Bilirubin Negative (Negative) Urine Urobilinogen Normal mg/dL (Negative) Urine Leukocyte Esterase Negative /uL (Negative) Urine RBC 2 /hpf (0 - 3) Urine Microscopic WBC 1 /HPF (0-3) Urine Squamous Epithelial Cells None seen /hpf (<5) Urine Bacteria None seen /hpf (None Seen) Urine Glucose Normal mg/dL (Normal) Microbiology Microbiology Date/Time Source Procedure Growth Status 01/10/25 15:00 Nose MRSA Screen - Final Methicillin Resistant S.aureus Complete Assessment/Plan Assessment/Plan 79-year-old male with a known history of CAD status post PCI x2, status post permanent pacemaker placement, Parkinson's disease, history of CVA , right foot wound initially presented to the hospital with generalized weakness found to have 1. Acute metabolic/septic encephalopathy 2. Right foot wound rule out sepsis 3. Coronary artery disease status post PCI x2 4. Sick sinus syndrome status post permanent pacemaker placement 5. Sacral wound 6. Right foot wound 7. Parkinson's disease 8. History of CVA -IV antibiotics, wound care for the right foot wound, pressure also care -physical therapy evaluation and treatment, discharge plan. Plan discussed with: Patient My Orders Orders - BORIS SALAS MD Procedure Category Date Status Time * Clamshell Operator CONS 01/12/25 Transmitted Consult Basic Metabolic Panel LAB 01/12/25 In Process 15:58 Magnesium LAB 01/12/25 In Process 15:59 Date of Service: Jan 09, 2025 Billing Provider: BORIS SALAS MD Common Visit Codes: [id number] INP/OBS CARE(MOD) BORIS SALAS MD Jan 12, 2025 16:07
[2025-01-12] MEDS ORDERED: LINE1TAB6 PO (16:08)
--- NOTE | 2025-01-12 16:11 | DVHDS2 ---
Discharge Summary Date of Admission Jan 07, 2025 at 20:31 Date of Discharge: Jan 12, 2025 Labs/Diagnostic Data: Laboratory Results Test 01/12/25 12:00 01/12/25 07:21 01/09/25 15:15 01/09/25 05:45 Vancomycin Level Trough 22.3 ug/mL (5-10) White Blood Count 7.9 10^3/uL (4.4-10.8) Red Blood Count 4.05 10^6/uL (4.5-5.90) Hemoglobin 12.8 g/dL (13.5-17.5) Hematocrit 37.1 % (41.0-53.0) Mean Corpuscular Volume 91.5 fL (80.0-100.0) Mean Corpuscular Hemoglobin 31.6 pg (28.0-32.0) Mean Corpuscular Hemoglobin Concent 34.5 g/dL (32.0-36.0) Red Cell Distribution Width 14.9 % (11.8-14.3) Platelet Count 155 10^3/uL (140-450) Mean Platelet Volume 9.8 fL (6.9-10.8) Neutrophils (%) (Auto) 59.6 % (37.0-80.0) Lymphocytes (%) (Auto) 26.9 % (10.0-50.0) Monocytes (%) (Auto) 7.6 % (0.0-12.0) Eosinophils (%) (Auto) 5.1 % (0.0-7.0) Basophils (%) (Auto) 0.8 % (0.0-2.0) Neutrophils # (Auto) 4.7 10 ^3/uL (1.6-8.6) Lymphocytes # (Auto) 2.1 10 ^3/uL (0.4-5.4) Monocytes # (Auto) 0.6 10 ^3/uL (0-1.3) Eosinophils # (Auto) 0.4 10 ^3/uL (0-0.8) Basophils # (Auto) 0.1 10 ^3/uL (0-0.2) Nucleated Red Blood Cells 0.1 % Influenza Type A Antigen Negative (Negative) Influenza Type B Antigen Negative (Negative) SARS-CoV-2 Antigen (Rapid) Negative (NEGATIVE) Phosphorus Level 3.2 mg/dL (2.4-5.1) Test 01/08/25 16:00 01/08/25 05:29 01/08/25 01:53 01/07/25 17:49 Urine Color Light-yellow (Yellow) Urine Clarity Clear (Clear) Urine pH 6.5 (5.0-9.0) Urine Specific [place] 1.012 (1.001-1.035) Urine Protein Negative (Negative) Urine Ketones 1+ (Negative) Urine Blood Trace /uL (Negative) Urine Nitrite Negative (Negative) Urine Bilirubin Negative (Negative) Urine Urobilinogen Normal mg/dL (Negative) Urine Leukocyte Esterase Negative /uL (Negative) Urine RBC 2 /hpf (0 - 3) Urine Microscopic WBC 1 /HPF (0-3) Urine Squamous Epithelial Cells None seen /hpf (<5) Urine Bacteria None seen /hpf (None Seen) Urine Glucose Normal mg/dL (Normal) Total Bilirubin 1.5 mg/dL (0.2-1.0) Aspartate Amino Transferase (AST) 27 U/L (13-40) Alanine Aminotransferase (ALT) 18 U/L (7-40) Alkaline Phosphatase 64 U/L (46-116) Troponin I High Sensitivity 30 ng/L (</=54) Total Protein 5.4 g/dL (5.7-8.2) Albumin 3.0 g/dL (3.2-4.8) Hepatitis B Surface Antigen Negative (Negative) Hepatitis C Antibody Negative (Negative) Lactic Acid Level 2.1 mmol/L (0.4-2.0) B-Type Natriuretic Peptide 74.80 pg/mL (0-100) Other Laboratory Tests 01/12/25 07:21 Brief Hx & Hospital Course: 79-year-old male with a known history of CAD status post PCI x2, status post permanent pacemaker placement, Parkinson's disease, history of CVA , right foot wound initially presented to the hospital with generalized weakness found to have acute metabolic and septic encephalopathy . Patient was started on IV antibiotics. Patient also received wound care for the right foot wound which came back MRSA and Enterococcus faecalis. Patient did receive vancomycin and Zosyn during the hospital stay and which will be switched to Zyvox 600 mg p.o. for five more days. Patient is being discharged with the home health home safety evaluation under stable condition. Condition at Discharge: Undetermined Final Diagnosis/Problems List 79-year-old male with a known history of CAD status post PCI x2, status post permanent pacemaker placement, Parkinson's disease, history of CVA , right foot wound initially presented to the hospital with generalized weakness found to have 1. Acute metabolic/septic encephalopathy 2. Right foot wound rule out sepsis 3. Coronary artery disease status post PCI x2 4. Sick sinus syndrome status post permanent pacemaker placement 5. Sacral wound 6. Right foot wound 7. Parkinson's disease 8. History of CVA Discharge Disposition: Home with Health Services SNF Discharge Will this Physician continue t: No Discharge Instruct/Medications Diet: Cardiac 2g Na,low cholest Activity: No Restrictions, As Tolerated Follow Up/Referral: Follow up with the PCP in one week Medications: Medication as prescribed and reconciled. Scheduled Aspirin (Aspirin Low Dose), 81 MG PO DAILY Atorvastatin Calcium (Atorvastatin Calcium), 20 MG PO HS Clopidogrel Bisulfate (Clopidogrel), 75 MG PO DAILY Cyanocobalamin (B-12), 500 MCG SL DAILY Cyclobenzaprine Hcl (Cyclobenzaprine Hcl), 1 TAB PO QPM Ergocalciferol (Vitamin D 08845 Unit), 50,000 UNIT PO Q7D Finasteride (Finasteride), 1 TAB PO DAILY, (Reported) Fludrocortisone Acetate (Fludrocortisone Acetate), 0.1 MG PO DAILY, (Reported) Linezolid (Zyvox), 600 MG PO BID Metoprolol Tartrate (Lopressor), 12.5 MG PO BID Midodrine HCl (Midodrine HCl), 5 MG PO TID Pregabalin (Lyrica), 1 CAP PO TID, (Reported) Primidone (Mysoline Tablet), 100 MG PO HS Sertraline Hcl (Zoloft), 50 MG PO DAILY Scheduled PRN Meclizine Hcl (Meclizine Hcl), 25 MG PO Q8HPRN PRN Miscellaneous Medications Multiple Vitamins W/ Minerals (Mens 50+ Multi Vitamin &), 1 MIN PO, (Reported) Discharge Statement: "Patient was advised to return to the ER or call 911 if any headaches, dizziness, shortness of breath, chest pain, abdominal pain, bleeding, fevers, or worsening of medical condition. Patient was counseled about treatment plan, medications, possible side effects, patientverbalized understanding. All questions were answered to the best of my ability. This discharge took greater then 30 minutes in planning, reviewing documentation, counseling the patient, and discussing with other team members." ASSESSMENT ASSESSMENT Assessment 79-year-old male with a known history of CAD status post PCI x2, status post permanent pacemaker placement, Parkinson's disease, history of CVA , right foot wound initially presented to the hospital with generalized weakness found to have 1. Acute metabolic/septic encephalopathy 2. Right foot wound rule out sepsis 3. Coronary artery disease status post PCI x2 4. Sick sinus syndrome status post permanent pacemaker placement 5. Sacral wound 6. Right foot wound 7. Parkinson's disease 8. History of CVA Date of Service: Jan 12, 2025 Billing Provider: BORIS SALAS MD Common Visit Codes: [id number] DISCH DAY >30min BORIS SALAS MD Jan 12, 2025 16:11
[2025-01-12 16:13] LABS: Sodium 140 mmol/L (136-145)
[2025-01-12 16:15] LABS: Anion Gap 12 (5-15)
[2025-01-12 16:20] LABS: BUN/Creatinine Ratio 11.3 (10.0-20.0); Glucose 92 mg/dL (74-106)
[2025-01-12 16:30] LABS: Blood Urea Nitrogen 8 mg/dL (9-23); Calcium 8.3 mg/dL (8.7-10.4); Carbon Dioxide 20 mmol/L (20-31); Chloride 108 mmol/L (98-107); Potassium 3.5 mmol/L (3.5-5.1)
[2025-01-12] MEDS: VANCOMYCIN 750mg/100mL D5W or NS KIT IV SCH (17:53)
[2025-01-13 01:00] VITALS: BP 117/69; PULSE 72; RESP 19; TEMP 98; O2SAT 95
[2025-01-13 05:00] VITALS: BP 113/60; PULSE 79; RESP 19; TEMP 97.9; O2SAT 95
[2025-01-13 08:21] VITALS: PULSE 73
[2025-01-13 09:00] VITALS: BP 145/87; PULSE 76; RESP 17; TEMP 97; O2SAT 100
[2025-01-13 11:39] VITALS: BP 145/87; PULSE 76; TEMP 36.1; O2SAT 100
[2025-01-13 13:00] VITALS: BP 137/74; PULSE 73; RESP 17; TEMP 97.6; O2SAT 98
== END 2025-01-13 14:20 | disposition home or self-care (01) | DRG 871 ==
LOC: EDBD 17:09 → ER 17:09 → OVERFLOW 20:31 → TELE-CENTR 01-08 18:28 → TELE-WESTW 01-12 05:00
PROVIDERS: ADMIT Internal Medicine; ATTEND Internal Medicine
DX: A41.9 Sepsis, unspecified organism (principal); G93.41 Metabolic encephalopathy; E87.20 Acidosis, unspecified; N39.0 Urinary tract infection, site not specified; S90.921A Unspecified superficial injury of right foot, initial encounter; G20.A1 Parkinson's disease without dyskinesia, without mention of fluctuations; I10 Essential (primary) hypertension; F02.80 Dementia in other diseases classified elsewhere, unspecified severity, without behavioral disturbance, psychotic disturbance, mood disturbance, and anxiety; E87.6 Hypokalemia; I25.10 Atherosclerotic heart disease of native coronary artery without angina pectoris; Z20.822 Contact with and (suspected) exposure to COVID-19; R65.20 Severe sepsis without septic shock; E78.5 Hyperlipidemia, unspecified; Z90.49 Acquired absence of other specified parts of digestive tract; Z95.0 Presence of cardiac pacemaker; Z95.5 Presence of coronary angioplasty implant and graft; Z86.73 Personal history of transient ischemic attack (TIA), and cerebral infarction without residual deficits; Z74.01 Bed confinement status
CPT/HCPCS: 36415; 71045; 80048; 80053; 80202; 81001; 82565; 83605; 83735; 83880; 84100; 84484; 85025; 86803; 87077; 87081; 87186; 87205; 87340; 87426; 87804; 93005; 96365; G0378; J2543